=== PATIENT | male | born 1940 | race Caucasian/White ===

== ENCOUNTER 2018-07-01 03:11 | Inpatient (IN) | payer MEDICARE, BC ==
--- NOTE | 2018-07-01 03:17 | ED ---
Fall HPI - General Stated Complaint: Fall Time Seen by Provider: 07/01/18 03:11 - History of Present Illness Initial Comments: Jeremy is a pleasant 78-year-old gentleman who presents the ED via EMS as a transfer from an outside facility where he was evaluated for right hip pain. Earlier in the day on Saturday, June 30 patient was ambulating towards his exercise bike when he had a mechanical trip and fall onto his right hip. He did not strike his head or lose consciousness. He has felt immediate pain in his right hip and was unable to stand or bear weight. He was taken to an outside facility where computed tomography scan of the head and neck were negative for acute injuries, x-ray of the right hip and pelvis revealed a non- angulated nondisplaced subcapital femur fracture. The outside facility did not have orthopedics available and patient was so sclerae transferred here. - Related Data Allergies Allergy/AdvReac Type Severity Reaction Status Date / Time vancomycin Allergy Severe Rash/Hives Verified 07/01/18 03:25 Review of Systems ROS Statement: Those systems with pertinent positive or pertinent negative responses have been documented in the HPI. ROS Other: All systems not noted in ROS Statement are negative. Past Medical History Past Medical History: Coronary Artery Disease (CAD), Heart Failure, Diabetes Mellitus, Hearing Disorder / Deafness, Renal Disease, Vascular Disorder General Exam - General Exam Comments Initial Comments: Physical Exam GENERAL: Elderly gentleman, resting comfortably in no acute distress HENT: Normocephalic, Atraumatic. EYES: PERRL, EOMI PULMONARY: Unlabored respirations. No audible rales rhonchi or wheezing was noted. CARDIOVASCULAR: There is a regular rate and rhythm without any murmurs gallops or rubs. ABDOMEN: Soft and nontender with normal bowel sounds. SKIN: Skin is clear with no lesions or rashes and otherwise unremarkable. : Deferred NEUROLOGIC: Very hard of hearing Patient is alert and oriented x3 MUSCULOSKELETAL: Range of motion right hip limited by pain PSYCHIATRIC: Normal psychiatric evaluation. Limitations: no limitations Course Vital Signs 07/01/18 03:19 Temperature 97.8 F Pulse Rate 58 L Respiratory 19 Rate Blood Pressure 92/72 O2 Sat by Pulse 93 L Oximetry Medical Decision Making - Medical Decision Making Patient care was discussed with transferring physician Dr. Romero - 78-year-old male with a mechanical trip and fall resulting in subcapital femur fracture Patient hemodynamically stable the time of transfer Patient was seen and evaluated, patient no acute distress Images were uploaded, repeat labs were obtained Patient has a history of orthopedic surgery performed at an outside facility, no known orthopedic surgeries performed by our surgical team's. Patient care was discussed with orthopedics apron cleaner Dr. Abernathy who accepts the admission with a consult to medicine for medical management of multiple medical comorbidities. Patient care was discussed with Dr. Ambriz of the [facility] for medical management. Admission orders were placed. - EKG Data -: EKG Interpreted by Me EKG shows normal: sinus rhythm Rate: bradycardia EKG Comments: EKG obtained at 3:33 AM, rate is 58 rhythm is sinus bradycardia with first- degree AV and right bundle-branch block. SC is prolonged at 2:30, QRS is 150, QTC is 439. There are no acute ST elevations or depressions no evidence of acute ischemia or infarction. Disposition Clinical Impression: Fracture of hip Disposition: ADMITTED IP TO THIS HOSP Condition: Stable Referrals: None,Stated [Primary Care Provider] - 1-2 days
[2018-07-01] MEDS ORDERED: HYDROmorphone 0.5 MG/0.5 ML SYRINGE IVP PRN (03:54)
[2018-07-01] MEDS ORDERED: NALOXONE 0.4 MG/ML 1 ML VIAL IV PRN (03:54)
[2018-07-01] MEDS: SODIUM CHLORIDE 0.9% 1,000 ML IV ONE ×2 (04:04→21:31)
[2018-07-01 04:05] LABS: Basophils % (A) 0 %; Eosinophils % (A) 0 %; HCT 32.3 % (39.0-53.0); HGB 10.9 gm/dL (13.0-17.5); Lymphocytes # (A) 0.5 k/uL (1.0-4.8); Lymphocytes % (A) 5 %; MCH 32.4 pg (25.0-35.0); MCHC 33.8 g/dL (31.0-37.0); MCV 95.9 fL (80.0-100.0); Mean Platelet Volume 7.4; Monocytes # (A) 0.3 k/uL (0-1.0); Monocytes % (A) 3 %; Neutrophils # (A) 9.3 k/uL (1.3-7.7); Neutrophils % (A) 91 %; Platelet Count 216 k/uL (150-450); RBC 3.37 m/uL (4.30-5.90); RDW 15.2 % (11.5-15.5); WBC 10.2 k/uL (3.8-10.6)
[2018-07-01 04:11] LABS: INR 0.9 (<1.2); Partial Thromboplastin Time 25.3 sec (22.0-30.0); Prothrombin Time 10.1 sec (9.0-12.0)
[2018-07-01 04:15] LABS: Albumin 4.1 g/dL (3.5-5.0); Calcium 10.3 mg/dL (8.4-10.2); Total Bilirubin 0.4 mg/dL (0.2-1.3); Total Protein 6.7 g/dL (6.3-8.2)
[2018-07-01 04:21] LABS: Potassium 5.8 mmol/L (3.5-5.1)
[2018-07-01 07:14] LABS: Glucose,Whole Blood 343 mg/dL (75-99)
--- NOTE | 2018-07-01 07:14 | P.HPOR ---
History of Present Illness H&P Date: 07/01/18 Chief Complaint: Right hip pain The patient's a 78-year-old male who is a community ambulator with a walker presents after falling at home yesterday while trying to get on his exercise bike. He denied loss of consciousness. He was initially seen at an outside emergency room and was transferred for definitive care. Review of Systems Musculoskeletal: Reports as per HPI Musculoskeletal: right: hip pain Past Medical History Past Medical History: Coronary Artery Disease (CAD), Heart Failure, Diabetes Mellitus, Hearing Disorder / Deafness, Renal Disease, Vascular Disorder Additional Past Medical History / Comment(s): PVD, ICB, Drop foot, Stroke History of Any Multi-Drug Resistant Organisms: None Reported Additional Past Surgical History / Comment(s): Bilateral total knee arthroplasty , bilateral shoulder surgery Past Psychological History: No Psychological Hx Reported Smoking Status: Current every day smoker Past Alcohol Use History: None Reported Past Drug Use History: None Reported Medications and Allergies Home Medications and Allergies Comment(s): Plavix Allergies Allergy/AdvReac Type Severity Reaction Status Date / Time vancomycin Allergy Severe Rash/Hives Verified 07/01/18 03:25 Physical Examination - Fracture right hip Location of fracture: Right hip Appearance: other (Shortening and external rotation right lower extremity, pain with passive logroll) Distal extremity neurovascularly intact: Yes (Charly's negative right lower extremity) Other injury: vascular injury: no, nerve injury: no Results - Labs Labs: Abnormal Lab Results - Last 24 Hours (Table) 07/01/18 07/01/18 Range/Units 03:40 03:40 RBC 3.37 L (4.30-5.90) m/uL Hgb 10.9 L (13.0-17.5) gm/dL Hct 32.3 L (39.0-53.0) % Neutrophils # 9.3 H (1.3-7.7) k/uL Lymphocytes # 0.5 L (1.0-4.8) k/uL Sodium 135 L (137-145) mmol/L Potassium 5.8 H (3.5-5.1) mmol/L Carbon Dioxide 18 L (22-30) mmol/L BUN 57 H (9-20) mg/dL Creatinine 1.65 H (0.66-1.25) mg/dL Glucose 242 H (74-99) mg/dL Calcium 10.3 H (8.4-10.2) mg/dL Alkaline Phosphatase 129 H (38-126) U/L H & H 07/01/18 Range/Units 03:40 Hgb 10.9 L (13.0-17.5) gm/dL Hct 32.3 L (39.0-53.0) % Coagulation 07/01/18 Range/Units 03:40 INR 0.9 (<1.2) Result Diagrams: 07/01/18 03:40 07/01/18 03:40 - Diagnostic results Hip x-ray: image reviewed (Right subcapital femoral neck fracture) Hip CT: image reviewed (Right subcapital femoral neck fracture) Assessment and Plan Assessment: Acute right subcapital femoral neck fracture Peripheral vascular disease Renal disease Multiple medical comorbidities Plan: Await preoperative medical clearance/optimization Hold Plavix Plan surgery once medically optimized.
[2018-07-01] MEDS ORDERED: DEXTROSE 50%-WATER 50 ML SYRINGE IVP STA ×3 (07:22→19:55)
[2018-07-01] MEDS ORDERED: INSULIN REGULAR 100 UNIT/ML VIAL IV ONE ×3 (07:22→20:00)
--- NOTE | 2018-07-01 08:15 | XR ---
EXAMINATION TYPE: XR Hip Complete RT DATE OF EXAM: 07/01/2018 CLINICAL HISTORY: Fracture per order. TECHNIQUE: AP and crosstable lateral views of the right hip are attempted. COMPARISON: None. FINDINGS: Exam noted suboptimal due to patient's large body habitus. Crosstable lateral view is essen tially nondiagnostic. Overlying vascular calcification is present. Moderate to severe axial joint spa ce loss is noted. Suboptimal evaluation of subcapital region without obvious acute fracture. Inferior ring is maintained without step-off. No intertrochanteric or subtrochanteric cantered fracture is se en. IMPRESSION: As above. If confirmation or suspicion persists further investigation with CT would be wa rranted.
--- NOTE | 2018-07-01 08:16 | P.CONS ---
History of Present Illness - Reason for Consult Consult date: 07/01/18 medical management , acidosis , hyperkalemia Requesting physician: Charlie Cook - Chief Complaint fall at home - History of Present Illness 78-year-old male with complex past medical history multiple comorbidities. Patient was transferred to our facility from outside facility, due to acute fracture of the right hip. Patient at this point is unable to provide any meaningful history due to being very hard of hearing and confusion, patient was not available. History was obtained by reviewing his medical records. Seems like the patient has been having frequent falls over the past month, patient ambulates using a walker and seems like he was at home when he was trying to get that his exercise bike when he sustained a mechanical fall, patient denied head injury or loss of consciousness at that time patient was unable to bear weight and get up at that time EMS was notified and he was transferred to Hospital. Upon further evaluation testing he was found to have right subcapital femur fracture due to unavailability of orthopedic service patient was transferred to our hospital. Upon revision of the lab slips from the other facility, patient seems to have had metabolic derangements, with acute acidosis of mixed type respiratory and metabolic, hyperkalemia, anemia, elevated creatinine seems like an acute kidney injury. Further imaging of the other facility with CAT scan of the head did suggest ischemia the watershed area with evidence of MANAGER SPEECH shunt. Patient past medical history included history of coronary artery disease, CHF, COPD, instructed sleep apnea, hypertension, chronic kidney disease, hyperlipidemia, diabetes, right foot drop, and CVA. Upon interviewing the patient he seemed alert but confused at this time, very hard of hearing could not provide me any meaningful history. Review of Systems ROS unobtainable: due to mental status Past Medical History Past Medical History: Coronary Artery Disease (CAD), Heart Failure, Diabetes Mellitus, Hearing Disorder / Deafness, Renal Disease, Vascular Disorder Additional Past Medical History / Comment(s): PVD, ICB, Drop foot, Stroke History of Any Multi-Drug Resistant Organisms: None Reported Past Psychological History: No Psychological Hx Reported Smoking Status: Current every day smoker Past Alcohol Use History: None Reported Past Drug Use History: None Reported Medications and Allergies Home Medications and Allergies Comment(s): Home medication list could not be verified. But from the transfer paper from the other facility seems like he was on Plavix, oral hypoglycemic agents for diabetes, amiodarone, Norvasc, Lopressor, Vasotec. These medications need to be verified Allergies Allergy/AdvReac Type Severity Reaction Status Date / Time vancomycin Allergy Severe Rash/Hives Verified 07/01/18 07:39 Physical Exam Vitals: Vital Signs Temp Pulse Pulse Resp BP BP Pulse Ox 07/01/18 06:25 97.7 F 63 16 100/60 94 L 07/01/18 05:55 98.1 F 58 L 19 129/61 94 L 07/01/18 05:10 102/63 07/01/18 05:00 116/59 97 07/01/18 04:40 116/59 96 07/01/18 04:10 97 07/01/18 03:50 93/79 96 07/01/18 03:24 58 L 95 07/01/18 03:20 97/72 97 07/01/18 03:19 97.8 F 58 L 19 92/72 93 L Intake and Output 06/30/18 06/30/18 07/01/18 14:59 22:59 06:59 Other: Weight 110.223 kg Constitutional: No acute distress, patient is alert but confused, very hard of hearing, morbidly obese Eyes: Anicteric sclerae, moist conjunctiva, no lid-lag Pupils equal round reactive to light ENMT: NC/AT Oropharynx clear, no erythema, exudates Neck: Supple, FROM, no masses, or JVD No carotid bruits No thyromegaly Lungs: Distant breath sounds, clear to auscultation no wheezing rhonchi or rales increase AP diameter of chest Clear to percussion Normal respiratory effort, no accessory muscle use Cardiovascular: Heart distant heart sounds regular rate and rhythm No murmurs, gallops, or rubs No peripheral edema Abdominal: Soft Nontender, no guarding, rebound or rigidity Abdomen moving with respiration Normoactive bowel sounds No hepatomegaly, No splenomegaly No palpable mass No abdominal wall hernia noted Skin: Normal temperature, tone, texture, turgor No induration No subcutaneous nodules No rash, lesions No ulcers Extremities: No digital cyanosis Clubbing of bilateral fingers Pedal pulses weak and symmetrical Radial pulses intact and symmetrical No calf tenderness Psychiatric: Alert but confused and disoriented to place and time Neuro Muscles Strength 4/5 in bilateral upper extremities, patient was moving bilateral toes however he could not cooperate with instructions for examination of the lower extremity strength Sensation to light touch grossly present throughout Cranial nerves II-XII grossly intact (except for cranial nerve VIII due to very hard of hearing) No focal sensory deficits Lymphatics: no palpable cervical or supraclavicular , or inguinal lymph nodes Results CBC & Chem 7: 07/01/18 03:40 07/01/18 03:40 Labs: Abnormal Lab Results - Last 24 Hours (Table) 07/01/18 07/01/18 Range/Units 03:40 03:40 RBC 3.37 L (4.30-5.90) m/uL Hgb 10.9 L (13.0-17.5) gm/dL Hct 32.3 L (39.0-53.0) % Neutrophils # 9.3 H (1.3-7.7) k/uL Lymphocytes # 0.5 L (1.0-4.8) k/uL Sodium 135 L (137-145) mmol/L Potassium 5.8 H (3.5-5.1) mmol/L Carbon Dioxide 18 L (22-30) mmol/L BUN 57 H (9-20) mg/dL Creatinine 1.65 H (0.66-1.25) mg/dL Glucose 242 H (74-99) mg/dL Calcium 10.3 H (8.4-10.2) mg/dL Alkaline Phosphatase 129 H (38-126) U/L Assessment and Plan Assessment: 78 year old male with complex multiple comorbidities, admitted as inpatient under orthopedic due to acute right hip fracture. medicine consulted to assist in medical management patient seems to have acute hypercapnic respiratory acidosis, pending repeat labs at our facility, acute renal failure. no previous records available for the patient. patient also has history of frequent falls at home, CT from other facility suggested ischemia at water shed area. will check MRI here to evaluate for any ischemia,. metabolic derrangement due to acute mixed respiratory and metabolic acidosis , pending repeat labs. Patient seems to be on plavix at home, this will need to be held prior to any planned surgery, along with correcting his metabolic abnormalities. patient is a moderate to high risk for perioperative cardiovascular complications based on his medical history and comorbidities. patient needs more optimization along with correction of his metabolic abnormalities prior to any surgery . Plan: Acute acidosis mixed type respiratory and metabolic Patient has history of COPD, currently from the lab slip from the other facility showed acute hypercapnic respiratory failure Acute metabolic encephalopathy Repeat ABG, uncompensated acidosis is confirmed patient will need to be transferred to [facility] for close monitoring Breathing treatments when necessary Fall precautions Seizure precautions Acute renal failure, ? CKD Avoid nephrotoxic meds Monitor urine output IV fluid hydration gentle due to possible prior history of CHF unknown left ventricular function Electrolyte imbalance Hyperkalemia and hyponatremia Patient will be given a dose of IV insulin and D50 rectus hyperkalemia, recheck in 4 hours EKG showed sinus bradycardia, first-degree AV block and right bundle branch block no prior EKGs available History of coronary artery disease and CHF unknown left ventricular function Check limited echo to evaluate LVEF No prior records available Hold Plavix secondary to possible surgery Acute subcapital fracture of the right femur Management per orthopedics Anemia probably chronic secondary to some degree of underlying CK D Continue to monitor closely Monitor for any evidence of GI bleeding DVT prophylaxis heparin subcu 3 times a day History of CVA Computed tomography scan showed possible evidence of ischemia and watershed area Report of patient frequent falling over the past month, check MRI of the brain Diabetes mellitus On oral hypoglycemic agents currently on hold Insulin sliding scale Patient home medication list need to be verified Patient past medical history needs to be verified Awaiting for the arrival with medication list and to obtain further history Prognosis is guarded Patient seems to be at moderate to high risk for perioperative cardiac risk for consultation based on his comorbidities and current status, we'll attempt to optimize his metabolic abnormalities prior to any surgery, Plavix need to be held. Further recommendations pending further reevaluation of follow-up labs and interview with the family for further history. Thank you for allowing us to participate in the care of this patient. Do not hesitate to contact us with questions. Someone can be reached from the [facility] hospitalist group at all hours of the day at [phone]. This patient care was signed out to Dr. Herring
[2018-07-01] MEDS ORDERED: METOPROLOL TARTRATE 25 MG TAB PO SCH ×2 (09:00→21:00)
[2018-07-01] MEDS: INSULIN ASPART 100 UNIT/ML 1 ML 10 ML VIAL SQ SCH ×4 (09:29→21:32)
--- NOTE | 2018-07-01 11:02 | ECHOF ---
Referral Reason:history of CHF, abnormal EKG MEASUREMENTS -------- HEIGHT: 182.9 cm WEIGHT: 110.2 kg BP: IVSd: 1.3 cm (0.6 - 1.1) LVIDd: 3.6 cm (3.9 - 5.3) LVPWd: 1.3 cm (0.6 - 1.1) IVSs: 1.8 cm LVIDs: 1.9 cm LVPWs: 1.3 cm Ao Diam: 3.2 cm (2.0 - 3.7) AV Cusp: 1.7 cm (1.5 - 2.6) LA Diam: 3.1 cm (2.7 - 3.8) MV EXCURSION: 12.777 mm (> 18.000) MV EF SLOPE: 37 mm/s (70 - 150) EPSS: 2.0 cm MV E Hernandez: 0.70 m/s MV DecT: 371 ms MV A Hernandez: 1.15 m/s MV E/A Ratio: 0.60 RAP: 5.00 mmHg RVSP: 9.42 mmHg FINDINGS -------- Resting bradycardia (HR<60bpm). This was a technically difficult study with suboptimal views. Pt. has a pectus chest. The left ventricular size is normal. There is mild concentric left ventricular hypertrophy. Overa ll left ventricular systolic function is normal with, an EF between 55 - 60 %. The right ventricle is normal in size and function. The left atrium is normal in size. The right atrium is normal in size. Lumason used The aortic valve is trileaflet and appears structurally normal. Mild mitral regurgitation is present. Mild tricuspid regurgitation present. The right ventricular systolic pressure, as measured by Doppl er, is 9.42mmHg. Pulmonic valve appears structurally normal. The aortic root size is normal. IVC Not well visulized. The pericardium is normal. CONCLUSIONS -------- 1. Resting bradycardia (HR<60bpm). 2. This was a technically difficult study with suboptimal views. 3. Pt. has a pectus chest. 4. The left ventricular size is normal. 5. There is mild concentric left ventricular hypertrophy. 6. Overall left ventricular systolic function is normal with, an EF between 55 - 60 %. 7. The right ventricle is normal in size and function. 8. The left atrium is normal in size. 9. The right atrium is normal in size. 10. Lumason used 11. The aortic valve is trileaflet and appears structurally normal. 12. Mild mitral regurgitation is present. 13. Mild tricuspid regurgitation present. 14. The right ventricular systolic pressure, as measured by Doppler, is 9.42mmHg. 15. Pulmonic valve appears structurally normal. 16. The aortic root size is normal. 17. IVC Not well visulized. 18. The pericardium is normal. CHIEF SUBSTATION OPERATOR: Teresita Spaulding RDCS
--- NOTE | 2018-07-01 11:11 | P.PN ---
Progress Note - Text Progress Note Date: 07/01/18 78-year-old male with PMH of COPD, heart failure, diabetes mellitus, depression , hyperlipidemia and atrial fibrillation presents the ED after mechanical fall. He is transferred after a possible subcapital fracture of the right femur, seen on CT at outside hospital. Patient has no complaints this morning. He denies any pain. He denies any chest pain, shortness of breath or palpitations. Wanting to go home. Family at bedside. Initially there was some concern about altered mentation. MRI brain was ordered due to the findings on CT brain. 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 Family reports that the patient is back to baseline at this time with no altered mentation. Family also reports that he received 2 narcotic injections prior to his ambulance ride which might have led to his somnolence. Patient is laying in bed in no acute distress. His head is atraumatic and normocephalic. His heart rate is bradycardic with normal S1-S2. His lungs are clear to auscultation bilaterally. There is no peripheral edema. 2 + DP pulses bilaterally. Assessment and Plan 1. Acute subcapital fracture R femur: Hip XR shows no obvious fracture. Pain management with [place] 10 1 tab PO Q4H PRN for pain 1-5, Dilaudid 0.5 mg IV Q3H PRN for Pain 6-10. Will follow Orthopedic recommendations. 2. Acidosis: Respiratory and Metabolic mixed picture (pH 7.05, Co2 70, HCO3 18 SaO2 of 67%). Patient has a h/o COPD and uses Lasix. FU repeat ABG 3. Acute encephalopathy: Resolved. Family at bedside, states patient is at baseline. CT C-spine from OSH shows DJD, moderate cervical stenosis, corpectomy at C5 with bone graft. CT brain from OSH shows no acute hemorrhage, old L frontal infact, possible watershed ischemia and COT ASSEMBLER shunt. Recent MRI < 1 month prior without acute findings. No history of falls or head trauma. Will DC MRI brain. 4. Hyperkalemia: K 5.8 on admission, given 10 units of insulin. FU BMP at 12PM 5. JOSE: BUN 57 Cr 1.65 GFR 40. On possible CKD. Continue NS at 50 cc/h. Encourage PO hydration. Avoid nephrotoxins. ULytes and kidney US if not improved. FU BMP at 12PM 6. COPD: Stable. Albuterol 2.5 mg neb BID PRN for SOB/wheezing. O2 per NC to maintain O2 sat > 92%. 7. h/o CAD: Holding ASA 325 mg PO QD, Plavix 75 mg PO QD pending Orthopedic Sx plans. Continue Metoprolol 25 mg PO BID. Holding Enalapril due to JOSE. FU Echocardiogram, Cardiology consult 8. A-Fib: Stable. Continue Amiodarone 100 mg PO QD, Metoprolol 25 mg PO BID. Keep K > 4 and Mg > 2. Telemetry monitoring. FU Cardiology 9. Diabetes Mellitus: POC glucose 343. ISS. Regular accuchecks. Hypoglycemic precautions. 10. Hypertension: BP 170/73. Continue Metoprolol and Amlodipine 4 mg PO QD. Monitor vitals, adjust medications as necessary. 11. Depression: Stable. Continue Paroxetine 20 mg PO BID. 12. Hyperlipidemia: Continue home medication Fenofibrate 160 mg PO BID. 13. DVT/GI Prophylaxis: SCD boots only. Patient with metabolic derangements on admission. ABG is pending. As per family at bedside, his mentation is at baseline. Echocardiogram and Cardiology evaluation pending. Needs clearance for possible surgical intervention as per Orthopedic Sx.
[2018-07-01 12:04] LABS: Glucose,Whole Blood 365 mg/dL (75-99)
--- NOTE | 2018-07-01 12:27 | CDI ---
Documentation Clarification Form Date: 07/01/2018 12:16:04 PM From: Emma Forde CCS, CCDS Admit Date: 07/01/2018 3:57:00 AM Patient Name: Jeremy Sifuentes Visit Number: [id number] Discharge Date: ATTENTION: The Clinical Documentation Specialists (CDI) and [facility] Coding Staff appreciate your assistance in clarifying documentation. Please respond to the clarification below the line at the bottom and electronically sign. The CDI & [facility] Coding staff will review the response and follow-up if needed. Please note: Queries are made part of the Legal Health Record. If you have any questions, please contact the author of this message via ITS. Dr. Garrett Montesinos MD: CHF is documented in the ER note, History & Physical, Medical Consult & also the 07/01 progress note. History/Risk Factors: CAD, CHF, CKD, Diabetes & Vascular disease. Clinical Indicators: Presented with right hip pain after a fall at home, found to have acute subcapital fracture of the right femur. Also has acute hypercapnic respiratory acidosis & acute renal failure. VS: P 58*, BP 92/72*, PO 93 2Lnc Echocardiogram Results 07/01: Resting bradycardia, EF 55-60%, mild concentric LVH , systolic wnl, Mild MR, Mild TR. Treatment: Home po Lasix 20 mg, continued. IV fluid rate 50, IV Dilaudid, IV Narcan, IV Dextrose/Water, IV Insulin 10 units, Albuterol INH. In your professional opinion, can you please clarify the acuity and type of CHF if known? Systolic Heart Failure: o Acute o Chronic o Acute on Chronic Diastolic Heart Failure: o Acute o Chronic o Acute on Chronic Systolic & Diastolic Heart Failure: o Acute o Chronic o Acute on Chronic Heart Failure Unable to Determine Other, please specify (Last Revision: September 2017) MTDD
[2018-07-01 12:42] LABS: Calcium 10.1 mg/dL (8.4-10.2)
[2018-07-01 12:51] LABS: Potassium 6.2 mmol/L (3.5-5.1)
[2018-07-01] MEDS ORDERED: ALBUTEROL NEBULIZED 2.5 MG/3 ML INHALATION STA (12:58)
[2018-07-01] MEDS ORDERED: SODIUM POLYSTYRENE SULFONATE 15 GM/60 ML BOTTLE PO STA (13:01)
--- NOTE | 2018-07-01 13:15 | P.CRDCN ---
History of Present Illness History of present illness: This is a pleasant 78-year-old male past medical history significant for coronary artery disease s/p bypass grafting 2001, diastolic heart failure, hypertension, dyslipidemia, hypertension, dyslipidemia and chronic nicotine dependence. 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 He is somewhat of a poor historian and very hard of hearing. His at the bedside is giving the information. We have been asked to see him in consultation for pre-operative evaluation. He states he was walking to his stationary bike to exercise and suffered a fall. There was no loss of consciousness. He states he lost his balance falling on the right side of his body. He suffered a right subcapital femoral neck fracture. He denies having chest pain, shortness of breath, dizziness or palpitations prior to falling. He was transferred here from [facility] for orthopedic evaluation. He is seen and examined resting comfortably in bed in no acute distress. Echocardiogram obtained reveals preserved left ventricular systolic function with ejection fraction 55-60%, mild mitral regurgitation and mild tricuspid regurgitation. EKG reveals sinus bradycardia heart rate 58 with right bundle branch block pattern with inferior Q waves noted. Laboratory data reviewed, WBC 10.2, hemoglobin 10.9, platelets 216, sodium 135, potassium 5.8, creatinine 1.65. Current cardiac medications include amiodarone 100 mg daily, aspirin 325 mg daily, Plavix 75 mg daily, enalapril 10 mg twice a day, Lasix 20 mg daily, Lopressor 25 mg twice a day, and amlodipine 5 mg daily. At the time of my exam: CONSTITUTIONAL: Denies fever. Denies chills. EYES: Denies blurred vision. Denies vision changes. Denies eye pain. EARS, NOSE, MOUTH & THROAT: Denies headache. Denies sore throat. Denies ear pain. CARDIOVASCULAR: Denies chest pain. Denies shortness of breath. Denies orthopnea. Denies PND. Denies palpitations. RESPIRATORY: Denies cough. GASTROINTESTINAL: Denies abdominal pain. Denies diarrhea. Denies constipation. Denies nausea. Denies vomiting. MUSCULOSKELETAL: Denies myalgias. INTEGUMENTARY: Denies pruitis. Denies rash. NEUROLOGIC: Denies numbness. Denies tingling. Denies weakness. PSYCHIATRIC: Denies anxiety. Denies depression. ENDOCRINE: Denies fatigue. Denies weight change. Denies polydipsia. Denies polyurina. GENITOURINARY: Denies burning, hematuria or urgency with micturation. HEMATOLOGIC: Denies history of anemia. Denies bleeding. Blood pressure 170/73 heart rate 54 afebrile maintaining oxygen saturation on room air GENERAL: This is a 78-year-old male in no apparent distress at the time of my examination. HEENT: Head is atraumatic, normocephalic. Pupils are equal, round. Sclerae anicteric. Conjunctivae are clear. Mucous membranes of the mouth are moist. Neck is supple. There is no jugular venous distention. No carotid bruit is heard. LUNGS: Clear to auscultation no wheezes, rales or rhonchi. No chest wall tenderness is noted on palpation or with deep breathing. HEART: Regular rate and rhythm with short systolic murmur at the left sternal border, no rubs or gallops. S1 and S2 heard. ABDOMEN: Soft, nontender. Bowel sounds are heard. No organomegaly noted. EXTREMITIES: No evidence of peripheral edema and no calf tenderness noted. VASCULAR: Radial and dorsalis pedis pulses palpated, no evidence of clubbing. NEUROLOGIC: Patient is awake, alert and oriented x3. ASSESSMENT Mechanical fall suffering right hip fracture Hyperkalemia Hypertension Diabetes mellitus History of coronary artery disease s/p bypass grafting, exact details unclear at this time COPD History of chronic heart failure, preserved LV systolic function on echo, appears to be chronic diastolic dysfunction. Currently euvolemic. Chronic nicotine dependence PLAN Echocardiogram has been obtained and reviewed. Request records from his primary bowl sander for review. Decrease lopressor to 12.5 mg daily. Discontinue amiodarone and Plavix. Last dose of Plavix was yesterday, optimal clearance from the body is 5 days. No symptoms of angina or acute fluid overload. He is a moderate to high risk surgical candidate secondary to his multiple comorbidities. Cautious fluid administration is recommended as well as optimal blood pressure control intra-operatively. Avoid beta ramin use if any bradycardia is documented. No acute contraindications at this time. Thank you kindly for this consultation. Nurse Practitioner note has been reviewed, I agree with a documented findings and plan of care. Patient was seen and examined. 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, weakness, falls, PVD, pt has cerebral stent per spouse, 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, hypoglycemia, NIDDM type II, past neuropathy bilateral feet which spouse states no longer a problem s/t OTC medications, past bilateral esparza cellulitis, R foot toes with scabs, R elbow bursitis, bradycardia, RBBB, History of Any Multi-Drug Resistant Organisms: None Reported Past Surgical History: Appendectomy, Cholecystectomy Additional Past Surgical History / Comment(s): 2001 CABG- spouse thinks 2 vessel done at [facility] in [place], post op infection resulting in sternotomy , cerebral shunt and stent, bilateral total knee arthroplasty- one side done twice, bilateral total shoulder surgery, colonoscopies Past Anesthesia/Blood Transfusion Reactions: No Reported Reaction Additional Past Anesthesia/Blood Transfusion Reaction / Comment(s): Pt has received blood in past without reaction-spouse believes it was with CABG surgery. Smoking Status: Current every day smoker - Past Family History Father Family Medical History: Cancer Additional Family Medical History / Comment(s): Father at the age of 58yrs from stomach cancer. Mother Family Medical History: No Reported History Medications and Allergies Home Medications Medication Instructions Recorded Confirmed Type Albuterol Nebulized [Ventolin 2.5 mg INHALATION RT-BID 07/01/18 07/01/18 History Nebulized] Amiodarone [Cordarone] 100 mg PO DAILY 07/01/18 07/01/18 History Aspirin EC [Ecotrin] 325 mg PO DAILY 07/01/18 07/01/18 History Cholecalciferol [Vitamin D3] 3,000 unit PO DAILY 07/01/18 07/01/18 History Clopidogrel [Plavix] 75 mg PO DAILY 07/01/18 07/01/18 History Cyanocobalamin (Vitamin B-12) 1,000 mcg PO DAILY 07/01/18 07/01/18 History [Vitamin B-12] Enalapril [Vasotec] 10 mg PO BID 07/01/18 07/01/18 History Folic Acid 1 mg PO DAILY 07/01/18 07/01/18 History Furosemide [Lasix] 20 mg PO DAILY 07/01/18 07/01/18 History Gemfibrozil [Lopid] 600 mg PO AC-BID 07/01/18 07/01/18 History Glimepiride [Amaryl] 4 mg PO BID 07/01/18 07/01/18 History Metoprolol Tartrate [Lopressor] 25 mg PO BID 07/01/18 07/01/18 History [place]-3 Fatty Acids [[place]sor-3] 1,000 mg PO DAILY 07/01/18 07/01/18 History PARoxetine [Paxil] 20 mg PO BID 07/01/18 07/01/18 History Pioglitazone [Actos] 45 mg PO DAILY 07/01/18 07/01/18 History Potassium Gluconate 99 mg PO DAILY 07/01/18 07/01/18 History Pyridoxine HCl (Vitamin B6) 200 mg PO DAILY 07/01/18 07/01/18 History [Vitamin B-6] amLODIPine [Norvasc] 5 mg PO DAILY 07/01/18 07/01/18 History metFORMIN HCL 1,000 mg PO BID 07/01/18 07/01/18 History Allergies Allergy/AdvReac Type Severity Reaction Status Date / Time vancomycin AdvReac Severe Rash/Hives Verified 07/01/18 09:20 doxycycline [From Vibramycin] AdvReac Unknown Verified 07/01/18 09:20 Physical Exam Vitals: Vital Signs Temp Pulse Pulse Resp BP BP Pulse Ox 07/01/18 09:26 54 L 18 170/73 97 07/01/18 06:25 97.7 F 63 16 100/60 94 L 07/01/18 05:55 98.1 F 58 L 19 129/61 94 L 07/01/18 05:10 102/63 07/01/18 05:00 116/59 97 07/01/18 04:40 116/59 96 07/01/18 04:10 97 07/01/18 03:50 93/79 96 07/01/18 03:24 58 L 95 07/01/18 03:20 97/72 97 07/01/18 03:19 97.8 F 58 L 19 92/72 93 L Intake and Output 06/30/18 07/01/18 07/01/18 22:59 06:59 14:59 Output Total 300 Balance -300 Output: Urine 300 Other: Weight 110.223 kg Results 07/01/18 03:40 07/01/18 12:06 Cardiac Enzymes 07/01/18 Range/Units 03:40 AST 27 (17-59) U/L Coagulation 07/01/18 Range/Units 03:40 PT 10.1 (9.0-12.0) sec APTT 25.3 (22.0-30.0) sec CBC 07/01/18 Range/Units 03:40 WBC 10.2 (3.8-10.6) k/uL RBC 3.37 L (4.30-5.90) m/uL Hgb 10.9 L (13.0-17.5) gm/dL Hct 32.3 L (39.0-53.0) % Plt Count 216 (150-450) k/uL Comprehensive Metabolic Panel 07/01/18 Range/Units 03:40 Sodium 135 L (137-145) mmol/L Potassium 5.8 H (3.5-5.1) mmol/L Chloride 104 (98-107) mmol/L Carbon Dioxide 18 L (22-30) mmol/L BUN 57 H (9-20) mg/dL Creatinine 1.65 H (0.66-1.25) mg/dL Glucose 242 H (74-99) mg/dL Calcium 10.3 H (8.4-10.2) mg/dL AST 27 (17-59) U/L ALT 29 (21-72) U/L Alkaline Phosphatase 129 H (38-126) U/L Total Protein 6.7 (6.3-8.2) g/dL Albumin 4.1 (3.5-5.0) g/dL Current Medications Generic Name Dose Route Start Last Admin Trade Name Freq PRN Reason Stop Dose Admin Hydrocodone Bitart/Acetaminophen 1 each 07/01/18 10:11 [place] 10 PO Q6H PRN Pain 1-5 Albuterol Sulfate 2.5 mg 07/01/18 20:00 Ventolin Nebulized INHALATION RT-BID MARLINE Albuterol/Ipratropium 3 ml 07/01/18 08:16 Duoneb 0.5 Mg-3 Mg/3 Ml Soln INHALATION RT-QID PRN Shortness Of Breath Or Wheezing Amiodarone HCl 100 mg 07/02/18 09:00 Cordarone PO DAILY [facility] Amlodipine Besylate 5 mg 07/02/18 09:00 Norvasc PO DAILY MARLINE Fenofibrate 160 mg 07/01/18 17:30 Lofibra PO AC-BID MARLINE Furosemide 20 mg 07/02/18 09:00 Lasix PO DAILY [facility] Hydromorphone HCl 0.5 mg 07/01/18 10:11 Dilaudid IVP Q3HR PRN pain 6-10 Sodium Chloride 1,000 mls @ 50 mls/hr 07/01/18 03:17 07/01/18 04:04 Saline 0.9% IV 07/01/18 23:16 50 mls/hr .Q20H ONE Administration Insulin Aspart 0 unit 07/01/18 07:30 07/01/18 09:29 Novolog SQ 6 unit ACHS MARLINE Administration Protocol Metoprolol Tartrate 25 mg 07/01/18 09:00 07/01/18 09:33 Lopressor PO Not Given BID MARLINE Naloxone HCl 0.2 mg 07/01/18 03:54 Narcan IV Q2M PRN Opioid Reversal Paroxetine HCl 20 mg 07/01/18 21:00 Paxil PO BID [facility] Intake and Output 06/30/18 07/01/18 07/01/18 22:59 06:59 14:59 Output Total 300 Balance -300 Output: Urine 300 Other: Weight 110.223 kg 07/01/18 03:40 07/01/18 03:40
[2018-07-01] MEDS: IPRATROPIUM-ALBUTEROL 3 ML NEB INHALATION PRN (16:19)
[2018-07-01 17:13] LABS: Glucose,Whole Blood 217 mg/dL (75-99)
[2018-07-01 18:04] LABS: ABG Base Excess -10.5 mmol/L; ABG HCO3 15 mmol/L (21-25); ABG PCO2 27 mmHg (35-45); ABG PH 7.36 (7.35-7.45); ABG PO2 76 mmHg (83-108); ABG TCO2 16 mmol/L (19-24)
[2018-07-01] MEDS: FENOFIBRATE 160 MG TAB PO SCH (18:09)
[2018-07-01 18:37] LABS: Calcium 10.1 mg/dL (8.4-10.2); Potassium 5.7 mmol/L (3.5-5.1)
[2018-07-01 20:22] LABS: Glucose,Whole Blood 161 mg/dL (75-99)
[2018-07-01] MEDS: ALBUTEROL NEBULIZED 2.5 MG/3 ML INHALATION SCH (20:59)
[2018-07-01 21:19] LABS: Glucose,Whole Blood 151 mg/dL (75-99)
[2018-07-01] MEDS: PARoxetine 20 MG TAB PO SCH (21:32)
[2018-07-01] MEDS: HYDROcodone/APAP 10-325MG 1 EACH TAB PO PRN (21:35)
[2018-07-02] MEDS: HEPARIN SODIUM,PORCINE 5,000 UNIT/ML 1 ML VIAL SQ SCH ×2 (00:32→11:36)
[2018-07-02 01:06] LABS: Calcium 9.6 mg/dL (8.4-10.2); Potassium 4.9 mmol/L (3.5-5.1)
[2018-07-02 07:31] LABS: Glucose,Whole Blood 178 mg/dL (75-99)
[2018-07-02] MEDS: ALBUTEROL NEBULIZED 2.5 MG/3 ML INHALATION SCH ×2 (07:33→20:34)
[2018-07-02] MEDS: FENOFIBRATE 160 MG TAB PO SCH ×2 (07:54→17:40)
[2018-07-02] MEDS: HYDROcodone/APAP 10-325MG 1 EACH TAB PO PRN ×3 (07:55→21:33)
[2018-07-02] MEDS: FUROSEMIDE 20 MG TAB PO SCH (07:55)
[2018-07-02] MEDS: PARoxetine 20 MG TAB PO SCH ×2 (07:55→21:33)
[2018-07-02] MEDS: METOPROLOL TARTRATE 12.5 MG TAB PO SCH (07:55)
[2018-07-02] MEDS: amLODIPine 5 MG TAB PO SCH (07:55)
[2018-07-02] MEDS: INSULIN ASPART 100 UNIT/ML 1 ML 10 ML VIAL SQ SCH ×4 (07:56→21:33)
[2018-07-02] MEDS ORDERED: AMIODARONE 100 MG TAB PO SCH (09:00)
--- NOTE | 2018-07-02 11:04 | P.PN ---
Progress Note - Text Progress Note Date: 07/02/18 Patient evaluated today at bedside, he is resting comfortably. Patient has been cleared by cardiology surgery. Planning for right hip hemiarthroplasty on 07/03/2018. Hold anticoagulation at this time, nothing by mouth after midnight.
--- NOTE | 2018-07-02 11:43 | P.PN ---
Subjective Progress Note Date: 07/02/18 Principal diagnosis: Subcapital right femoral fracture Patient seen and examined. No acute events overnight. Patient reports well controlled right hip pain. As per nurse reports, patient waxes and wanes, pulled out IV line this morning. He denies any chest pain, shortness of breath or palpitations. Cleared by cardiology for surgery. OR booked tomorrow a.m. Objective - Vital Signs Vital signs: Vital Signs Temp 98.8 F 07/02/18 07:00 Pulse 84 07/02/18 07:43 Resp 16 07/02/18 07:00 BP 156/69 07/02/18 07:00 Pulse Ox 95 07/02/18 07:00 Intake & Output 07/01/18 07/02/18 07/02/18 18:59 06:59 18:59 Intake Total 296 800 Output Total 300 400 Balance -4 400 Intake: Intake, IV Titration 800 Amount Sodium Chloride 0.9% 1, 800 000 ml @ 50 mls/hr IV . Q20H ONE Rx#:[id number] Oral 296 Output: Urine 300 400 Other: Voiding Method Urinal # Voids 1 - Exam General: [non toxic], [no distress], [appears at stated age] Derm: [warm], [dry] Head: [atraumatic], [normocephalic], [symmetric] Eyes: [EOMI], [no lid lag], [anicteric sclera] Mouth: [no lip lesion], [mucus membranes moist] Cardiovascular: [S1S2 reg], [no murmur], [positive DP pulse bilateral] Lungs: [CTA bilateral], [no rhonchi, no rales] , [no accessory muscle use] Abdominal: [soft], [ nontender to palpation], [no guarding], [no appreciable organomegaly] Ext: [no gross muscle atrophy], [no edema], [no contractures] Neuro: [Right lower extremity diminished strength due to pain, sensation intact bilateral lower extremities] Psych: [Alert], [oriented], [appropriate affect] - Labs CBC & Chem 7: 07/01/18 03:40 07/02/18 00:12 Labs: Abnormal Lab Results - Last 24 Hours (Table) 07/01/18 07/01/18 07/01/18 Range/Units 12:03 12:06 17:12 ABG pCO2 (35-45) mmHg ABG pO2 (83-108) mmHg ABG HCO3 (21-25) mmol/L ABG Total CO2 (19-24) mmol/L Sodium (137-145) mmol/L Potassium 6.2 H* (3.5-5.1) mmol/L Carbon Dioxide 16 L (22-30) mmol/L BUN 55 H (9-20) mg/dL Creatinine 1.53 H (0.66-1.25) mg/dL Glucose 331 H (74-99) mg/dL POC Glucose (mg/dL) 365 H 217 H (75-99) mg/dL 07/01/18 07/01/18 07/01/18 Range/Units 17:18 18:00 20:21 ABG pCO2 27 L (35-45) mmHg ABG pO2 76 L (83-108) mmHg ABG HCO3 15 L (21-25) mmol/L ABG Total CO2 16 L (19-24) mmol/L Sodium 135 L (137-145) mmol/L Potassium 5.7 H (3.5-5.1) mmol/L Carbon Dioxide 16 L (22-30) mmol/L BUN 57 H (9-20) mg/dL Creatinine 1.44 H (0.66-1.25) mg/dL Glucose 207 H (74-99) mg/dL POC Glucose (mg/dL) 161 H (75-99) mg/dL 07/01/18 07/02/18 07/02/18 Range/Units 21:18 00:12 07:22 ABG pCO2 (35-45) mmHg ABG pO2 (83-108) mmHg ABG HCO3 (21-25) mmol/L ABG Total CO2 (19-24) mmol/L Sodium 133 L (137-145) mmol/L Potassium (3.5-5.1) mmol/L Carbon Dioxide 14 L (22-30) mmol/L BUN 56 H (9-20) mg/dL Creatinine 1.38 H (0.66-1.25) mg/dL Glucose (74-99) mg/dL POC Glucose (mg/dL) 151 H 178 H (75-99) mg/dL Assessment and Plan Assessment: Assessment and Plan 1. Acute subcapital fracture R femur: Hip XR shows no obvious fracture. Pain management with [place] 10 1 tab PO Q4H PRN for pain 1-5, Dilaudid 0.5 mg IV Q3H PRN for Pain 6-10. Plans for OR tomorrow, nothing by mouth after midnight. Will follow Orthopedic recommendations. 2. Metabolic derangement: Respiratory alkalosis with metabolic acidosis. Patient has a h/o COPD and uses Lasix. Partially due to compensation, use of ACEi and IVF infusion. Daily BMP. 3. Acute encephalopathy: Resolved. Family at bedside, states patient is at baseline. CT C-spine from OSH shows DJD, moderate cervical stenosis, corpectomy at C5 with bone graft. CT brain from OSH shows no acute hemorrhage, old L frontal infact, possible watershed ischemia and COP[employer]ITER shunt. Recent MRI < 1 month prior without acute findings. No history of falls or head trauma. Will DC MRI brain. 5. JOSE: BUN 57 to 56 Cr 1.65 to 1.38 GFR 40 to 49. On possible CKD. Continue NS at 50 cc/h. Encourage PO hydration. Avoid nephrotoxins. ULytes and kidney US if not improved. Daily BMP. 6. COPD: Stable. Albuterol 2.5 mg neb BID PRN for SOB/wheezing. O2 per NC to maintain O2 sat > 92%. 7. h/o CAD: Holding ASA 325 mg PO QD, Plavix 75 mg PO QD pending Orthopedic Sx plans. Decreased Metoprolol to 12.5 mg PO BID. Holding Enalapril due to JOSE. Echo shows EF of 55-60% with mild LVH. Cardiology consulted, cleared for surgery. 8. A-Fib: Stable. Discontinue Amiodarone 100 mg PO QD. Decrease Metoprolol to 12.5 mg PO BID. Keep K > 4 and Mg > 2. Telemetry monitoring. FU Cardiology 9. Diabetes Mellitus: POC glucose 178. ISS. Regular accuchecks. Hypoglycemic precautions. 10. Hypertension: BP 156/69. Continue Metoprolol and Amlodipine 5 mg PO QD. Monitor vitals, adjust medications as necessary. 11. Depression: Stable. Continue Paroxetine 20 mg PO BID. 12. Hyperlipidemia: Continue home medication Fenofibrate 160 mg PO BID. 13. DVT/GI Prophylaxis: SCD boots only. Resolved; Hyperkalemia Patient cleared for surgery from cardiology standpoint. Scheduled for OR tomorrow.
[2018-07-02 11:53] LABS: Glucose,Whole Blood 236 mg/dL (75-99)
[2018-07-02 17:06] LABS: Glucose,Whole Blood 185 mg/dL (75-99)
[2018-07-02 20:02] LABS: Glucose,Whole Blood 164 mg/dL (75-99)
[2018-07-03] MEDS: HYDROmorphone 0.5 MG/0.5 ML SYRINGE IVP PRN ×3 (03:16→12:00)
[2018-07-03 07:36] LABS: Glucose,Whole Blood 217 mg/dL (75-99)
[2018-07-03] MEDS: ALBUTEROL NEBULIZED 2.5 MG/3 ML INHALATION SCH ×2 (07:47→20:34)
[2018-07-03 08:03] LABS: HCT 31.6 % (39.0-53.0); HGB 10.5 gm/dL (13.0-17.5); MCH 32.1 pg (25.0-35.0); MCHC 33.3 g/dL (31.0-37.0); MCV 96.4 fL (80.0-100.0); Mean Platelet Volume 7.6; Platelet Count 169 k/uL (150-450); RBC 3.28 m/uL (4.30-5.90); RDW 15.1 % (11.5-15.5); WBC 5.2 k/uL (3.8-10.6)
[2018-07-03 08:04] LABS: Albumin 3.4 g/dL (3.5-5.0); Calcium 9.8 mg/dL (8.4-10.2); Potassium 4.4 mmol/L (3.5-5.1); Total Bilirubin 0.5 mg/dL (0.2-1.3); Total Protein 5.9 g/dL (6.3-8.2)
[2018-07-03 08:09] LABS: Prothrombin Time 11.1 sec (9.0-12.0)
[2018-07-03] MEDS: INSULIN ASPART 100 UNIT/ML 1 ML 10 ML VIAL SQ SCH ×4 (08:57→21:05)
[2018-07-03] MEDS: amLODIPine 5 MG TAB PO SCH (09:10)
[2018-07-03] MEDS: FUROSEMIDE 20 MG TAB PO SCH (09:10)
[2018-07-03] MEDS: FENOFIBRATE 160 MG TAB PO SCH ×2 (09:10→17:52)
[2018-07-03] MEDS: PARoxetine 20 MG TAB PO SCH ×2 (09:10→21:06)
[2018-07-03] MEDS: METOPROLOL TARTRATE 12.5 MG TAB PO SCH (09:10)
[2018-07-03 12:00] LABS: Glucose,Whole Blood 233 mg/dL (75-99)
--- NOTE | 2018-07-03 12:28 | P.PN ---
Subjective Progress Note Date: 07/03/18 Principal diagnosis: right hip fracture Patient was seen and examined. No acute events overnight. Patient reports right hip pain, 7 out of 10 in severity. Patient states his difficulties positioning responded comfortably. He denies any chest pain, shortness of breath or palpitations. Objective - Vital Signs Vital signs: Vital Signs Temp 97.7 F 07/03/18 09:10 Pulse 93 07/03/18 09:10 Resp 18 07/03/18 09:10 BP 112/59 07/03/18 09:10 Pulse Ox 93 L 07/03/18 09:10 Intake & Output 07/02/18 07/03/18 07/03/18 18:59 06:59 18:59 Intake Total 400 Balance 400 Intake: Intake, IV Titration 400 Amount Sodium Chloride 0.9% 1, 400 000 ml @ 50 mls/hr IV . Q20H ONE Rx#:[id number] Other: Voiding Method Incontinent Incontinent # Voids 1 1 - Exam General: [non toxic], [no distress], [appears at stated age] Derm: [warm], [dry] Head: [atraumatic], [normocephalic], [symmetric] Eyes: [EOMI], [no lid lag], [anicteric sclera] Mouth: [no lip lesion], [mucus membranes moist] Cardiovascular: [S1S2 reg], [no murmur], [positive DP pulse bilateral] Lungs: [CTA bilateral], [no rhonchi, no rales] , [no accessory muscle use] Abdominal: [soft], [ nontender to palpation], [no guarding], [no appreciable organomegaly] Ext: [no gross muscle atrophy], [no edema], [no contractures] Neuro: [Right lower extremity diminished strength due to pain, sensation intact bilateral lower extremities] Psych: [Alert], [oriented], [appropriate affect] - Labs CBC & Chem 7: 07/03/18 07:22 07/03/18 07:22 Labs: Abnormal Lab Results - Last 24 Hours (Table) 07/02/18 07/02/18 07/03/18 Range/Units 17:05 20:00 07:22 RBC 3.28 L (4.30-5.90) m/uL Hgb 10.5 L (13.0-17.5) gm/dL Hct 31.6 L (39.0-53.0) % Chloride (98-107) mmol/L Carbon Dioxide (22-30) mmol/L BUN (9-20) mg/dL Glucose (74-99) mg/dL POC Glucose (mg/dL) 185 H 164 H (75-99) mg/dL AST (17-59) U/L Total Protein (6.3-8.2) g/dL Albumin (3.5-5.0) g/dL 07/03/18 07/03/18 07/03/18 Range/Units 07:22 07:25 11:49 RBC (4.30-5.90) m/uL Hgb (13.0-17.5) gm/dL Hct (39.0-53.0) % Chloride 114 H (98-107) mmol/L Carbon Dioxide 18 L (22-30) mmol/L BUN 39 H (9-20) mg/dL Glucose 216 H (74-99) mg/dL POC Glucose (mg/dL) 217 H 233 H (75-99) mg/dL AST 201 H (17-59) U/L Total Protein 5.9 L (6.3-8.2) g/dL Albumin 3.4 L (3.5-5.0) g/dL Assessment and Plan Assessment: Assessment and Plan 1. Acute subcapital fracture R femur: Hip XR shows no obvious fracture. Pain management with [place] 10 1 tab PO Q4H PRN for pain 1-5, Dilaudid 0.5 mg IV Q3H PRN for Pain 6-10. Plans for OR today. Will follow Orthopedic recommendations. 2. Metabolic derangement: Respiratory alkalosis with metabolic acidosis. Patient has a h/o COPD and uses Lasix. Partially due to compensation, use of ACEi and IVF infusion. Daily BMP. Metabolic acidosis improved this morning, possibly from DC of IVF. 3. Acute encephalopathy: Resolved. Family at bedside, states patient is at baseline. CT C-spine from OSH shows DJD, moderate cervical stenosis, corpectomy at C5 with bone graft. CT brain from OSH shows no acute hemorrhage, old L frontal infact, possible watershed ischemia and [employer] shunt. Recent MRI < 1 month prior without acute findings. No history of falls or head trauma. Will DC MRI brain. 4. Prerenal azotemia: BUN 57 to 39 Cr 1.65 to within normal limits. DC IVF. Encourage PO hydration. Avoid nephrotoxins. Daily BMP. 5. COPD: Stable. Albuterol 2.5 mg neb BID PRN for SOB/wheezing. O2 per NC to maintain O2 sat > 92%. 6. h/o CAD: Holding ASA 325 mg PO QD, Plavix 75 mg PO QD pending Orthopedic Sx plans. Decreased Metoprolol to 12.5 mg PO BID. Holding Enalapril due to JOSE. Echo shows EF of 55-60% with mild LVH. Cardiology consulted, cleared for surgery. 7. A-Fib: Stable. Discontinue Amiodarone 100 mg PO QD. Decrease Metoprolol to 12.5 mg PO BID. Keep K > 4 and Mg > 2. Telemetry monitoring. FU Cardiology 8. Diabetes Mellitus: POC glucose 233. ISS. Regular accuchecks. Hypoglycemic precautions. 9. Hypertension: BP 112/59. Continue Metoprolol and Amlodipine 5 mg PO QD. Monitor vitals, adjust medications as necessary. 10. Depression: Stable. Continue Paroxetine 20 mg PO BID. 11. Hyperlipidemia: Continue home medication Fenofibrate 160 mg PO BID. 12. DVT/GI Prophylaxis: SCD boots only. Resolved; Hyperkalemia, JOSE Patient cleared for surgery from cardiology standpoint. Scheduled for OR today.
[2018-07-03] MEDS ORDERED: IV FLUID CONTINUATION 1,000 ML IV ONE (13:18)
[2018-07-03] MEDS ORDERED: LACTATED RINGERS 1,000 ML IV ONE (13:40)
[2018-07-03] MEDS ORDERED: ROCURONIUM BROMIDE 10 MG/ML 10 ML VIAL IV ONE (13:55)
[2018-07-03] MEDS ORDERED: PROPOFOL 10 MG/ML 20 ML VIAL IV ONE ×2 (13:55)
[2018-07-03] MEDS ORDERED: PHENYLEPHRINE-0.9% NACL SYG 1 MG/10 ML SYRINGE ONE (13:55)
[2018-07-03] MEDS ORDERED: fentaNYL (PF) 50 MCG/ML 2 ML AMP ONE (13:55)
[2018-07-03] MEDS ORDERED: ONDANSETRON 4 MG/2 ML VIAL ONE (13:55)
[2018-07-03] MEDS ORDERED: LIDOCAINE 1% INJ 10MG/ML (20 ML MDV) ONE (13:55)
[2018-07-03] MEDS ORDERED: ceFAZolin 3,000 MG in SODIUM CHLORIDE 0.9% IRRIGATIO 3,000 ML IRRIGATION ONE (14:32)
[2018-07-03] MEDS ORDERED: MAGNESIUM HYDROXIDE 2,400 MG/10 ML CUP PO PRN (15:35)
[2018-07-03] MEDS ORDERED: ONDANSETRON 4 MG/2 ML VIAL IVP PRN (15:35)
--- NOTE | 2018-07-03 16:03 | P.OP ---
Date of Procedure: 07/03/18 Preoperative Diagnosis: Right subcapital femoral neck fracture Postoperative Diagnosis: Same Procedure(s) Performed: Right hip [id number] Implants: [employer] Polar size 3 press-fit collared femoral stem, 53 mm unipolar cobalt chrome femoral head, -3 neck. Anesthesia: ESTRELLAA Surgeon: Charlie Cook Block Sealer #1: Juan Lozano Estimated Blood Loss (ml): 200 Pathology: other (Femoral head) Condition: stable Disposition: PACU Indications for Procedure: The patient is a 78-year-old community hamular who presents after falling injuring his right hip. Upon evaluation he was noted have a subcapital femoral neck fracture. A discussion of the risks and benefits of operative intervention was made patient and his family. They opted to proceed with surgery. He underwent preoperative medical and cardiac clearance. Specific risks of the procedure to include infection, neurovascular injury, development of blood clots, possible leg length discrepancy, possible instability and need for subsequent procedures was discussed. Informed consent was obtained. Operative Findings: As below Description of Procedure: The patient was brought to the operating room, and after induction of general anesthesia was placed into a lateral decubitus position. The pelvis was stabilized perpendicular to the floor with a pegboard. Bony prominences were appropriately padded. An axillary roll was placed. The right lower extremity was prepped and draped in normal fashion. A 12 cm incision was then made centered over the greater trochanter extending superiorly to level ASIS and distally in line with the femoral shaft. The skin and subcutaneous tissues were divided sharply. Electrocautery was used for hemostasis. The fascia jovita and gluteus mecca fascia was split in line with the skin incision. The muscle fibers were bluntly dissected proximally. A self-retaining retractor was placed. The anterior and posterior margins of the gluteus medius muscles identified in the anterior two thirds detached from the greater trochanter with #2 Ethibond suture. The gluteus minimus tendon was identified and detached in a similar fashion. A T-shaped capsulotomy is performed. The capsular flaps were tagged with #2 Ethibond suture. The femoral neck fracture was identified. A lower neck cut was made at a 45 shaft with a sagittal saw approximately 1 1 /2 cm above the level of lesser trochanter. The head was extracted with a corkscrew. The acetabulum was inspected. No significant chondral injury was noted. Attention was then paid towards preparing the proximal femur. A box chisel was used to open the metaphyseal region. A canal finder was used to find the femoral canal. Sequential broaching was performed with the leg perpendicular floor in 15 of anteversion. I went up to a size 3 broach. There is good metaphyseal fit and rotational stability. A calcar mill was used to fashion the medial calcar. A standard neck along with a 53 mm -3 trial head was placed. Hip was gently relocated. It was taken through range of motion. It was felt to be stable in flexion and extension with internal and external rotation. I felt there was adequate quaker of soft tissue tension. The hip was gently dislocated. Pulsatile lavage was utilized. The final size 3 press fit, collared femoral stem was inserted with the leg perpendicular to the floor in 15 of anteversion. Again there was good rotational stability. The 53 mm -3 unipolar head was impacted. Hip was gently reduced. Again it was taken through a range of motion and felt to be stable in flexion and extension with internal rotation. The capsule was repaired with #2 Ethibond suture. The gluteus medius and minimus tendons reattached to the greater trochanter with #2 Ethibond suture. There is minimal drainage at this point therefore a deep drain was not placed. The fascia jovita and gluteus mecca fascia was closed with #2 Ethibond suture. The subcutaneous tissues were reapproximated interrupted 2-0 Vicryl sutures. The skin was reapproximated with 3-0 strata fix suture. Skin tape and adhesive was applied. A sterile dressing was applied. The patient was awoken from general anesthesia and transferred to recovery room in fair condition. Blood loss was estimated 200 mL. No complications were incurred. Sponge and needle counts were correct at the end the case.
--- NOTE | 2018-07-03 16:25 | XR ---
EXAMINATION TYPE: XR Hip Limited RT DATE OF EXAM: 07/03/2018 COMPARISON: 07/01/2018 HISTORY: 78-year-old male status post right hip hemiarthroplasty, postsurgical assessment TECHNIQUE: Single portable AP view FINDINGS: Image shows a segment of right hip hemiarthroplasty. Femoral stem component appears grossly anatomic. Some scattered soft tissue gas related to recent operation. IMPRESSION: Uncomplicated postoperative appearance right hip hemiarthroplasty.
[2018-07-03] MEDS: IPRATROPIUM-ALBUTEROL 3 ML NEB INHALATION PRN (16:27)
[2018-07-03 16:38] LABS: Basophils % (A) 0 %; Eosinophils # (A) 0.1 k/uL (0-0.7); Eosinophils % (A) 1 %; HCT 31.9 % (39.0-53.0); HGB 10.2 gm/dL (13.0-17.5); Hypochromasia Slight; Lymphocytes # (A) 1.4 k/uL (1.0-4.8); Lymphocytes % (A) 13 %; MCH 31.9 pg (25.0-35.0); MCHC 32.1 g/dL (31.0-37.0); MCV 99.5 fL (80.0-100.0); Macrocytosis Slight; Mean Platelet Volume 7.4; Monocytes # (A) 0.8 k/uL (0-1.0); Monocytes % (A) 7 %; Neutrophils # (A) 8.3 k/uL (1.3-7.7); Neutrophils % (A) 78 %; Platelet Count 220 k/uL (150-450); WBC 10.8 k/uL (3.8-10.6)
[2018-07-03 17:58] LABS: Glucose,Whole Blood 296 mg/dL (75-99)
[2018-07-03 20:23] LABS: Glucose,Whole Blood 274 mg/dL (75-99)
[2018-07-03] MEDS: ceFAZolin IN SWFI 2 GM/20 ML SYRINGE IVP SCH (21:05)
[2018-07-03] MEDS: HYDROcodone/APAP 10-325MG 1 EACH TAB PO PRN (21:06)
[2018-07-03] MEDS: SENNOSIDES-DOCUSATE SODIUM 1 EACH TAB PO SCH (21:06)
[2018-07-04] MEDS: HYDROcodone/APAP 10-325MG 1 EACH TAB PO PRN ×3 (02:52→19:54)
[2018-07-04] MEDS: HYDROmorphone 0.5 MG/0.5 ML SYRINGE IVP PRN (04:42)
[2018-07-04] MEDS: ceFAZolin IN SWFI 2 GM/20 ML SYRINGE IVP SCH (04:42)
[2018-07-04] MEDS: ALBUTEROL NEBULIZED 2.5 MG/3 ML INHALATION SCH ×2 (05:55→19:39)
--- NOTE | 2018-07-04 07:48 | P.PN ---
Progress Note - Text Progress Note Date: 07/04/18 S: The patient has no complaints. They deny shortness of breath or chest pain. O: Afebrile, vital signs stable Homans right lower extremity Right foot dropchronic Incision clean, dry , and intact A/P: Postoperative day 1 status post right hip hemiarthroplasty Medical management DVT prophylaxis with Plavix We will have him wear his AFO when ambulating with therapy. Discharge planning for possible rehab facility.
[2018-07-04] MEDS: FENOFIBRATE 160 MG TAB PO SCH ×2 (07:59→17:47)
[2018-07-04] MEDS: METOPROLOL TARTRATE 12.5 MG TAB PO SCH (08:00)
[2018-07-04] MEDS: INSULIN ASPART 100 UNIT/ML 1 ML 10 ML VIAL SQ SCH ×4 (08:00→20:43)
[2018-07-04] MEDS: PARoxetine 20 MG TAB PO SCH ×2 (08:00→20:43)
[2018-07-04] MEDS: amLODIPine 5 MG TAB PO SCH (08:00)
[2018-07-04] MEDS: FUROSEMIDE 20 MG TAB PO SCH (08:00)
[2018-07-04] MEDS: CLOPIDOGREL 75 MG TAB PO SCH (08:02)
--- NOTE | 2018-07-04 08:50 | P.PN ---
Subjective This is a pleasant 78-year-old male past medical history significant for coronary artery disease s/p bypass grafting 2001, diastolic heart failure, hypertension, dyslipidemia, hypertension, dyslipidemia and chronic nicotine dependence. He follows with a pipe tester out of [place]. He is somewhat of a poor historian and very hard of hearing. He underwent right hip hemiarthroplasty yesterday per Dr. Cook. He is seen and examined sitting up in bed eating breakfast with his at the bedside. She denies symptoms of chest pain, shortness of breath, dizziness or palpitations. Blood pressure 120/ 64 heart rate 93 afebrile maintaining oxygen saturation on nasal cannula. Currently maintained on amlodipine 5 mg daily, Lasix 20 mg daily, Lopressor 12.5 mg daily and Plavix 75 mg daily has been resumed per orthopedics. GENERAL: This is a 78-year-old male in no apparent distress at the time of my examination. Confused at baseline. HEENT: Head is atraumatic, normocephalic. Pupils are equal, round. Sclerae anicteric. Conjunctivae are clear. Mucous membranes of the mouth are moist. Neck is supple. There is no jugular venous distention. No carotid bruit is heard. LUNGS: Clear to auscultation no wheezes, rales or rhonchi. No chest wall tenderness is noted on palpation or with deep breathing. HEART: Regular rate and rhythm with short systolic murmur at the left sternal border, no rubs or gallops. S1 and S2 heard. EXTREMITIES: No evidence of peripheral edema and no calf tenderness noted. ASSESSMENT Mechanical fall suffering right hip fracture, postoperative day #1. Hyperkalemia Hypertension Diabetes mellitus History of coronary artery disease s/p bypass grafting, exact details unclear at this time COPD History of chronic heart failure, preserved LV systolic function on echo, appears to be chronic diastolic dysfunction. Currently euvolemic. Chronic nicotine dependence PLAN STable from a cardiac perspective. Continue current medical regimen. Follow up with his primary pipe tester upon discharge. Nurse Practitioner note has been reviewed, I agree with a documented findings and plan of care. Patient was seen and examined. Objective - Vital Signs Vital signs: Vital Signs Temp 97.7 F 07/04/18 00:53 Pulse 88 07/04/18 06:07 Resp 16 07/04/18 00:53 BP 120/64 07/04/18 00:53 Pulse Ox 94 L 07/04/18 05:55 Intake & Output 07/03/18 07/04/18 07/04/18 18:59 06:59 18:59 Intake Total 501 418 Output Total 200 Balance 301 418 Intake: IV 501 Oral 418 Output: Estimated Blood Loss 200 Other: Voiding Method Incontinent Urinal Incontinent # Voids 1 - Labs CBC & Chem 7: 07/03/18 16:23 07/03/18 07:22 Labs: Abnormal Lab Results - Last 24 Hours (Table) 07/03/18 07/03/18 07/03/18 Range/Units 11:49 16:23 17:45 WBC 10.8 H (3.8-10.6) k/uL RBC 3.20 L (4.30-5.90) m/uL Hgb 10.2 L (13.0-17.5) gm/dL Hct 31.9 L (39.0-53.0) % Neutrophils # 8.3 H (1.3-7.7) k/uL POC Glucose (mg/dL) 233 H 296 H (75-99) mg/dL 07/03/18 Range/Units 20:11 WBC (3.8-10.6) k/uL RBC (4.30-5.90) m/uL Hgb (13.0-17.5) gm/dL Hct (39.0-53.0) % Neutrophils # (1.3-7.7) k/uL POC Glucose (mg/dL) 274 H (75-99) mg/dL
[2018-07-04] MEDS ORDERED: HYDROmorphone 2 MG TAB PO PRN (11:30)
[2018-07-04 11:44] LABS: Glucose,Whole Blood 300 mg/dL (75-99)
--- NOTE | 2018-07-04 12:53 | XR ---
EXAMINATION TYPE: XR chest 1V portable DATE OF EXAM: 07/04/2018 COMPARISON: NONE HISTORY: ECF placement TECHNIQUE: Single frontal view of the chest is obtained. FINDINGS: There is a POLITICAL ANTHROPOLOGIST shunt catheter. Bilateral shoulder surgery is noted and there is postsurgica l change The cervical spine. Heart size enlarged. Surgical clips overlying the mediastinum. Underlying COPD no emigdio with no definite consolidation or overt failure. No pneumothorax. IMPRESSION: 1. Cardiomegaly and findings suggestive of COPD
--- NOTE | 2018-07-04 16:13 | P.PN ---
Subjective Progress Note Date: 07/04/18 Principal diagnosis: Right hip fracture Patient was seen and examined. No acute events overnight. Patient reports well -controlled right hip pain. He denies any nausea, vomiting, fever, cough, chest pain or shortness of breath. Plans for possible rehab on Saturday to [facility]. Objective - Vital Signs Vital signs: Vital Signs Temp 98.1 F 07/04/18 15:37 Pulse 75 07/04/18 15:37 Resp 18 07/04/18 15:37 BP 102/49 07/04/18 15:37 Pulse Ox 93 L 07/04/18 15:37 Intake & Output 07/03/18 07/04/18 07/04/18 18:59 06:59 18:59 Intake Total 501 418 500 Output Total 200 Balance 301 418 500 Intake: IV 501 Oral 418 500 Output: Estimated Blood Loss 200 Other: Voiding Method Incontinent Urinal Urinal Incontinent Incontinent # Voids 1 - Exam General: [non toxic], [no distress], [appears at stated age] Derm: [warm], [dry] Head: [atraumatic], [normocephalic], [symmetric] Eyes: [EOMI], [no lid lag], [anicteric sclera] Mouth: [no lip lesion], [mucus membranes moist] Cardiovascular: [S1S2 reg], [no murmur], [positive DP pulse bilateral] Lungs: [CTA bilateral], [no rhonchi, no rales] , [no accessory muscle use] Abdominal: [soft], [ nontender to palpation], [no guarding], [no appreciable organomegaly] Ext: [no gross muscle atrophy], [no edema], [no contractures] Neuro: [Right lower extremity diminished strength due to pain, surgical wound without hematoma] Psych: [Alert], [oriented], [appropriate affect] - Labs CBC & Chem 7: 07/03/18 16:23 07/03/18 07:22 Labs: Abnormal Lab Results - Last 24 Hours (Table) 07/03/18 07/03/18 07/03/18 Range/Units 16:23 17:45 20:11 WBC 10.8 H (3.8-10.6) k/uL RBC 3.20 L (4.30-5.90) m/uL Hgb 10.2 L (13.0-17.5) gm/dL Hct 31.9 L (39.0-53.0) % Neutrophils # 8.3 H (1.3-7.7) k/uL POC Glucose (mg/dL) 296 H 274 H (75-99) mg/dL 07/04/18 Range/Units 11:32 WBC (3.8-10.6) k/uL RBC (4.30-5.90) m/uL Hgb (13.0-17.5) gm/dL Hct (39.0-53.0) % Neutrophils # (1.3-7.7) k/uL POC Glucose (mg/dL) 300 H (75-99) mg/dL Assessment and Plan Assessment: Assessment and Plan 1. Acute subcapital fracture R femur: Hip XR shows no obvious fracture. Pain management with [place] 10 1 tab PO Q4H PRN for pain 1-5, Dilaudid 0.5 mg IV Q3H PRN for Pain 6-10. POD1. Will follow Orthopedic recommendations. 2. Metabolic derangement: Respiratory alkalosis with metabolic acidosis. Patient has a h/o COPD and uses Lasix. Partially due to compensation, use of ACEi and IVF infusion. Daily BMP. Metabolic acidosis improved this morning, possibly from DC of IVF. BMP tomorrow. 3. Acute encephalopathy: Resolved. Family at bedside, states patient is at baseline. CT C-spine from OSH shows DJD, moderate cervical stenosis, corpectomy at C5 with bone graft. CT brain from OSH shows no acute hemorrhage, old L frontal infact, possible watershed ischemia and ORAL SURGERY ASSISTANT shunt. Recent MRI < 1 month prior without acute findings. No history of falls or head trauma. Will DC MRI brain. 4. Prerenal azotemia: BUN 57 to 39 Cr 1.65 to within normal limits. DC IVF. Encourage PO hydration. Avoid nephrotoxins. BMP tomorrow. 5. COPD: Stable. Albuterol 2.5 mg neb BID PRN for SOB/wheezing. O2 per NC to maintain O2 sat > 92%. 6. h/o CAD: Holding ASA 325 mg PO QD, Plavix 75 mg PO QD pending Orthopedic Sx plans. Decreased Metoprolol to 12.5 mg PO BID. Holding Enalapril due to JOSE. Echo shows EF of 55-60% with mild LVH. Cardiology consulted, cleared for surgery. 7. A-Fib: Stable. Discontinue Amiodarone 100 mg PO QD. Decrease Metoprolol to 12.5 mg PO BID. Keep K > 4 and Mg > 2. Telemetry monitoring. FU Cardiology 8. Diabetes Mellitus: POC glucose 300. ISS. Regular accuchecks. Hypoglycemic precautions. 9. Hypertension: BP 102/49. Continue Metoprolol and Amlodipine 5 mg PO QD. Monitor vitals, adjust medications as necessary. 10. Depression: Stable. Continue Paroxetine 20 mg PO BID. 11. Hyperlipidemia: Continue home medication Fenofibrate 160 mg PO BID. 12. DVT/GI Prophylaxis: SCD boots only. Resolved; Hyperkalemia, JOSE He is postop day 1 today. Pain is well-controlled. Physical therapy and occupational therapy to work with the patient. For DC to rehab on Saturday at [facility]. Monitor CBC, follow BMP for tomorrow
[2018-07-04 17:26] LABS: Glucose,Whole Blood 303 mg/dL (75-99)
[2018-07-04 20:22] LABS: Glucose,Whole Blood 301 mg/dL (75-99)
[2018-07-04] MEDS: SENNOSIDES-DOCUSATE SODIUM 1 EACH TAB PO SCH (20:47)
[2018-07-05] MEDS: HYDROcodone/APAP 10-325MG 1 EACH TAB PO PRN ×2 (03:28→22:02)
[2018-07-05 07:21] LABS: Glucose,Whole Blood 232 mg/dL (75-99)
[2018-07-05] MEDS: CLOPIDOGREL 75 MG TAB PO SCH (07:52)
[2018-07-05] MEDS: FUROSEMIDE 20 MG TAB PO SCH (07:52)
[2018-07-05] MEDS: amLODIPine 5 MG TAB PO SCH (07:52)
[2018-07-05] MEDS: FENOFIBRATE 160 MG TAB PO SCH ×2 (07:52→17:33)
[2018-07-05] MEDS: INSULIN ASPART 100 UNIT/ML 1 ML 10 ML VIAL SQ SCH ×4 (07:53→21:12)
[2018-07-05] MEDS: PARoxetine 20 MG TAB PO SCH ×2 (07:53→21:13)
[2018-07-05] MEDS: METOPROLOL TARTRATE 12.5 MG TAB PO SCH (07:53)
[2018-07-05] MEDS: ALBUTEROL NEBULIZED 2.5 MG/3 ML INHALATION SCH ×2 (08:19→19:40)
[2018-07-05 08:26] LABS: Calcium 9.4 mg/dL (8.4-10.2); Potassium 4.6 mmol/L (3.5-5.1)
[2018-07-05 09:47] LABS: Basophils % (A) 0 %; Eosinophils # (A) 0.1 k/uL (0-0.7); Eosinophils % (A) 1 %; HCT 25.3 % (39.0-53.0); Lymphocytes # (A) 0.9 k/uL (1.0-4.8); Lymphocytes % (A) 13 %; MCH 31.4 pg (25.0-35.0); MCHC 32.7 g/dL (31.0-37.0); Mean Platelet Volume 7.2; Monocytes # (A) 0.5 k/uL (0-1.0); Monocytes % (A) 8 %; Neutrophils % (A) 75 %; Platelet Count 210 k/uL (150-450); RBC 2.63 m/uL (4.30-5.90); RDW 14.5 % (11.5-15.5); WBC 6.7 k/uL (3.8-10.6)
[2018-07-05 09:49] LABS: HGB 8.3 gm/dL (13.0-17.5)
--- NOTE | 2018-07-05 09:59 | P.PN ---
Subjective Progress Note Date: 07/05/18 Principal diagnosis: Status post right hip hemiarthroplasty Patient evaluated today at bedside, resting comfortably. Pain controlled. Objective - Vital Signs Vital signs: Vital Signs Temp 97.3 F L 07/05/18 08:03 Pulse 88 07/05/18 08:35 Resp 16 07/05/18 08:03 BP 122/57 07/05/18 08:03 Pulse Ox 96 07/05/18 08:03 Intake & Output 07/04/18 07/05/18 07/05/18 18:59 06:59 18:59 Intake Total 500 Balance 500 Intake: Oral 500 Other: Voiding Method Urinal Urinal Urinal Incontinent Incontinent Incontinent - Exam Right lower extremity: Incision is clean, dry, and intact. The exofin fusion tape is in good condition. There is minimal soft tissue swelling and ecchymosis surrounding the medial and lateral aspects of the incision. Calf is soft, no tenderness with palpation. Plantar flexion, dorsiflexion, EHL, FHL are intact. Sensory exam to light touch throughout the extremity is intact, dorsal pedis pulses 2+. - Labs CBC & Chem 7: 07/05/18 09:00 07/05/18 07:07 Labs: Abnormal Lab Results - Last 24 Hours (Table) 07/04/18 07/04/18 07/04/18 Range/Units 11:32 17:08 20:10 RBC (4.30-5.90) m/uL Hgb (13.0-17.5) gm/dL Hct (39.0-53.0) % Lymphocytes # (1.0-4.8) k/uL Sodium (137-145) mmol/L Carbon Dioxide (22-30) mmol/L BUN (9-20) mg/dL Creatinine (0.66-1.25) mg/dL Glucose (74-99) mg/dL POC Glucose (mg/dL) 300 H 303 H 301 H (75-99) mg/dL 07/05/18 07/05/18 07/05/18 Range/Units 07:07 07:10 09:00 RBC 2.63 L (4.30-5.90) m/uL Hgb 8.3 L D (13.0-17.5) gm/dL Hct 25.3 L (39.0-53.0) % Lymphocytes # 0.9 L (1.0-4.8) k/uL Sodium 136 L (137-145) mmol/L Carbon Dioxide 21 L (22-30) mmol/L BUN 40 H (9-20) mg/dL Creatinine 1.48 H (0.66-1.25) mg/dL Glucose 218 H (74-99) mg/dL POC Glucose (mg/dL) 232 H (75-99) mg/dL Assessment and Plan Plan: Assessment: Postoperative day #2 status post right hip hemiarthroplasty Plan: Pain control GI and DVT prophylaxis, continue Plavix Continue work with physical therapy Medical recommendations Discharge planning: Patient will likely be discharged to rehab on Saturday Time with Patient: Less than 30
--- NOTE | 2018-07-05 11:35 | P.PN ---
Subjective Progress Note Date: 07/05/18 Principal diagnosis: Right hip fracture Patient seen and examined. No acute events overnight. Patient complains of right hip pain, well controlled with current medications. He states that pain is only worsened with movement. Worked with physical therapy yesterday. He denies any chest pain, shortness of breath or palpitations. His hemoglobin this morning has dropped from 10.2-8.3. Objective - Vital Signs Vital signs: Vital Signs Temp 97.3 F L 07/05/18 08:03 Pulse 88 07/05/18 08:35 Resp 16 07/05/18 08:03 BP 122/57 07/05/18 08:03 Pulse Ox 96 07/05/18 08:03 Intake & Output 07/04/18 07/05/18 07/05/18 18:59 06:59 18:59 Intake Total 500 Balance 500 Intake: Oral 500 Other: Voiding Method Urinal Urinal Urinal Incontinent Incontinent Incontinent - Exam General: [non toxic], [no distress], [appears at stated age] Derm: [warm], [dry] Head: [atraumatic], [normocephalic], [symmetric] Eyes: [EOMI], [no lid lag], [anicteric sclera] Mouth: [no lip lesion], [mucus membranes moist] Cardiovascular: [S1S2 reg], [no murmur], [positive DP pulse bilateral] Lungs: [CTA bilateral], [no rhonchi, no rales] , [no accessory muscle use] Abdominal: [soft], [ nontender to palpation], [no guarding], [no appreciable organomegaly] Ext: [no gross muscle atrophy], [no edema], [no contractures] Neuro: [Right lower extremity diminished strength due to pain, surgical wound without hematoma] Psych: [Alert], [oriented], [appropriate affect] - Labs CBC & Chem 7: 07/05/18 09:00 07/05/18 07:07 Labs: Abnormal Lab Results - Last 24 Hours (Table) 07/04/18 07/04/18 07/04/18 Range/Units 11:32 17:08 20:10 RBC (4.30-5.90) m/uL Hgb (13.0-17.5) gm/dL Hct (39.0-53.0) % Lymphocytes # (1.0-4.8) k/uL Sodium (137-145) mmol/L Carbon Dioxide (22-30) mmol/L BUN (9-20) mg/dL Creatinine (0.66-1.25) mg/dL Glucose (74-99) mg/dL POC Glucose (mg/dL) 300 H 303 H 301 H (75-99) mg/dL 07/05/18 07/05/18 07/05/18 Range/Units 07:07 07:10 09:00 RBC 2.63 L (4.30-5.90) m/uL Hgb 8.3 L D (13.0-17.5) gm/dL Hct 25.3 L (39.0-53.0) % Lymphocytes # 0.9 L (1.0-4.8) k/uL Sodium 136 L (137-145) mmol/L Carbon Dioxide 21 L (22-30) mmol/L BUN 40 H (9-20) mg/dL Creatinine 1.48 H (0.66-1.25) mg/dL Glucose 218 H (74-99) mg/dL POC Glucose (mg/dL) 232 H (75-99) mg/dL Assessment and Plan Assessment: Assessment and Plan 1. Acute subcapital fracture R femur: Hip XR shows no obvious fracture. Pain management with [place] 10 1 tab PO Q4H PRN for pain 1-5, Dilaudid 0.5 mg IV Q3H PRN for Pain 6-10. POD1. Will follow Orthopedic recommendations. 2. Anemia due to acute blood loss from surgery: Hg 10.2 to 8.3. Likely blood loss from surgery. Telemetry monitoring. Transfuse if Hg < 7.0. Will follow CBC at 5PM. 3. Metabolic derangement: Respiratory alkalosis with metabolic acidosis. Patient has a h/o COPD and uses Lasix. Partially due to compensation, use of ACEi and IVF infusion. Daily BMP. Metabolic acidosis improved this morning ( HCO3 21), possibly from DC of IVF. BMP tomorrow. 4. JOSE: BUN 40 Cr 1.48 GFR 45. Encourage PO hydration. Avoid nephrotoxins. Daily BMP. 5. COPD: Stable. Albuterol 2.5 mg neb BID PRN for SOB/wheezing. O2 per NC to maintain O2 sat > 92%. 6. h/o CAD: Resume ASA 325 mg PO QD, Plavix 75 mg PO QD as per Orthopedic Sx. Continue Metoprolol 12.5 mg PO BID. Holding Enalapril due to JOSE. Echo shows EF of 55-60% with mild LVH. Cardiology consulted, cleared for surgery. 7. A-Fib: Stable. Discontinue Amiodarone 100 mg PO QD. Continue Metoprolol 12.5 mg PO BID. Keep K > 4 and Mg > 2. Telemetry monitoring. FU Cardiology 8. Diabetes Mellitus: POC glucose 232. ISS. Regular accuchecks. Hypoglycemic precautions. 9. Hypertension: BP 122/57. Continue Metoprolol and Amlodipine 5 mg PO QD. Monitor vitals, adjust medications as necessary. 10. Depression: Stable. Continue Paroxetine 20 mg PO BID. 11. Hyperlipidemia: Continue home medication Fenofibrate 160 mg PO BID. 12. DVT/GI Prophylaxis: SCD boots only. Resolved: Acute encephalopathy He is postop day 2 today. Pain is well-controlled. Physical therapy and occupational therapy to work with the patient. For DC to rehab on Saturday at [facility]. Monitor CBC, follow BMP for tomorrow.
[2018-07-05 12:13] LABS: Glucose,Whole Blood 293 mg/dL (75-99)
[2018-07-05 16:18] LABS: Basophils % (A) 0 %; Eosinophils # (A) 0.1 k/uL (0-0.7); Eosinophils % (A) 1 %; HCT 24.9 % (39.0-53.0); HGB 8.1 gm/dL (13.0-17.5); Hypochromasia Slight; Lymphocytes # (A) 0.6 k/uL (1.0-4.8); Lymphocytes % (A) 9 %; MCH 31.4 pg (25.0-35.0); MCHC 32.7 g/dL (31.0-37.0); MCV 96.2 fL (80.0-100.0); Mean Platelet Volume 8.2; Monocytes # (A) 0.5 k/uL (0-1.0); Monocytes % (A) 7 %; Neutrophils # (A) 5.5 k/uL (1.3-7.7); Neutrophils % (A) 81 %; Platelet Count 211 k/uL (150-450); RBC 2.59 m/uL (4.30-5.90); RDW 14.5 % (11.5-15.5); WBC 6.8 k/uL (3.8-10.6)
[2018-07-05 17:34] LABS: Glucose,Whole Blood 314 mg/dL (75-99)
[2018-07-05] MEDS: IPRATROPIUM-ALBUTEROL 3 ML NEB INHALATION PRN (19:40)
[2018-07-05 20:38] LABS: Glucose,Whole Blood 318 mg/dL (75-99)
[2018-07-05] MEDS: SENNOSIDES-DOCUSATE SODIUM 1 EACH TAB PO SCH (21:13)
[2018-07-06] MEDS: ALBUTEROL NEBULIZED 2.5 MG/3 ML INHALATION SCH ×2 (07:04→18:54)
[2018-07-06] MEDS: IPRATROPIUM-ALBUTEROL 3 ML NEB INHALATION PRN ×4 (07:04→22:36)
[2018-07-06 07:08] LABS: Glucose,Whole Blood 260 mg/dL (75-99)
[2018-07-06 08:33] LABS: Calcium 9.5 mg/dL (8.4-10.2)
[2018-07-06] MEDS: FENOFIBRATE 160 MG TAB PO SCH ×2 (09:16→17:29)
[2018-07-06] MEDS: FUROSEMIDE 20 MG TAB PO SCH (09:17)
[2018-07-06] MEDS: CLOPIDOGREL 75 MG TAB PO SCH (09:17)
[2018-07-06] MEDS: PARoxetine 20 MG TAB PO SCH ×2 (09:17→20:50)
[2018-07-06] MEDS: amLODIPine 5 MG TAB PO SCH (09:17)
[2018-07-06] MEDS: INSULIN ASPART 100 UNIT/ML 1 ML 10 ML VIAL SQ SCH ×4 (09:17→20:50)
[2018-07-06] MEDS: METOPROLOL TARTRATE 12.5 MG TAB PO SCH (09:17)
--- NOTE | 2018-07-06 10:57 | P.PN ---
Subjective Progress Note Date: 07/06/18 Principal diagnosis: Status post right hip hemiarthroplasty Patient evaluated today at bedside, resting comfortably. Pain controlled. Objective - Vital Signs Vital signs: Vital Signs Temp 97.5 F L 07/06/18 09:24 Pulse 98 07/06/18 09:24 Resp 20 07/06/18 10:05 BP 151/77 07/06/18 09:24 Pulse Ox 96 07/06/18 09:24 Intake & Output 07/05/18 07/06/18 07/06/18 18:59 06:59 18:59 Intake Total 200 100 100 Balance 200 100 100 Intake: Oral 100 100 Other 200 Other: Voiding Method Urinal Urinal Incontinent Incontinent # Voids 3 1 - Exam Right lower extremity: Incision is clean, dry, and intact. The exofin fusion tape is in good condition. There is minimal soft tissue swelling and ecchymosis surrounding the medial and lateral aspects of the incision. Calf is soft, no tenderness with palpation. Plantar flexion, dorsiflexion, EHL, FHL are intact. Sensory exam to light touch throughout the extremity is intact, dorsal pedis pulses 2+. - Labs CBC & Chem 7: 07/05/18 15:53 07/06/18 07:47 Labs: Abnormal Lab Results - Last 24 Hours (Table) 07/05/18 07/05/18 07/05/18 Range/Units 12:02 15:53 17:19 RBC 2.59 L (4.30-5.90) m/uL Hgb 8.1 L (13.0-17.5) gm/dL Hct 24.9 L (39.0-53.0) % Lymphocytes # 0.6 L (1.0-4.8) k/uL Carbon Dioxide (22-30) mmol/L BUN (9-20) mg/dL Creatinine (0.66-1.25) mg/dL Glucose (74-99) mg/dL POC Glucose (mg/dL) 293 H 314 H (75-99) mg/dL 07/05/18 07/06/18 07/06/18 Range/Units 20:27 06:41 07:47 RBC (4.30-5.90) m/uL Hgb (13.0-17.5) gm/dL Hct (39.0-53.0) % Lymphocytes # (1.0-4.8) k/uL Carbon Dioxide 18 L (22-30) mmol/L BUN 43 H (9-20) mg/dL Creatinine 1.35 H (0.66-1.25) mg/dL Glucose 252 H (74-99) mg/dL POC Glucose (mg/dL) 318 H 260 H (75-99) mg/dL Assessment and Plan Plan: Assessment: Postoperative day #3 status post right hip hemiarthroplasty Plan: Pain control, continue current medication GI and DVT prophylaxis, continue Plavix Continue work with physical therapy Medical recommendations Discharge planning: Patient will likely be discharged to rehab tomorrow Time with Patient: Less than 30
[2018-07-06 10:58] LABS: Basophils % (A) 0 %; Eosinophils # (A) 0.1 k/uL (0-0.7); Eosinophils % (A) 1 %; HCT 26.4 % (39.0-53.0); HGB 8.5 gm/dL (13.0-17.5); Hypochromasia Slight; Lymphocytes # (A) 0.8 k/uL (1.0-4.8); Lymphocytes % (A) 11 %; MCH 31.3 pg (25.0-35.0); MCHC 32.3 g/dL (31.0-37.0); MCV 96.9 fL (80.0-100.0); Mean Platelet Volume 7.5; Monocytes # (A) 0.6 k/uL (0-1.0); Monocytes % (A) 8 %; Neutrophils # (A) 5.5 k/uL (1.3-7.7); Neutrophils % (A) 77 %; Platelet Count 249 k/uL (150-450); RBC 2.72 m/uL (4.30-5.90); RDW 14.6 % (11.5-15.5); WBC 7.2 k/uL (3.8-10.6)
[2018-07-06 11:58] LABS: Glucose,Whole Blood 326 mg/dL (75-99)
--- NOTE | 2018-07-06 12:55 | P.PN ---
Subjective Progress Note Date: 07/06/18 Principal diagnosis: Right hip pain Patient was seen and examined. No acute events overnight. Hip pain is well- controlled with current pain medications. Patient is seen at bedside eating comfortably. He denies any chest pain, shortness of breath or palpitations. Has not worked with physical therapy today. Objective - Vital Signs Vital signs: Vital Signs Temp 97.5 F L 07/06/18 09:24 Pulse 82 07/06/18 12:00 Resp 20 07/06/18 10:05 BP 151/77 07/06/18 09:24 Pulse Ox 96 07/06/18 09:24 Intake & Output 07/05/18 07/06/18 07/06/18 18:59 06:59 18:59 Intake Total 200 100 100 Balance 200 100 100 Intake: Oral 100 100 Other 200 Other: Voiding Method Urinal Urinal Incontinent Incontinent # Voids 3 1 - Exam General: [non toxic], [no distress], [appears at stated age] Derm: [warm], [dry] Head: [atraumatic], [normocephalic], [symmetric] Eyes: [EOMI], [no lid lag], [anicteric sclera] Mouth: [no lip lesion], [mucus membranes moist] Cardiovascular: [S1S2 reg], [no murmur], [positive DP pulse bilateral] Lungs: [CTA bilateral], [no rhonchi, no rales] , [no accessory muscle use] Abdominal: [soft], [ nontender to palpation], [no guarding], [no appreciable organomegaly] Ext: [no gross muscle atrophy], [no edema], [no contractures] Neuro: [Right lower extremity diminished strength due to pain, surgical wound without hematoma] Psych: [Alert], [oriented], [appropriate affect] - Labs CBC & Chem 7: 07/06/18 07:45 07/06/18 07:47 Labs: Abnormal Lab Results - Last 24 Hours (Table) 07/05/18 07/05/18 07/05/18 Range/Units 15:53 17:19 20:27 RBC 2.59 L (4.30-5.90) m/uL Hgb 8.1 L (13.0-17.5) gm/dL Hct 24.9 L (39.0-53.0) % Lymphocytes # 0.6 L (1.0-4.8) k/uL Carbon Dioxide (22-30) mmol/L BUN (9-20) mg/dL Creatinine (0.66-1.25) mg/dL Glucose (74-99) mg/dL POC Glucose (mg/dL) 314 H 318 H (75-99) mg/dL 07/06/18 07/06/18 07/06/18 Range/Units 06:41 07:45 07:47 RBC 2.72 L (4.30-5.90) m/uL Hgb 8.5 L (13.0-17.5) gm/dL Hct 26.4 L (39.0-53.0) % Lymphocytes # 0.8 L (1.0-4.8) k/uL Carbon Dioxide 18 L (22-30) mmol/L BUN 43 H (9-20) mg/dL Creatinine 1.35 H (0.66-1.25) mg/dL Glucose 252 H (74-99) mg/dL POC Glucose (mg/dL) 260 H (75-99) mg/dL 07/06/18 Range/Units 11:54 RBC (4.30-5.90) m/uL Hgb (13.0-17.5) gm/dL Hct (39.0-53.0) % Lymphocytes # (1.0-4.8) k/uL Carbon Dioxide (22-30) mmol/L BUN (9-20) mg/dL Creatinine (0.66-1.25) mg/dL Glucose (74-99) mg/dL POC Glucose (mg/dL) 326 H (75-99) mg/dL Assessment and Plan Assessment: Assessment and Plan 1. Acute subcapital fracture R femur: POD3. Hip XR shows no obvious fracture. Pain management with [place] 10 1 tab PO Q4H PRN for pain 1-5, Dilaudid 0.5 mg IV Q3H PRN for Pain 6-10. Weight bearing as per Ortho recommendations. Will follow Orthopedic recommendations. 2. Anemia due to acute blood loss from surgery: Hg 10.2 to 8.3, maintaining at 8.5. Likely blood loss from surgery. Telemetry monitoring. Transfuse if Hg < 7.0. Daily CBC. 3. Metabolic derangement: Respiratory alkalosis with metabolic acidosis. Patient has a h/o COPD and uses Lasix. Partially due to compensation, use of ACEi and IVF infusion. Daily BMP. 4. JOSE: BUN 40 to 43 Cr 1.48 to 1.35 GFR 45 to 51. Encourage PO hydration. Avoid nephrotoxins. Daily BMP. 5. COPD: Stable. Albuterol 2.5 mg neb BID PRN for SOB/wheezing. O2 per NC to maintain O2 sat > 92%. 6. h/o CAD: Resume ASA 325 mg PO QD, Plavix 75 mg PO QD as per Orthopedic Sx. Continue Metoprolol 12.5 mg PO BID. Holding Enalapril due to JOSE. Echo shows EF of 55-60% with mild LVH. Cardiology consulted, cleared for surgery. 7. A-Fib: Stable. Discontinue Amiodarone 100 mg PO QD. Continue Metoprolol 12.5 mg PO BID. Keep K > 4 and Mg > 2. Telemetry monitoring. FU Cardiology 8. Diabetes Mellitus: POC glucose 326. ISS. Regular accuchecks. Hypoglycemic precautions. 9. Hypertension: BP 151/77. Continue Metoprolol and Amlodipine 5 mg PO QD. Monitor vitals, adjust medications as necessary. 10. Depression: Stable. Continue Paroxetine 20 mg PO BID. 11. Hyperlipidemia: Continue home medication Fenofibrate 160 mg PO BID. 12. DVT/GI Prophylaxis: SCD boots only. Resolved: Acute encephalopathy He is postop day 3 today. Pain is well-controlled. Physical therapy and occupational therapy to work with the patient. For DC to rehab on Saturday at [facility]. Monitor CBC, follow BMP for tomorrow.
[2018-07-06] MEDS: HYDROcodone/APAP 10-325MG 1 EACH TAB PO PRN ×2 (16:36→22:47)
--- NOTE | 2018-07-06 17:12 | XR ---
EXAMINATION TYPE: XR lumbar spine 2 or 3V DATE OF EXAM: 07/06/2018 COMPARISON: NONE HISTORY: Back pain TECHNIQUE: 2 views FINDINGS: Lumbar vertebra have fairly normal alignment. There is multilevel spondylotic changes with vacuum disc and extensive spur formation. There is slight anterior wedging of multiple lumbar and low er thoracic vertebra. I see no definite acute fracture. The sacroiliac joints are intact. IMPRESSION: Spondylotic changes and multiple mild compression deformities. No definite acute fracture . Comparison with an old exam would be helpful.
[2018-07-06 17:19] LABS: Glucose,Whole Blood 338 mg/dL (75-99)
[2018-07-06 20:25] LABS: Glucose,Whole Blood 311 mg/dL (75-99)
[2018-07-06] MEDS: SENNOSIDES-DOCUSATE SODIUM 1 EACH TAB PO SCH (20:50)
[2018-07-07] MEDS: IPRATROPIUM-ALBUTEROL 3 ML NEB INHALATION PRN ×3 (03:52→15:17)
[2018-07-07 04:10] LABS: Glucose,Whole Blood 285 mg/dL (75-99)
--- NOTE | 2018-07-07 04:21 | XR ---
EXAMINATION TYPE: XR chest 1V portable DATE OF EXAM: 07/07/2018 COMPARISON: 07/04/2018 HISTORY: Short of breath TECHNIQUE: Single frontal view of the chest is obtained. FINDINGS: There is pulmonary vascular congestion. There is right side ventricular peritoneal shunt c atheter noted. There is right shoulder prosthesis. I see no definite pleural effusion. IMPRESSION: There is increased pulmonary vascular congestion compared to last exam the could be mild heart failure. Left lower lung pneumonia is possible.
[2018-07-07] MEDS ORDERED: DILTIAZEM DRIP BOLUS FROM BAG 1 MG SOLN IV ONE (04:25)
[2018-07-07] MEDS: DILTIAZEM 50 MG in SODIUM CHLORIDE 0.9% 40 ML IV SCH ×2 (04:32→15:37)
[2018-07-07] MEDS ORDERED: HEPARIN SODIUM,PORCINE 5,000 UNIT/ML 1 ML VIAL IV PRN (04:36)
[2018-07-07] MEDS ORDERED: HEPARIN SODIUM,PORCINE 10,000 UNIT/ML 1 ML VIAL IV ONE (04:36)
[2018-07-07 04:47] LABS: VBG PH 7.11 (7.31-7.41)
[2018-07-07] MEDS ORDERED: SODIUM BICARB 8.4% 50 ML SYR (1 MEQ/ML) ONE (04:59)
[2018-07-07 05:03] LABS: D-Dimer 2.28 mg/L FEU (<0.60); INR 1.2 (<1.2); Partial Thromboplastin Time 25.9 sec (22.0-30.0); Prothrombin Time 12.3 sec (9.0-12.0)
[2018-07-07] MEDS ORDERED: INSULIN ASPART 100 UNIT/ML 1 ML 10 ML VIAL SQ ONE (05:07)
[2018-07-07 05:10] LABS: ABG Base Excess -16.5 mmol/L; ABG HCO3 11 mmol/L (21-25); ABG Oxygen Saturation 99.7 % (94-97); ABG PCO2 29 mmHg (35-45); ABG PH 7.21 (7.35-7.45); ABG PO2 201 mmHg (83-108); ABG TCO2 12 mmol/L (19-24)
[2018-07-07 05:14] LABS: Glucose,Whole Blood 431 mg/dL (75-99)
[2018-07-07] MEDS ORDERED: SODIUM CHLORIDE 0.9% 1,000 ML IV ONE (05:28)
[2018-07-07] MEDS ORDERED: PIPERACILLIN-TAZOBACTAM 3.375 GM in SODIUM CHLORIDE 0.9% 100 ML IVPB SCH (05:31)
[2018-07-07] MEDS: HEPARIN SOD,PORK IN 0.45% NACL 25,000 UNIT in 0.45% NACL 1 250ML.BAG IV SCH ×2 (05:41→17:44)
[2018-07-07] MEDS: PIPERACILLIN-TAZOBACTAM 3.375 GM in SODIUM CHLORIDE 0.9% 100 ML IVPB SCH ×3 (05:51→20:30)
[2018-07-07] MEDS: DEXTROSE 5% IN WATER 1,000 ML with SODIUM BICARB (1 MEQ/ML) 150 ML IV SCH ×2 (06:01→18:56)
[2018-07-07] MEDS: DAPTOmycin 500 MG in SODIUM CHLORIDE 0.9% 50 ML IVPB SCH (06:22)
[2018-07-07 07:04] LABS: HCT 27.5 % (39.0-53.0); HGB 8.4 gm/dL (13.0-17.5); Hypochromasia Marked; MCH 31.2 pg (25.0-35.0); MCHC 30.4 g/dL (31.0-37.0); Macrocytosis Slight; Mean Platelet Volume 8.1; Platelet Count 351 k/uL (150-450); RBC 2.68 m/uL (4.30-5.90); RDW 14.5 % (11.5-15.5)
[2018-07-07 07:06] LABS: MCV 102.7 fL (80.0-100.0)
--- NOTE | 2018-07-07 07:11 | P.PN ---
Progress Note - Text Progress Note Date: 07/07/18 I was called by RN to evaluate patient due to acute sudden change in mental status and difficulty breathing. Patient is 78-year-old male with complex past medical history including coronary artery disease status post bypass in 2001, Diastolic heart failure, diabetes mellitus. Who presented to our hospital secondary to left hip fracture secondary to a fall status post right hip hemiarthroplasty postoperative day 4. Patient was anticipating discharge today. Suddenly at around 4 in the morning patient developed difficulty in breathing and changes in mental status that the RN noticed. A team was notified by RN. Patient vital signs showed acute hypoxemia, blood pressure was around 110/70, heart rate was in the range of 110, patient was tachypneic. Temperature was 100.5. Patient was in acute distress not able to answer any questions. Patient old labs were reviewed there is no leukocytosis hemoglobin slightly dropped from baseline. Renal function creatinine was improving and around baseline. Slight metabolic acidosis with bicarb of 18. Patient examined lungs sounded clear throughout with no suspicion of pneumothorax Heart sounds were distant and difficult to assess Patient had a skin tear over the right buttocks does not look infected seems like a blister that has ruptured there is no signs of induration or erythema there is no abnormal discharge. Abdomen was soft Patient was making very brief eye contact with stimulation otherwise he is not answering any questions. Due to respiratory distress There is no leg edema bilaterally Skin is warm to the touch Assessment Pulmonary Acute hypoxic respiratory failure He was placed on supplemental oxygen. Stat chest x-ray was done I reviewed this image along with the most recent chest x-ray images he had which showed not much of a difference slight increase in vascularity and haziness over the left lower lobe. Would not clearly explain his hypoxemia. VBG and then later ABG was assessed showing acute metabolic acidosis, with component of respiratory compensation Working diagnosis was acute PE, versus respiratory distress due to compensation for metabolic acidosis Patient was started on heparin drip D-dimer elevated however this is expected to be elevated for up to 6 weeks postsurgery Cardiovascular EKG showed new left bundle branch block with underlying A. fib rhythm, this was discussed with cardiology, due to the new onset left bundle branch block. Cardiology recommended to get a stat echo to evaluate left ventricular function. Working diagnosis was acute coronary syndrome rule out Troponins came back elevated at 3.7, cardiology notified Still awaiting stat echocardiogram to evaluate left ventricular function, cardiology following Renal/metabolic Slightly elevated creatinine improving, could not assess urine output patient is incontinent urine wearing diapers Metabolic acidosis Elevated lactic acid Elevated blood sugar, without ketones in the urine, continue with insulin per sliding scale IV fluid hydration with normal saline bolus Bicarb bolus, and then bicarb drip Infectious There is no leukocytosis No fever documented this far except for the most recent temp of 100.5 Chest x-ray was concerning for left lower lobe infiltrates Check blood cultures Check urinalysis and cultures Patient did not have Zuñiga catheter Area of skin tear/sloughing does not seem to be infected over the buttocks Surgical site looks unremarkable for any signs of infection Working diagnosis bacteremia versus pneumonia, patient was given a bolus of IV fluid with close monitoring due to history of diastolic failure, broad-spectrum antibiotic initiated with Zosyn and daptomycin due to ALLERGY to vancomycin Case discussed with critical care Dr. Cesar Hematology Hemoglobin was slight drop from baseline postop however hemoglobin has been stable over the past 2 days No leukocytosis No evidence of acute bleeding Family was updated I spoke with the . Patient continues to be no CODE STATUS per his initial wishes Prognosis guarded current clinical condition is critical Patient was transferred to the ICU for close monitoring Current working diagnosis is acute PE for which patient was started on heparin drip, versus respiratory compensation for underlying metabolic acidosis which is thought to be due to an underlying infectious process patient was started on broad-spectrum antibiotics given IV fluids and bicarb. Cardiology is following to rule out acute coronary syndrome Follow-up cultures, repeat lactic acid, follow-up echocardiogram CT angiogram chest was not performed due to patient's critical condition D-dimer was elevated however this is expected to be elevated up to 6 weeks after surgery 50 minutes were spent providing critical care service
[2018-07-07 07:29] LABS: Eosinophils # (M) 0.23 k/uL (0-0.7); Lymphocytes # (M) 2.37 k/uL (1.0-4.8); Monocytes # (M) 1.13 k/uL (0-1.0); Neutrophils # (M) 7.68 k/uL (1.3-7.7); Neutrophils % (M) 68 %; Nucleated Red Blood Cells 1 /100 WBC (0-0); Total Cells Counted 200; WBC 11.3 k/uL (3.8-10.6)
[2018-07-07 07:31] LABS: Large Platelets Present; Target Cells Present
[2018-07-07 07:32] LABS: Polychromasia Present
[2018-07-07] MEDS: ALBUTEROL NEBULIZED 2.5 MG/3 ML INHALATION SCH ×2 (07:35→19:58)
--- NOTE | 2018-07-07 09:18 | ECHOF ---
Referral Reason:evaluate LV function and RV strain MEASUREMENTS -------- HEIGHT: 180.3 cm WEIGHT: 110.2 kg BP: 109/43 RVIDd: 3.5 cm (< 3.3) IVSd: 1.1 cm (0.6 - 1.1) LVIDd: 5.8 cm (3.9 - 5.3) LVPWd: 1.1 cm (0.6 - 1.1) IVSs: 1.4 cm LVIDs: 5.4 cm LVPWs: 1.3 cm LA Diam: 3.9 cm (2.7 - 3.8) Ao Diam: 3.1 cm (2.0 - 3.7) AV Cusp: 1.8 cm (1.5 - 2.6) MV E Hernandez: 1.17 m/s MV DecT: 272 ms MV A Hernandez: 1.30 m/s MV E/A Ratio: 0.91 RAP: 10.00 mmHg RVSP: 36.30 mmHg FINDINGS -------- Undetermined rhythm. This was a technically difficult study with suboptimal views. The left ventricular size is normal. There is borderline concentric left ventricular hypertrophy. There is severe global hypokinesis of LV . Overall left ventricular systolic function is severely impaired with, an EF < 20%. The right ventricle is mildly enlarged. The left atrial size is normal. RA appears enlarged. 3 ml of Lumason was utilized for enhancement of images. There is mild aortic valve sclerosis. There is no evidence of aortic regurgitation. There is no e vidence of aortic stenosis. The mitral valve leaflets are mildly thickened. Moderate mitral regurgitation is present. Trace tricuspid regurgitation present. Right ventricular systolic pressure is normal at < 35 mmHg. There is no evidence of pulmonary hypertension. The pulmonic valve was not well visualized. The aortic root size is normal. The IVC is dilated with normal collapse. There is no pericardial effusion. CONCLUSIONS -------- 1. Undetermined rhythm. 2. This was a technically difficult study with suboptimal views. 3. The left ventricular size is normal. 4. There is borderline concentric left ventricular hypertrophy. 5. There is severe global hypokinesis of LV . 6. Overall left ventricular systolic function is severely impaired with, an EF < 20%. 7. The right ventricle is mildly enlarged. 8. The left atrial size is normal. 9. RA appears enlarged. 10. 3 ml of Lumason was utilized for enhancement of images. 11. There is mild aortic valve sclerosis. 12. The mitral valve leaflets are mildly thickened. 13. Moderate mitral regurgitation is present. 14. Trace tricuspid regurgitation present. 15. Right ventricular systolic pressure is normal at < 35 mmHg. 16. There is no evidence of pulmonary hypertension. 17. The pulmonic valve was not well visualized. 18. The aortic root size is normal. 19. The IVC is dilated with normal collapse. 20. There is no pericardial effusion. ASSOCIATE [employer] INTEGRITY ENGINEER: Isauro Raya RDCS
[2018-07-07 09:19] LABS: Calcium 9.4 mg/dL (8.4-10.2); Potassium 5.1 mmol/L (3.5-5.1)
[2018-07-07] MEDS ORDERED: INSULIN REGULAR BOLUS (FROM DRIP BAG) IV PRN (09:21)
[2018-07-07 09:37] LABS: Glucose,Whole Blood 391 mg/dL (75-99)
[2018-07-07] MEDS: amLODIPine 5 MG TAB PO SCH (09:42)
[2018-07-07] MEDS: FUROSEMIDE 20 MG TAB PO SCH (09:42)
[2018-07-07] MEDS: METOPROLOL TARTRATE 12.5 MG TAB PO SCH (09:43)
[2018-07-07] MEDS: INSULIN REGULAR 100 UNIT in SODIUM CHLORIDE 0.9% 100 ML IV SCH (09:53)
[2018-07-07] MEDS: INSULIN ASPART 100 UNIT/ML 1 ML 10 ML VIAL SQ SCH (09:56)
[2018-07-07] MEDS ORDERED: BISACODYL 10 MG SUPP RECTAL STA (10:37)
[2018-07-07] MEDS ORDERED: HYDROmorphone 1 MG/ML 1 ML SYRINGE IVP PRN (10:39)
[2018-07-07] MEDS: FENOFIBRATE 160 MG TAB PO SCH ×2 (10:46→17:33)
[2018-07-07] MEDS: PARoxetine 20 MG TAB PO SCH ×2 (10:47→20:26)
[2018-07-07] MEDS: CLOPIDOGREL 75 MG TAB PO SCH ×2 (10:47→15:57)
[2018-07-07 11:03] LABS: Glucose,Whole Blood 374 mg/dL (75-99)
[2018-07-07 11:18] LABS: Creatine Kinase MB 7.3 ng/mL (0.0-2.4)
[2018-07-07 11:21] LABS: Troponin I 4.49 ng/mL (0.000-0.034)
[2018-07-07 11:57] LABS: Glucose,Whole Blood 300 mg/dL (75-99)
--- NOTE | 2018-07-07 12:22 | P.PN ---
Subjective Progress Note Date: 07/07/18 Principal diagnosis: Acute respiratory failure, troponin elevation 78-year-old male with PMH of COPD, heart failure, diabetes mellitus, depression , hyperlipidemia and atrial fibrillation presents the ED after mechanical fall. He is transferred after a possible subcapital fracture of the right femur, seen on CT at outside hospital. Yesterday he is postop day 3 post right hip hemiarthroplasty, anticipated discharge today. Overnight MD alterted for acute changes in mentation and difficulty breathing. Patient was noted to be acutely hypoxemic, tachypneic with a heart rate in the range of 110. T-max was 100.5 Fahrenheit. Patient was noted to be in acute distress. Stat chest x-ray was performed which showed possible left lower lobe pneumonia. VBG and ABG was performed which showed metabolic acidosis with respiratory compensation. D-dimer was elevated, patient was started on heparin drip for possible PE. EKG showed atrial fibrillation with a left bundle branch block. Troponin was elevated at 3.72. There is worsening renal function with a creatinine of 2.05 and lactic acid was elevated at 9.6. Patient was given a bolus of normal saline and started on D5 sodium bicarbonate 100 mL per hour. He was started on broad-spectrum IV antibiotics. ICU was consulted. Cardiology is on board to rule out acute coronary syndrome. Infectious diseases consulted for possible sepsis, infectious process. Patient was seen and examined. He is currently on BiPAP to supplement his breathing. RN reports vague complaints of abdominal pain, constipation. Per RN , patient making 20-30 mL of urine hourly. Objective - Vital Signs Vital signs: Vital Signs Temp 98.8 F 07/07/18 08:00 Pulse 90 07/07/18 09:30 Resp 19 07/07/18 09:30 BP 96/49 07/07/18 09:00 Pulse Ox 98 07/07/18 09:30 Intake & Output 07/06/18 07/07/18 07/07/18 18:59 06:59 18:59 Intake Total 400 0.75 296.548 Output Total 90 Balance 400 0.75 206.548 Intake: IV 285 0.9 NACL 60 Dextrose 5% in Water 1, 225 000 ml @ 100 mls/hr IV . [id number] MARLINE with Sodium Bicarb (1 Meq/ml) 150 ml Rx#:[id number] Intake, IV Titration 0.75 11.548 Amount Diltiazem 50 mg In Sodium 0.75 Chloride 0.9% 40 ml @ 5 MG/HR 5 mls/hr IV .Q10H MARLINE Rx#:[id number] Insulin Regular 100 unit 11.548 In Sodium Chloride 0.9% 100 ml @ Per Protocol IV .Q0M MARLINE Rx#:[id number] Oral 200 Other 200 Output: Urine 90 Other: Voiding Method Urinal Incontinent # Voids 3 2 - Exam General: [non toxic], [slight resp distress on BiPAP], [appears at stated age] Derm: [warm], [dry] Head: [atraumatic], [normocephalic], [symmetric] Eyes: [EOMI], [no lid lag], [anicteric sclera] Mouth: [no lip lesion], [mucus membranes moist] Cardiovascular: [S1S2 reg], [no murmur], [positive DP pulse bilateral] Lungs: [CTA bilateral], [no rhonchi, no rales] , [no accessory muscle use] Abdominal: [soft], [ nontender to palpation], [no guarding], [no appreciable organomegaly] Ext: [no gross muscle atrophy], [no edema], [no contractures], [DTI R buttocks with no erythema or discharge, open wound] Neuro: [Right lower extremity diminished strength due to pain, surgical wound dressing is clean dry and intact without hematoma] Psych: [Alert], [oriented], [appropriate affect] - Labs CBC & Chem 7: 07/07/18 04:24 07/07/18 08:49 Labs: Abnormal Lab Results - Last 24 Hours (Table) 07/06/18 07/06/18 07/06/18 Range/Units 11:54 16:48 20:03 WBC (3.8-10.6) k/uL RBC (4.30-5.90) m/uL Hgb (13.0-17.5) gm/dL Hct (39.0-53.0) % MCV (80.0-100.0) fL MCHC (31.0-37.0) g/dL Monocytes # (Manual) (0-1.0) k/uL Nucleated RBCs (0-0) /100 WBC PT (9.0-12.0) sec INR (<1.2) D-Dimer (<0.60) mg/L FEU ABG pH (7.35-7.45) ABG pCO2 (35-45) mmHg ABG pO2 (83-108) mmHg ABG HCO3 (21-25) mmol/L ABG Total CO2 (19-24) mmol/L ABG O2 Saturation (94-97) % VBG pH (7.31-7.41) VBG pCO2 (37-51) mmHg VBG HCO3 (24-28) mmol/L Chloride (98-107) mmol/L Carbon Dioxide (22-30) mmol/L BUN (9-20) mg/dL Creatinine (0.66-1.25) mg/dL Glucose (74-99) mg/dL POC Glucose (mg/dL) 326 H 338 H 311 H (75-99) mg/dL Plasma Lactic Acid Heri (0.7-2.0) mmol/L Troponin I (0.000-0.034) ng/mL 07/07/18 07/07/18 07/07/18 Range/Units 03:59 04:24 04:24 WBC (3.8-10.6) k/uL RBC (4.30-5.90) m/uL Hgb (13.0-17.5) gm/dL Hct (39.0-53.0) % MCV (80.0-100.0) fL MCHC (31.0-37.0) g/dL Monocytes # (Manual) (0-1.0) k/uL Nucleated RBCs (0-0) /100 WBC PT 12.3 H (9.0-12.0) sec INR 1.2 H (<1.2) D-Dimer 2.28 H (<0.60) mg/L FEU ABG pH (7.35-7.45) ABG pCO2 (35-45) mmHg ABG pO2 (83-108) mmHg ABG HCO3 (21-25) mmol/L ABG Total CO2 (19-24) mmol/L ABG O2 Saturation (94-97) % VBG pH (7.31-7.41) VBG pCO2 (37-51) mmHg VBG HCO3 (24-28) mmol/L Chloride (98-107) mmol/L Carbon Dioxide (22-30) mmol/L BUN (9-20) mg/dL Creatinine (0.66-1.25) mg/dL Glucose (74-99) mg/dL POC Glucose (mg/dL) 285 H (75-99) mg/dL Plasma Lactic Acid Heri (0.7-2.0) mmol/L Troponin I 3.720 H* (0.000-0.034) ng/mL 07/07/18 07/07/18 07/07/18 Range/Units 04:24 04:24 04:33 WBC 11.3 H (3.8-10.6) k/uL RBC 2.68 L (4.30-5.90) m/uL Hgb 8.4 L (13.0-17.5) gm/dL Hct 27.5 L (39.0-53.0) % MCV 102.7 H D (80.0-100.0) fL MCHC 30.4 L (31.0-37.0) g/dL Monocytes # (Manual) 1.13 H (0-1.0) k/uL Nucleated RBCs 1 H (0-0) /100 WBC PT (9.0-12.0) sec INR (<1.2) D-Dimer (<0.60) mg/L FEU ABG pH (7.35-7.45) ABG pCO2 (35-45) mmHg ABG pO2 (83-108) mmHg ABG HCO3 (21-25) mmol/L ABG Total CO2 (19-24) mmol/L ABG O2 Saturation (94-97) % VBG pH 7.11 L* (7.31-7.41) VBG pCO2 35 L (37-51) mmHg VBG HCO3 11 L (24-28) mmol/L Chloride (98-107) mmol/L Carbon Dioxide (22-30) mmol/L BUN (9-20) mg/dL Creatinine (0.66-1.25) mg/dL Glucose (74-99) mg/dL POC Glucose (mg/dL) (75-99) mg/dL Plasma Lactic Acid Heri 9.6 H* (0.7-2.0) mmol/L Troponin I (0.000-0.034) ng/mL 07/07/18 07/07/18 07/07/18 Range/Units 05:01 05:02 08:49 WBC (3.8-10.6) k/uL RBC (4.30-5.90) m/uL Hgb (13.0-17.5) gm/dL Hct (39.0-53.0) % MCV (80.0-100.0) fL MCHC (31.0-37.0) g/dL Monocytes # (Manual) (0-1.0) k/uL Nucleated RBCs (0-0) /100 WBC PT (9.0-12.0) sec INR (<1.2) D-Dimer (<0.60) mg/L FEU ABG pH 7.21 L (7.35-7.45) ABG pCO2 29 L (35-45) mmHg ABG pO2 201 H (83-108) mmHg ABG HCO3 11 L (21-25) mmol/L ABG Total CO2 12 L (19-24) mmol/L ABG O2 Saturation 99.7 H (94-97) % VBG pH (7.31-7.41) VBG pCO2 (37-51) mmHg VBG HCO3 (24-28) mmol/L Chloride 108 H (98-107) mmol/L Carbon Dioxide 16 L (22-30) mmol/L BUN 53 H (9-20) mg/dL Creatinine 2.05 H (0.66-1.25) mg/dL Glucose 367 H (74-99) mg/dL POC Glucose (mg/dL) 431 H (75-99) mg/dL Plasma Lactic Acid Heri (0.7-2.0) mmol/L Troponin I (0.000-0.034) ng/mL 07/07/18 07/07/18 07/07/18 Range/Units 08:49 09:26 10:41 WBC (3.8-10.6) k/uL RBC (4.30-5.90) m/uL Hgb (13.0-17.5) gm/dL Hct (39.0-53.0) % MCV (80.0-100.0) fL MCHC (31.0-37.0) g/dL Monocytes # (Manual) (0-1.0) k/uL Nucleated RBCs (0-0) /100 WBC PT (9.0-12.0) sec INR (<1.2) D-Dimer (<0.60) mg/L FEU ABG pH (7.35-7.45) ABG pCO2 (35-45) mmHg ABG pO2 (83-108) mmHg ABG HCO3 (21-25) mmol/L ABG Total CO2 (19-24) mmol/L ABG O2 Saturation (94-97) % VBG pH (7.31-7.41) VBG pCO2 (37-51) mmHg VBG HCO3 (24-28) mmol/L Chloride (98-107) mmol/L Carbon Dioxide (22-30) mmol/L BUN (9-20) mg/dL Creatinine (0.66-1.25) mg/dL Glucose (74-99) mg/dL POC Glucose (mg/dL) 391 H 374 H (75-99) mg/dL Plasma Lactic Acid Heri 7.4 H* (0.7-2.0) mmol/L Troponin I (0.000-0.034) ng/mL Microbiology - Last 24 Hours (Table) 07/07/18 05:25 Wound Culture - Preliminary Buttock Assessment and Plan Assessment: Assessment and Plan 1. Acute on chronic respiratory failure: VBG and ABG (pH 7.21, pCO2 29, HCO3 16 ) shows metabolic acidosis with respiratory compensation. Chest XR this morning shows possible left lower lobe pneumonia. D-Dimer 2.28, expected from surgery but with concerns for PE. Continue Heparin drip. O2 per NC to maintain O2 sat > 92%, BiPAP PRN. Optimize COPD medications. Will follow Pulmonology recommendations. 2. Sepsis: Patient with low grade F of 100.5F with leukocytosis of 11.3 today. Lactic acid 9.6 to 7.4. Continue [id number] at 100 cc/h. Deep tissue injury on the R buttocks. Possible concerns for pneumonia on CXR. Started on Daptomycin 500 mg IV QD, Zosyn 3.375g IV TID. Maintain MAP > 65. Local wound care for the R buttocks. Will follow ID recommendations. Follow up blood and wound cultures. 3. Troponin elevation: Troponin 3.720, 4.490. Possibly demand ischemia from sepsis but real concern for ACS given new LBBB. Echocardiogram prior to surgery was EF 55-60%, obtained today shows EF < 20% with global hypokinesis. Discussed with Dr. Gabriel, he will evaluate the patient. Heparin drip in the meantime. Continue Plavix 75 mg PO QD. Repeat Trop/EKG at 1PM. 4. A-Fibrillation: Amiodarone 100 mg PO QD discontinued by Cardiology on admission. Continue Diltiazem drip, Metoprolol discontinued. Keep K > 4 and Mg > 2. Telemetry monitoring. FU Cardiology 5. Acute subcapital fracture of the R femur: POD 4. Hip XR shows no obvious fracture. Pain management with [place] 10 1 tab PO Q4H PRN for pain 1-5, Dilaudid 0.5 mg IV Q3H PRN for Pain 6-10. Weight bearing as per Ortho recommendations. Will follow Orthopedic, PT and OT recommendations. 6. Anemia due to acute blood loss from surgery: Hg 10.2 to 8.3, maintaining at 8.5. Likely blood loss from surgery. Telemetry monitoring. Transfuse if Hg < 7.0. Daily CBC. 7. Metabolic derangement: pH 7.21, pCO2 29, HCO3 16, Cl 108. Results from ABG show metabolic acidosis with respiratory alkalosis as compensation. Lactic acid 7.4, concerns for infection. Continue IV Abx. Start [id number] at 100 cc/h. Maintain MAP > 65. BiPAP + O2 per NC to maintain O2 sat > 92%. Daily BMP. 8. Acute kidney injury: BUN 43 to 53 Cr 1.35 to 2.05 GFR 31. Likely due to dehydration, IV Abx and Lasix given during admission. Start [id number] at 100 cc/ h for metabolic acidosis. Avoid nephrotoxins. Daily BMP. 9. COPD: Albuterol 2.5 mg neb BID PRN for SOB/wheezing. O2 per NC to maintain O2 sat > 92%. BiPAP if necessary. 10. Diabetes Mellitus: POC glucose 374. Started on insulin drip in ICU. Metabolic acidosis seen on BMP but no ketonuria. Hypoglycemic precautions. Regular accuchecks. 11. Hypertension: Hypotensive in MICU. BP 96/49. Hold Metoprolol 12.5 mg PO QD and Amlodipine 5 mg PO QD. Monitor vitals, adjust medications as necessary. 12. Depression: Stable. Continue Paroxetine 20 mg PO BID. 13. DVT/GI Prophylaxis: Heparin drip. Acute respiratory failure, concerns for pneumonia versus PE versus CHF versus COPD. Patient on broad-spectrum IV antibiotics with concerns for sepsis, infectious disease on board. Elevated troponin with concerns for acute coronary syndrome, cardiology on board.
--- NOTE | 2018-07-07 13:41 | P.CNPUL ---
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 Underlying COPD, obstructive sleep apnea syndrome, patient was admitted to the hospital on 2018, and he was admitted after a fall sustaining a right hip fracture, patient was admitted, seen by orthopedic surgery on consultation, and he underwent right hip arthroplasty for right upper Patellofemoral neck fracture by Dr. Abernathy on 07/03/2018. Patient is also known to have history of chronic decubitus sacral ulcer. Overnight last night, patient developed changes in mental status. He was also noted to have more difficulty breathing. He was noted to be hypoxic, tachypneic, and he had a low-grade temp of 100.5. The rapid response team from the intensive care unit responded to the patient, he was noted to be metabolically acidotic, his lactic acid was elevated, d-dimer was also elevated, his renal functioning was noted to be worse, and his ABG showed a pO2 of 201, pCO2 was 29 and pH was 7.21. Hence patient was placed on BiPAP, placed on a sodium bicarb drip, antibiotics where broadened spectrum, patient was placed on insulin drip for hyperglycemia, and he was transferred to the ICU. Patient has a DO NOT RESUSCITATE CODE STATUS based on his previously expressed wishes, hence he was managed with BiPAP, and will be managed with mostly antibiotics, fluids, however the patient is known to have history of LV dysfunction and his ejection fraction is about 20%. I saw the patient this morning in the ICU, and I discussed the different issues with his family at bedside. Reviewed all the medications he is presently on, and recommended infectious disease consultation on the patient. His chest x-ray did show evidence of interstitial edema or infiltrate in the left lung. X-rays of the lumbosacral spine showed compression fractures and deformities in the lumbar spine and lower thoracic vertebral. Echocardiogram showed severe global hypokinesis of the left ventricle. His lactic acid was noted to be elevated, 9.6 initially, and it is 7.4 now. Patient received fluid boluses of 1.5 L, hence maintenance IV fluid was placed at 100 mL/h, and sodium bicarb drip was addressed. PTT was over 200 and heparin was adjusted as per protocol. D-dimer was 2.28. Patient is normally on Plavix but presently on heparin Review of Systems 14 point review of systems could not be obtained from the patient, patient is a very poor historian, however family at bedside explained to me that the patient had previous history of CVA, he is however ambulatory, but he has a chronic right foot drop. He has history of COPD maintained on bronchodilators/updrafts at home. And he has history of congestive heart failure. History of diabetes. ROS unobtainable: due to mental status 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, weakness, falls, PVD, pt has cerebral stent per spouse, 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, hypoglycemia, NIDDM type II, past neuropathy bilateral feet which spouse states no longer a problem s/t OTC medications, past bilateral esparza cellulitis, R foot toes with scabs, R elbow bursitis, bradycardia, RBBB, History of Any Multi-Drug Resistant Organisms: None Reported Past Surgical History: Appendectomy, Cholecystectomy Additional Past Surgical History / Comment(s): 2001 CABG- spouse thinks 2 vessel done at [facility] in [place], post op infection resulting in sternotomy , cerebral shunt and stent, bilateral total knee arthroplasty- one side done twice, bilateral total shoulder surgery, colonoscopies Past Anesthesia/Blood Transfusion Reactions: No Reported Reaction Additional Past Anesthesia/Blood Transfusion Reaction / Comment(s): Pt has received blood in past without reaction-spouse believes it was with CABG surgery. Smoking Status: Current every day smoker - Past Family History Father Family Medical History: Cancer Additional Family Medical History / Comment(s): Father at the age of 58yrs from stomach cancer. Mother Family Medical History: No Reported History Medications and Allergies Home Medications Medication Instructions Recorded Confirmed Type Albuterol Nebulized [Ventolin 2.5 mg INHALATION RT-BID 07/01/18 07/01/18 History Nebulized] Amiodarone [Cordarone] 100 mg PO DAILY 07/01/18 07/01/18 History Aspirin EC [Ecotrin] 325 mg PO DAILY 07/01/18 07/01/18 History Cholecalciferol [Vitamin D3] 3,000 unit PO DAILY 07/01/18 07/01/18 History Clopidogrel [Plavix] 75 mg PO DAILY 07/01/18 07/01/18 History Cyanocobalamin (Vitamin B-12) 1,000 mcg PO DAILY 07/01/18 07/01/18 History [Vitamin B-12] Enalapril [Vasotec] 10 mg PO BID 07/01/18 07/01/18 History Folic Acid 1 mg PO DAILY 07/01/18 07/01/18 History Furosemide [Lasix] 20 mg PO DAILY 07/01/18 07/01/18 History Gemfibrozil [Lopid] 600 mg PO AC-BID 07/01/18 07/01/18 History Glimepiride [Amaryl] 4 mg PO BID 07/01/18 07/01/18 History Metoprolol Tartrate [Lopressor] 25 mg PO BID 07/01/18 07/01/18 History Goodview-3 Fatty Acids [Goodview-3] 1,000 mg PO DAILY 07/01/18 07/01/18 History PARoxetine [Paxil] 20 mg PO BID 07/01/18 07/01/18 History Pioglitazone [Actos] 45 mg PO DAILY 07/01/18 07/01/18 History Potassium Gluconate 99 mg PO DAILY 07/01/18 07/01/18 History Pyridoxine HCl (Vitamin B6) 200 mg PO DAILY 07/01/18 07/01/18 History [Vitamin B-6] amLODIPine [Norvasc] 5 mg PO DAILY 07/01/18 07/01/18 History metFORMIN HCL 1,000 mg PO BID 07/01/18 07/01/18 History Allergies Allergy/AdvReac Type Severity Reaction Status Date / Time vancomycin AdvReac Severe Rash/Hives Verified 07/01/18 09:20 doxycycline [From Vibramycin] AdvReac Unknown Verified 07/01/18 09:20 Physical Exam Vitals: Vital Signs Temp Pulse Pulse Pulse Resp BP BP 07/07/18 12:00 98.4 F 93 24 104/55 07/07/18 11:53 92 07/07/18 11:41 91 07/07/18 11:30 90 20 109/60 07/07/18 11:00 89 22 112/57 07/07/18 10:30 96 22 107/54 07/07/18 10:00 86 36 H 96/49 07/07/18 09:30 90 19 07/07/18 09:00 90 20 96/49 07/07/18 08:30 93 21 07/07/18 08:00 98.8 F 92 20 100/49 07/07/18 07:49 92 07/07/18 07:36 93 07/07/18 07:30 92 24 109/43 07/07/18 07:00 95 24 109/43 07/07/18 06:30 98 26 H 109/43 07/07/18 06:00 90 47 H 84/49 07/07/18 05:57 07/07/18 05:45 100.4 F H 98 30 H 110/80 07/07/18 04:03 108 H 07/07/18 03:53 77 07/07/18 00:30 97.9 F 88 19 122/65 07/06/18 22:47 89 07/06/18 22:36 91 07/06/18 19:56 97.9 F 90 16 116/70 07/06/18 19:04 80 07/06/18 18:54 77 07/06/18 15:28 97.4 F L 80 16 160/72 07/06/18 15:17 98 07/06/18 15:05 90 Pulse Ox 07/07/18 12:00 99 07/07/18 11:53 07/07/18 11:41 07/07/18 11:30 98 07/07/18 11:00 97 07/07/18 10:30 100 07/07/18 10:00 97 07/07/18 09:30 98 07/07/18 09:00 97 07/07/18 08:30 97 07/07/18 08:00 98 07/07/18 07:49 07/07/18 07:36 07/07/18 07:30 97 07/07/18 07:00 99 07/07/18 06:30 98 07/07/18 06:00 95 01/21/19 05:57 94 L 07/07/18 05:45 95 07/07/18 04:03 07/07/18 03:53 07/07/18 00:30 96 07/06/18 22:47 07/06/18 22:36 07/06/18 19:56 95 07/06/18 19:04 07/06/18 18:54 96 07/06/18 15:28 96 07/06/18 15:17 07/06/18 15:05 Intake and Output 07/06/18 07/07/18 07/07/18 22:59 06:59 14:59 Intake Total 0.75 550.772 Output Total 160 Balance 0.75 390.772 Intake: IV 525 0.9 NACL 100 Dextrose 5% in Water 1, 425 000 ml @ 100 mls/hr IV . [id number] MARLINE with Sodium Bicarb (1 Meq/ml) 150 ml Rx#:[id number] Intake, IV Titration 0.75 25.772 Amount Diltiazem 50 mg In Sodium 0.75 Chloride 0.9% 40 ml @ 5 MG/HR 5 mls/hr IV .Q10H MARLINE Rx#:[id number] Insulin Regular 100 unit 25.772 In Sodium Chloride 0.9% 100 ml @ Per Protocol IV .Q0M MARLINE Rx#:[id number] Output: Urine 160 Other: Voiding Method Urinal Indwelling Catheter Incontinent # Voids 2 Physical Exam: Revealed a 78-year-old white male, on BiPAP with IPAP of 12 and EPAP of 6 and 40% FiO2. Head: Atraumatic, normocephalic. HEENT:[Neck is supple.] [No neck masses.] [No thyromegaly.] [No JVD.] PERRLA, EOMI, no icterus. Throat is clear. Moist mucous membranes noted. Chest: [Fine crackles at the bases, no rhonchi and no wheezes. Cardiac Exam: [Distant S1 and S2, no S3 gallop, no murmur.] Abdomen: [Soft, nontender, no megaly, no rebound, no guarding, diminished bowel sounds Extremities: [No clubbing, no edema, no cyanosis.] Neurological Exam: Generally weak, right-sided foot drop is noted, patient follows simple instructions but seems to be disoriented. Skin: Deep sacral decubitus ulcer noted by the nurse, however presently has a dry dressing and it will be evaluated by infectious disease on consultation. Surgical site on the right hip is intact and clean and dry Psychiatric: Patient is alert but confused and disoriented to place and time. Results - Laboratory Findings CBC and BMP: 07/07/18 04:24 07/07/18 08:49 ABG ABG pH 7.21 (7.35-7.45) L 07/07/18 05:01 ABG pCO2 29 mmHg (35-45) L 07/07/18 05:01 ABG pO2 201 mmHg (83-108) H 07/07/18 05:01 ABG O2 Saturation 99.7 % (94-97) H 07/07/18 05:01 PT/INR, D-dimer PT 12.3 sec (9.0-12.0) H 07/07/18 04:24 INR 1.2 (<1.2) H 07/07/18 04:24 D-Dimer 2.28 mg/L FEU (<0.60) H 07/07/18 04:24 Abnormal lab findings: Abnormal Labs 07/01/18 07/01/18 07/01/18 03:40 03:40 07:12 WBC RBC 3.37 L Hgb 10.9 L Hct 32.3 L MCV MCHC Neutrophils # 9.3 H Lymphocytes # 0.5 L Monocytes # (Manual) Nucleated RBCs PT INR APTT D-Dimer ABG pH ABG pCO2 ABG pO2 ABG HCO3 ABG Total CO2 ABG O2 Saturation VBG pH VBG pCO2 VBG HCO3 Sodium 135 L Potassium 5.8 H Chloride Carbon Dioxide 18 L BUN 57 H Creatinine 1.65 H Glucose 242 H POC Glucose (mg/dL) 343 H Plasma Lactic Acid Heri Calcium 10.3 H AST Alkaline Phosphatase 129 H Total Creatine Kinase CK-MB (CK-2) Troponin I Total Protein Albumin 07/01/18 07/01/18 07/01/18 12:03 12:06 17:12 WBC RBC Hgb Hct MCV MCHC Neutrophils # Lymphocytes # Monocytes # (Manual) Nucleated RBCs PT INR APTT D-Dimer ABG pH ABG pCO2 ABG pO2 ABG HCO3 ABG Total CO2 ABG O2 Saturation VBG pH VBG pCO2 VBG HCO3 Sodium Potassium 6.2 H* Chloride Carbon Dioxide 16 L BUN 55 H Creatinine 1.53 H Glucose 331 H POC Glucose (mg/dL) 365 H 217 H Plasma Lactic Acid Heri Calcium AST Alkaline Phosphatase Total Creatine Kinase CK-MB (CK-2) Troponin I Total Protein Albumin 07/01/18 07/01/18 07/01/18 17:18 18:00 20:21 WBC RBC Hgb Hct MCV MCHC Neutrophils # Lymphocytes # Monocytes # (Manual) Nucleated RBCs PT INR APTT D-Dimer ABG pH ABG pCO2 27 L ABG pO2 76 L ABG HCO3 15 L ABG Total CO2 16 L ABG O2 Saturation VBG pH VBG pCO2 VBG HCO3 Sodium 135 L Potassium 5.7 H Chloride Carbon Dioxide 16 L BUN 57 H Creatinine 1.44 H Glucose 207 H POC Glucose (mg/dL) 161 H Plasma Lactic Acid Heri Calcium AST Alkaline Phosphatase Total Creatine Kinase CK-MB (CK-2) Troponin I Total Protein Albumin 07/01/18 07/02/18 07/02/18 21:18 00:12 07:22 WBC RBC Hgb Hct MCV MCHC Neutrophils # Lymphocytes # Monocytes # (Manual) Nucleated RBCs PT INR APTT D-Dimer ABG pH ABG pCO2 ABG pO2 ABG HCO3 ABG Total CO2 ABG O2 Saturation VBG pH VBG pCO2 VBG HCO3 Sodium 133 L Potassium Chloride Carbon Dioxide 14 L BUN 56 H Creatinine 1.38 H Glucose POC Glucose (mg/dL) 151 H 178 H Plasma Lactic Acid Heri Calcium AST Alkaline Phosphatase Total Creatine Kinase CK-MB (CK-2) Troponin I Total Protein Albumin 07/02/18 07/02/18 07/02/18 11:51 17:05 20:00 WBC RBC Hgb Hct MCV MCHC Neutrophils # Lymphocytes # Monocytes # (Manual) Nucleated RBCs PT INR APTT D-Dimer ABG pH ABG pCO2 ABG pO2 ABG HCO3 ABG Total CO2 ABG O2 Saturation VBG pH VBG pCO2 VBG HCO3 Sodium Potassium Chloride Carbon Dioxide BUN Creatinine Glucose POC Glucose (mg/dL) 236 H 185 H 164 H Plasma Lactic Acid Heri Calcium AST Alkaline Phosphatase Total Creatine Kinase CK-MB (CK-2) Troponin I Total Protein Albumin 07/03/18 07/03/18 07/03/18 07:22 07:22 07:25 WBC RBC 3.28 L Hgb 10.5 L Hct 31.6 L MCV MCHC Neutrophils # Lymphocytes # Monocytes # (Manual) Nucleated RBCs PT INR APTT D-Dimer ABG pH ABG pCO2 ABG pO2 ABG HCO3 ABG Total CO2 ABG O2 Saturation VBG pH VBG pCO2 VBG HCO3 Sodium Potassium Chloride 114 H Carbon Dioxide 18 L BUN 39 H Creatinine Glucose 216 H POC Glucose (mg/dL) 217 H Plasma Lactic Acid Heri Calcium AST 201 H Alkaline Phosphatase Total Creatine Kinase CK-MB (CK-2) Troponin I Total Protein 5.9 L Albumin 3.4 L 07/03/18 07/03/18 07/03/18 11:49 16:23 17:45 WBC 10.8 H RBC 3.20 L Hgb 10.2 L Hct 31.9 L MCV MCHC Neutrophils # 8.3 H Lymphocytes # Monocytes # (Manual) Nucleated RBCs PT INR APTT D-Dimer ABG pH ABG pCO2 ABG pO2 ABG HCO3 ABG Total CO2 ABG O2 Saturation VBG pH VBG pCO2 VBG HCO3 Sodium Potassium Chloride Carbon Dioxide BUN Creatinine Glucose POC Glucose (mg/dL) 233 H 296 H Plasma Lactic Acid Heri Calcium AST Alkaline Phosphatase Total Creatine Kinase CK-MB (CK-2) Troponin I Total Protein Albumin 07/03/18 07/04/18 07/04/18 20:11 11:32 17:08 WBC RBC Hgb Hct MCV MCHC Neutrophils # Lymphocytes # Monocytes # (Manual) Nucleated RBCs PT INR APTT D-Dimer ABG pH ABG pCO2 ABG pO2 ABG HCO3 ABG Total CO2 ABG O2 Saturation VBG pH VBG pCO2 VBG HCO3 Sodium Potassium Chloride Carbon Dioxide BUN Creatinine Glucose POC Glucose (mg/dL) 274 H 300 H 303 H Plasma Lactic Acid Heir Calcium AST Alkaline Phosphatase Total Creatine Kinase CK-MB (CK-2) Troponin I Total Protein Albumin 07/04/18 07/05/18 07/05/18 20:10 07:07 07:10 WBC RBC Hgb Hct MCV MCHC Neutrophils # Lymphocytes # Monocytes # (Manual) Nucleated RBCs PT INR APTT D-Dimer ABG pH ABG pCO2 ABG pO2 ABG HCO3 ABG Total CO2 ABG O2 Saturation VBG pH VBG pCO2 VBG HCO3 Sodium 136 L Potassium Chloride Carbon Dioxide 21 L BUN 40 H Creatinine 1.48 H Glucose 218 H POC Glucose (mg/dL) 301 H 232 H Plasma Lactic Acid Heri Calcium AST Alkaline Phosphatase Total Creatine Kinase CK-MB (CK-2) Troponin I Total Protein Albumin 07/05/18 07/05/18 07/05/18 09:00 12:02 15:53 WBC RBC 2.63 L 2.59 L Hgb 8.3 L D 8.1 L Hct 25.3 L 24.9 L MCV MCHC Neutrophils # Lymphocytes # 0.9 L 0.6 L Monocytes # (Manual) Nucleated RBCs PT INR APTT D-Dimer ABG pH ABG pCO2 ABG pO2 ABG HCO3 ABG Total CO2 ABG O2 Saturation VBG pH VBG pCO2 VBG HCO3 Sodium Potassium Chloride Carbon Dioxide BUN Creatinine Glucose POC Glucose (mg/dL) 293 H Plasma Lactic Acid Heri Calcium AST Alkaline Phosphatase Total Creatine Kinase CK-MB (CK-2) Troponin I Total Protein Albumin 07/05/18 07/05/18 07/06/18 17:19 20:27 06:41 WBC RBC Hgb Hct MCV MCHC Neutrophils # Lymphocytes # Monocytes # (Manual) Nucleated RBCs PT INR APTT D-Dimer ABG pH ABG pCO2 ABG pO2 ABG HCO3 ABG Total CO2 ABG O2 Saturation VBG pH VBG pCO2 VBG HCO3 Sodium Potassium Chloride Carbon Dioxide BUN Creatinine Glucose POC Glucose (mg/dL) 314 H 318 H 260 H Plasma Lactic Acid Heri Calcium AST Alkaline Phosphatase Total Creatine Kinase CK-MB (CK-2) Troponin I Total Protein Albumin 07/06/18 07/06/18 07/06/18 07:45 07:47 11:54 WBC RBC 2.72 L Hgb 8.5 L Hct 26.4 L MCV MCHC Neutrophils # Lymphocytes # 0.8 L Monocytes # (Manual) Nucleated RBCs PT INR APTT D-Dimer ABG pH ABG pCO2 ABG pO2 ABG HCO3 ABG Total CO2 ABG O2 Saturation VBG pH VBG pCO2 VBG HCO3 Sodium Potassium Chloride Carbon Dioxide 18 L BUN 43 H Creatinine 1.35 H Glucose 252 H POC Glucose (mg/dL) 326 H Plasma Lactic Acid Heri Calcium AST Alkaline Phosphatase Total Creatine Kinase CK-MB (CK-2) Troponin I Total Protein Albumin 07/06/18 07/06/18 07/07/18 16:48 20:03 03:59 WBC RBC Hgb Hct MCV MCHC Neutrophils # Lymphocytes # Monocytes # (Manual) Nucleated RBCs PT INR APTT D-Dimer ABG pH ABG pCO2 ABG pO2 ABG HCO3 ABG Total CO2 ABG O2 Saturation VBG pH VBG pCO2 VBG HCO3 Sodium Potassium Chloride Carbon Dioxide BUN Creatinine Glucose POC Glucose (mg/dL) 338 H 311 H 285 H Plasma Lactic Acid Heri Calcium AST Alkaline Phosphatase Total Creatine Kinase CK-MB (CK-2) Troponin I Total Protein Albumin 07/07/18 07/07/18 07/07/18 04:24 04:24 04:24 WBC RBC Hgb Hct MCV MCHC Neutrophils # Lymphocytes # Monocytes # (Manual) Nucleated RBCs PT 12.3 H INR 1.2 H APTT D-Dimer 2.28 H ABG pH ABG pCO2 ABG pO2 ABG HCO3 ABG Total CO2 ABG O2 Saturation VBG pH VBG pCO2 VBG HCO3 Sodium Potassium Chloride Carbon Dioxide BUN Creatinine Glucose POC Glucose (mg/dL) Plasma Lactic Acid Heri 9.6 H* Calcium AST Alkaline Phosphatase Total Creatine Kinase CK-MB (CK-2) Troponin I 3.720 H* Total Protein Albumin 07/07/18 07/07/18 07/07/18 04:24 04:33 05:01 WBC 11.3 H RBC 2.68 L Hgb 8.4 L Hct 27.5 L MCV 102.7 H D MCHC 30.4 L Neutrophils # Lymphocytes # Monocytes # (Manual) 1.13 H Nucleated RBCs 1 H PT INR APTT D-Dimer ABG pH 7.21 L ABG pCO2 29 L ABG pO2 201 H ABG HCO3 11 L ABG Total CO2 12 L ABG O2 Saturation 99.7 H VBG pH 7.11 L* VBG pCO2 35 L VBG HCO3 11 L Sodium Potassium Chloride Carbon Dioxide BUN Creatinine Glucose POC Glucose (mg/dL) Plasma Lactic Acid Heri Calcium AST Alkaline Phosphatase Total Creatine Kinase CK-MB (CK-2) Troponin I Total Protein Albumin 07/07/18 07/07/18 07/07/18 05:02 08:49 08:49 WBC RBC Hgb Hct MCV MCHC Neutrophils # Lymphocytes # Monocytes # (Manual) Nucleated RBCs PT INR APTT D-Dimer ABG pH ABG pCO2 ABG pO2 ABG HCO3 ABG Total CO2 ABG O2 Saturation VBG pH VBG pCO2 VBG HCO3 Sodium Potassium Chloride 108 H Carbon Dioxide 16 L BUN 53 H Creatinine 2.05 H Glucose 367 H POC Glucose (mg/dL) 431 H Plasma Lactic Acid Heri 7.4 H* Calcium AST Alkaline Phosphatase Total Creatine Kinase CK-MB (CK-2) Troponin I Total Protein Albumin 07/07/18 07/07/18 07/07/18 08:49 09:26 10:41 WBC RBC Hgb Hct MCV MCHC Neutrophils # Lymphocytes # Monocytes # (Manual) Nucleated RBCs PT INR APTT D-Dimer ABG pH ABG pCO2 ABG pO2 ABG HCO3 ABG Total CO2 ABG O2 Saturation VBG pH VBG pCO2 VBG HCO3 Sodium Potassium Chloride Carbon Dioxide BUN Creatinine Glucose POC Glucose (mg/dL) 391 H 374 H Plasma Lactic Acid Heri Calcium AST Alkaline Phosphatase Total Creatine Kinase 2115 H* CK-MB (CK-2) 7.3 H Troponin I 4.490 H* Total Protein Albumin 07/07/18 07/07/18 11:46 11:46 WBC RBC Hgb Hct MCV MCHC Neutrophils # Lymphocytes # Monocytes # (Manual) Nucleated RBCs PT INR APTT >200.0 H* D-Dimer ABG pH ABG pCO2 ABG pO2 ABG HCO3 ABG Total CO2 ABG O2 Saturation VBG pH VBG pCO2 VBG HCO3 Sodium Potassium Chloride Carbon Dioxide BUN Creatinine Glucose POC Glucose (mg/dL) 300 H Plasma Lactic Acid Heri Calcium AST Alkaline Phosphatase Total Creatine Kinase CK-MB (CK-2) Troponin I Total Protein Albumin - Diagnostic Findings Chest x-ray: image reviewed Assessment and Plan Assessment: Impression: 1 acute hypoxic respiratory failure secondary to sepsis, most likely source is his sacral ulcer. Although other possibilities including urine and pneumonia not entirely ruled out. But felt to be less likely. Patient is presently on BiPAP 2 acute lactic acidosis secondary to sepsis 3 severe LV dysfunction, ejection fraction of 20%, patient is high risk for developing congestive heart failure and pulmonary edema with treatment of sepsis and fluids. 4 electrolytes imbalance including hyponatremia and hyperkalemia 5 coronary artery disease, Plavix is presently on hold, patient is on heparin. Plavix was placed on hold prior to surgery. 6 chronic anemia 7 acute on chronic kidney disease, possibly acute kidney injury, creatinine today is 2.05, it was as low as 1.20 on this admission. Patient may have hadchronic kidney disease stage III. 8 chronic obstructive pulmonary disease, supposedly moderately severe. Patient is normally on updrafts at home. But not O2 dependent. 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 10 status post right hemiarthroplasty for right hip fracture, patient is postoperative day #4 Recommendation: Continue empiric broad-spectrum antibiotics, patient is now on daptomycin and Zosyn, and infectious disease consultation was initiated. Continue treatment as per sepsis protocol, however patient is high risk for developing congestive heart failure considering his poor LV function ejection fraction of 20%. Continue anticoagulation therapy, patient used to be on Plavix, presently on heparin, and he is on heparin as per protocol. Continue sodium bicarb drip and adjust based on his anion gap and based on his profound metabolic acidosis. Continue insulin drip, Continue bronchodilators Continue incentive spirometry and for now the patient is on BiPAP. Discussed the patient's condition with family at bedside, he had previously expressed wishes as to be DO NOT RESUSCITATE, his wishes will be respected, and we'll continue to follow very closely. Prognosis is definitely guarded at this point, and the patient is considered critically ill. Time with Patient: Greater than 30
[2018-07-07 13:44] LABS: Glucose,Whole Blood 210 mg/dL (75-99)
[2018-07-07 14:02] LABS: Albumin 3.1 g/dL (3.5-5.0); Bilirubin, Delta 0.3 mg/dL (0.0-0.2); Bilirubin,Unconjugated 0.3 mg/dL (0.0-1.1); Total Bilirubin 0.6 mg/dL (0.2-1.3); Total Protein 5.6 g/dL (6.3-8.2)
--- NOTE | 2018-07-07 14:17 | P.CONS ---
History of Present Illness - Reason for Consult Consult date: 07/07/18 Right buttock wound/sepsis - History of Present Illness This is a 78-year-old male who presented to the hospital on July 01 after a mechanical fall that occurred on the . At outside facility, patient had a CAT scan of the head and neck that were negative and a right hip x -ray showed non-angulated nondisplaced subcapital femoral fracture. Patient was admitted to the hospital under the care of orthopedics and underwent a right hip hemiarthroplasty on July 03. Last evening patient developed mental status changes, difficulty breathing with hypoxia, tachypnea and temperature 100.5. Rapid response team was called and patient was transferred to the intensive care unit. He was found to have lactic acidosis, metabolic acidosis and elevated troponin. Blood cultures were obtained and wound culture obtained to a chronic right buttocks wound. Initial echocardiogram showed an EF of 55-60% and repeat echocardiogram done this morning showed an EF of less than 20 with severe global hypokinesia of the LV, moderate mitral regurgitation. Lumbar spine x-rays done yesterday showed compression fractures and deformities in the lumbar spine and lower thoracic vertebrae. White count 11.3, hemoglobin 8.4 and platelet count 351. BUN 53 and creatinine 2.05, blood sugars are improving on insulin drip. Review of Systems ROS unobtainable: due to endotracheal tube (due to bipap) All systems: negative Constitutional: Reports fatigue, Reports lethargy, Reports malaise, Reports weakness, Denies chills, Denies fever Eyes: denies blurred vision, denies pain Ears, nose, mouth and throat: Denies headache, Denies sore throat, Denies vertigo Cardiovascular: Denies chest pain, Denies dyspnea on exertion, Denies edema, Denies leg edema, Denies shortness of breath Respiratory: Reports dyspnea, Denies cough, Denies cough with sputum, Denies excessive sputum, Denies hemoptysis, Denies home oxygen Gastrointestinal: Denies abdominal pain, Denies diarrhea, Denies nausea, Denies vomiting Musculoskeletal: Denies myalgias Integumentary: Denies pruritus, Denies rash Neurological: Denies numbness, Denies weakness Psychiatric: Denies anxiety, Denies depression Endocrine: Denies fatigue, Denies weight change 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, weakness, falls, PVD, pt has cerebral stent per spouse, 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, hypoglycemia, NIDDM type II, past neuropathy bilateral feet which spouse states no longer a problem s/t OTC medications, past bilateral esparza cellulitis, R foot toes with scabs, R elbow bursitis, bradycardia, RBBB, History of Any Multi-Drug Resistant Organisms: None Reported Past Surgical History: Appendectomy, Cholecystectomy Additional Past Surgical History / Comment(s): 2001 CABG- spouse thinks 2 vessel done at [facility] [facility] in [place], post op infection resulting in sternotomy , cerebral shunt and stent, bilateral total knee arthroplasty- one side done twice, bilateral total shoulder surgery, colonoscopies Past Anesthesia/Blood Transfusion Reactions: No Reported Reaction Additional Past Anesthesia/Blood Transfusion Reaction / Comm: Pt has received blood in past without reaction-spouse believes it was with CABG surgery. Smoking Status: Current every day smoker - Past Family History Father Family Medical History: Cancer Additional Family Medical History / Comment(s): Father at the age of 58yrs from stomach cancer. Mother Family Medical History: No Reported History Medications and Allergies Home Medications Medication Instructions Recorded Confirmed Type Albuterol Nebulized [Ventolin 2.5 mg INHALATION RT-BID 07/01/18 07/01/18 History Nebulized] Amiodarone [Cordarone] 100 mg PO DAILY 07/01/18 07/01/18 History Aspirin EC [Ecotrin] 325 mg PO DAILY 07/01/18 07/01/18 History Cholecalciferol [Vitamin D3] 3,000 unit PO DAILY 07/01/18 07/01/18 History Clopidogrel [Plavix] 75 mg PO DAILY 07/01/18 07/01/18 History Cyanocobalamin (Vitamin B-12) 1,000 mcg PO DAILY 07/01/18 07/01/18 History [Vitamin B-12] Enalapril [Vasotec] 10 mg PO BID 07/01/18 07/01/18 History Folic Acid 1 mg PO DAILY 07/01/18 07/01/18 History Furosemide [Lasix] 20 mg PO DAILY 07/01/18 07/01/18 History Gemfibrozil [Lopid] 600 mg PO AC-BID 07/01/18 07/01/18 History Glimepiride [Amaryl] 4 mg PO BID 07/01/18 07/01/18 History Metoprolol Tartrate [Lopressor] 25 mg PO BID 07/01/18 07/01/18 History [place]-3 Fatty Acids [[place]-3] 1,000 mg PO DAILY 07/01/18 07/01/18 History PARoxetine [Paxil] 20 mg PO BID 07/01/18 07/01/18 History Pioglitazone [Actos] 45 mg PO DAILY 07/01/18 07/01/18 History Potassium Gluconate 99 mg PO DAILY 07/01/18 07/01/18 History Pyridoxine HCl (Vitamin B6) 200 mg PO DAILY 07/01/18 07/01/18 History [Vitamin B-6] amLODIPine [Norvasc] 5 mg PO DAILY 07/01/18 07/01/18 History metFORMIN HCL 1,000 mg PO BID 07/01/18 07/01/18 History Allergies Allergy/AdvReac Type Severity Reaction Status Date / Time vancomycin AdvReac Severe Rash/Hives Verified 07/01/18 09:20 doxycycline [From Vibramycin] AdvReac Unknown Verified 07/01/18 09:20 Physical Exam Vitals: Vital Signs Temp Pulse Pulse Pulse Resp BP BP 07/07/18 14:00 87 21 104/56 07/07/18 13:30 87 23 96/51 07/07/18 13:00 88 24 101/83 07/07/18 12:30 91 24 112/64 07/07/18 12:00 98.4 F 93 24 104/55 07/07/18 11:53 92 07/07/18 11:41 91 07/07/18 11:30 90 20 109/60 07/07/18 11:00 89 22 112/57 07/07/18 10:30 96 22 107/54 07/07/18 10:00 86 36 H 96/49 07/07/18 09:30 90 19 07/07/18 09:00 90 20 96/49 07/07/18 08:30 93 21 07/07/18 08:00 98.8 F 92 20 100/49 07/07/18 07:49 92 07/07/18 07:36 93 07/07/18 07:30 92 24 109/43 07/07/18 07:00 95 24 109/43 07/07/18 06:30 98 26 H 109/43 07/07/18 06:00 90 47 H 84/49 07/07/18 05:57 07/07/18 05:45 100.4 F H 98 30 H 110/80 07/07/18 04:03 108 H 07/07/18 03:53 77 07/07/18 00:30 97.9 F 88 19 122/65 07/06/18 22:47 89 07/06/18 22:36 91 07/06/18 19:56 97.9 F 90 16 116/70 07/06/18 19:04 80 07/06/18 18:54 77 07/06/18 15:28 97.4 F L 80 16 160/72 07/06/18 15:17 98 07/06/18 15:05 90 Pulse Ox 07/07/18 14:00 98 07/07/18 13:30 99 07/07/18 13:00 98 07/07/18 12:30 96 07/07/18 12:00 99 07/07/18 11:53 07/07/18 11:41 07/07/18 11:30 98 07/07/18 11:00 97 07/07/18 10:30 100 07/07/18 10:00 97 07/07/18 09:30 98 07/07/18 09:00 97 07/07/18 08:30 97 07/07/18 08:00 98 07/07/18 07:49 07/07/18 07:36 07/07/18 07:30 97 07/07/18 07:00 99 07/07/18 06:30 98 07/07/18 06:00 95 07/07/18 05:57 94 L 07/07/18 05:45 95 07/07/18 04:03 07/07/18 03:53 07/07/18 00:30 96 07/06/18 22:47 07/06/18 22:36 07/06/18 19:56 95 07/06/18 19:04 07/06/18 18:54 96 07/06/18 15:28 96 07/06/18 15:17 07/06/18 15:05 Intake and Output 07/06/18 07/07/18 07/07/18 22:59 06:59 14:59 Intake Total 0.75 804.407 Output Total 210 Balance 0.75 594.407 Intake: IV 765 0.9 NACL 140 Dextrose 5% in Water 1, 625 000 ml @ 100 mls/hr IV . [id number] MARLINE with Sodium Bicarb (1 Meq/ml) 150 ml Rx#:[id number] Intake, IV Titration 0.75 39.407 Amount Diltiazem 50 mg In Sodium 0.75 Chloride 0.9% 40 ml @ 5 MG/HR 5 mls/hr IV .Q10H MARLINE Rx#:[id number] Insulin Regular 100 unit 39.407 In Sodium Chloride 0.9% 100 ml @ Per Protocol IV .Q0M MARLINE Rx#:[id number] Output: Urine 210 Other: Voiding Method Urinal Indwelling Catheter Incontinent # Voids 2 Gen: This is a 78-year-old obese male. He is resting in the ICU bed. He arouses to verbal stimuli. BiPAP is in place. HEENT: Head is atraumatic, normocephalic. Pupils equal, round. Sclerae is anicteric. NECK: Supple. No JVD. No lymphadenopathy. No thyromegaly. LUNGS: Diminished at the bases. No intercostal retractions. HEART: Regular rate and rhythm. No murmur. ABDOMEN: Soft. Bowel sounds are present. No masses. No tenderness. Zuñiga catheter draining clear enmanuel urine. EXTREMITIES: No pedal edema. No calf tenderness. Right hip surgical site is clean and dry. Assessment of sacral decubitus ulcer deferred to Dr. Woods. NEUROLOGICAL: Patient is awake, alert. Generalized weakness noted. Results Results: Laboratory Results WBC 11.3 k/uL (3.8-10.6) H 07/07/18 04:24 RBC 2.68 m/uL (4.30-5.90) L 07/07/18 04:24 Hgb 8.4 gm/dL (13.0-17.5) L 07/07/18 04:24 Hct 27.5 % (39.0-53.0) L 07/07/18 04:24 MCV 102.7 fL (80.0-100.0) H D 07/07/18 04:24 MCH 31.2 pg (25.0-35.0) 07/07/18 04:24 MCHC 30.4 g/dL (31.0-37.0) L 07/07/18 04:24 RDW 14.5 % (11.5-15.5) 07/07/18 04:24 Plt Count 351 k/uL (150-450) 07/07/18 04:24 Neutrophils % 77 % 07/06/18 07:45 Neutrophils % (Manual) 68 % 07/07/18 04:24 Lymphocytes % 11 % 07/06/18 07:45 Lymphocytes % (Manual) 21 % 07/07/18 04:24 Monocytes % 8 % 07/06/18 07:45 Monocytes % (Manual) 10 % 07/07/18 04:24 Eosinophils % 1 % 07/06/18 07:45 Eosinophils % (Manual) 2 % 07/07/18 04:24 Basophils % 0 % 07/06/18 07:45 Neutrophils # 5.5 k/uL (1.3-7.7) 07/06/18 07:45 Neutrophils # (Manual) 7.68 k/uL (1.3-7.7) 07/07/18 04:24 Lymphocytes # 0.8 k/uL (1.0-4.8) L 07/06/18 07:45 Lymphocytes # (Manual) 2.37 k/uL (1.0-4.8) 07/07/18 04:24 Monocytes # 0.6 k/uL (0-1.0) 07/06/18 07:45 Monocytes # (Manual) 1.13 k/uL (0-1.0) H 07/07/18 04:24 Eosinophils # 0.1 k/uL (0-0.7) 07/06/18 07:45 Eosinophils # (Manual) 0.23 k/uL (0-0.7) 07/07/18 04:24 Basophils # 0.0 k/uL (0-0.2) 07/06/18 07:45 Nucleated RBCs 1 /100 WBC (0-0) H 07/07/18 04:24 Manual Slide Review Performed 07/07/18 04:24 Large Platelets Present 07/07/18 04:24 Polychromasia Present 07/07/18 04:24 Hypochromasia Marked 07/07/18 04:24 Macrocytosis Slight 07/07/18 04:24 Target Cells Present 07/07/18 04:24 PT 12.3 sec (9.0-12.0) H 07/07/18 04:24 INR 1.2 (<1.2) H 07/07/18 04:24 APTT >200.0 sec (22.0-30.0) H* 07/07/18 11:46 D-Dimer 2.28 mg/L FEU (<0.60) H 07/07/18 04:24 Sample Site lrad 07/07/18 05:01 ABG pH 7.21 (7.35-7.45) L 07/07/18 05:01 ABG pCO2 29 mmHg (35-45) L 07/07/18 05:01 ABG pO2 201 mmHg (83-108) H 07/07/18 05:01 ABG HCO3 11 mmol/L (21-25) L 07/07/18 05:01 ABG Total CO2 12 mmol/L (19-24) L 07/07/18 05:01 ABG O2 Saturation 99.7 % (94-97) H 07/07/18 05:01 ABG Base Excess -16.5 mmol/L 07/07/18 05:01 Manuel Test Yes 07/07/18 05:01 VBG pH 7.11 (7.31-7.41) L* 07/07/18 04:33 VBG pCO2 35 mmHg (37-51) L 07/07/18 04:33 VBG HCO3 11 mmol/L (24-28) L 07/07/18 04:33 FiO2 50 % 07/07/18 05:01 Sodium 140 mmol/L (137-145) 07/07/18 08:49 Potassium 5.1 mmol/L (3.5-5.1) 07/07/18 08:49 Chloride 108 mmol/L (98-107) H 07/07/18 08:49 Carbon Dioxide 16 mmol/L (22-30) L 07/07/18 08:49 Anion Gap 16 mmol/L 07/07/18 08:49 BUN 53 mg/dL (9-20) H 07/07/18 08:49 Creatinine 2.05 mg/dL (0.66-1.25) H 07/07/18 08:49 Est GFR (CKD-EPI)AfAm 35 (>60 ml/min/1.73 sqM) 07/07/18 08:49 Est GFR (CKD-EPI)NonAf 31 (>60 ml/min/1.73 sqM) 07/07/18 08:49 Glucose 367 mg/dL (74-99) H 07/07/18 08:49 POC Glucose (mg/dL) 210 mg/dL (75-99) H 07/07/18 13:14 POC Glu [employer] ID 07/07/18 13:14 Lactic Ac Sepsis Rflx Y 07/07/18 05:18 Plasma Lactic Acid Heri 7.4 mmol/L (0.7-2.0) H* 07/07/18 08:49 Calcium 9.4 mg/dL (8.4-10.2) 07/07/18 08:49 Magnesium 2.3 mg/dL (1.6-2.3) 07/07/18 04:24 Total Bilirubin 0.6 mg/dL (0.2-1.3) 07/07/18 04:24 Conjugated Bilirubin 0.0 mg/dL (0.0-0.3) 07/07/18 04:24 Unconjugated Bilirubin 0.3 mg/dL (0.0-1.1) 07/07/18 04:24 Delta Bilirubin 0.3 mg/dL (0.0-0.2) H 07/07/18 04:24 AST 141 U/L (17-59) H 07/07/18 04:24 ALT 104 U/L (21-72) H 07/07/18 04:24 Alkaline Phosphatase 85 U/L (38-126) 07/07/18 04:24 Total Creatine Kinase 2115 U/L (55-170) H* 07/07/18 08:49 CK-MB (CK-2) 7.3 ng/mL (0.0-2.4) H 07/07/18 08:49 CK-MB (CK-2) Rel Index 07/07/18 08:49 Troponin I 4.490 ng/mL (0.000-0.034) H* 07/07/18 08:49 Total Protein 5.6 g/dL (6.3-8.2) L 07/07/18 04:24 Albumin 3.1 g/dL (3.5-5.0) L 07/07/18 04:24 Urine Ketones Negative (Negative) 07/07/18 03:52 Blood Type B Positive 07/01/18 03:55 Blood Type Confirm B Positive 07/01/18 04:05 Blood Type Recheck CABO Indicated 07/01/18 03:55 Antibody Screen NEGATIVE 07/01/18 03:55 Spec Expiration Date 07/04/2018 3362 07/01/18 03:55 CBC & Chem 7: 07/07/18 04:24 07/07/18 08:49 Labs: Abnormal Lab Results - Last 24 Hours (Table) 07/06/18 07/06/18 07/07/18 Range/Units 16:48 20:03 03:59 WBC (3.8-10.6) k/uL RBC (4.30-5.90) m/uL Hgb (13.0-17.5) gm/dL Hct (39.0-53.0) % MCV (80.0-100.0) fL MCHC (31.0-37.0) g/dL Monocytes # (Manual) (0-1.0) k/uL Nucleated RBCs (0-0) /100 WBC PT (9.0-12.0) sec INR (<1.2) APTT (22.0-30.0) sec D-Dimer (<0.60) mg/L FEU ABG pH (7.35-7.45) ABG pCO2 (35-45) mmHg ABG pO2 (83-108) mmHg ABG HCO3 (21-25) mmol/L ABG Total CO2 (19-24) mmol/L ABG O2 Saturation (94-97) % VBG pH (7.31-7.41) VBG pCO2 (37-51) mmHg VBG HCO3 (24-28) mmol/L Chloride (98-107) mmol/L Carbon Dioxide (22-30) mmol/L BUN (9-20) mg/dL Creatinine (0.66-1.25) mg/dL Glucose (74-99) mg/dL POC Glucose (mg/dL) 338 H 311 H 285 H (75-99) mg/dL Plasma Lactic Acid Heri (0.7-2.0) mmol/L Delta Bilirubin (0.0-0.2) mg/dL AST (17-59) U/L ALT (21-72) U/L Total Creatine Kinase (55-170) U/L CK-MB (CK-2) (0.0-2.4) ng/mL Troponin I (0.000-0.034) ng/mL Total Protein (6.3-8.2) g/dL Albumin (3.5-5.0) g/dL 07/07/18 07/07/18 07/07/18 Range/Units 04:24 04:24 04:24 WBC (3.8-10.6) k/uL RBC (4.30-5.90) m/uL Hgb (13.0-17.5) gm/dL Hct (39.0-53.0) % MCV (80.0-100.0) fL MCHC (31.0-37.0) g/dL Monocytes # (Manual) (0-1.0) k/uL Nucleated RBCs (0-0) /100 WBC PT 12.3 H (9.0-12.0) sec INR 1.2 H (<1.2) APTT (22.0-30.0) sec D-Dimer 2.28 H (<0.60) mg/L FEU ABG pH (7.35-7.45) ABG pCO2 (35-45) mmHg ABG pO2 (83-108) mmHg ABG HCO3 (21-25) mmol/L ABG Total CO2 (19-24) mmol/L ABG O2 Saturation (94-97) % VBG pH (7.31-7.41) VBG pCO2 (37-51) mmHg VBG HCO3 (24-28) mmol/L Chloride (98-107) mmol/L Carbon Dioxide (22-30) mmol/L BUN (9-20) mg/dL Creatinine (0.66-1.25) mg/dL Glucose (74-99) mg/dL POC Glucose (mg/dL) (75-99) mg/dL Plasma Lactic Acid Heri 9.6 H* (0.7-2.0) mmol/L Delta Bilirubin (0.0-0.2) mg/dL AST (17-59) U/L ALT (21-72) U/L Total Creatine Kinase (55-170) U/L CK-MB (CK-2) (0.0-2.4) ng/mL Troponin I 3.720 H* (0.000-0.034) ng/mL Total Protein (6.3-8.2) g/dL Albumin (3.5-5.0) g/dL 07/07/18 07/07/18 07/07/18 Range/Units 04:24 04:24 04:33 WBC 11.3 H (3.8-10.6) k/uL RBC 2.68 L (4.30-5.90) m/uL Hgb 8.4 L (13.0-17.5) gm/dL Hct 27.5 L (39.0-53.0) % MCV 102.7 H D (80.0-100.0) fL MCHC 30.4 L (31.0-37.0) g/dL Monocytes # (Manual) 1.13 H (0-1.0) k/uL Nucleated RBCs 1 H (0-0) /100 WBC PT (9.0-12.0) sec INR (<1.2) APTT (22.0-30.0) sec D-Dimer (<0.60) mg/L FEU ABG pH (7.35-7.45) ABG pCO2 (35-45) mmHg ABG pO2 (83-108) mmHg ABG HCO3 (21-25) mmol/L ABG Total CO2 (19-24) mmol/L ABG O2 Saturation (94-97) % VBG pH 7.11 L* (7.31-7.41) VBG pCO2 35 L (37-51) mmHg VBG HCO3 11 L (24-28) mmol/L Chloride (98-107) mmol/L Carbon Dioxide (22-30) mmol/L BUN (9-20) mg/dL Creatinine (0.66-1.25) mg/dL Glucose (74-99) mg/dL POC Glucose (mg/dL) (75-99) mg/dL Plasma Lactic Acid Heri (0.7-2.0) mmol/L Delta Bilirubin 0.3 H (0.0-0.2) mg/dL AST 141 H (17-59) U/L ALT 104 H (21-72) U/L Total Creatine Kinase (55-170) U/L CK-MB (CK-2) (0.0-2.4) ng/mL Troponin I (0.000-0.034) ng/mL Total Protein 5.6 L (6.3-8.2) g/dL Albumin 3.1 L (3.5-5.0) g/dL 07/07/18 07/07/18 07/07/18 Range/Units 05:01 05:02 08:49 WBC (3.8-10.6) k/uL RBC (4.30-5.90) m/uL Hgb (13.0-17.5) gm/dL Hct (39.0-53.0) % MCV (80.0-100.0) fL MCHC (31.0-37.0) g/dL Monocytes # (Manual) (0-1.0) k/uL Nucleated RBCs (0-0) /100 WBC PT (9.0-12.0) sec INR (<1.2) APTT (22.0-30.0) sec D-Dimer (<0.60) mg/L FEU ABG pH 7.21 L (7.35-7.45) ABG pCO2 29 L (35-45) mmHg ABG pO2 201 H (83-108) mmHg ABG HCO3 11 L (21-25) mmol/L ABG Total CO2 12 L (19-24) mmol/L ABG O2 Saturation 99.7 H (94-97) % VBG pH (7.31-7.41) VBG pCO2 (37-51) mmHg VBG HCO3 (24-28) mmol/L Chloride 108 H (98-107) mmol/L Carbon Dioxide 16 L (22-30) mmol/L BUN 53 H (9-20) mg/dL Creatinine 2.05 H (0.66-1.25) mg/dL Glucose 367 H (74-99) mg/dL POC Glucose (mg/dL) 431 H (75-99) mg/dL Plasma Lactic Acid Heri (0.7-2.0) mmol/L Delta Bilirubin (0.0-0.2) mg/dL AST (17-59) U/L ALT (21-72) U/L Total Creatine Kinase (55-170) U/L CK-MB (CK-2) (0.0-2.4) ng/mL Troponin I (0.000-0.034) ng/mL Total Protein (6.3-8.2) g/dL Albumin (3.5-5.0) g/dL 07/07/18 07/07/18 07/07/18 Range/Units 08:49 08:49 09:26 WBC (3.8-10.6) k/uL RBC (4.30-5.90) m/uL Hgb (13.0-17.5) gm/dL Hct (39.0-53.0) % MCV (80.0-100.0) fL MCHC (31.0-37.0) g/dL Monocytes # (Manual) (0-1.0) k/uL Nucleated RBCs (0-0) /100 WBC PT (9.0-12.0) sec INR (<1.2) APTT (22.0-30.0) sec D-Dimer (<0.60) mg/L FEU ABG pH (7.35-7.45) ABG pCO2 (35-45) mmHg ABG pO2 (83-108) mmHg ABG HCO3 (21-25) mmol/L ABG Total CO2 (19-24) mmol/L ABG O2 Saturation (94-97) % VBG pH (7.31-7.41) VBG pCO2 (37-51) mmHg VBG HCO3 (24-28) mmol/L Chloride (98-107) mmol/L Carbon Dioxide (22-30) mmol/L BUN (9-20) mg/dL Creatinine (0.66-1.25) mg/dL Glucose (74-99) mg/dL POC Glucose (mg/dL) 391 H (75-99) mg/dL Plasma Lactic Acid Heri 7.4 H* (0.7-2.0) mmol/L Delta Bilirubin (0.0-0.2) mg/dL AST (17-59) U/L ALT (21-72) U/L Total Creatine Kinase 2115 H* (55-170) U/L CK-MB (CK-2) 7.3 H (0.0-2.4) ng/mL Troponin I 4.490 H* (0.000-0.034) ng/mL Total Protein (6.3-8.2) g/dL Albumin (3.5-5.0) g/dL 07/07/18 07/07/18 07/07/18 Range/Units 10:41 11:46 11:46 WBC (3.8-10.6) k/uL RBC (4.30-5.90) m/uL Hgb (13.0-17.5) gm/dL Hct (39.0-53.0) % MCV (80.0-100.0) fL MCHC (31.0-37.0) g/dL Monocytes # (Manual) (0-1.0) k/uL Nucleated RBCs (0-0) /100 WBC PT (9.0-12.0) sec INR (<1.2) APTT >200.0 H* (22.0-30.0) sec D-Dimer (<0.60) mg/L FEU ABG pH (7.35-7.45) ABG pCO2 (35-45) mmHg ABG pO2 (83-108) mmHg ABG HCO3 (21-25) mmol/L ABG Total CO2 (19-24) mmol/L ABG O2 Saturation (94-97) % VBG pH (7.31-7.41) VBG pCO2 (37-51) mmHg VBG HCO3 (24-28) mmol/L Chloride (98-107) mmol/L Carbon Dioxide (22-30) mmol/L BUN (9-20) mg/dL Creatinine (0.66-1.25) mg/dL Glucose (74-99) mg/dL POC Glucose (mg/dL) 374 H 300 H (75-99) mg/dL Plasma Lactic Acid Heri (0.7-2.0) mmol/L Delta Bilirubin (0.0-0.2) mg/dL AST (17-59) U/L ALT (21-72) U/L Total Creatine Kinase (55-170) U/L CK-MB (CK-2) (0.0-2.4) ng/mL Troponin I (0.000-0.034) ng/mL Total Protein (6.3-8.2) g/dL Albumin (3.5-5.0) g/dL 07/07/18 Range/Units 13:14 WBC (3.8-10.6) k/uL RBC (4.30-5.90) m/uL Hgb (13.0-17.5) gm/dL Hct (39.0-53.0) % MCV (80.0-100.0) fL MCHC (31.0-37.0) g/dL Monocytes # (Manual) (0-1.0) k/uL Nucleated RBCs (0-0) /100 WBC PT (9.0-12.0) sec INR (<1.2) APTT (22.0-30.0) sec D-Dimer (<0.60) mg/L FEU ABG pH (7.35-7.45) ABG pCO2 (35-45) mmHg ABG pO2 (83-108) mmHg ABG HCO3 (21-25) mmol/L ABG Total CO2 (19-24) mmol/L ABG O2 Saturation (94-97) % VBG pH (7.31-7.41) VBG pCO2 (37-51) mmHg VBG HCO3 (24-28) mmol/L Chloride (98-107) mmol/L Carbon Dioxide (22-30) mmol/L BUN (9-20) mg/dL Creatinine (0.66-1.25) mg/dL Glucose (74-99) mg/dL POC Glucose (mg/dL) 210 H (75-99) mg/dL Plasma Lactic Acid Heri (0.7-2.0) mmol/L Delta Bilirubin (0.0-0.2) mg/dL AST (17-59) U/L ALT (21-72) U/L Total Creatine Kinase (55-170) U/L CK-MB (CK-2) (0.0-2.4) ng/mL Troponin I (0.000-0.034) ng/mL Total Protein (6.3-8.2) g/dL Albumin (3.5-5.0) g/dL Microbiology - Last 24 Hours (Table) 07/07/18 05:25 Wound Culture - Preliminary Buttock Assessment and Plan Plan: This is a 78-year-old male who presented to the hospital after a mechanical fall status post right hip hemiarthroplasty. Patient developed signs of sepsis, metabolic acidosis, lactic acidosis and myocardial acute myocardial infarction this morning and was transferred to the intensive care unit. There is concern for left lower pneumonia and a large deep sacral decubitus ulcer which are possible sources of sepsis. Patient is currently on daptomycin and Zosyn. Local wound care will be addressed. Continue supportive care. Further recommendations as patient presses. The above dictated assessment and findings were discussed with Dr. Woods. The impression and plan of care have been directed as dictated. Maria Isabel Humphrey nurse practitioner acting as scribe for Dr. Woods.
[2018-07-07 14:27] LABS: Glucose,Whole Blood 193 mg/dL (75-99)
[2018-07-07 15:18] LABS: Glucose,Whole Blood 177 mg/dL (75-99)
--- NOTE | 2018-07-07 15:29 | P.PN ---
Subjective Progress Note Date: 07/07/18 Principal diagnosis: Acute non-ST elevation CT This is a pleasant 78-year-old gentleman who we did see and signed off during this admission, asked to see the patient again because of acute coronary syndrome. The patient is a 78-year-old with history of coronary artery disease and status post CABG, does follow with a sports internship at [facility], hypertension, and dyslipidemia, was admitted to the hospital and underwent right hip surgery which was uneventful. He was on the surgical floor last night when he developed sudden onset of shortness of breath associated with change in mental status and he was in acute respiratory distress. Currently the patient is in the intensive care unit. He is in respiratory distress and he is on BiPAP. The blood pressure has been marginally low. The patient ruled in for acute non-ST elevation myocardial infarction with increasing in his troponin from 4-5. The EKG showed sinus tachycardia. Beside that he was running temperature and there is questionable sepsis, infectious disease was consulted to see the patient. More importantly, the patient creatinine is elevated. Also the d-dimer came in to be abnormal and currently he is on heparin IV. Beside that the patient underwent an echocardiogram after this incident and that showed severe cardiomyopathy with EF around 20% with global hypokinesia. The echocardiogram before surgery showed an ejection fraction of 50%. When I interviewed the patient earlier today he denies having any chest pain or chest discomfort. Objective - Vital Signs Vital signs: Vital Signs Temp 98.4 F 07/07/18 12:00 Pulse 87 07/07/18 14:00 Resp 21 07/07/18 14:00 BP 104/56 07/07/18 14:00 Pulse Ox 98 07/07/18 14:00 Intake & Output 07/06/18 07/07/18 07/07/18 18:59 06:59 18:59 Intake Total 400 0.75 954.199 Output Total 210 Balance 400 0.75 744.199 Intake: IV 765 0.9 NACL 140 Dextrose 5% in Water 1, 625 000 ml @ 100 mls/hr IV . [id number] MARLINE with Sodium Bicarb (1 Meq/ml) 150 ml Rx#:[id number] Intake, IV Titration 0.75 189.199 Amount Diltiazem 50 mg In Sodium 0.75 Chloride 0.9% 40 ml @ 5 MG/HR 5 mls/hr IV .Q10H MARLINE Rx#:[id number] Heparin Sod,Pork in 0.45% 145.163 NaCl 25,000 unit In 0.45 % NaCl 1 250ml.bag @ 18 UNITS/KG/HR 19.84 mls/hr IV .[id number] MARLINE Rx#: [id number] Insulin Regular 100 unit 44.036 In Sodium Chloride 0.9% 100 ml @ Per Protocol IV .Q0M MARLINE Rx#:[id number] Oral 200 Other 200 Output: Urine 210 Other: Voiding Method Urinal Indwelling Catheter Incontinent # Voids 3 2 - Constitutional General appearance: Present: mild distress - Respiratory Respiratory: bilateral: diminished - Cardiovascular Rhythm: regular Heart sounds: normal: S1, S2 - Labs CBC & Chem 7: 07/07/18 04:24 07/07/18 08:49 Labs: Abnormal Lab Results - Last 24 Hours (Table) 07/06/18 07/06/18 07/07/18 Range/Units 16:48 20:03 03:59 WBC (3.8-10.6) k/uL RBC (4.30-5.90) m/uL Hgb (13.0-17.5) gm/dL Hct (39.0-53.0) % MCV (80.0-100.0) fL MCHC (31.0-37.0) g/dL Monocytes # (Manual) (0-1.0) k/uL Nucleated RBCs (0-0) /100 WBC PT (9.0-12.0) sec INR (<1.2) APTT (22.0-30.0) sec D-Dimer (<0.60) mg/L FEU ABG pH (7.35-7.45) ABG pCO2 (35-45) mmHg ABG pO2 (83-108) mmHg ABG HCO3 (21-25) mmol/L ABG Total CO2 (19-24) mmol/L ABG O2 Saturation (94-97) % VBG pH (7.31-7.41) VBG pCO2 (37-51) mmHg VBG HCO3 (24-28) mmol/L Chloride (98-107) mmol/L Carbon Dioxide (22-30) mmol/L BUN (9-20) mg/dL Creatinine (0.66-1.25) mg/dL Glucose (74-99) mg/dL POC Glucose (mg/dL) 338 H 311 H 285 H (75-99) mg/dL Plasma Lactic Acid Heri (0.7-2.0) mmol/L Delta Bilirubin (0.0-0.2) mg/dL AST (17-59) U/L ALT (21-72) U/L Total Creatine Kinase (55-170) U/L CK-MB (CK-2) (0.0-2.4) ng/mL Troponin I (0.000-0.034) ng/mL Total Protein (6.3-8.2) g/dL Albumin (3.5-5.0) g/dL 07/07/18 07/07/18 07/07/18 Range/Units 04:24 04:24 04:24 WBC (3.8-10.6) k/uL RBC (4.30-5.90) m/uL Hgb (13.0-17.5) gm/dL Hct (39.0-53.0) % MCV (80.0-100.0) fL MCHC (31.0-37.0) g/dL Monocytes # (Manual) (0-1.0) k/uL Nucleated RBCs (0-0) /100 WBC PT 12.3 H (9.0-12.0) sec INR 1.2 H (<1.2) APTT (22.0-30.0) sec D-Dimer 2.28 H (<0.60) mg/L FEU ABG pH (7.35-7.45) ABG pCO2 (35-45) mmHg ABG pO2 (83-108) mmHg ABG HCO3 (21-25) mmol/L ABG Total CO2 (19-24) mmol/L ABG O2 Saturation (94-97) % VBG pH (7.31-7.41) VBG pCO2 (37-51) mmHg VBG HCO3 (24-28) mmol/L Chloride (98-107) mmol/L Carbon Dioxide (22-30) mmol/L BUN (9-20) mg/dL Creatinine (0.66-1.25) mg/dL Glucose (74-99) mg/dL POC Glucose (mg/dL) (75-99) mg/dL Plasma Lactic Acid Heri 9.6 H* (0.7-2.0) mmol/L Delta Bilirubin (0.0-0.2) mg/dL AST (17-59) U/L ALT (21-72) U/L Total Creatine Kinase (55-170) U/L CK-MB (CK-2) (0.0-2.4) ng/mL Troponin I 3.720 H* (0.000-0.034) ng/mL Total Protein (6.3-8.2) g/dL Albumin (3.5-5.0) g/dL 07/07/18 07/07/18 07/07/18 Range/Units 04:24 04:24 04:33 WBC 11.3 H (3.8-10.6) k/uL RBC 2.68 L (4.30-5.90) m/uL Hgb 8.4 L (13.0-17.5) gm/dL Hct 27.5 L (39.0-53.0) % MCV 102.7 H D (80.0-100.0) fL MCHC 30.4 L (31.0-37.0) g/dL Monocytes # (Manual) 1.13 H (0-1.0) k/uL Nucleated RBCs 1 H (0-0) /100 WBC PT (9.0-12.0) sec INR (<1.2) APTT (22.0-30.0) sec D-Dimer (<0.60) mg/L FEU ABG pH (7.35-7.45) ABG pCO2 (35-45) mmHg ABG pO2 (83-108) mmHg ABG HCO3 (21-25) mmol/L ABG Total CO2 (19-24) mmol/L ABG O2 Saturation (94-97) % VBG pH 7.11 L* (7.31-7.41) VBG pCO2 35 L (37-51) mmHg VBG HCO3 11 L (24-28) mmol/L Chloride (98-107) mmol/L Carbon Dioxide (22-30) mmol/L BUN (9-20) mg/dL Creatinine (0.66-1.25) mg/dL Glucose (74-99) mg/dL POC Glucose (mg/dL) (75-99) mg/dL Plasma Lactic Acid Heri (0.7-2.0) mmol/L Delta Bilirubin 0.3 H (0.0-0.2) mg/dL AST 141 H (17-59) U/L ALT 104 H (21-72) U/L Total Creatine Kinase (55-170) U/L CK-MB (CK-2) (0.0-2.4) ng/mL Troponin I (0.000-0.034) ng/mL Total Protein 5.6 L (6.3-8.2) g/dL Albumin 3.1 L (3.5-5.0) g/dL 07/07/18 07/07/18 07/07/18 Range/Units 05:01 05:02 08:49 WBC (3.8-10.6) k/uL RBC (4.30-5.90) m/uL Hgb (13.0-17.5) gm/dL Hct (39.0-53.0) % MCV (80.0-100.0) fL MCHC (31.0-37.0) g/dL Monocytes # (Manual) (0-1.0) k/uL Nucleated RBCs (0-0) /100 WBC PT (9.0-12.0) sec INR (<1.2) APTT (22.0-30.0) sec D-Dimer (<0.60) mg/L FEU ABG pH 7.21 L (7.35-7.45) ABG pCO2 29 L (35-45) mmHg ABG pO2 201 H (83-108) mmHg ABG HCO3 11 L (21-25) mmol/L ABG Total CO2 12 L (19-24) mmol/L ABG O2 Saturation 99.7 H (94-97) % VBG pH (7.31-7.41) VBG pCO2 (37-51) mmHg VBG HCO3 (24-28) mmol/L Chloride 108 H (98-107) mmol/L Carbon Dioxide 16 L (22-30) mmol/L BUN 53 H (9-20) mg/dL Creatinine 2.05 H (0.66-1.25) mg/dL Glucose 367 H (74-99) mg/dL POC Glucose (mg/dL) 431 H (75-99) mg/dL Plasma Lactic Acid Heri (0.7-2.0) mmol/L Delta Bilirubin (0.0-0.2) mg/dL AST (17-59) U/L ALT (21-72) U/L Total Creatine Kinase (55-170) U/L CK-MB (CK-2) (0.0-2.4) ng/mL Troponin I (0.000-0.034) ng/mL Total Protein (6.3-8.2) g/dL Albumin (3.5-5.0) g/dL 07/07/18 07/07/18 07/07/18 Range/Units 08:49 08:49 09:26 WBC (3.8-10.6) k/uL RBC (4.30-5.90) m/uL Hgb (13.0-17.5) gm/dL Hct (39.0-53.0) % MCV (80.0-100.0) fL MCHC (31.0-37.0) g/dL Monocytes # (Manual) (0-1.0) k/uL Nucleated RBCs (0-0) /100 WBC PT (9.0-12.0) sec INR (<1.2) APTT (22.0-30.0) sec D-Dimer (<0.60) mg/L FEU ABG pH (7.35-7.45) ABG pCO2 (35-45) mmHg ABG pO2 (83-108) mmHg ABG HCO3 (21-25) mmol/L ABG Total CO2 (19-24) mmol/L ABG O2 Saturation (94-97) % VBG pH (7.31-7.41) VBG pCO2 (37-51) mmHg VBG HCO3 (24-28) mmol/L Chloride (98-107) mmol/L Carbon Dioxide (22-30) mmol/L BUN (9-20) mg/dL Creatinine (0.66-1.25) mg/dL Glucose (74-99) mg/dL POC Glucose (mg/dL) 391 H (75-99) mg/dL Plasma Lactic Acid Heri 7.4 H* (0.7-2.0) mmol/L Delta Bilirubin (0.0-0.2) mg/dL AST (17-59) U/L ALT (21-72) U/L Total Creatine Kinase 2115 H* (55-170) U/L CK-MB (CK-2) 7.3 H (0.0-2.4) ng/mL Troponin I 4.490 H* (0.000-0.034) ng/mL Total Protein (6.3-8.2) g/dL Albumin (3.5-5.0) g/dL 07/07/18 07/07/18 07/07/18 Range/Units 10:41 11:46 11:46 WBC (3.8-10.6) k/uL RBC (4.30-5.90) m/uL Hgb (13.0-17.5) gm/dL Hct (39.0-53.0) % MCV (80.0-100.0) fL MCHC (31.0-37.0) g/dL Monocytes # (Manual) (0-1.0) k/uL Nucleated RBCs (0-0) /100 WBC PT (9.0-12.0) sec INR (<1.2) APTT >200.0 H* (22.0-30.0) sec D-Dimer (<0.60) mg/L FEU ABG pH (7.35-7.45) ABG pCO2 (35-45) mmHg ABG pO2 (83-108) mmHg ABG HCO3 (21-25) mmol/L ABG Total CO2 (19-24) mmol/L ABG O2 Saturation (94-97) % VBG pH (7.31-7.41) VBG pCO2 (37-51) mmHg VBG HCO3 (24-28) mmol/L Chloride (98-107) mmol/L Carbon Dioxide (22-30) mmol/L BUN (9-20) mg/dL Creatinine (0.66-1.25) mg/dL Glucose (74-99) mg/dL POC Glucose (mg/dL) 374 H 300 H (75-99) mg/dL Plasma Lactic Acid Heri (0.7-2.0) mmol/L Delta Bilirubin (0.0-0.2) mg/dL AST (17-59) U/L ALT (21-72) U/L Total Creatine Kinase (55-170) U/L CK-MB (CK-2) (0.0-2.4) ng/mL Troponin I (0.000-0.034) ng/mL Total Protein (6.3-8.2) g/dL Albumin (3.5-5.0) g/dL 07/07/18 07/07/18 07/07/18 Range/Units 13:14 14:11 15:06 WBC (3.8-10.6) k/uL RBC (4.30-5.90) m/uL Hgb (13.0-17.5) gm/dL Hct (39.0-53.0) % MCV (80.0-100.0) fL MCHC (31.0-37.0) g/dL Monocytes # (Manual) (0-1.0) k/uL Nucleated RBCs (0-0) /100 WBC PT (9.0-12.0) sec INR (<1.2) APTT (22.0-30.0) sec D-Dimer (<0.60) mg/L FEU ABG pH (7.35-7.45) ABG pCO2 (35-45) mmHg ABG pO2 (83-108) mmHg ABG HCO3 (21-25) mmol/L ABG Total CO2 (19-24) mmol/L ABG O2 Saturation (94-97) % VBG pH (7.31-7.41) VBG pCO2 (37-51) mmHg VBG HCO3 (24-28) mmol/L Chloride (98-107) mmol/L Carbon Dioxide (22-30) mmol/L BUN (9-20) mg/dL Creatinine (0.66-1.25) mg/dL Glucose (74-99) mg/dL POC Glucose (mg/dL) 210 H 193 H 177 H (75-99) mg/dL Plasma Lactic Acid Heri (0.7-2.0) mmol/L Delta Bilirubin (0.0-0.2) mg/dL AST (17-59) U/L ALT (21-72) U/L Total Creatine Kinase (55-170) U/L CK-MB (CK-2) (0.0-2.4) ng/mL Troponin I (0.000-0.034) ng/mL Total Protein (6.3-8.2) g/dL Albumin (3.5-5.0) g/dL Microbiology - Last 24 Hours (Table) 07/07/18 05:25 Gram Stain - Preliminary Buttock Wound Culture - Preliminary Assessment and Plan Assessment: Assessment #1 acute respiratory distress #2 possible pulmonary embolization #3 possible sepsis of unknown source #4 acute non-ST patient myocardial infarction, type I versus type II #4 severe cardiomyopathy with significant drop in the left ventricle systolic function #5 hemodynamic instability #6 acute on chronic renal failure Plan #1 I did recommend a conservative medical approach for the non-ST elevation CT. In the absence of any chest pain or chest discomfort and in the presence of renal failure #2 dual antiplatelet therapy with aspirin and Plavix #3 hold the statin in view of the elevated CK #4 the patient is in process to be seen by the infectious disease service #5 hold the blood pressure medications including the metoprolol #6 follow-up with the patient.
[2018-07-07 15:52] LABS: Creatine Kinase MB 8.2 ng/mL (0.0-2.4)
[2018-07-07] MEDS: ASPIRIN 81 MG PO SCH (15:54)
[2018-07-07 15:57] LABS: Troponin I 7.88 ng/mL (0.000-0.034)
[2018-07-07 16:20] LABS: Glucose,Whole Blood 171 mg/dL (75-99)
[2018-07-07 17:13] LABS: Glucose,Whole Blood 167 mg/dL (75-99)
[2018-07-07 18:18] LABS: Hemoglobin A1C 6.7 % (4.0-6.0)
[2018-07-07 18:33] LABS: Glucose,Whole Blood 177 mg/dL (75-99)
--- NOTE | 2018-07-07 18:47 | P.PN ---
Subjective Progress Note Date: 07/07/18 Principal diagnosis: Status post right hip hemiarthroplasty Patient evaluated today, he is in the ICU. Patient was transferred their last night, after a upset rest her distress, there is concern of sepsis. Patient being followed by multiple medical specialties at this time. Patient was on BiPAP when evaluated, I discussed current medical state with patient's . Objective - Vital Signs Vital signs: Vital Signs Temp 98.9 F 07/07/18 16:00 Pulse 82 07/07/18 17:00 Resp 20 07/07/18 17:00 BP 86/39 07/07/18 17:00 Pulse Ox 97 07/07/18 17:00 Intake & Output 07/06/18 07/07/18 07/07/18 18:59 06:59 18:59 Intake Total 400 0.75 1606.700 Output Total 260 Balance 400 0.75 1346.700 Intake: IV 1105 0.9 NACL 180 Dextrose 5% in Water 1, 825 000 ml @ 100 mls/hr IV . [id number] MARLINE with Sodium Bicarb (1 Meq/ml) 150 ml Rx#:[id number] Piperacillin-Tazobactam 3 100 .375 gm In Sodium Chloride 0.9% 100 ml @ 25 mls/hr IVPB Q8H MARLINE Rx#: [id number] Intake, IV Titration 0.75 261.700 Amount Diltiazem 50 mg In Sodium 0.75 Chloride 0.9% 40 ml @ 5 MG/HR 5 mls/hr IV .Q10H MARLINE Rx#:[id number] Heparin Sod,Pork in 0.45% 204.671 NaCl 25,000 unit In 0.45 % NaCl 1 250ml.bag @ 18 UNITS/KG/HR 19.84 mls/hr IV .[id number] MARLINE Rx#: [id number] Insulin Regular 100 unit 57.029 In Sodium Chloride 0.9% 100 ml @ Per Protocol IV .Q0M MARLINE Rx#:[id number] Oral 200 240 Other 200 Output: Urine 260 Other: Voiding Method Urinal Indwelling Catheter Incontinent # Voids 3 2 - Exam No exam - Labs CBC & Chem 7: 07/07/18 04:24 07/07/18 08:49 Labs: Abnormal Lab Results - Last 24 Hours (Table) 07/06/18 07/07/1807/07/19 Range/Units 20:03 03:59 04:24 WBC (3.8-10.6) k/uL RBC (4.30-5.90) m/uL Hgb (13.0-17.5) gm/dL Hct (39.0-53.0) % MCV (80.0-100.0) fL MCHC (31.0-37.0) g/dL Monocytes # (Manual) (0-1.0) k/uL Nucleated RBCs (0-0) /100 WBC PT 12.3 H (9.0-12.0) sec INR 1.2 H (<1.2) APTT (22.0-30.0) sec D-Dimer 2.28 H (<0.60) mg/L FEU ABG pH (7.35-7.45) ABG pCO2 (35-45) mmHg ABG pO2 (83-108) mmHg ABG HCO3 (21-25) mmol/L ABG Total CO2 (19-24) mmol/L ABG O2 Saturation (94-97) % VBG pH (7.31-7.41) VBG pCO2 (37-51) mmHg VBG HCO3 (24-28) mmol/L Chloride (98-107) mmol/L Carbon Dioxide (22-30) mmol/L BUN (9-20) mg/dL Creatinine (0.66-1.25) mg/dL Glucose (74-99) mg/dL POC Glucose (mg/dL) 311 H 285 H (75-99) mg/dL Hemoglobin A1c (4.0-6.0) % Plasma Lactic Acid Heri (0.7-2.0) mmol/L Delta Bilirubin (0.0-0.2) mg/dL AST (17-59) U/L ALT (21-72) U/L Total Creatine Kinase (55-170) U/L CK-MB (CK-2) (0.0-2.4) ng/mL Troponin I (0.000-0.034) ng/mL Total Protein (6.3-8.2) g/dL Albumin (3.5-5.0) g/dL 07/07/18 07/07/18 07/07/18 Range/Units 04:24 04:24 04:24 WBC 11.3 H (3.8-10.6) k/uL RBC 2.68 L (4.30-5.90) m/uL Hgb 8.4 L (13.0-17.5) gm/dL Hct 27.5 L (39.0-53.0) % MCV 102.7 H D (80.0-100.0) fL MCHC 30.4 L (31.0-37.0) g/dL Monocytes # (Manual) 1.13 H (0-1.0) k/uL Nucleated RBCs 1 H (0-0) /100 WBC PT (9.0-12.0) sec INR (<1.2) APTT (22.0-30.0) sec D-Dimer (<0.60) mg/L FEU ABG pH (7.35-7.45) ABG pCO2 (35-45) mmHg ABG pO2 (83-108) mmHg ABG HCO3 (21-25) mmol/L ABG Total CO2 (19-24) mmol/L ABG O2 Saturation (94-97) % VBG pH (7.31-7.41) VBG pCO2 (37-51) mmHg VBG HCO3 (24-28) mmol/L Chloride (98-107) mmol/L Carbon Dioxide (22-30) mmol/L BUN (9-20) mg/dL Creatinine (0.66-1.25) mg/dL Glucose (74-99) mg/dL POC Glucose (mg/dL) (75-99) mg/dL Hemoglobin A1c (4.0-6.0) % Plasma Lactic Acid Heri 9.6 H* (0.7-2.0) mmol/L Delta Bilirubin (0.0-0.2) mg/dL AST (17-59) U/L ALT (21-72) U/L Total Creatine Kinase (55-170) U/L CK-MB (CK-2) (0.0-2.4) ng/mL Troponin I 3.720 H* (0.000-0.034) ng/mL Total Protein (6.3-8.2) g/dL Albumin (3.5-5.0) g/dL 07/07/18 07/07/18 07/07/18 Range/Units 04:24 04:24 04:33 WBC (3.8-10.6) k/uL RBC (4.30-5.90) m/uL Hgb (13.0-17.5) gm/dL Hct (39.0-53.0) % MCV (80.0-100.0) fL MCHC (31.0-37.0) g/dL Monocytes # (Manual) (0-1.0) k/uL Nucleated RBCs (0-0) /100 WBC PT (9.0-12.0) sec INR (<1.2) APTT (22.0-30.0) sec D-Dimer (<0.60) mg/L FEU ABG pH (7.35-7.45) ABG pCO2 (35-45) mmHg ABG pO2 (83-108) mmHg ABG HCO3 (21-25) mmol/L ABG Total CO2 (19-24) mmol/L ABG O2 Saturation (94-97) % VBG pH 7.11 L* (7.31-7.41) VBG pCO2 35 L (37-51) mmHg VBG HCO3 11 L (24-28) mmol/L Chloride (98-107) mmol/L Carbon Dioxide (22-30) mmol/L BUN (9-20) mg/dL Creatinine (0.66-1.25) mg/dL Glucose (74-99) mg/dL POC Glucose (mg/dL) (75-99) mg/dL Hemoglobin A1c 6.7 H (4.0-6.0) % Plasma Lactic Acid Heri (0.7-2.0) mmol/L Delta Bilirubin 0.3 H (0.0-0.2) mg/dL AST 141 H (17-59) U/L ALT 104 H (21-72) U/L Total Creatine Kinase (55-170) U/L CK-MB (CK-2) (0.0-2.4) ng/mL Troponin I (0.000-0.034) ng/mL Total Protein 5.6 L (6.3-8.2) g/dL Albumin 3.1 L (3.5-5.0) g/dL 07/07/18 07/07/18 07/07/18 Range/Units 05:01 05:02 08:49 WBC (3.8-10.6) k/uL RBC (4.30-5.90) m/uL Hgb (13.0-17.5) gm/dL Hct (39.0-53.0) % MCV (80.0-100.0) fL MCHC (31.0-37.0) g/dL Monocytes # (Manual) (0-1.0) k/uL Nucleated RBCs (0-0) /100 WBC PT (9.0-12.0) sec INR (<1.2) APTT (22.0-30.0) sec D-Dimer (<0.60) mg/L FEU ABG pH 7.21 L (7.35-7.45) ABG pCO2 29 L (35-45) mmHg ABG pO2 201 H (83-108) mmHg ABG HCO3 11 L (21-25) mmol/L ABG Total CO2 12 L (19-24) mmol/L ABG O2 Saturation 99.7 H (94-97) % VBG pH (7.31-7.41) VBG pCO2 (37-51) mmHg VBG HCO3 (24-28) mmol/L Chloride 108 H (98-107) mmol/L Carbon Dioxide 16 L (22-30) mmol/L BUN 53 H (9-20) mg/dL Creatinine 2.05 H (0.66-1.25) mg/dL Glucose 367 H (74-99) mg/dL POC Glucose (mg/dL) 431 H (75-99) mg/dL Hemoglobin A1c (4.0-6.0) % Plasma Lactic Acid Heri (0.7-2.0) mmol/L Delta Bilirubin (0.0-0.2) mg/dL AST (17-59) U/L ALT (21-72) U/L Total Creatine Kinase (55-170) U/L CK-MB (CK-2) (0.0-2.4) ng/mL Troponin I (0.000-0.034) ng/mL Total Protein (6.3-8.2) g/dL Albumin (3.5-5.0) g/dL 07/07/18 07/07/18 07/07/18 Range/Units 08:49 08:49 09:26 WBC (3.8-10.6) k/uL RBC (4.30-5.90) m/uL Hgb (13.0-17.5) gm/dL Hct (39.0-53.0) % MCV (80.0-100.0) fL MCHC (31.0-37.0) g/dL Monocytes # (Manual) (0-1.0) k/uL Nucleated RBCs (0-0) /100 WBC PT (9.0-12.0) sec INR (<1.2) APTT (22.0-30.0) sec D-Dimer (<0.60) mg/L FEU ABG pH (7.35-7.45) ABG pCO2 (35-45) mmHg ABG pO2 (83-108) mmHg ABG HCO3 (21-25) mmol/L ABG Total CO2 (19-24) mmol/L ABG O2 Saturation (94-97) % VBG pH (7.31-7.41) VBG pCO2 (37-51) mmHg VBG HCO3 (24-28) mmol/L Chloride (98-107) mmol/L Carbon Dioxide (22-30) mmol/L BUN (9-20) mg/dL Creatinine (0.66-1.25) mg/dL Glucose (74-99) mg/dL POC Glucose (mg/dL) 391 H (75-99) mg/dL Hemoglobin A1c (4.0-6.0) % Plasma Lactic Acid Heri 7.4 H* (0.7-2.0) mmol/L Delta Bilirubin (0.0-0.2) mg/dL AST (17-59) U/L ALT (21-72) U/L Total Creatine Kinase 2115 H* (55-170) U/L CK-MB (CK-2) 7.3 H (0.0-2.4) ng/mL Troponin I 4.490 H* (0.000-0.034) ng/mL Total Protein (6.3-8.2) g/dL Albumin (3.5-5.0) g/dL 07/07/18 07/07/18 07/07/18 Range/Units 10:41 11:46 11:46 WBC (3.8-10.6) k/uL RBC (4.30-5.90) m/uL Hgb (13.0-17.5) gm/dL Hct (39.0-53.0) % MCV (80.0-100.0) fL MCHC (31.0-37.0) g/dL Monocytes # (Manual) (0-1.0) k/uL Nucleated RBCs (0-0) /100 WBC PT (9.0-12.0) sec INR (<1.2) APTT >200.0 H* (22.0-30.0) sec D-Dimer (<0.60) mg/L FEU ABG pH (7.35-7.45) ABG pCO2 (35-45) mmHg ABG pO2 (83-108) mmHg ABG HCO3 (21-25) mmol/L ABG Total CO2 (19-24) mmol/L ABG O2 Saturation (94-97) % VBG pH (7.31-7.41) VBG pCO2 (37-51) mmHg VBG HCO3 (24-28) mmol/L Chloride (98-107) mmol/L Carbon Dioxide (22-30) mmol/L BUN (9-20) mg/dL Creatinine (0.66-1.25) mg/dL Glucose (74-99) mg/dL POC Glucose (mg/dL) 374 H 300 H (75-99) mg/dL Hemoglobin A1c (4.0-6.0) % Plasma Lactic Acid Heri (0.7-2.0) mmol/L Delta Bilirubin (0.0-0.2) mg/dL AST (17-59) U/L ALT (21-72) U/L Total Creatine Kinase (55-170) U/L CK-MB (CK-2) (0.0-2.4) ng/mL Troponin I (0.000-0.034) ng/mL Total Protein (6.3-8.2) g/dL Albumin (3.5-5.0) g/dL 07/07/18 07/07/18 07/07/18 Range/Units 13:14 14:11 14:51 WBC (3.8-10.6) k/uL RBC (4.30-5.90) m/uL Hgb (13.0-17.5) gm/dL Hct (39.0-53.0) % MCV (80.0-100.0) fL MCHC (31.0-37.0) g/dL Monocytes # (Manual) (0-1.0) k/uL Nucleated RBCs (0-0) /100 WBC PT (9.0-12.0) sec INR (<1.2) APTT (22.0-30.0) sec D-Dimer (<0.60) mg/L FEU ABG pH (7.35-7.45) ABG pCO2 (35-45) mmHg ABG pO2 (83-108) mmHg ABG HCO3 (21-25) mmol/L ABG Total CO2 (19-24) mmol/L ABG O2 Saturation (94-97) % VBG pH (7.31-7.41) VBG pCO2 (37-51) mmHg VBG HCO3 (24-28) mmol/L Chloride (98-107) mmol/L Carbon Dioxide (22-30) mmol/L BUN (9-20) mg/dL Creatinine (0.66-1.25) mg/dL Glucose (74-99) mg/dL POC Glucose (mg/dL) 210 H 193 H (75-99) mg/dL Hemoglobin A1c (4.0-6.0) % Plasma Lactic Acid Heri (0.7-2.0) mmol/L Delta Bilirubin (0.0-0.2) mg/dL AST (17-59) U/L ALT (21-72) U/L Total Creatine Kinase 1230 H* (55-170) U/L CK-MB (CK-2) 8.2 H (0.0-2.4) ng/mL Troponin I 7.880 H* (0.000-0.034) ng/mL Total Protein (6.3-8.2) g/dL Albumin (3.5-5.0) g/dL 07/07/18 07/07/18 07/07/18 Range/Units 15:06 16:06 17:01 WBC (3.8-10.6) k/uL RBC (4.30-5.90) m/uL Hgb (13.0-17.5) gm/dL Hct (39.0-53.0) % MCV (80.0-100.0) fL MCHC (31.0-37.0) g/dL Monocytes # (Manual) (0-1.0) k/uL Nucleated RBCs (0-0) /100 WBC PT (9.0-12.0) sec INR (<1.2) APTT (22.0-30.0) sec D-Dimer (<0.60) mg/L FEU ABG pH (7.35-7.45) ABG pCO2 (35-45) mmHg ABG pO2 (83-108) mmHg ABG HCO3 (21-25) mmol/L ABG Total CO2 (19-24) mmol/L ABG O2 Saturation (94-97) % VBG pH (7.31-7.41) VBG pCO2 (37-51) mmHg VBG HCO3 (24-28) mmol/L Chloride (98-107) mmol/L Carbon Dioxide (22-30) mmol/L BUN (9-20) mg/dL Creatinine (0.66-1.25) mg/dL Glucose (74-99) mg/dL POC Glucose (mg/dL) 177 H 171 H 167 H (75-99) mg/dL Hemoglobin A1c (4.0-6.0) % Plasma Lactic Acid Heri (0.7-2.0) mmol/L Delta Bilirubin (0.0-0.2) mg/dL AST (17-59) U/L ALT (21-72) U/L Total Creatine Kinase (55-170) U/L CK-MB (CK-2) (0.0-2.4) ng/mL Troponin I (0.000-0.034) ng/mL Total Protein (6.3-8.2) g/dL Albumin (3.5-5.0) g/dL 07/07/18 Range/Units 18:11 WBC (3.8-10.6) k/uL RBC (4.30-5.90) m/uL Hgb (13.0-17.5) gm/dL Hct (39.0-53.0) % MCV (80.0-100.0) fL MCHC (31.0-37.0) g/dL Monocytes # (Manual) (0-1.0) k/uL Nucleated RBCs (0-0) /100 WBC PT (9.0-12.0) sec INR (<1.2) APTT (22.0-30.0) sec D-Dimer (<0.60) mg/L FEU ABG pH (7.35-7.45) ABG pCO2 (35-45) mmHg ABG pO2 (83-108) mmHg ABG HCO3 (21-25) mmol/L ABG Total CO2 (19-24) mmol/L ABG O2 Saturation (94-97) % VBG pH (7.31-7.41) VBG pCO2 (37-51) mmHg VBG HCO3 (24-28) mmol/L Chloride (98-107) mmol/L Carbon Dioxide (22-30) mmol/L BUN (9-20) mg/dL Creatinine (0.66-1.25) mg/dL Glucose (74-99) mg/dL POC Glucose (mg/dL) 177 H (75-99) mg/dL Hemoglobin A1c (4.0-6.0) % Plasma Lactic Acid Heri (0.7-2.0) mmol/L Delta Bilirubin (0.0-0.2) mg/dL AST (17-59) U/L ALT (21-72) U/L Total Creatine Kinase (55-170) U/L CK-MB (CK-2) (0.0-2.4) ng/mL Troponin I (0.000-0.034) ng/mL Total Protein (6.3-8.2) g/dL Albumin (3.5-5.0) g/dL Microbiology - Last 24 Hours (Table) 07/07/18 05:25 Gram Stain - Preliminary Buttock Wound Culture - Preliminary Assessment and Plan Plan: Assessment: Postoperative day #4 status post right hip hemiarthroplasty Plan: Pain control, continue current medication GI and DVT prophylaxis, per medical recommendations Continue work with physical therapy Medical recommendations Discharge planning: On a orthopedic standpoint, patient remained stable. There is concern over a skin tear, I will evaluate tomorrow. We'll be transferring admission of internal medicine. We'll be available for any further recommendations Time with Patient: Less than 30
[2018-07-07 19:21] LABS: Glucose,Whole Blood 161 mg/dL (75-99)
[2018-07-07] MEDS ORDERED: DEXTROSE 5% IN WATER 100 ML with AMIODARONE 300 MG IV ONE (20:00)
[2018-07-07] MEDS: SENNOSIDES-DOCUSATE SODIUM 1 EACH TAB PO SCH (20:26)
[2018-07-07 20:29] LABS: Glucose,Whole Blood 154 mg/dL (75-99)
[2018-07-07 21:15] LABS: Creatine Kinase MB 7.7 ng/mL (0.0-2.4)
[2018-07-07 21:21] LABS: Troponin I 9.68 ng/mL (0.000-0.034)
[2018-07-07 21:24] LABS: Glucose,Whole Blood 138 mg/dL (75-99)
[2018-07-07] MEDS ORDERED: FUROSEMIDE 10 MG/ML 2 ML VIAL IV ONE (21:35)
[2018-07-07] MEDS: AMIODARONE 450 MG in DEXTROSE 5% IN WATER 250 ML IV SCH ×2 (22:03)
[2018-07-07 22:13] LABS: Glucose,Whole Blood 156 mg/dL (75-99)
--- NOTE | 2018-07-07 22:58 | P.CON ---
Consult Note - . Consult date: 07/07/18 Assessment/Plan:: This is a 78-year-old male who presented to the hospital on July 01 after a mechanical fall that occurred on the . At outside facility, patient had a CAT scan of the head and neck that were negative and a right hip x -ray showed non-angulated nondisplaced subcapital femoral fracture. Patient was admitted to the hospital under the care of orthopedics and underwent a right hip hemiarthroplasty on July 03. Last evening patient developed mental status changes, difficulty breathing with hypoxia, tachypnea and temperature 100.5. Rapid response team was called and patient was transferred to the intensive care unit. He was found to have lactic acidosis, metabolic acidosis and elevated troponin. Blood cultures were obtained and wound culture obtained to a chronic right buttocks wound. Initial echocardiogram showed an EF of 55-60% and repeat echocardiogram done this morning showed an EF of less than 20 with severe global hypokinesia of the LV, moderate mitral regurgitation. Lumbar spine x-rays done yesterday showed compression fractures and deformities in the lumbar spine and lower thoracic vertebrae. White count 11.3, hemoglobin 8.4 and platelet count 351. BUN 53 and creatinine 2.05, blood sugars are improving on insulin drip.please see the consult notes dictated by nurse practitioner Mrs.Judy Humphrey This 78-year-old male has difficulties with an acute change in the status appears have had an acute myocardial infarction with a marked reduction of his cardiac function. Resulting in many difficulties including his elevated lactic acid occurring in the basis of the acute myocardial infarction, as well as acute liver failure. Cardiology is following. Is evidence of the large deep tissue injury to the coccyx area. Of note the patient suffered a fall before admission of serious enough nature to resulted in his hip Fracture. Has also had multiple other events occurring such as a long time on the transfer board which could've also worsened his deep tissue injury. He will be cared for with the operative foam dressing. Ongoing care of the specialty ICU bed. Frequent turning. It opens and drains and then will further alter local wound care.there are cultures in process which antibiotic therapy of daptomycin and Zosyn with attempts for de-escalation as Possible.The last acidosis is multifactorial including the acute myocardial infarction, the acute renal failure and significant acidosis. I agree with the evaluation, assessment and plan as dictated by nurse practitioner Mrs. Maria Isabel Humphrey.
[2018-07-08 00:13] LABS: Glucose,Whole Blood 159 mg/dL (75-99)
[2018-07-08] MEDS: DILTIAZEM 50 MG in SODIUM CHLORIDE 0.9% 40 ML IV SCH (01:24)
[2018-07-08 02:40] LABS: Glucose,Whole Blood 149 mg/dL (75-99)
[2018-07-08 05:01] LABS: HCT 23.5 % (39.0-53.0); HGB 7.7 gm/dL (13.0-17.5); Hypochromasia Slight; MCH 32.3 pg (25.0-35.0); MCHC 32.9 g/dL (31.0-37.0); MCV 98.2 fL (80.0-100.0); Mean Platelet Volume 7.3; Platelet Count 270 k/uL (150-450); RBC 2.39 m/uL (4.30-5.90); RDW 14.3 % (11.5-15.5); WBC 7.2 k/uL (3.8-10.6)
[2018-07-08 05:06] LABS: Albumin 2.5 g/dL (3.5-5.0); Calcium 8.3 mg/dL (8.4-10.2); Magnesium 1.8 mg/dL (1.6-2.3); Phosphorus 3.3 mg/dL (2.5-4.5); Total Bilirubin 1.1 mg/dL (0.2-1.3); Total Protein 4.9 g/dL (6.3-8.2)
[2018-07-08] MEDS: INSULIN REGULAR 100 UNIT in SODIUM CHLORIDE 0.9% 100 ML IV SCH (05:21)
[2018-07-08] MEDS: AMIODARONE 450 MG in DEXTROSE 5% IN WATER 250 ML IV SCH ×4 (05:22→15:00)
[2018-07-08] MEDS: DAPTOmycin 500 MG in SODIUM CHLORIDE 0.9% 50 ML IVPB SCH (05:24)
[2018-07-08 05:30] LABS: Glucose,Whole Blood 230 mg/dL (75-99)
[2018-07-08] MEDS: HEPARIN SOD,PORK IN 0.45% NACL 25,000 UNIT in 0.45% NACL 1 250ML.BAG IV SCH ×2 (05:30→16:30)
[2018-07-08 06:15] LABS: Glucose,Whole Blood 198 mg/dL (75-99)
[2018-07-08] MEDS: PIPERACILLIN-TAZOBACTAM 3.375 GM in SODIUM CHLORIDE 0.9% 100 ML IVPB SCH ×3 (06:36→22:15)
--- NOTE | 2018-07-08 06:39 | XR ---
EXAMINATION TYPE: XR chest 1V portable DATE OF EXAM: 07/08/2018 COMPARISON: 07/07/2018 HISTORY: Short of breath TECHNIQUE: Single frontal view of the chest is obtained. FINDINGS: Heart is probably enlarged. There is airspace consolidation and pleural fluid on the left side. Right lung is relatively clear. There is no heart failure. There is apparent ventriculoperitone al shunt catheter on the right side. There are chest leads. There are bilateral shoulder prostheses. IMPRESSION: Left pleural effusion and left lower lobe pneumonia slightly worse than last exam. No he art failure seen.
[2018-07-08] MEDS: DEXTROSE 5% IN WATER 1,000 ML with SODIUM BICARB (1 MEQ/ML) 150 ML IV SCH (07:02)
[2018-07-08] MEDS: ALBUTEROL NEBULIZED 2.5 MG/3 ML INHALATION SCH ×2 (07:03→19:54)
[2018-07-08] MEDS: IPRATROPIUM-ALBUTEROL 3 ML NEB INHALATION PRN ×3 (07:03→15:46)
[2018-07-08 07:07] LABS: Glucose,Whole Blood 186 mg/dL (75-99)
[2018-07-08 07:49] LABS: ABG Base Excess 4.7 mmol/L; ABG HCO3 27 mmol/L (21-25); ABG Oxygen Saturation 98.7 % (94-97); ABG PCO2 31 mmHg (35-45); ABG PH 7.55 (7.35-7.45); ABG PO2 108 mmHg (83-108); ABG TCO2 28 mmol/L (19-24)
[2018-07-08 08:09] LABS: Glucose,Whole Blood 164 mg/dL (75-99)
[2018-07-08] MEDS ORDERED: NOREPINEPHRINE 4 MG in SODIUM CHLORIDE 0.9% 250 ML IV SCH (09:00)
--- NOTE | 2018-07-08 09:08 | P.PN ---
Subjective Progress Note Date: 07/08/18 Principal diagnosis: Acute non-ST elevation MD This is a pleasant 78-year-old gentleman who we did see and signed off during this admission, asked to see the patient again because of acute coronary syndrome. 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 He was on the surgical floor last night when he developed sudden onset of shortness of breath associated with change in mental status and he was in acute respiratory distress.The patient ruled in for acute non-ST elevation myocardial infarction with increasing in his troponin from 4- 5. The EKG showed sinus tachycardia. Beside that he was running temperature and there is questionable sepsis, infectious disease was consulted to see the patient. More importantly, the patient creatinine is elevated. Also the d- dimer came in to be abnormal and currently he is on heparin IV. Beside that the patient underwent an echocardiogram after this incident and that showed severe cardiomyopathy with EF around 20% with global hypokinesia. The echocardiogram before surgery showed an ejection fraction of 50%. On follow-up with the patient today, July 082018, he continues to be unstable. The blood pressure is on the low side. Beside that he is in acute on chronic renal failure. Also the troponin has been going up. I will continue checking the troponin to start trending down. He is on heparin IV for possible PE. I did recommend managing the acute non-ST deviation myocardial infarction medically at this point in the absence of any chest pain or chest discomfort and in view of the acute renal failure. If the patient continues to be hypotensive and sepsis is ruled out completely, we might consider doing coronary angiogram. Objective - Vital Signs Vital signs: Vital Signs Temp 99.8 F H 07/08/18 04:00 Pulse 74 07/08/18 07:18 Resp 24 07/08/18 07:00 BP 95/48 07/08/18 07:00 Pulse Ox 95 07/08/18 07:00 Intake & Output 07/07/18 07/08/18 07/08/18 18:59 06:59 18:59 Intake Total 5777.224 3094.647 227.497 Output Total 305 360 45 Balance 6230.676 1980.647 182.497 Weight 113 kg Intake: IV 1225 1740 220 0.9 NACL 200 240 20 Amiodarone 450 mg In 100 Dextrose 5% in Water 250 ml @ 1 MG/MIN 34.53 mls/ hr IV .Q7H31M [facility] Rx#: [id number] DAPTOmycin 500 mg In 100 Sodium Chloride 0.9% 50 ml @ 100 mls/hr IVPB Q24H [facility] Rx#:[id number] Dextrose 5% in Water 1, 925 1200 100 000 ml @ 100 mls/hr IV . [id number] MARLINE with Sodium Bicarb (1 Meq/ml) 150 ml Rx#:[id number] Piperacillin-Tazobactam 3 100 100 100 .375 gm In Sodium Chloride 0.9% 100 ml @ 25 mls/hr IVPB Q8H [facility] Rx#: [id number] Intake, IV Titration 261.700 433.647 7.497 Amount Amiodarone 450 mg In 252.645 Dextrose 5% in Water 250 ml @ 1 MG/MIN 34.53 mls/ hr IV .Q7H31M [facility] Rx#: [id number] Heparin Sod,Pork in 0.45% 204.671 149.569 NaCl 25,000 unit In 0.45 % NaCl 1 250ml.bag @ 18 UNITS/KG/HR 19.84 mls/hr IV .[id number] [facility] Rx#: [id number] Insulin Regular 100 unit 57.029 31.433 7.497 In Sodium Chloride 0.9% 100 ml @ Per Protocol IV .Q0M [facility] Rx#:[id number] Oral 360 Output: Urine 305 360 45 Other: Voiding Method Indwelling Catheter Indwelling Catheter - Constitutional General appearance: Present: no acute distress - Respiratory Respiratory: bilateral: diminished - Cardiovascular Rhythm: regular Heart sounds: normal: S1, S2 - Labs CBC & Chem 7: 07/08/18 04:36 07/08/18 04:36 Labs: Abnormal Lab Results - Last 24 Hours (Table) 07/07/18 07/07/18 07/07/18 Range/Units 04:24 04:24 08:49 RBC (4.30-5.90) m/uL Hgb (13.0-17.5) gm/dL Hct (39.0-53.0) % APTT (22.0-30.0) sec ABG pH (7.35-7.45) ABG pCO2 (35-45) mmHg ABG HCO3 (21-25) mmol/L ABG Total CO2 (19-24) mmol/L ABG O2 Saturation (94-97) % Sodium (137-145) mmol/L Chloride 108 H (98-107) mmol/L Carbon Dioxide 16 L (22-30) mmol/L BUN 53 H (9-20) mg/dL Creatinine 2.05 H (0.66-1.25) mg/dL Glucose 367 H (74-99) mg/dL POC Glucose (mg/dL) (75-99) mg/dL Hemoglobin A1c 6.7 H (4.0-6.0) % Plasma Lactic Acid Heri (0.7-2.0) mmol/L Calcium (8.4-10.2) mg/dL Delta Bilirubin 0.3 H (0.0-0.2) mg/dL AST 141 H (17-59) U/L ALT 104 H (21-72) U/L Total Creatine Kinase (55-170) U/L CK-MB (CK-2) (0.0-2.4) ng/mL Troponin I (0.000-0.034) ng/mL Total Protein 5.6 L (6.3-8.2) g/dL Albumin 3.1 L (3.5-5.0) g/dL 07/07/18 07/07/18 07/07/18 Range/Units 08:49 08:49 09:26 RBC (4.30-5.90) m/uL Hgb (13.0-17.5) gm/dL Hct (39.0-53.0) % APTT (22.0-30.0) sec ABG pH (7.35-7.45) ABG pCO2 (35-45) mmHg ABG HCO3 (21-25) mmol/L ABG Total CO2 (19-24) mmol/L ABG O2 Saturation (94-97) % Sodium (137-145) mmol/L Chloride (98-107) mmol/L Carbon Dioxide (22-30) mmol/L BUN (9-20) mg/dL Creatinine (0.66-1.25) mg/dL Glucose (74-99) mg/dL POC Glucose (mg/dL) 391 H (75-99) mg/dL Hemoglobin A1c (4.0-6.0) % Plasma Lactic Acid Heri 7.4 H* (0.7-2.0) mmol/L Calcium (8.4-10.2) mg/dL Delta Bilirubin (0.0-0.2) mg/dL AST (17-59) U/L ALT (21-72) U/L Total Creatine Kinase 2115 H* (55-170) U/L CK-MB (CK-2) 7.3 H (0.0-2.4) ng/mL Troponin I 4.490 H* (0.000-0.034) ng/mL Total Protein (6.3-8.2) g/dL Albumin (3.5-5.0) g/dL 07/07/18 07/07/18 07/07/18 Range/Units 10:41 11:46 11:46 RBC (4.30-5.90) m/uL Hgb (13.0-17.5) gm/dL Hct (39.0-53.0) % APTT >200.0 H* (22.0-30.0) sec ABG pH (7.35-7.45) ABG pCO2 (35-45) mmHg ABG HCO3 (21-25) mmol/L ABG Total CO2 (19-24) mmol/L ABG O2 Saturation (94-97) % Sodium (137-145) mmol/L Chloride (98-107) mmol/L Carbon Dioxide (22-30) mmol/L BUN (9-20) mg/dL Creatinine (0.66-1.25) mg/dL Glucose (74-99) mg/dL POC Glucose (mg/dL) 374 H 300 H (75-99) mg/dL Hemoglobin A1c (4.0-6.0) % Plasma Lactic Acid Heri (0.7-2.0) mmol/L Calcium (8.4-10.2) mg/dL Delta Bilirubin (0.0-0.2) mg/dL AST (17-59) U/L ALT (21-72) U/L Total Creatine Kinase (55-170) U/L CK-MB (CK-2) (0.0-2.4) ng/mL Troponin I (0.000-0.034) ng/mL Total Protein (6.3-8.2) g/dL Albumin (3.5-5.0) g/dL 07/07/18 07/07/18 07/07/18 Range/Units 13:14 14:11 14:51 RBC (4.30-5.90) m/uL Hgb (13.0-17.5) gm/dL Hct (39.0-53.0) % APTT (22.0-30.0) sec ABG pH (7.35-7.45) ABG pCO2 (35-45) mmHg ABG HCO3 (21-25) mmol/L ABG Total CO2 (19-24) mmol/L ABG O2 Saturation (94-97) % Sodium (137-145) mmol/L Chloride (98-107) mmol/L Carbon Dioxide (22-30) mmol/L BUN (9-20) mg/dL Creatinine (0.66-1.25) mg/dL Glucose (74-99) mg/dL POC Glucose (mg/dL) 210 H 193 H (75-99) mg/dL Hemoglobin A1c (4.0-6.0) % Plasma Lactic Acid Heri (0.7-2.0) mmol/L Calcium (8.4-10.2) mg/dL Delta Bilirubin (0.0-0.2) mg/dL AST (17-59) U/L ALT (21-72) U/L Total Creatine Kinase 1230 H* (55-170) U/L CK-MB (CK-2) 8.2 H (0.0-2.4) ng/mL Troponin I 7.880 H* (0.000-0.034) ng/mL Total Protein (6.3-8.2) g/dL Albumin (3.5-5.0) g/dL 07/07/18 07/07/18 07/07/18 Range/Units 15:06 16:06 17:01 RBC (4.30-5.90) m/uL Hgb (13.0-17.5) gm/dL Hct (39.0-53.0) % APTT (22.0-30.0) sec ABG pH (7.35-7.45) ABG pCO2 (35-45) mmHg ABG HCO3 (21-25) mmol/L ABG Total CO2 (19-24) mmol/L ABG O2 Saturation (94-97) % Sodium (137-145) mmol/L Chloride (98-107) mmol/L Carbon Dioxide (22-30) mmol/L BUN (9-20) mg/dL Creatinine (0.66-1.25) mg/dL Glucose (74-99) mg/dL POC Glucose (mg/dL) 177 H 171 H 167 H (75-99) mg/dL Hemoglobin A1c (4.0-6.0) % Plasma Lactic Acid Heri (0.7-2.0) mmol/L Calcium (8.4-10.2) mg/dL Delta Bilirubin (0.0-0.2) mg/dL AST (17-59) U/L ALT (21-72) U/L Total Creatine Kinase (55-170) U/L CK-MB (CK-2) (0.0-2.4) ng/mL Troponin I (0.000-0.034) ng/mL Total Protein (6.3-8.2) g/dL Albumin (3.5-5.0) g/dL 07/07/18 07/07/18 07/07/18 Range/Units 18:11 19:08 20:18 RBC (4.30-5.90) m/uL Hgb (13.0-17.5) gm/dL Hct (39.0-53.0) % APTT (22.0-30.0) sec ABG pH (7.35-7.45) ABG pCO2 (35-45) mmHg ABG HCO3 (21-25) mmol/L ABG Total CO2 (19-24) mmol/L ABG O2 Saturation (94-97) % Sodium (137-145) mmol/L Chloride (98-107) mmol/L Carbon Dioxide (22-30) mmol/L BUN (9-20) mg/dL Creatinine (0.66-1.25) mg/dL Glucose (74-99) mg/dL POC Glucose (mg/dL) 177 H 161 H 154 H (75-99) mg/dL Hemoglobin A1c (4.0-6.0) % Plasma Lactic Acid Heri (0.7-2.0) mmol/L Calcium (8.4-10.2) mg/dL Delta Bilirubin (0.0-0.2) mg/dL AST (17-59) U/L ALT (21-72) U/L Total Creatine Kinase (55-170) U/L CK-MB (CK-2) (0.0-2.4) ng/mL Troponin I (0.000-0.034) ng/mL Total Protein (6.3-8.2) g/dL Albumin (3.5-5.0) g/dL 07/07/18 07/07/18 07/07/18 Range/Units 20:21 20:21 21:13 RBC (4.30-5.90) m/uL Hgb (13.0-17.5) gm/dL Hct (39.0-53.0) % APTT 138.7 H* (22.0-30.0) sec ABG pH (7.35-7.45) ABG pCO2 (35-45) mmHg ABG HCO3 (21-25) mmol/L ABG Total CO2 (19-24) mmol/L ABG O2 Saturation (94-97) % Sodium (137-145) mmol/L Chloride (98-107) mmol/L Carbon Dioxide (22-30) mmol/L BUN (9-20) mg/dL Creatinine (0.66-1.25) mg/dL Glucose (74-99) mg/dL POC Glucose (mg/dL) 138 H (75-99) mg/dL Hemoglobin A1c (4.0-6.0) % Plasma Lactic Acid Heri (0.7-2.0) mmol/L Calcium (8.4-10.2) mg/dL Delta Bilirubin (0.0-0.2) mg/dL AST (17-59) U/L ALT (21-72) U/L Total Creatine Kinase 1157 H* (55-170) U/L CK-MB (CK-2) 7.7 H (0.0-2.4) ng/mL Troponin I 9.680 H* (0.000-0.034) ng/mL Total Protein (6.3-8.2) g/dL Albumin (3.5-5.0) g/dL 07/07/18 07/08/18 07/08/18 Range/Units 22:01 00:02 02:28 RBC (4.30-5.90) m/uL Hgb (13.0-17.5) gm/dL Hct (39.0-53.0) % APTT (22.0-30.0) sec ABG pH (7.35-7.45) ABG pCO2 (35-45) mmHg ABG HCO3 (21-25) mmol/L ABG Total CO2 (19-24) mmol/L ABG O2 Saturation (94-97) % Sodium (137-145) mmol/L Chloride (98-107) mmol/L Carbon Dioxide (22-30) mmol/L BUN (9-20) mg/dL Creatinine (0.66-1.25) mg/dL Glucose (74-99) mg/dL POC Glucose (mg/dL) 156 H 159 H 149 H (75-99) mg/dL Hemoglobin A1c (4.0-6.0) % Plasma Lactic Acid Heri (0.7-2.0) mmol/L Calcium (8.4-10.2) mg/dL Delta Bilirubin (0.0-0.2) mg/dL AST (17-59) U/L ALT (21-72) U/L Total Creatine Kinase (55-170) U/L CK-MB (CK-2) (0.0-2.4) ng/mL Troponin I (0.000-0.034) ng/mL Total Protein (6.3-8.2) g/dL Albumin (3.5-5.0) g/dL 07/08/18 07/08/18 07/08/18 Range/Units 04:36 04:36 04:36 RBC 2.39 L (4.30-5.90) m/uL Hgb 7.7 L (13.0-17.5) gm/dL Hct 23.5 L (39.0-53.0) % APTT 68.1 H (22.0-30.0) sec ABG pH (7.35-7.45) ABG pCO2 (35-45) mmHg ABG HCO3 (21-25) mmol/L ABG Total CO2 (19-24) mmol/L ABG O2 Saturation (94-97) % Sodium 135 L (137-145) mmol/L Chloride (98-107) mmol/L Carbon Dioxide (22-30) mmol/L BUN 64 H (9-20) mg/dL Creatinine 2.15 H (0.66-1.25) mg/dL Glucose 203 H (74-99) mg/dL POC Glucose (mg/dL) (75-99) mg/dL Hemoglobin A1c (4.0-6.0) % Plasma Lactic Acid Heri (0.7-2.0) mmol/L Calcium 8.3 L (8.4-10.2) mg/dL Delta Bilirubin (0.0-0.2) mg/dL AST 460 H (17-59) U/L ALT 149 H (21-72) U/L Total Creatine Kinase (55-170) U/L CK-MB (CK-2) (0.0-2.4) ng/mL Troponin I (0.000-0.034) ng/mL Total Protein 4.9 L (6.3-8.2) g/dL Albumin 2.5 L (3.5-5.0) g/dL 07/08/18 07/08/18 07/08/18 Range/Units 05:18 06:04 06:56 RBC (4.30-5.90) m/uL Hgb (13.0-17.5) gm/dL Hct (39.0-53.0) % APTT (22.0-30.0) sec ABG pH (7.35-7.45) ABG pCO2 (35-45) mmHg ABG HCO3 (21-25) mmol/L ABG Total CO2 (19-24) mmol/L ABG O2 Saturation (94-97) % Sodium (137-145) mmol/L Chloride (98-107) mmol/L Carbon Dioxide (22-30) mmol/L BUN (9-20) mg/dL Creatinine (0.66-1.25) mg/dL Glucose (74-99) mg/dL POC Glucose (mg/dL) 230 H 198 H 186 H (75-99) mg/dL Hemoglobin A1c (4.0-6.0) % Plasma Lactic Acid Heri (0.7-2.0) mmol/L Calcium (8.4-10.2) mg/dL Delta Bilirubin (0.0-0.2) mg/dL AST (17-59) U/L ALT (21-72) U/L Total Creatine Kinase (55-170) U/L CK-MB (CK-2) (0.0-2.4) ng/mL Troponin I (0.000-0.034) ng/mL Total Protein (6.3-8.2) g/dL Albumin (3.5-5.0) g/dL 07/08/18 07/08/18 Range/Units 07:47 07:57 RBC (4.30-5.90) m/uL Hgb (13.0-17.5) gm/dL Hct (39.0-53.0) % APTT (22.0-30.0) sec ABG pH 7.55 H (7.35-7.45) ABG pCO2 31 L (35-45) mmHg ABG HCO3 27 H (21-25) mmol/L ABG Total CO2 28 H (19-24) mmol/L ABG O2 Saturation 98.7 H (94-97) % Sodium (137-145) mmol/L Chloride (98-107) mmol/L Carbon Dioxide (22-30) mmol/L BUN (9-20) mg/dL Creatinine (0.66-1.25) mg/dL Glucose (74-99) mg/dL POC Glucose (mg/dL) 164 H (75-99) mg/dL Hemoglobin A1c (4.0-6.0) % Plasma Lactic Acid Heri (0.7-2.0) mmol/L Calcium (8.4-10.2) mg/dL Delta Bilirubin (0.0-0.2) mg/dL AST (17-59) U/L ALT (21-72) U/L Total Creatine Kinase (55-170) U/L CK-MB (CK-2) (0.0-2.4) ng/mL Troponin I (0.000-0.034) ng/mL Total Protein (6.3-8.2) g/dL Albumin (3.5-5.0) g/dL Microbiology - Last 24 Hours (Table) 07/07/18 05:40 Blood Culture - Preliminary Blood No Growth after 24 hours 07/07/18 05:56 Blood Culture - Preliminary Blood No Growth after 24 hours 07/07/18 05:25 Gram Stain - Preliminary Buttock Wound Culture - Preliminary Assessment and Plan Assessment: Assessment #1 acute respiratory distress #2 possible pulmonary embolization #3 possible sepsis of unknown source #4 acute non-ST patient myocardial infarction, type I versus type II #4 severe cardiomyopathy with significant drop in the left ventricle systolic function #5 hemodynamic instability #6 acute on chronic renal failure Plan #1 I did recommend a conservative medical approach for the non-ST elevation MD. In the absence of any chest pain or chest discomfort and in the presence of renal failure #2 dual antiplatelet therapy with aspirin and Plavix #3 hold the statin in view of the elevated CK #4 the patient is in process to be seen by the infectious disease service #5 hold the blood pressure medications including the metoprolol #6 follow-up with the patient.
[2018-07-08 09:23] LABS: Glucose,Whole Blood 147 mg/dL (75-99)
[2018-07-08] MEDS ORDERED: ACETAMINOPHEN TAB 325 MG TAB PO PRN (09:48)
[2018-07-08] MEDS ORDERED: HYDROcodone/APAP 10-325MG 1 EACH TAB PO PRN (09:49)
[2018-07-08 10:09] LABS: Glucose,Whole Blood 181 mg/dL (75-99)
--- NOTE | 2018-07-08 10:12 | P.PN ---
Subjective Progress Note Date: 07/08/18 Principal diagnosis: Hypotension Hospital Day # 7 my first evaluation of the patient Patient is a 78-year-old male past medical history of coronary artery disease, congestive heart failure, diabetes, and hearing loss who presented to our facility as a transfer for orthopedic evaluation. He was trying to get on his exercise bike when he sustained a mechanical fall. At outside hospital he was found to have a right hip fracture. Upon review of records from prior hospitalization he has found to have acidosis, hyperkalemia, anemia, and elevated creatinine. He was subsequently currently administered insulin and dextrose, he was started on IV fluids, repeat ABG was obtained and he was started on BiPAP therapy. Initial echocardiogram showed preserved ejection fraction at 55 to 60%. He was seen by cardiology and his Lopressor was decreased to 12.5 daily, his amiodarone was discontinued and Plavix was held in light of probable need for surgery. Patient underwent a right hemiarthroplasty on 07/03/18. Initially he tolerated the procedure well. His acidosis seemed to be improving. He was noted to have a hemoglobin drop on 07/05 at 10.2-8.3. He had been working with therapy and progressing well. On the morning of 07/07 he went into acute mental status changes associated with difficult TMs breathing. He was found to be hypoxic at and an EKG showed a new left bundle branch block with underlying A. fib rhythm. This was discussed with cardiology who recommended a stat echocardiogram as troponins came back at 3.7. Stat echo revealed a decreased ejection fraction of less than 20%. He was also noted to have worsening acidosis and was placed on a bicarb drip. He was transferred to the ICU for close monitoring. There was concern for possible pneumonia and he was empirically started on Zosyn and daptomycin due to vancomycin ALLERGY. Patient was seen by Dr. Hinkle who felt he could have possible sepsis and echo and Zosyn were continued. He also was found to have deep sacral decubitus ulcer , he did suffer a fall prior to admission. His statin was held due to elevated CPKs. He developed hypotension on the morning of 07/08 and required levophed to be started. Patient seen and examined at bedside. He is currently on BIPAP. He is struggling to hear me but denies, shortness of breath, chest pain, and nausea. He does complain of all over pain. Objective - Vital Signs Vital signs: Vital Signs Temp 98.7 F 07/08/18 08:00 Pulse 76 07/08/18 09:00 Resp 26 H 07/08/18 09:00 BP 93/54 07/08/18 09:00 Pulse Ox 95 07/08/18 09:00 Intake & Output 07/07/18 07/08/18 07/08/18 18:59 06:59 18:59 Intake Total 7730.449 1650.647 534.647 Output Total 305 360 95 Balance 6185.750 3555.647 439.647 Weight 113 kg Intake: IV 1225 1740 468.4 0.9 NACL 200 240 60 Amiodarone 450 mg In 100 33.4 Dextrose 5% in Water 250 ml @ 1 MG/MIN 34.53 mls/ hr IV .Q7H31M [facility] Rx#: [id number] DAPTOmycin 500 mg In 100 Sodium Chloride 0.9% 50 ml @ 100 mls/hr IVPB Q24H [facility] Rx#:[id number] Dextrose 5% in Water 1, 925 1200 275 000 ml @ 75 mls/hr IV . [id number] [facility] with Sodium Bicarb (1 Meq/ml) 150 ml Rx#:[id number] Piperacillin-Tazobactam 3 100 100 100 .375 gm In Sodium Chloride 0.9% 100 ml @ 25 mls/hr IVPB Q8H [facility] Rx#: [id number] Intake, IV Titration 261.700 433.647 16.247 Amount Amiodarone 450 mg In 252.645 Dextrose 5% in Water 250 ml @ 1 MG/MIN 34.53 mls/ hr IV .Q7H31M [facility] Rx#: [id number] Heparin Sod,Pork in 0.45% 204.671 149.569 NaCl 25,000 unit In 0.45 % NaCl 1 250ml.bag @ 18 UNITS/KG/HR 19.84 mls/hr IV .[id number] [facility] Rx#: [id number] Insulin Regular 100 unit 57.029 31.433 7.497 In Sodium Chloride 0.9% 100 ml @ Per Protocol IV .Q0M [facility] Rx#:[id number] Norepinephrine 4 mg In 8.75 Sodium Chloride 0.9% 250 ml @ Titrate IV .Q0M [facility] Rx#:[id number] Oral 360 50 Output: Urine 305 360 95 Other: Voiding Method Indwelling Catheter Indwelling Catheter Indwelling Catheter - Exam General: ill appearing, no distress, appears at stated age, [place] Derm: warm, dry Head: atraumatic, normocephalic, symmetric Eyes: EOMI, no lid lag, anicteric sclera Mouth: no lip lesion, mucus membranes moist Cardiovascular: S1S2 reg, no murmur, positive posterior tibial pulse bilateral, Lungs: decreased bs b/l bases, no rhonchi, no rales , no accessory muscle use Abdominal: soft, nontender to palpation, no guarding, no appreciable organomegaly Ext: no gross muscle atrophy, no edema, no contractures Neuro: CN II-XI grossly intact, no focal neuro deficits Psych: Alert, Awake, appropriate affect - Labs CBC & Chem 7: 07/08/18 04:36 07/08/18 04:36 Labs: Abnormal Lab Results - Last 24 Hours (Table) 07/07/18 07/07/18 07/07/18 Range/Units 04:24 04:24 08:49 RBC (4.30-5.90) m/uL Hgb (13.0-17.5) gm/dL Hct (39.0-53.0) % APTT (22.0-30.0) sec ABG pH (7.35-7.45) ABG pCO2 (35-45) mmHg ABG HCO3 (21-25) mmol/L ABG Total CO2 (19-24) mmol/L ABG O2 Saturation (94-97) % Sodium (137-145) mmol/L BUN (9-20) mg/dL Creatinine (0.66-1.25) mg/dL Glucose (74-99) mg/dL POC Glucose (mg/dL) (75-99) mg/dL Hemoglobin A1c 6.7 H (4.0-6.0) % Calcium (8.4-10.2) mg/dL Delta Bilirubin 0.3 H (0.0-0.2) mg/dL AST 141 H (17-59) U/L ALT 104 H (21-72) U/L Total Creatine Kinase 2115 H* (55-170) U/L CK-MB (CK-2) 7.3 H (0.0-2.4) ng/mL Troponin I 4.490 H* (0.000-0.034) ng/mL Total Protein 5.6 L (6.3-8.2) g/dL Albumin 3.1 L (3.5-5.0) g/dL 07/07/18 07/07/18 07/07/18 Range/Units 10:41 11:46 11:46 RBC (4.30-5.90) m/uL Hgb (13.0-17.5) gm/dL Hct (39.0-53.0) % APTT >200.0 H* (22.0-30.0) sec ABG pH (7.35-7.45) ABG pCO2 (35-45) mmHg ABG HCO3 (21-25) mmol/L ABG Total CO2 (19-24) mmol/L ABG O2 Saturation (94-97) % Sodium (137-145) mmol/L BUN (9-20) mg/dL Creatinine (0.66-1.25) mg/dL Glucose (74-99) mg/dL POC Glucose (mg/dL) 374 H 300 H (75-99) mg/dL Hemoglobin A1c (4.0-6.0) % Calcium (8.4-10.2) mg/dL Delta Bilirubin (0.0-0.2) mg/dL AST (17-59) U/L ALT (21-72) U/L Total Creatine Kinase (55-170) U/L CK-MB (CK-2) (0.0-2.4) ng/mL Troponin I (0.000-0.034) ng/mL Total Protein (6.3-8.2) g/dL Albumin (3.5-5.0) g/dL 07/07/18 07/07/18 07/07/18 Range/Units 13:14 14:11 14:51 RBC (4.30-5.90) m/uL Hgb (13.0-17.5) gm/dL Hct (39.0-53.0) % APTT (22.0-30.0) sec ABG pH (7.35-7.45) ABG pCO2 (35-45) mmHg ABG HCO3 (21-25) mmol/L ABG Total CO2 (19-24) mmol/L ABG O2 Saturation (94-97) % Sodium (137-145) mmol/L BUN (9-20) mg/dL Creatinine (0.66-1.25) mg/dL Glucose (74-99) mg/dL POC Glucose (mg/dL) 210 H 193 H (75-99) mg/dL Hemoglobin A1c (4.0-6.0) % Calcium (8.4-10.2) mg/dL Delta Bilirubin (0.0-0.2) mg/dL AST (17-59) U/L ALT (21-72) U/L Total Creatine Kinase 1230 H* (55-170) U/L CK-MB (CK-2) 8.2 H (0.0-2.4) ng/mL Troponin I 7.880 H* (0.000-0.034) ng/mL Total Protein (6.3-8.2) g/dL Albumin (3.5-5.0) g/dL 07/07/18 07/07/18 07/07/18 Range/Units 15:06 16:06 17:01 RBC (4.30-5.90) m/uL Hgb (13.0-17.5) gm/dL Hct (39.0-53.0) % APTT (22.0-30.0) sec ABG pH (7.35-7.45) ABG pCO2 (35-45) mmHg ABG HCO3 (21-25) mmol/L ABG Total CO2 (19-24) mmol/L ABG O2 Saturation (94-97) % Sodium (137-145) mmol/L BUN (9-20) mg/dL Creatinine (0.66-1.25) mg/dL Glucose (74-99) mg/dL POC Glucose (mg/dL) 177 H 171 H 167 H (75-99) mg/dL Hemoglobin A1c (4.0-6.0) % Calcium (8.4-10.2) mg/dL Delta Bilirubin (0.0-0.2) mg/dL AST (17-59) U/L ALT (21-72) U/L Total Creatine Kinase (55-170) U/L CK-MB (CK-2) (0.0-2.4) ng/mL Troponin I (0.000-0.034) ng/mL Total Protein (6.3-8.2) g/dL Albumin (3.5-5.0) g/dL 07/07/18 07/07/18 07/07/18 Range/Units 18:11 19:08 20:18 RBC (4.30-5.90) m/uL Hgb (13.0-17.5) gm/dL Hct (39.0-53.0) % APTT (22.0-30.0) sec ABG pH (7.35-7.45) ABG pCO2 (35-45) mmHg ABG HCO3 (21-25) mmol/L ABG Total CO2 (19-24) mmol/L ABG O2 Saturation (94-97) % Sodium (137-145) mmol/L BUN (9-20) mg/dL Creatinine (0.66-1.25) mg/dL Glucose (74-99) mg/dL POC Glucose (mg/dL) 177 H 161 H 154 H (75-99) mg/dL Hemoglobin A1c (4.0-6.0) % Calcium (8.4-10.2) mg/dL Delta Bilirubin (0.0-0.2) mg/dL AST (17-59) U/L ALT (21-72) U/L Total Creatine Kinase (55-170) U/L CK-MB (CK-2) (0.0-2.4) ng/mL Troponin I (0.000-0.034) ng/mL Total Protein (6.3-8.2) g/dL Albumin (3.5-5.0) g/dL 07/07/18 07/07/18 07/07/18 Range/Units 20:21 20:21 21:13 RBC (4.30-5.90) m/uL Hgb (13.0-17.5) gm/dL Hct (39.0-53.0) % APTT 138.7 H* (22.0-30.0) sec ABG pH (7.35-7.45) ABG pCO2 (35-45) mmHg ABG HCO3 (21-25) mmol/L ABG Total CO2 (19-24) mmol/L ABG O2 Saturation (94-97) % Sodium (137-145) mmol/L BUN (9-20) mg/dL Creatinine (0.66-1.25) mg/dL Glucose (74-99) mg/dL POC Glucose (mg/dL) 138 H (75-99) mg/dL Hemoglobin A1c (4.0-6.0) % Calcium (8.4-10.2) mg/dL Delta Bilirubin (0.0-0.2) mg/dL AST (17-59) U/L ALT (21-72) U/L Total Creatine Kinase 1157 H* (55-170) U/L CK-MB (CK-2) 7.7 H (0.0-2.4) ng/mL Troponin I 9.680 H* (0.000-0.034) ng/mL Total Protein (6.3-8.2) g/dL Albumin (3.5-5.0) g/dL 07/07/18 07/08/18 07/08/18 Range/Units 22:01 00:02 02:28 RBC (4.30-5.90) m/uL Hgb (13.0-17.5) gm/dL Hct (39.0-53.0) % APTT (22.0-30.0) sec ABG pH (7.35-7.45) ABG pCO2 (35-45) mmHg ABG HCO3 (21-25) mmol/L ABG Total CO2 (19-24) mmol/L ABG O2 Saturation (94-97) % Sodium (137-145) mmol/L BUN (9-20) mg/dL Creatinine (0.66-1.25) mg/dL Glucose (74-99) mg/dL POC Glucose (mg/dL) 156 H 159 H 149 H (75-99) mg/dL Hemoglobin A1c (4.0-6.0) % Calcium (8.4-10.2) mg/dL Delta Bilirubin (0.0-0.2) mg/dL AST (17-59) U/L ALT (21-72) U/L Total Creatine Kinase (55-170) U/L CK-MB (CK-2) (0.0-2.4) ng/mL Troponin I (0.000-0.034) ng/mL Total Protein (6.3-8.2) g/dL Albumin (3.5-5.0) g/dL 07/08/18 07/08/18 07/08/18 Range/Units 04:36 04:36 04:36 RBC 2.39 L (4.30-5.90) m/uL Hgb 7.7 L (13.0-17.5) gm/dL Hct 23.5 L (39.0-53.0) % APTT 68.1 H (22.0-30.0) sec ABG pH (7.35-7.45) ABG pCO2 (35-45) mmHg ABG HCO3 (21-25) mmol/L ABG Total CO2 (19-24) mmol/L ABG O2 Saturation (94-97) % Sodium 135 L (137-145) mmol/L BUN 64 H (9-20) mg/dL Creatinine 2.15 H (0.66-1.25) mg/dL Glucose 203 H (74-99) mg/dL POC Glucose (mg/dL) (75-99) mg/dL Hemoglobin A1c (4.0-6.0) % Calcium 8.3 L (8.4-10.2) mg/dL Delta Bilirubin (0.0-0.2) mg/dL AST 460 H (17-59) U/L ALT 149 H (21-72) U/L Total Creatine Kinase (55-170) U/L CK-MB (CK-2) (0.0-2.4) ng/mL Troponin I (0.000-0.034) ng/mL Total Protein 4.9 L (6.3-8.2) g/dL Albumin 2.5 L (3.5-5.0) g/dL 07/08/18 07/08/18 07/08/18 Range/Units 04:36 05:18 06:04 RBC (4.30-5.90) m/uL Hgb (13.0-17.5) gm/dL Hct (39.0-53.0) % APTT (22.0-30.0) sec ABG pH (7.35-7.45) ABG pCO2 (35-45) mmHg ABG HCO3 (21-25) mmol/L ABG Total CO2 (19-24) mmol/L ABG O2 Saturation (94-97) % Sodium (137-145) mmol/L BUN (9-20) mg/dL Creatinine (0.66-1.25) mg/dL Glucose (74-99) mg/dL POC Glucose (mg/dL) 230 H 198 H (75-99) mg/dL Hemoglobin A1c (4.0-6.0) % Calcium (8.4-10.2) mg/dL Delta Bilirubin (0.0-0.2) mg/dL AST (17-59) U/L ALT (21-72) U/L Total Creatine Kinase (55-170) U/L CK-MB (CK-2) (0.0-2.4) ng/mL Troponin I 9.230 H* (0.000-0.034) ng/mL Total Protein (6.3-8.2) g/dL Albumin (3.5-5.0) g/dL 07/08/18 07/08/18 07/08/18 Range/Units 06:56 07:47 07:57 RBC (4.30-5.90) m/uL Hgb (13.0-17.5) gm/dL Hct (39.0-53.0) % APTT (22.0-30.0) sec ABG pH 7.55 H (7.35-7.45) ABG pCO2 31 L (35-45) mmHg ABG HCO3 27 H (21-25) mmol/L ABG Total CO2 28 H (19-24) mmol/L ABG O2 Saturation 98.7 H (94-97) % Sodium (137-145) mmol/L BUN (9-20) mg/dL Creatinine (0.66-1.25) mg/dL Glucose (74-99) mg/dL POC Glucose (mg/dL) 186 H 164 H (75-99) mg/dL Hemoglobin A1c (4.0-6.0) % Calcium (8.4-10.2) mg/dL Delta Bilirubin (0.0-0.2) mg/dL AST (17-59) U/L ALT (21-72) U/L Total Creatine Kinase (55-170) U/L CK-MB (CK-2) (0.0-2.4) ng/mL Troponin I (0.000-0.034) ng/mL Total Protein (6.3-8.2) g/dL Albumin (3.5-5.0) g/dL 07/08/18 Range/Units 08:55 RBC (4.30-5.90) m/uL Hgb (13.0-17.5) gm/dL Hct (39.0-53.0) % APTT (22.0-30.0) sec ABG pH (7.35-7.45) ABG pCO2 (35-45) mmHg ABG HCO3 (21-25) mmol/L ABG Total CO2 (19-24) mmol/L ABG O2 Saturation (94-97) % Sodium (137-145) mmol/L BUN (9-20) mg/dL Creatinine (0.66-1.25) mg/dL Glucose (74-99) mg/dL POC Glucose (mg/dL) 147 H (75-99) mg/dL Hemoglobin A1c (4.0-6.0) % Calcium (8.4-10.2) mg/dL Delta Bilirubin (0.0-0.2) mg/dL AST (17-59) U/L ALT (21-72) U/L Total Creatine Kinase (55-170) U/L CK-MB (CK-2) (0.0-2.4) ng/mL Troponin I (0.000-0.034) ng/mL Total Protein (6.3-8.2) g/dL Albumin (3.5-5.0) g/dL Microbiology - Last 24 Hours (Table) 07/07/18 05:40 Blood Culture - Preliminary Blood No Growth after 24 hours 07/07/18 05:56 Blood Culture - Preliminary Blood No Growth after 24 hours 07/07/18 05:25 Gram Stain - Preliminary Buttock Wound Culture - Preliminary Assessment and Plan Assessment: Possible PNA with sepsis and shock - shock septic vs cardiogenic - dapto, zosyn, IVF, await sputum and blood cultures - ID recs - check procalcitionin NSTEMI, systolic cardiomyopathy - ASA, PLAVIV, Heparin gtt, - statin on hold due to elevated CK - Cardio recs: D/W Dr Gabriel awaiting ID input, medical management at this point in time - BB adn ACEI on hold due to low BP/JOSE JOSE on CKD - Baseline Cr unknown - Decrease bicard to 75 cc/hr - avoid additional nephrotoxic agents - if cath needed consult nephro - maintain MAP >65 - stop lasix Right hip fracture - Ortho recs - Pain control - PT/OT Hyponatremia - follow BMP - Hold lasix Mixed respiratory and metabolic acidosis - improved with bicarb gtt - likely related to lactic acidosis Acute encephalopathy - treatment of infection and supportive care COPD, without exacerbation -continue home regiment A. fib - tele - amio IV - Heparin gtt Hypertension Depression Diabetes Melitius - off actos, glimepiride, metformin - SSI - A1C 6.7 Dyslipidemia - Statin on hold due to elevated CK Lactic acidosis, improving hyperkalemia, resolved Hyponatremia DVT prophylaxis: Heparin gtt Discussed with: Patient, nursing, Dr Garbiel Anticipated discharge: 3-[address]: rehab A total of 45 minutes was spent on the care of this complex patient more than 50 % of the time was spent in counseling and care coordination.
[2018-07-08] MEDS: ASPIRIN 81 MG PO SCH (10:14)
[2018-07-08] MEDS: CLOPIDOGREL 75 MG TAB PO SCH (10:15)
[2018-07-08] MEDS: PARoxetine 20 MG TAB PO SCH ×2 (10:15→21:56)
[2018-07-08] MEDS ORDERED: FUROSEMIDE 10 MG/ML 4 ML VIAL IV STA (10:30)
[2018-07-08 11:10] LABS: Glucose,Whole Blood 189 mg/dL (75-99)
[2018-07-08 12:21] LABS: Glucose,Whole Blood 200 mg/dL (75-99)
--- NOTE | 2018-07-08 12:38 | P.PN ---
Subjective Progress Note Date: 07/08/18 Principal diagnosis: Acute hypoxic respiratory failure, sepsis, congestive heart failure. Systolic dysfunction. This is a 78-year-old white male with history of multiple medical problems including coronary artery disease, type 2 diabetes, chronic kidney disease, chronic right foot drop, previous CVA and previous LACQUER SPRAYER shunt. Underlying COPD, obstructive sleep apnea syndrome, patient was admitted to the hospital on 2018, and he was admitted after a fall sustaining a right hip fracture, patient was admitted, seen by orthopedic surgery on consultation, and he underwent right hip arthroplasty for right upper Patellofemoral neck fracture by Dr. Abernathy on 07/03/2018. Patient is also known to have history of chronic decubitus sacral ulcer. Overnight last night, patient developed changes in mental status. He was also noted to have more difficulty breathing. He was noted to be hypoxic, tachypneic, and he had a low-grade temp of 100.5. The rapid response team from the intensive care unit responded to the patient, he was noted to be metabolically acidotic, his lactic acid was elevated, d-dimer was also elevated, his renal functioning was noted to be worse, and his ABG showed a pO2 of 201, pCO2 was 29 and pH was 7.21. Hence patient was placed on BiPAP, placed on a sodium bicarb drip, antibiotics where broadened spectrum, patient was placed on insulin drip for hyperglycemia, and he was transferred to the ICU. Patient has a DO NOT RESUSCITATE CODE STATUS based on his previously expressed wishes, hence he was managed with BiPAP, and will be managed with mostly antibiotics, fluids, however the patient is known to have history of LV dysfunction and his ejection fraction is about 20%. I saw the patient this morning in the ICU, and I discussed the different issues with his family at bedside. Reviewed all the medications he is presently on, and recommended infectious disease consultation on the patient. His chest x-ray did show evidence of interstitial edema or infiltrate in the left lung. X-rays of the lumbosacral spine showed compression fractures and deformities in the lumbar spine and lower thoracic vertebral. Echocardiogram showed severe global hypokinesis of the left ventricle. His lactic acid was noted to be elevated, 9.6 initially, and it is 7.4 now. Patient received fluid boluses of 1.5 L, hence maintenance IV fluid was placed at 100 mL/h, and sodium bicarb drip was addressed. PTT was over 200 and heparin was adjusted as per protocol. D-dimer was 2.28. Patient is normally on Plavix but presently on heparin Reevaluated today on 07/08/2018, patient remains in the ICU, on BiPAP, remains on antibiotics, bronchodilators, diuretics, patient remains on norepinephrine, presently at 15 g, and this is running through a peripheral IV line, hence I will establish a central IV access today. Patient's x-ray continues to show abnormalities on the left side, mostly interstitial edema-like picture, however the possibility of left lower lobe pneumonia and pleural effusion is not entirely ruled out. Pulmonary status is definitely marginal. His ABG reflected significant improvement in his acidosis, hence I recommended that was stopped sodium bicarb drip today. However what is interesting is the fact that his troponin is significantly high, and his BNP level is quite high at 44 600, troponin is 9.610. Dr. Tadeo seems to be quite concerned about the possibility of non-ST elevation myocardial infarction, and he is treating him as such. Patient is not the most ideal candidate for cardiac catheterization at this point considering his renal functioning. And considering the possibility of ongoing sepsis patient is still hemodynamically requiring significant dose of norepinephrine. I did review the chest x-ray, I recommended diuretics, and I'm still keeping the patient on broad-spectrum antibiotics for presumptive underlying sepsis. Patient was seen by infectious disease on consultation. WBC count is 7.2 hemoglobin is 7.7. PT is 68, however I held the heparin to safely place a central IV access. ABG showed a pO2 of 108 pCO2 of 31 pH of 7.55 and this is on O2 with IPAP of 12 and EPAP of 6. Objective - Vital Signs Vital signs: Vital Signs Temp 98.7 F 07/08/18 08:00 Pulse 84 07/08/18 11:32 Resp 29 H 07/08/18 11:15 BP 89/55 07/08/18 11:15 Pulse Ox 98 07/08/18 11:15 Intake & Output 07/07/18 07/08/18 07/08/18 18:59 06:59 18:59 Intake Total 7785.143 3994.647 870.372 Output Total 305 360 250 Balance 3012.227 7406.647 620.372 Weight 113 kg 113 kg Intake: IV 1225 1740 616.8 0.9 NACL 200 240 100 Amiodarone 450 mg In 100 66.8 Dextrose 5% in Water 250 ml @ 1 MG/MIN 34.53 mls/ hr IV .Q7H31M [facility] Rx#: [id number] DAPTOmycin 500 mg In 100 Sodium Chloride 0.9% 50 ml @ 100 mls/hr IVPB Q24H [facility] Rx#:[id number] Dextrose 5% in Water 1, 925 1200 350 000 ml @ 75 mls/hr IV . [id number] [facility] with Sodium Bicarb (1 Meq/ml) 150 ml Rx#:[id number] Piperacillin-Tazobactam 3 100 100 100 .375 gm In Sodium Chloride 0.9% 100 ml @ 25 mls/hr IVPB Q8H [facility] Rx#: [id number] Intake, IV Titration 261.700 433.647 203.572 Amount Amiodarone 450 mg In 252.645 Dextrose 5% in Water 250 ml @ 1 MG/MIN 34.53 mls/ hr IV .Q7H31M [facility] Rx#: [id number] Heparin Sod,Pork in 0.45% 204.671 149.569 66.761 NaCl 25,000 unit In 0.45 % NaCl 1 250ml.bag @ 18 UNITS/KG/HR 19.84 mls/hr IV .[id number] [facility] Rx#: [id number] Insulin Regular 100 unit 57.029 31.433 17.129 In Sodium Chloride 0.9% 100 ml @ Per Protocol IV .Q0M [facility] Rx#:[id number] Norepinephrine 4 mg In 119.682 Sodium Chloride 0.9% 250 ml @ Titrate IV .Q0M [facility] Rx#:[id number] Oral 360 50 Output: Urine 305 360 250 Other: Voiding Method Indwelling Catheter Indwelling Catheter Indwelling Catheter - Exam Physical Exam: Revealed a 78-year-old white male, on BiPAP, as noted in HPI Head: Atraumatic, normocephalic. HEENT:[Neck is supple.] [No neck masses.] [No thyromegaly.] [No JVD.] PERRLA, EOMI, no icterus. Throat is clear. Moist mucous membranes noted. Chest: [Fine crackles at the bases, no rhonchi and no wheezes. Symmetrical chest expansion, no chest wall tenderness. Cardiac Exam: [Distant S1 and S2, no S3 gallop, no murmur.] Abdomen: [Soft, nontender, no megaly, no rebound, no guarding, diminished bowel sounds Extremities: [No clubbing, no edema, no cyanosis.] Neurological Exam: Generally weak, right-sided foot drop is noted, patient follows simple instructions seems to be more oriented today compared to yesterday. Skin: Deep sacral decubitus ulcer noted by the nurse, being addressed by infectious disease on consultation.. Surgical site on the right hip is intact and clean and dry Psychiatric: Patient is alert more oriented today compared to yesterday. - Labs CBC & Chem 7: 07/08/18 04:36 07/08/18 04:36 Labs: Abnormal Lab Results - Last 24 Hours (Table) 07/07/18 07/07/18 07/07/18 Range/Units 04:24 04:24 11:46 RBC (4.30-5.90) m/uL Hgb (13.0-17.5) gm/dL Hct (39.0-53.0) % APTT >200.0 H* (22.0-30.0) sec ABG pH (7.35-7.45) ABG pCO2 (35-45) mmHg ABG HCO3 (21-25) mmol/L ABG Total CO2 (19-24) mmol/L ABG O2 Saturation (94-97) % Sodium (137-145) mmol/L BUN (9-20) mg/dL Creatinine (0.66-1.25) mg/dL Glucose (74-99) mg/dL POC Glucose (mg/dL) (75-99) mg/dL Hemoglobin A1c 6.7 H (4.0-6.0) % Calcium (8.4-10.2) mg/dL Delta Bilirubin 0.3 H (0.0-0.2) mg/dL AST 141 H (17-59) U/L ALT 104 H (21-72) U/L Total Creatine Kinase (55-170) U/L CK-MB (CK-2) (0.0-2.4) ng/mL Troponin I (0.000-0.034) ng/mL Total Protein 5.6 L (6.3-8.2) g/dL Albumin 3.1 L (3.5-5.0) g/dL 07/07/18 07/07/18 07/07/18 Range/Units 13:14 14:11 14:51 RBC (4.30-5.90) m/uL Hgb (13.0-17.5) gm/dL Hct (39.0-53.0) % APTT (22.0-30.0) sec ABG pH (7.35-7.45) ABG pCO2 (35-45) mmHg ABG HCO3 (21-25) mmol/L ABG Total CO2 (19-24) mmol/L ABG O2 Saturation (94-97) % Sodium (137-145) mmol/L BUN (9-20) mg/dL Creatinine (0.66-1.25) mg/dL Glucose (74-99) mg/dL POC Glucose (mg/dL) 210 H 193 H (75-99) mg/dL Hemoglobin A1c (4.0-6.0) % Calcium (8.4-10.2) mg/dL Delta Bilirubin (0.0-0.2) mg/dL AST (17-59) U/L ALT (21-72) U/L Total Creatine Kinase 1230 H* (55-170) U/L CK-MB (CK-2) 8.2 H (0.0-2.4) ng/mL Troponin I 7.880 H* (0.000-0.034) ng/mL Total Protein (6.3-8.2) g/dL Albumin (3.5-5.0) g/dL 07/07/18 07/07/18 07/07/18 Range/Units 15:06 16:06 17:01 RBC (4.30-5.90) m/uL Hgb (13.0-17.5) gm/dL Hct (39.0-53.0) % APTT (22.0-30.0) sec ABG pH (7.35-7.45) ABG pCO2 (35-45) mmHg ABG HCO3 (21-25) mmol/L ABG Total CO2 (19-24) mmol/L ABG O2 Saturation (94-97) % Sodium (137-145) mmol/L BUN (9-20) mg/dL Creatinine (0.66-1.25) mg/dL Glucose (74-99) mg/dL POC Glucose (mg/dL) 177 H 171 H 167 H (75-99) mg/dL Hemoglobin A1c (4.0-6.0) % Calcium (8.4-10.2) mg/dL Delta Bilirubin (0.0-0.2) mg/dL AST (17-59) U/L ALT (21-72) U/L Total Creatine Kinase (55-170) U/L CK-MB (CK-2) (0.0-2.4) ng/mL Troponin I (0.000-0.034) ng/mL Total Protein (6.3-8.2) g/dL Albumin (3.5-5.0) g/dL 07/07/18 07/07/18 07/07/18 Range/Units 18:11 19:08 20:18 RBC (4.30-5.90) m/uL Hgb (13.0-17.5) gm/dL Hct (39.0-53.0) % APTT (22.0-30.0) sec ABG pH (7.35-7.45) ABG pCO2 (35-45) mmHg ABG HCO3 (21-25) mmol/L ABG Total CO2 (19-24) mmol/L ABG O2 Saturation (94-97) % Sodium (137-145) mmol/L BUN (9-20) mg/dL Creatinine (0.66-1.25) mg/dL Glucose (74-99) mg/dL POC Glucose (mg/dL) 177 H 161 H 154 H (75-99) mg/dL Hemoglobin A1c (4.0-6.0) % Calcium (8.4-10.2) mg/dL Delta Bilirubin (0.0-0.2) mg/dL AST (17-59) U/L ALT (21-72) U/L Total Creatine Kinase (55-170) U/L CK-MB (CK-2) (0.0-2.4) ng/mL Troponin I (0.000-0.034) ng/mL Total Protein (6.3-8.2) g/dL Albumin (3.5-5.0) g/dL 07/07/18 07/07/1807/07/19 Range/Units 20:21 20:21 21:13 RBC (4.30-5.90) m/uL Hgb (13.0-17.5) gm/dL Hct (39.0-53.0) % APTT 138.7 H* (22.0-30.0) sec ABG pH (7.35-7.45) ABG pCO2 (35-45) mmHg ABG HCO3 (21-25) mmol/L ABG Total CO2 (19-24) mmol/L ABG O2 Saturation (94-97) % Sodium (137-145) mmol/L BUN (9-20) mg/dL Creatinine (0.66-1.25) mg/dL Glucose (74-99) mg/dL POC Glucose (mg/dL) 138 H (75-99) mg/dL Hemoglobin A1c (4.0-6.0) % Calcium (8.4-10.2) mg/dL Delta Bilirubin (0.0-0.2) mg/dL AST (17-59) U/L ALT (21-72) U/L Total Creatine Kinase 1157 H* (55-170) U/L CK-MB (CK-2) 7.7 H (0.0-2.4) ng/mL Troponin I 9.680 H* (0.000-0.034) ng/mL Total Protein (6.3-8.2) g/dL Albumin (3.5-5.0) g/dL 07/07/18 07/08/18 07/08/18 Range/Units 22:01 00:02 02:28 RBC (4.30-5.90) m/uL Hgb (13.0-17.5) gm/dL Hct (39.0-53.0) % APTT (22.0-30.0) sec ABG pH (7.35-7.45) ABG pCO2 (35-45) mmHg ABG HCO3 (21-25) mmol/L ABG Total CO2 (19-24) mmol/L ABG O2 Saturation (94-97) % Sodium (137-145) mmol/L BUN (9-20) mg/dL Creatinine (0.66-1.25) mg/dL Glucose (74-99) mg/dL POC Glucose (mg/dL) 156 H 159 H 149 H (75-99) mg/dL Hemoglobin A1c (4.0-6.0) % Calcium (8.4-10.2) mg/dL Delta Bilirubin (0.0-0.2) mg/dL AST (17-59) U/L ALT (21-72) U/L Total Creatine Kinase (55-170) U/L CK-MB (CK-2) (0.0-2.4) ng/mL Troponin I (0.000-0.034) ng/mL Total Protein (6.3-8.2) g/dL Albumin (3.5-5.0) g/dL 07/08/18 07/08/18 07/08/18 Range/Units 04:36 04:36 04:36 RBC 2.39 L (4.30-5.90) m/uL Hgb 7.7 L (13.0-17.5) gm/dL Hct 23.5 L (39.0-53.0) % APTT 68.1 H (22.0-30.0) sec ABG pH (7.35-7.45) ABG pCO2 (35-45) mmHg ABG HCO3 (21-25) mmol/L ABG Total CO2 (19-24) mmol/L ABG O2 Saturation (94-97) % Sodium 135 L (137-145) mmol/L BUN 64 H (9-20) mg/dL Creatinine 2.15 H (0.66-1.25) mg/dL Glucose 203 H (74-99) mg/dL POC Glucose (mg/dL) (75-99) mg/dL Hemoglobin A1c (4.0-6.0) % Calcium 8.3 L (8.4-10.2) mg/dL Delta Bilirubin (0.0-0.2) mg/dL AST 460 H (17-59) U/L ALT 149 H (21-72) U/L Total Creatine Kinase (55-170) U/L CK-MB (CK-2) (0.0-2.4) ng/mL Troponin I (0.000-0.034) ng/mL Total Protein 4.9 L (6.3-8.2) g/dL Albumin 2.5 L (3.5-5.0) g/dL 07/08/18 07/08/18 07/08/18 Range/Units 04:36 05:18 06:04 RBC (4.30-5.90) m/uL Hgb (13.0-17.5) gm/dL Hct (39.0-53.0) % APTT (22.0-30.0) sec ABG pH (7.35-7.45) ABG pCO2 (35-45) mmHg ABG HCO3 (21-25) mmol/L ABG Total CO2 (19-24) mmol/L ABG O2 Saturation (94-97) % Sodium (137-145) mmol/L BUN (9-20) mg/dL Creatinine (0.66-1.25) mg/dL Glucose (74-99) mg/dL POC Glucose (mg/dL) 230 H 198 H (75-99) mg/dL Hemoglobin A1c (4.0-6.0) % Calcium (8.4-10.2) mg/dL Delta Bilirubin (0.0-0.2) mg/dL AST (17-59) U/L ALT (21-72) U/L Total Creatine Kinase (55-170) U/L CK-MB (CK-2) (0.0-2.4) ng/mL Troponin I 9.230 H* (0.000-0.034) ng/mL Total Protein (6.3-8.2) g/dL Albumin (3.5-5.0) g/dL 07/08/18 07/08/18 07/08/18 Range/Units 06:56 07:47 07:57 RBC (4.30-5.90) m/uL Hgb (13.0-17.5) gm/dL Hct (39.0-53.0) % APTT (22.0-30.0) sec ABG pH 7.55 H (7.35-7.45) ABG pCO2 31 L (35-45) mmHg ABG HCO3 27 H (21-25) mmol/L ABG Total CO2 28 H (19-24) mmol/L ABG O2 Saturation 98.7 H (94-97) % Sodium (137-145) mmol/L BUN (9-20) mg/dL Creatinine (0.66-1.25) mg/dL Glucose (74-99) mg/dL POC Glucose (mg/dL) 186 H 164 H (75-99) mg/dL Hemoglobin A1c (4.0-6.0) % Calcium (8.4-10.2) mg/dL Delta Bilirubin (0.0-0.2) mg/dL AST (17-59) U/L ALT (21-72) U/L Total Creatine Kinase (55-170) U/L CK-MB (CK-2) (0.0-2.4) ng/mL Troponin I (0.000-0.034) ng/mL Total Protein (6.3-8.2) g/dL Albumin (3.5-5.0) g/dL 07/08/18 07/08/18 07/08/18 Range/Units 08:55 09:58 10:59 RBC (4.30-5.90) m/uL Hgb (13.0-17.5) gm/dL Hct (39.0-53.0) % APTT (22.0-30.0) sec ABG pH (7.35-7.45) ABG pCO2 (35-45) mmHg ABG HCO3 (21-25) mmol/L ABG Total CO2 (19-24) mmol/L ABG O2 Saturation (94-97) % Sodium (137-145) mmol/L BUN (9-20) mg/dL Creatinine (0.66-1.25) mg/dL Glucose (74-99) mg/dL POC Glucose (mg/dL) 147 H 181 H 189 H (75-99) mg/dL Hemoglobin A1c (4.0-6.0) % Calcium (8.4-10.2) mg/dL Delta Bilirubin (0.0-0.2) mg/dL AST (17-59) U/L ALT (21-72) U/L Total Creatine Kinase (55-170) U/L CK-MB (CK-2) (0.0-2.4) ng/mL Troponin I (0.000-0.034) ng/mL Total Protein (6.3-8.2) g/dL Albumin (3.5-5.0) g/dL 07/08/18 07/08/18 Range/Units 11:06 12:00 RBC (4.30-5.90) m/uL Hgb (13.0-17.5) gm/dL Hct (39.0-53.0) % APTT (22.0-30.0) sec ABG pH (7.35-7.45) ABG pCO2 (35-45) mmHg ABG HCO3 (21-25) mmol/L ABG Total CO2 (19-24) mmol/L ABG O2 Saturation (94-97) % Sodium (137-145) mmol/L BUN (9-20) mg/dL Creatinine (0.66-1.25) mg/dL Glucose (74-99) mg/dL POC Glucose (mg/dL) 200 H (75-99) mg/dL Hemoglobin A1c (4.0-6.0) % Calcium (8.4-10.2) mg/dL Delta Bilirubin (0.0-0.2) mg/dL AST (17-59) U/L ALT (21-72) U/L Total Creatine Kinase (55-170) U/L CK-MB (CK-2) (0.0-2.4) ng/mL Troponin I 9.610 H* (0.000-0.034) ng/mL Total Protein (6.3-8.2) g/dL Albumin (3.5-5.0) g/dL Microbiology - Last 24 Hours (Table) 07/07/18 05:40 Blood Culture - Preliminary Blood No Growth after 24 hours 07/07/18 05:56 Blood Culture - Preliminary Blood No Growth after 24 hours 07/07/18 05:25 Gram Stain - Preliminary Buttock Wound Culture - Preliminary Assessment and Plan Assessment: Impression: 1 acute hypoxic respiratory failure secondary to sepsis, most likely source is his sacral ulcer. Although other possibilities including urine and pneumonia not entirely ruled out. But felt to be less likely. Remains on BiPAP 2 acute lactic acidosis secondary to sepsis 3 severe LV dysfunction, ejection fraction of 20%, patient is high risk for developing congestive heart failure and pulmonary edema with treatment of sepsis and fluids. 4 electrolytes imbalance including hyponatremia and hyperkalemia 5 coronary artery disease, Plavix is presently on hold, patient is on heparin. Acute non-ST elevation myocardial infarction is strongly suspected based on his elevated troponins and based on the dramatic worsening of his echocardiogram with severe LV dysfunction. That is being addressed by cardiology on the case. 6 chronic anemia 7 acute on chronic kidney disease, possibly acute kidney injury, 8 chronic obstructive pulmonary disease, supposedly moderately severe. Patient is normally on updrafts at home. But not O2 dependent. 9 history of CVA and history of hydrocephalus requiring LACQUER SPRAYER shunt, history of chronic right foot drop. 10 status post right hemiarthroplasty for right hip fracture, patient is postoperative day #5 Recommendation: Continue empiric broad-spectrum antibiotics, patient is now on daptomycin and Zosyn, and infectious disease consultation was initiated. Continue treatment as per sepsis protocol, however patient is high risk for developing congestive heart failure considering his poor LV function ejection fraction of 20%. Continue anticoagulation therapy, patient used to be on Plavix, presently on heparin, and he is on heparin as per protocol. Continue sodium bicarb drip and adjust based on his anion gap and based on his profound metabolic acidosis. Continue insulin drip, Continue bronchodilators Continue incentive spirometry and for now the patient is on BiPAP. Considering we are running out of IV access for running pressors/norepinephrine , I will go ahead and hold the heparin for 2 hours, then arrange for a central line placement today, patient remains critically ill, he will remain in the ICU , discussed his condition with multiple physicians on consultation on this patient, specifically Dr. Tadeo, prognosis is extremely poor and guarded, we'll continue to follow closely, patient is quite ill, and relatively unstable. Critical care time is 35 minutes, not including the time spent on procedures. Time with Patient: Greater than 30
[2018-07-08] MEDS ORDERED: FUROSEMIDE 10 MG/ML 10 ML VIAL IV STA (13:22)
[2018-07-08 13:29] LABS: Glucose,Whole Blood 164 mg/dL (75-99)
[2018-07-08] MEDS: NOREPINEPHRINE 16 MG in SODIUM CHLORIDE 0.9% 250 ML IV SCH (13:46)
[2018-07-08 14:18] LABS: Glucose,Whole Blood 159 mg/dL (75-99)
[2018-07-08 15:00] LABS: Glucose,Whole Blood 150 mg/dL (75-99)
[2018-07-08 16:18] LABS: Glucose,Whole Blood 126 mg/dL (75-99)
--- NOTE | 2018-07-08 16:29 | PCN ---
PROCEDURE NOTE PROCEDURE PERFORMED: Placement of a right femoral triple-lumen catheter. PREOPERATIVE DIAGNOSIS: Hypotension, patient is on pressors. POSTOPERATIVE DIAGNOSIS: Hypotension, patient is on pressors. ANESTHESIA USED: 2 mL of 1% lidocaine. PROCEDURE: The patient was placed in the supine position, the right groin was prepared in a sterile fashion and drapes were applied. . The area was locally anesthetized with lidocaine. Then, the right femoral vein was easily cannulated with 1 trial and a guidewire was placed after cannulation of the right femoral vein. The area was dilated using a dilator. Then a triple-lumen catheter was inserted over the guidewire, and the guidewire was removed. Good blood flow noted, no evidence of any immediate complication. Line was secured using 3.0 silk sutures. MMODL / IJN: [id number] /
--- NOTE | 2018-07-08 16:29 | PCN ---
PROCEDURE NOTE PROCEDURE PERFORMED: Placement of the left radial arterial line. PREOPERATIVE DIAGNOSIS: Hypotension, patient is requiring pressors, and need for hemodynamic monitoring. POSTOPERATIVE DIAGNOSIS: Hypotension, patient is requiring pressors, and need for hemodynamic monitoring. ANESTHESIA: None deployed. DESCRIPTION OF PROCEDURE: The left wrist was prepared in a sterile fashion and drapes were applied. The left radial artery was palpated, cannulated, and a guidewire was placed. A Cook's catheter was inserted over the guidewire, and the guidewire was removed. Good blood flow and good waveform were noted and noted, and the line was secured using 3.0 silk sutures. Procedure was well tolerated, no evidence of any immediate complications. MMODL / IJN: [id number] /
[2018-07-08 17:12] LABS: Glucose,Whole Blood 118 mg/dL (75-99)
[2018-07-08 18:46] LABS: Glucose,Whole Blood 142 mg/dL (75-99)
[2018-07-08] MEDS ORDERED: INSULIN ASPART 100 UNIT/ML 1 ML 10 ML VIAL SQ SCH (21:00)
[2018-07-08 21:23] LABS: Glucose,Whole Blood 192 mg/dL (75-99)
[2018-07-08] MEDS: SENNOSIDES-DOCUSATE SODIUM 1 EACH TAB PO SCH (21:56)
--- NOTE | 2018-07-08 22:17 | P.PN ---
Subjective Progress Note Date: 07/08/18 This is a 78-year-old male who presented to the hospital on July 01 after a mechanical fall that occurred on the . At outside facility, patient had a CAT scan of the head and neck that were negative and a right hip x -ray showed non-angulated nondisplaced subcapital femoral fracture. Patient was admitted to the hospital under the care of orthopedics and underwent a right hip hemiarthroplasty on July 03. Last evening patient developed mental status changes, difficulty breathing with hypoxia, tachypnea and temperature 100.5. Rapid response team was called and patient was transferred to the intensive care unit. He was found to have lactic acidosis, metabolic acidosis and elevated troponin. Blood cultures were obtained and wound culture obtained to a chronic right buttocks wound. Initial echocardiogram showed an EF of 55-60% and repeat echocardiogram done this morning showed an EF of less than 20 with severe global hypokinesia of the LV, moderate mitral regurgitation. Lumbar spine x-rays done yesterday showed compression fractures and deformities in the lumbar spine and lower thoracic vertebrae. White count 11.3, hemoglobin 8.4 and platelet count 351. BUN 53 and creatinine 2.05, blood sugars are improving on insulin drip. Patient remains on BiPAP but is able to interact with the observer. Seems to be comfortable, hearing is somewhat poor but with the 's help does seem to be less short of breath. No other new complaint. Objective - Vital Signs Vital signs: Vital Signs Temp 99.1 F 07/08/18 20:00 Pulse 96 07/08/18 21:00 Resp 8 L 07/08/18 21:00 BP 79/46 07/08/18 18:15 Pulse Ox 98 07/08/18 21:00 Intake & Output 07/08/18 07/08/18 07/09/18 06:59 18:59 06:59 Intake Total 2173.647 1397.390 312.4 Output Total 360 1175 175 Balance 1813.647 222.390 137.4 Weight 113 kg 113 kg Intake: IV 1740 843.7 53.4 0.9 NACL 240 210 20 Amiodarone 450 mg In 100 183.7 33.4 Dextrose 5% in Water 250 ml @ 1 MG/MIN 34.53 mls/ hr IV .Q7H31M [facility] Rx#: [id number] DAPTOmycin 500 mg In 100 Sodium Chloride 0.9% 50 ml @ 100 mls/hr IVPB Q24H [facility] Rx#:[id number] Dextrose 5% in Water 1, 1200 350 000 ml @ 75 mls/hr IV . [id number] MARLINE with Sodium Bicarb (1 Meq/ml) 150 ml Rx#:[id number] Piperacillin-Tazobactam 3 100 100 .375 gm In Sodium Chloride 0.9% 100 ml @ 25 mls/hr IVPB Q8H [facility] Rx#: [id number] Intake, IV Titration 433.647 268.690 259 Amount Amiodarone 450 mg In 252.645 259 Dextrose 5% in Water 250 ml @ 1 MG/MIN 34.53 mls/ hr IV .Q7H31M [facility] Rx#: [id number] Heparin Sod,Pork in 0.45% 149.569 66.761 NaCl 25,000 unit In 0.45 % NaCl 1 250ml.bag @ 18 UNITS/KG/HR 19.84 mls/hr IV .J30H98G [facility] Rx#: [id number] Insulin Regular 100 unit 31.433 30.996 In Sodium Chloride 0.9% 100 ml @ Per Protocol IV .Q0M [facility] Rx#:[id number] Norepinephrine 16 mg In 51.251 Sodium Chloride 0.9% 250 ml @ Titrate IV .Q0M [facility] Rx#:[id number] Norepinephrine 4 mg In 119.682 Sodium Chloride 0.9% 250 ml @ Titrate IV .Q0M [facility] Rx#:[id number] Oral 285 Output: Urine 360 1175 175 Other: Voiding Method Indwelling Catheter Indwelling Catheter Indwelling Catheter ABP, PAP, CO, CI - Last Documented Arterial Blood Pressure 113/48 - Exam Gen: This is a 78-year-old obese male. He is resting in the ICU bed. He arouses to verbal stimuli. BiPAP is in place. HEENT: Head is atraumatic, normocephalic. Pupils equal, round. Sclerae is anicteric. NECK: Supple. No JVD. No lymphadenopathy. No thyromegaly. LUNGS: Diminished at the bases. No intercostal retractions. Few wheezes are heard HEART: Regular rate and rhythm. No murmur. ABDOMEN: Soft. Bowel sounds are present. No masses. No tenderness. Zuñiga catheter draining clear enmanuel urine. EXTREMITIES: No pedal edema. No calf tenderness. Right hip surgical site is clean and dry. The sacral deep tissue injury is noted. There is no significant drainage at this time. There is some surrounding in minimal erythema. NEUROLOGICAL: Patient is awake, alert. Generalized weakness noted. - Labs CBC & Chem 7: 07/08/18 04:36 07/08/18 04:36 Labs: Abnormal Lab Results - Last 24 Hours (Table) 07/07/18 07/08/18 07/08/18 Range/Units 22:01 00:02 02:28 RBC (4.30-5.90) m/uL Hgb (13.0-17.5) gm/dL Hct (39.0-53.0) % APTT (22.0-30.0) sec ABG pH (7.35-7.45) ABG pCO2 (35-45) mmHg ABG HCO3 (21-25) mmol/L ABG Total CO2 (19-24) mmol/L ABG O2 Saturation (94-97) % Sodium (137-145) mmol/L BUN (9-20) mg/dL Creatinine (0.66-1.25) mg/dL Glucose (74-99) mg/dL POC Glucose (mg/dL) 156 H 159 H 149 H (75-99) mg/dL Calcium (8.4-10.2) mg/dL AST (17-59) U/L ALT (21-72) U/L Troponin I (0.000-0.034) ng/mL Total Protein (6.3-8.2) g/dL Albumin (3.5-5.0) g/dL 07/08/18 07/08/18 07/08/18 Range/Units 04:36 04:36 04:36 RBC 2.39 L (4.30-5.90) m/uL Hgb 7.7 L (13.0-17.5) gm/dL Hct 23.5 L (39.0-53.0) % APTT 68.1 H (22.0-30.0) sec ABG pH (7.35-7.45) ABG pCO2 (35-45) mmHg ABG HCO3 (21-25) mmol/L ABG Total CO2 (19-24) mmol/L ABG O2 Saturation (94-97) % Sodium 135 L (137-145) mmol/L BUN 64 H (9-20) mg/dL Creatinine 2.15 H (0.66-1.25) mg/dL Glucose 203 H (74-99) mg/dL POC Glucose (mg/dL) (75-99) mg/dL Calcium 8.3 L (8.4-10.2) mg/dL AST 460 H (17-59) U/L ALT 149 H (21-72) U/L Troponin I (0.000-0.034) ng/mL Total Protein 4.9 L (6.3-8.2) g/dL Albumin 2.5 L (3.5-5.0) g/dL 07/08/18 07/08/18 07/08/18 Range/Units 04:36 05:18 06:04 RBC (4.30-5.90) m/uL Hgb (13.0-17.5) gm/dL Hct (39.0-53.0) % APTT (22.0-30.0) sec ABG pH (7.35-7.45) ABG pCO2 (35-45) mmHg ABG HCO3 (21-25) mmol/L ABG Total CO2 (19-24) mmol/L ABG O2 Saturation (94-97) % Sodium (137-145) mmol/L BUN (9-20) mg/dL Creatinine (0.66-1.25) mg/dL Glucose (74-99) mg/dL POC Glucose (mg/dL) 230 H 198 H (75-99) mg/dL Calcium (8.4-10.2) mg/dL AST (17-59) U/L ALT (21-72) U/L Troponin I 9.230 H* (0.000-0.034) ng/mL Total Protein (6.3-8.2) g/dL Albumin (3.5-5.0) g/dL 07/08/18 07/08/18 07/08/18 Range/Units 06:56 07:47 07:57 RBC (4.30-5.90) m/uL Hgb (13.0-17.5) gm/dL Hct (39.0-53.0) % APTT (22.0-30.0) sec ABG pH 7.55 H (7.35-7.45) ABG pCO2 31 L (35-45) mmHg ABG HCO3 27 H (21-25) mmol/L ABG Total CO2 28 H (19-24) mmol/L ABG O2 Saturation 98.7 H (94-97) % Sodium (137-145) mmol/L BUN (9-20) mg/dL Creatinine (0.66-1.25) mg/dL Glucose (74-99) mg/dL POC Glucose (mg/dL) 186 H 164 H (75-99) mg/dL Calcium (8.4-10.2) mg/dL AST (17-59) U/L ALT (21-72) U/L Troponin I (0.000-0.034) ng/mL Total Protein (6.3-8.2) g/dL Albumin (3.5-5.0) g/dL 07/08/18 07/08/18 07/08/18 Range/Units 08:55 09:58 10:59 RBC (4.30-5.90) m/uL Hgb (13.0-17.5) gm/dL Hct (39.0-53.0) % APTT (22.0-30.0) sec ABG pH (7.35-7.45) ABG pCO2 (35-45) mmHg ABG HCO3 (21-25) mmol/L ABG Total CO2 (19-24) mmol/L ABG O2 Saturation (94-97) % Sodium (137-145) mmol/L BUN (9-20) mg/dL Creatinine (0.66-1.25) mg/dL Glucose (74-99) mg/dL POC Glucose (mg/dL) 147 H 181 H 189 H (75-99) mg/dL Calcium (8.4-10.2) mg/dL AST (17-59) U/L ALT (21-72) U/L Troponin I (0.000-0.034) ng/mL Total Protein (6.3-8.2) g/dL Albumin (3.5-5.0) g/dL 07/08/18 07/08/18 07/08/18 Range/Units 11:06 12:00 13:14 RBC (4.30-5.90) m/uL Hgb (13.0-17.5) gm/dL Hct (39.0-53.0) % APTT (22.0-30.0) sec ABG pH (7.35-7.45) ABG pCO2 (35-45) mmHg ABG HCO3 (21-25) mmol/L ABG Total CO2 (19-24) mmol/L ABG O2 Saturation (94-97) % Sodium (137-145) mmol/L BUN (9-20) mg/dL Creatinine (0.66-1.25) mg/dL Glucose (74-99) mg/dL POC Glucose (mg/dL) 200 H 164 H (75-99) mg/dL Calcium (8.4-10.2) mg/dL AST (17-59) U/L ALT (21-72) U/L Troponin I 9.610 H* (0.000-0.034) ng/mL Total Protein (6.3-8.2) g/dL Albumin (3.5-5.0) g/dL 07/08/18 07/08/18 07/08/18 Range/Units 14:06 14:48 16:06 RBC (4.30-5.90) m/uL Hgb (13.0-17.5) gm/dL Hct (39.0-53.0) % APTT (22.0-30.0) sec ABG pH (7.35-7.45) ABG pCO2 (35-45) mmHg ABG HCO3 (21-25) mmol/L ABG Total CO2 (19-24) mmol/L ABG O2 Saturation (94-97) % Sodium (137-145) mmol/L BUN (9-20) mg/dL Creatinine (0.66-1.25) mg/dL Glucose (74-99) mg/dL POC Glucose (mg/dL) 159 H 150 H 126 H (75-99) mg/dL Calcium (8.4-10.2) mg/dL AST (17-59) U/L ALT (21-72) U/L Troponin I (0.000-0.034) ng/mL Total Protein (6.3-8.2) g/dL Albumin (3.5-5.0) g/dL 07/08/18 07/08/18 07/08/18 Range/Units 16:44 18:16 18:20 RBC (4.30-5.90) m/uL Hgb (13.0-17.5) gm/dL Hct (39.0-53.0) % APTT (22.0-30.0) sec ABG pH (7.35-7.45) ABG pCO2 (35-45) mmHg ABG HCO3 (21-25) mmol/L ABG Total CO2 (19-24) mmol/L ABG O2 Saturation (94-97) % Sodium (137-145) mmol/L BUN (9-20) mg/dL Creatinine (0.66-1.25) mg/dL Glucose (74-99) mg/dL POC Glucose (mg/dL) 118 H 142 H (75-99) mg/dL Calcium (8.4-10.2) mg/dL AST (17-59) U/L ALT (21-72) U/L Troponin I 6.420 H* (0.000-0.034) ng/mL Total Protein (6.3-8.2) g/dL Albumin (3.5-5.0) g/dL 07/08/18 07/08/18 Range/Units 18:20 21:12 RBC (4.30-5.90) m/uL Hgb (13.0-17.5) gm/dL Hct (39.0-53.0) % APTT 57.0 H (22.0-30.0) sec ABG pH (7.35-7.45) ABG pCO2 (35-45) mmHg ABG HCO3 (21-25) mmol/L ABG Total CO2 (19-24) mmol/L ABG O2 Saturation (94-97) % Sodium (137-145) mmol/L BUN (9-20) mg/dL Creatinine (0.66-1.25) mg/dL Glucose (74-99) mg/dL POC Glucose (mg/dL) 192 H (75-99) mg/dL Calcium (8.4-10.2) mg/dL AST (17-59) U/L ALT (21-72) U/L Troponin I (0.000-0.034) ng/mL Total Protein (6.3-8.2) g/dL Albumin (3.5-5.0) g/dL Microbiology - Last 24 Hours (Table) 07/07/18 05:40 Blood Culture - Preliminary Blood No Growth after 24 hours 07/07/18 05:56 Blood Culture - Preliminary Blood No Growth after 24 hours Laboratory Results WBC 7.2 k/uL (3.8-10.6) 07/08/18 04:36 RBC 2.39 m/uL (4.30-5.90) L 07/08/18 04:36 Hgb 7.7 gm/dL (13.0-17.5) L 07/08/18 04:36 Hct 23.5 % (39.0-53.0) L 07/08/18 04:36 MCV 98.2 fL (80.0-100.0) 07/08/18 04:36 MCH 32.3 pg (25.0-35.0) 07/08/18 04:36 MCHC 32.9 g/dL (31.0-37.0) 07/08/18 04:36 RDW 14.3 % (11.5-15.5) 07/08/18 04:36 Plt Count 270 k/uL (150-450) 07/08/18 04:36 Neutrophils % 77 % 07/06/18 07:45 Neutrophils % (Manual) 68 % 07/07/18 04:24 Lymphocytes % 11 % 07/06/18 07:45 Lymphocytes % (Manual) 21 % 07/07/18 04:24 Monocytes % 8 % 07/06/18 07:45 Monocytes % (Manual) 10 % 07/07/18 04:24 Eosinophils % 1 % 07/06/18 07:45 Eosinophils % (Manual) 2 % 07/07/18 04:24 Basophils % 0 % 07/06/18 07:45 Neutrophils # 5.5 k/uL (1.3-7.7) 07/06/18 07:45 Neutrophils # (Manual) 7.68 k/uL (1.3-7.7) 07/07/18 04:24 Lymphocytes # 0.8 k/uL (1.0-4.8) L 07/06/18 07:45 Lymphocytes # (Manual) 2.37 k/uL (1.0-4.8) 07/07/18 04:24 Monocytes # 0.6 k/uL (0-1.0) 07/06/18 07:45 Monocytes # (Manual) 1.13 k/uL (0-1.0) H 07/07/18 04:24 Eosinophils # 0.1 k/uL (0-0.7) 07/06/18 07:45 Eosinophils # (Manual) 0.23 k/uL (0-0.7) 07/07/18 04:24 Basophils # 0.0 k/uL (0-0.2) 07/06/18 07:45 Nucleated RBCs 1 /100 WBC (0-0) H 07/07/18 04:24 Manual Slide Review Performed 07/07/18 04:24 Large Platelets Present 07/07/18 04:24 Polychromasia Present 07/07/18 04:24 Hypochromasia Slight 07/08/18 04:36 Macrocytosis Slight 07/07/18 04:24 Target Cells Present 07/07/18 04:24 PT 12.3 sec (9.0-12.0) H 07/07/18 04:24 INR 1.2 (<1.2) H 07/07/18 04:24 APTT 57.0 sec (22.0-30.0) H 07/08/18 18:20 D-Dimer 2.28 mg/L FEU (<0.60) H 07/07/18 04:24 Sample Site L rad 07/08/18 07:47 ABG pH 7.55 (7.35-7.45) H 07/08/18 07:47 ABG pCO2 31 mmHg (35-45) L 07/08/18 07:47 ABG pO2 108 mmHg (83-108) 07/08/18 07:47 ABG HCO3 27 mmol/L (21-25) H 07/08/18 07:47 ABG Total CO2 28 mmol/L (19-24) H 07/08/18 07:47 ABG O2 Saturation 98.7 % (94-97) H 07/08/18 07:47 ABG Base Excess 4.7 mmol/L 07/08/18 07:47 Manuel Test Yes 07/08/18 07:47 VBG pH 7.11 (7.31-7.41) L* 07/07/18 04:33 VBG pCO2 35 mmHg (37-51) L 07/07/18 04:33 VBG HCO3 11 mmol/L (24-28) L 07/07/18 04:33 FiO2 40 % 07/08/18 07:47 Sodium 135 mmol/L (137-145) L 07/08/18 04:36 Potassium 4.0 mmol/L (3.5-5.1) 07/08/18 04:36 Chloride 101 mmol/L (98-107) 07/08/18 04:36 Carbon Dioxide 22 mmol/L (22-30) 07/08/18 04:36 Anion Gap 12 mmol/L 07/08/18 04:36 BUN 64 mg/dL (9-20) H 07/08/18 04:36 Creatinine 2.15 mg/dL (0.66-1.25) H 07/08/18 04:36 Est GFR (CKD-EPI)AfAm 33 (>60 ml/min/1.73 sqM) 07/08/18 04:36 Est GFR (CKD-EPI)NonAf 29 (>60 ml/min/1.73 sqM) 07/08/18 04:36 Glucose 203 mg/dL (74-99) H 07/08/18 04:36 POC Glucose (mg/dL) 192 mg/dL (75-99) H 07/08/18 21:12 POC Glu [employer] [place] 07/08/18 21:[address] Glu mg/dL 146 07/07/18 04:24 Hemoglobin A1c 6.7 % (4.0-6.0) H 07/07/18 04:24 Lactic Ac Sepsis Rflx Y 07/07/18 05:18 Plasma Lactic Acid Heri 7.4 mmol/L (0.7-2.0) H* 07/07/18 08:49 Calcium 8.3 mg/dL (8.4-10.2) L 07/08/18 04:36 Phosphorus 3.3 mg/dL (2.5-4.5) 07/08/18 04:36 Magnesium 1.8 mg/dL (1.6-2.3) 07/08/18 04:36 Total Bilirubin 1.1 mg/dL (0.2-1.3) 07/08/18 04:36 Conjugated Bilirubin 0.0 mg/dL (0.0-0.3) 07/07/18 04:24 Unconjugated Bilirubin 0.3 mg/dL (0.0-1.1) 07/07/18 04:24 Delta Bilirubin 0.3 mg/dL (0.0-0.2) H 07/07/18 04:24 AST 460 U/L (17-59) H 07/08/18 04:36 ALT 149 U/L (21-72) H 07/08/18 04:36 Alkaline Phosphatase 70 U/L (38-126) 07/08/18 04:36 Total Creatine Kinase 1157 U/L (55-170) H* 07/07/18 20:21 CK-MB (CK-2) 7.7 ng/mL (0.0-2.4) H 07/07/18 20:21 CK-MB (CK-2) Rel Index 0.7 07/07/18 20:21 Troponin I 6.420 ng/mL (0.000-0.034) H* 07/08/18 18:20 NT-Pro-B Natriuret Pep 39389 pg/mL 07/08/18 11:06 Total Protein 4.9 g/dL (6.3-8.2) L 07/08/18 04:36 Albumin 2.5 g/dL (3.5-5.0) L 07/08/18 04:36 Urine Ketones Negative (Negative) 07/07/18 03:52 Stool Occult Blood Positive (Negative) 07/07/18 23:30 Blood Type B Positive 07/01/18 03:55 Blood Type Confirm B Positive 07/01/18 04:05 Blood Type Recheck CABO Indicated 07/01/18 03:55 Antibody Screen NEGATIVE 07/01/18 03:55 Spec Expiration Date 07/04/2018 - 0402 07/01/18 03:55 Microbiology 07/07/18 05:40 Blood Blood Culture - Preliminary No Growth after 24 hours 07/07/18 05:56 Blood Blood Culture - Preliminary No Growth after 24 hours 07/07/18 05:25 Buttock Gram Stain - Preliminary 07/07/18 05:25 Buttock Wound Culture - Preliminary Assessment and Plan (1) Acute respiratory failure Current Visit: Yes Status: Acute Code(s): J96.00 - ACUTE RESPIRATORY FAILURE , UNSP W HYPOXIA OR HYPERCAPNIA SNOMED Code(s): 65182638 (2) Acute myocardial infarction Current Visit: Yes Status: Acute Code(s): I21.9 - ACUTE MYOCARDIAL INFARCTION, UNSPECIFIED SNOMED Code(s): 63739616 (3) Left ventricular ejection fraction of 21% to 30% Current Visit: Yes Status: Acute Code(s): R93.1 - ABNORMAL FINDINGS ON DX IMAGING OF HEART AND COR CIRC SNOMED Code(s): 113844009 (4) Deep tissue injury Narrative/Plan: This 78-year-old male has difficulties with an acute change in the status appears have had an acute myocardial infarction with a marked reduction of his cardiac function. Resulting in many difficulties including his elevated lactic acid occurring in the basis of the acute myocardial infarction, as well as acute liver failure. Cardiology is following. Is evidence of the large deep tissue injury to the coccyx area. Of note the patient suffered a fall before admission of serious enough nature to resulted in his hip Fracture. Has also had multiple other events occurring such as a long time on the transfer board which could've also worsened his deep tissue injury. He will be cared for with the operative foam dressing. Ongoing care of the specialty ICU bed. Frequent turning. It opens and drains and then will further alter local wound care.there are cultures in process which antibiotic therapy of daptomycin and Zosyn with attempts for de-escalation as possible. The lactic acidosis is multifactorial including the acute myocardial infarction, the acute renal failure and significant acidosis. Patient continues to be BiPAP dependent with his respiratory failure. Appears to the respiratory failure is related to his acute myocardial infarction and acute systolic congestive heart failure with his very low ejection fraction. Being followed by cardiology with concerns to a poor outcome. Local wound care as the foam dressing over the to tissue injury to the coccyx area. Antimicrobial therapy aimed at tissue infection continues with Zosyn and daptomycin for now. Cultures in progress blood cultures negative so far. Current Visit: Yes Status: Acute Code(s): T14.8XXA - OTHER INJURY OF UNSPECIFIED BODY REGION, INITIAL ENCOUNTER SNOMED Code(s): 919415996
[2018-07-09 02:02] LABS: Glucose,Whole Blood 215 mg/dL (75-99)
[2018-07-09] MEDS: AMIODARONE 450 MG in DEXTROSE 5% IN WATER 250 ML IV SCH ×2 (02:27)
[2018-07-09] MEDS: INSULIN ASPART 100 UNIT/ML 1 ML 10 ML VIAL SQ SCH ×5 (02:31→21:48)
[2018-07-09] MEDS: NOREPINEPHRINE 16 MG in SODIUM CHLORIDE 0.9% 250 ML IV SCH ×2 (03:12→06:39)
[2018-07-09 05:03] LABS: HCT 23.2 % (39.0-53.0); HGB 7.4 gm/dL (13.0-17.5); Hypochromasia Slight; MCV 93.9 fL (80.0-100.0); Mean Platelet Volume 7.7; Platelet Count 315 k/uL (150-450); Poikilocytosis Slight; RBC 2.47 m/uL (4.30-5.90); RDW 14.5 % (11.5-15.5); WBC 8.9 k/uL (3.8-10.6)
[2018-07-09 05:25] LABS: Potassium 3.8 mmol/L (3.5-5.1)
[2018-07-09 05:26] LABS: Albumin 2.5 g/dL (3.5-5.0); Calcium 8.3 mg/dL (8.4-10.2); Magnesium 1.7 mg/dL (1.6-2.3); Phosphorus 3.5 mg/dL (2.5-4.5); Total Protein 4.7 g/dL (6.3-8.2)
[2018-07-09] MEDS: DAPTOmycin 500 MG in SODIUM CHLORIDE 0.9% 50 ML IVPB SCH (06:32)
[2018-07-09 07:18] LABS: Glucose,Whole Blood 212 mg/dL (75-99)
[2018-07-09] MEDS: HEPARIN SOD,PORK IN 0.45% NACL 25,000 UNIT in 0.45% NACL 1 250ML.BAG IV SCH ×2 (07:39→07:51)
[2018-07-09] MEDS: PIPERACILLIN-TAZOBACTAM 3.375 GM in SODIUM CHLORIDE 0.9% 100 ML IVPB SCH ×3 (07:48→21:47)
--- NOTE | 2018-07-09 07:48 | XR ---
EXAMINATION TYPE: XR chest 1V portable DATE OF EXAM: 07/09/2018 COMPARISON: Prior chest x-ray 07/08/2018 HISTORY: Shortness of breath TECHNIQUE: Single frontal view of the chest is obtained. FINDINGS: Patient is rotated. Postop change noted to the cervical spine. Suspect ventriculoperitonea l shunt tubing is place on the right. Cardiac leads are noted. Heart size is stable and enlarged. Ple ural calcifications suspected along the right hemidiaphragm. Increased density at the left lung base obscures the hemidiaphragm. No pneumothorax. Interstitium is increased. Postop changes to the shoulde rs again noted. IMPRESSION: Possible left lower lobe pneumonia versus atelectasis and associated effusion. There may be some early interstitial edema. Follow-up recommended. Possible asbestos related disease.
[2018-07-09 08:08] LABS: Glucose,Whole Blood 220 mg/dL (75-99)
[2018-07-09] MEDS: ALBUTEROL NEBULIZED 2.5 MG/3 ML INHALATION SCH ×2 (08:23→19:34)
--- NOTE | 2018-07-09 08:23 | P.PN ---
Subjective Progress Note Date: 07/09/18 Principal diagnosis: Acute non-ST elevation AK This is a pleasant 78-year-old gentleman who we did see and signed off during this admission, asked to see the patient again because of acute coronary syndrome. The patient is a 78-year-old with history of coronary artery disease and status post CABG, does follow with a health spa manager at [facility], hypertension, and dyslipidemia, was admitted to the hospital and underwent right hip surgery which was uneventful. He was on the surgical floor last night when he developed sudden onset of shortness of breath associated with change in mental status and he was in acute respiratory distress.The patient ruled in for acute non-ST elevation myocardial infarction with increasing in his troponin from 4- 5. The EKG showed sinus tachycardia. Beside that he was running temperature and there is questionable sepsis, infectious disease was consulted to see the patient. More importantly, the patient creatinine is elevated. Also the d- dimer came in to be abnormal and currently he is on heparin IV. Beside that the patient underwent an echocardiogram after this incident and that showed severe cardiomyopathy with EF around 20% with global hypokinesia. The echocardiogram before surgery showed an ejection fraction of 50%. I'll follow-up with the patient today, July [id number], the patient continues to be not doing well. He still in respiratory distress. He still hemodynamically stable and requiring norepinephrine. The troponin has been trending down from 10-6. He continues to be on heparin IV for the acute non-ST patient myocardial infarction as well as for the abnormal d-dimer with the possibility of a PE. The distal quite concerned about a component of sepsis. The creatinine continues to be around 2.45. Beside that the patient is on dual antiplatelet therapy with aspirin and Plavix. Objective - Vital Signs Vital signs: Vital Signs Temp 98.7 F 07/09/18 04:00 Pulse 92 07/09/18 07:00 Resp 15 07/09/18 07:00 BP 79/46 07/08/18 18:15 Pulse Ox 97 07/09/18 07:00 Intake & Output 07/08/18 07/09/18 07/09/18 18:59 06:59 18:59 Intake Total 9560.828 3551.089 329.877 Output Total 1175 1250 110 Balance 262.050 -98.911 219.877 Weight 113 kg 113.3 kg Intake: IV 843.7 153.4 10 0.9 NACL 210 120 10 Amiodarone 450 mg In 183.7 33.4 Dextrose 5% in Water 250 ml @ 1 MG/MIN 34.53 mls/ hr IV .Q7H31M [facility] Rx#: [id number] Dextrose 5% in Water 1, 350 000 ml @ 75 mls/hr IV . [id number] MARLINE with Sodium Bicarb (1 Meq/ml) 150 ml Rx#:[id number] Piperacillin-Tazobactam 3 100 .375 gm In Sodium Chloride 0.9% 100 ml @ 25 mls/hr IVPB Q8H [facility] Rx#: [id number] Intake, IV Titration 308.350 497.689 169.877 Amount Amiodarone 450 mg In 259 Dextrose 5% in Water 250 ml @ 1 MG/MIN 34.53 mls/ hr IV .Q7H31M [facility] Rx#: [id number] Heparin Sod,Pork in 0.45% 106.421 33.05 169.877 NaCl 25,000 unit In 0.45 % NaCl 1 250ml.bag @ 18 UNITS/KG/HR 19.84 mls/hr IV .[id number] [facility] Rx#: [id number] Insulin Regular 100 unit 30.996 In Sodium Chloride 0.9% 100 ml @ Per Protocol IV .Q0M [facility] Rx#:[id number] Norepinephrine 16 mg In 51.251 205.639 Sodium Chloride 0.9% 250 ml @ Titrate IV .Q0M [facility] Rx#:[id number] Norepinephrine 4 mg In 119.682 Sodium Chloride 0.9% 250 ml @ Titrate IV .Q0M [facility] Rx#:[id number] Oral 285 500 150 Output: Urine 1175 1250 110 Other: Voiding Method Indwelling Catheter Indwelling Catheter ABP, PAP, CO, CI - Last Documented Arterial Blood Pressure 128/46 - Constitutional General appearance: Present: no acute distress - Respiratory Respiratory: bilateral: diminished - Cardiovascular Rhythm: regular Heart sounds: normal: S1, S2 - Labs CBC & Chem 7: 07/09/18 04:45 07/09/18 04:45 Labs: Abnormal Lab Results - Last 24 Hours (Table) 07/08/18 07/08/18 07/08/18 Range/Units 04:36 08:55 09:58 RBC (4.30-5.90) m/uL Hgb (13.0-17.5) gm/dL Hct (39.0-53.0) % APTT (22.0-30.0) sec Sodium (137-145) mmol/L Carbon Dioxide (22-30) mmol/L BUN (9-20) mg/dL Creatinine (0.66-1.25) mg/dL Glucose (74-99) mg/dL POC Glucose (mg/dL) 147 H 181 H (75-99) mg/dL Calcium (8.4-10.2) mg/dL AST (17-59) U/L ALT (21-72) U/L Troponin I 9.230 H* (0.000-0.034) ng/mL Total Protein (6.3-8.2) g/dL Albumin (3.5-5.0) g/dL 07/08/18 07/08/18 07/08/18 Range/Units 10:59 11:06 12:00 RBC (4.30-5.90) m/uL Hgb (13.0-17.5) gm/dL Hct (39.0-53.0) % APTT (22.0-30.0) sec Sodium (137-145) mmol/L Carbon Dioxide (22-30) mmol/L BUN (9-20) mg/dL Creatinine (0.66-1.25) mg/dL Glucose (74-99) mg/dL POC Glucose (mg/dL) 189 H 200 H (75-99) mg/dL Calcium (8.4-10.2) mg/dL AST (17-59) U/L ALT (21-72) U/L Troponin I 9.610 H* (0.000-0.034) ng/mL Total Protein (6.3-8.2) g/dL Albumin (3.5-5.0) g/dL 07/08/18 07/08/18 07/08/18 Range/Units 13:14 14:06 14:48 RBC (4.30-5.90) m/uL Hgb (13.0-17.5) gm/dL Hct (39.0-53.0) % APTT (22.0-30.0) sec Sodium (137-145) mmol/L Carbon Dioxide (22-30) mmol/L BUN (9-20) mg/dL Creatinine (0.66-1.25) mg/dL Glucose (74-99) mg/dL POC Glucose (mg/dL) 164 H 159 H 150 H (75-99) mg/dL Calcium (8.4-10.2) mg/dL AST (17-59) U/L ALT (21-72) U/L Troponin I (0.000-0.034) ng/mL Total Protein (6.3-8.2) g/dL Albumin (3.5-5.0) g/dL 07/08/18 07/08/18 07/08/18 Range/Units 16:06 16:44 18:16 RBC (4.30-5.90) m/uL Hgb (13.0-17.5) gm/dL Hct (39.0-53.0) % APTT (22.0-30.0) sec Sodium (137-145) mmol/L Carbon Dioxide (22-30) mmol/L BUN (9-20) mg/dL Creatinine (0.66-1.25) mg/dL Glucose (74-99) mg/dL POC Glucose (mg/dL) 126 H 118 H 142 H (75-99) mg/dL Calcium (8.4-10.2) mg/dL AST (17-59) U/L ALT (21-72) U/L Troponin I (0.000-0.034) ng/mL Total Protein (6.3-8.2) g/dL Albumin (3.5-5.0) g/dL 07/08/18 07/08/18 07/08/18 Range/Units 18:20 18:20 21:12 RBC (4.30-5.90) m/uL Hgb (13.0-17.5) gm/dL Hct (39.0-53.0) % APTT 57.0 H (22.0-30.0) sec Sodium (137-145) mmol/L Carbon Dioxide (22-30) mmol/L BUN (9-20) mg/dL Creatinine (0.66-1.25) mg/dL Glucose (74-99) mg/dL POC Glucose (mg/dL) 192 H (75-99) mg/dL Calcium (8.4-10.2) mg/dL AST (17-59) U/L ALT (21-72) U/L Troponin I 6.420 H* (0.000-0.034) ng/mL Total Protein (6.3-8.2) g/dL Albumin (3.5-5.0) g/dL 07/09/18 07/09/18 07/09/18 Range/Units 01:50 04:45 04:45 RBC 2.47 L (4.30-5.90) m/uL Hgb 7.4 L (13.0-17.5) gm/dL Hct 23.2 L (39.0-53.0) % APTT (22.0-30.0) sec Sodium 136 L (137-145) mmol/L Carbon Dioxide 21 L (22-30) mmol/L BUN 61 H (9-20) mg/dL Creatinine 2.44 H (0.66-1.25) mg/dL Glucose 200 H (74-99) mg/dL POC Glucose (mg/dL) 215 H (75-99) mg/dL Calcium 8.3 L (8.4-10.2) mg/dL AST 256 H (17-59) U/L ALT 143 H (21-72) U/L Troponin I (0.000-0.034) ng/mL Total Protein 4.7 L (6.3-8.2) g/dL Albumin 2.5 L (3.5-5.0) g/dL 07/09/18 07/09/18 07/09/18 Range/Units 04:45 07:06 07:57 RBC (4.30-5.90) m/uL Hgb (13.0-17.5) gm/dL Hct (39.0-53.0) % APTT 57.7 H (22.0-30.0) sec Sodium (137-145) mmol/L Carbon Dioxide (22-30) mmol/L BUN (9-20) mg/dL Creatinine (0.66-1.25) mg/dL Glucose (74-99) mg/dL POC Glucose (mg/dL) 212 H 220 H (75-99) mg/dL Calcium (8.4-10.2) mg/dL AST (17-59) U/L ALT (21-72) U/L Troponin I (0.000-0.034) ng/mL Total Protein (6.3-8.2) g/dL Albumin (3.5-5.0) g/dL Microbiology - Last 24 Hours (Table) 07/07/18 05:40 Blood Culture - Preliminary Blood No Growth after 48 hours 07/07/18 05:56 Blood Culture - Preliminary Blood No Growth after 48 hours Assessment and Plan Assessment: Assessment #1 acute respiratory distress #2 possible pulmonary embolization #3 possible sepsis of unknown source #4 acute non-ST patient myocardial infarction, type I versus type II #4 severe cardiomyopathy with significant drop in the left ventricle systolic function #5 hemodynamic instability #6 acute on chronic renal failure Plan #1 I did recommend a conservative medical approach for the non-ST elevation AK. In the absence of any chest pain or chest discomfort and in the presence of renal failure #2 dual antiplatelet therapy with aspirin and Plavix #3 try to wean the patient from the norepinephrine #4 follow-up with the patient.
[2018-07-09] MEDS: CLOPIDOGREL 75 MG TAB PO SCH (08:47)
[2018-07-09] MEDS: PARoxetine 20 MG TAB PO SCH ×2 (08:47→21:56)
[2018-07-09] MEDS: ASPIRIN 81 MG PO SCH (08:47)
--- NOTE | 2018-07-09 09:26 | P.PN ---
Subjective Progress Note Date: 07/09/18 Principal diagnosis: Hypotension Patient is a 78-year-old male past medical history of coronary artery disease, congestive heart failure, diabetes, and hearing loss who presented to our facility as a transfer for orthopedic evaluation. He was trying to get on his exercise bike when he sustained a mechanical fall. At the outside hospital he was found to have a right hip fracture. Upon review of records from prior hospitalization he has found to have acidosis, hyperkalemia, anemia, and elevated creatinine. He was subsequently administered insulin and dextrose, he was started on IV fluids, repeat ABG was obtained and he was started on BiPAP therapy. Initial echocardiogram showed preserved ejection fraction at 55 to 60% . He was seen by cardiology and his Lopressor was decreased to 12.5 daily, his amiodarone was discontinued and Plavix was held in light of probable need for surgery. Patient underwent a right hemiarthroplasty on 07/03/18. Initially he tolerated the procedure well. His acidosis seemed to be improving. He was noted to have a hemoglobin drop on 07/05 at 10.2-8.3. He had been working with therapy and progressing well. On the morning of 07/07 he went into acute mental status changes associated with difficulty in breathing. He was found to be hypoxic and an EKG showed a new left bundle branch block with underlying A. fib rhythm. This was discussed with cardiology who recommended a stat echocardiogram as troponins came back at 3.7. Stat echo revealed a decreased ejection fraction of less than 20%. He was also noted to have worsening acidosis and was placed on a bicarb drip. He was transferred to the ICU for close monitoring. There was concern for possible pneumonia and he was empirically started on Zosyn and daptomycin due to vancomycin ALLERGY. Patient was seen by Dr. Garcia who felt he could have possible sepsis and echo and Zosyn were continued. He also was found to have deep sacral decubitus ulcer, he did suffer a fall prior to admission. His statin was held due to elevated CPKs. He developed hypotension on the morning of 07/08 and required levophed to be started. His reanl function continued to worsen despite optimization of his blood pressures. Patient seen and examined at bedside. He is currently on BIPAP.He denies chest pain, shortness of breath, and nausea. No family present. All questions answered. Discussed heart attack, PNA, fracture, and on medications to support BP. Objective - Vital Signs Vital signs: Vital Signs Temp 98.7 F 07/09/18 04:00 Pulse 99 07/09/18 08:41 Resp 15 07/09/18 07:00 BP 79/46 07/08/18 18:15 Pulse Ox 97 07/09/18 07:00 Intake & Output 07/08/18 07/09/18 07/09/18 18:59 06:59 18:59 Intake Total 0740.287 7952.089 329.877 Output Total 1175 1250 110 Balance 262.050 -98.911 219.877 Weight 113 kg 113.3 kg Intake: IV 843.7 153.4 10 0.9 NACL 210 120 10 Amiodarone 450 mg In 183.7 33.4 Dextrose 5% in Water 250 ml @ 1 MG/MIN 34.53 mls/ hr IV .Q7H31M [facility] Rx#: [id number] Dextrose 5% in Water 1, 350 000 ml @ 75 mls/hr IV . [id number] MARLINE with Sodium Bicarb (1 Meq/ml) 150 ml Rx#:[id number] Piperacillin-Tazobactam 3 100 .375 gm In Sodium Chloride 0.9% 100 ml @ 25 mls/hr IVPB Q8H [facility] Rx#: [id number] Intake, IV Titration 308.350 497.689 169.877 Amount Amiodarone 450 mg In 259 Dextrose 5% in Water 250 ml @ 1 MG/MIN 34.53 mls/ hr IV .Q7H31M [facility] Rx#: [id number] Heparin Sod,Pork in 0.45% 106.421 33.05 169.877 NaCl 25,000 unit In 0.45 % NaCl 1 250ml.bag @ 18 UNITS/KG/HR 19.84 mls/hr IV .[id number] [facility] Rx#: [id number] Insulin Regular 100 unit 30.996 In Sodium Chloride 0.9% 100 ml @ Per Protocol IV .Q0M [facility] Rx#:[id number] Norepinephrine 16 mg In 51.251 205.639 Sodium Chloride 0.9% 250 ml @ Titrate IV .Q0M [facility] Rx#:[id number] Norepinephrine 4 mg In 119.682 Sodium Chloride 0.9% 250 ml @ Titrate IV .Q0M [facility] Rx#:[id number] Oral 285 500 150 Output: Urine 1175 1250 110 Other: Voiding Method Indwelling Catheter Indwelling Catheter ABP, PAP, CO, CI - Last Documented Arterial Blood Pressure 128/46 - Exam General: ill appearing, no distress, appears at stated age, [place] Derm: warm, dry Head: atraumatic, normocephalic, symmetric Eyes: EOMI, no lid lag, anicteric sclera Mouth: no lip lesion, mucus membranes moist Cardiovascular: S1S2 reg, no murmur, positive posterior tibial pulse bilateral, Lungs: decreased bs b/l bases, no rhonchi, no rales , no accessory muscle use, on BIPAP Abdominal: soft, nontender to palpation, no guarding, no appreciable organomegaly Ext: no gross muscle atrophy, no edema, no contractures Neuro: CN II-XI grossly intact, no focal neuro deficits Psych: Alert, Awake, appropriate affect - Labs CBC & Chem 7: 07/09/18 04:45 07/09/18 04:45 Labs: Abnormal Lab Results - Last 24 Hours (Table) 07/08/18 07/08/18 07/08/18 Range/Units 04:36 08:55 09:58 RBC (4.30-5.90) m/uL Hgb (13.0-17.5) gm/dL Hct (39.0-53.0) % APTT (22.0-30.0) sec Sodium (137-145) mmol/L Carbon Dioxide (22-30) mmol/L BUN (9-20) mg/dL Creatinine (0.66-1.25) mg/dL Glucose (74-99) mg/dL POC Glucose (mg/dL) 147 H 181 H (75-99) mg/dL Calcium (8.4-10.2) mg/dL AST (17-59) U/L ALT (21-72) U/L Troponin I 9.230 H* (0.000-0.034) ng/mL Total Protein (6.3-8.2) g/dL Albumin (3.5-5.0) g/dL 07/08/18 07/08/18 07/08/18 Range/Units 10:59 11:06 12:00 RBC (4.30-5.90) m/uL Hgb (13.0-17.5) gm/dL Hct (39.0-53.0) % APTT (22.0-30.0) sec Sodium (137-145) mmol/L Carbon Dioxide (22-30) mmol/L BUN (9-20) mg/dL Creatinine (0.66-1.25) mg/dL Glucose (74-99) mg/dL POC Glucose (mg/dL) 189 H 200 H (75-99) mg/dL Calcium (8.4-10.2) mg/dL AST (17-59) U/L ALT (21-72) U/L Troponin I 9.610 H* (0.000-0.034) ng/mL Total Protein (6.3-8.2) g/dL Albumin (3.5-5.0) g/dL 07/08/18 07/08/18 07/08/18 Range/Units 13:14 14:06 14:48 RBC (4.30-5.90) m/uL Hgb (13.0-17.5) gm/dL Hct (39.0-53.0) % APTT (22.0-30.0) sec Sodium (137-145) mmol/L Carbon Dioxide (22-30) mmol/L BUN (9-20) mg/dL Creatinine (0.66-1.25) mg/dL Glucose (74-99) mg/dL POC Glucose (mg/dL) 164 H 159 H 150 H (75-99) mg/dL Calcium (8.4-10.2) mg/dL AST (17-59) U/L ALT (21-72) U/L Troponin I (0.000-0.034) ng/mL Total Protein (6.3-8.2) g/dL Albumin (3.5-5.0) g/dL 07/08/18 07/08/18 07/08/18 Range/Units 16:06 16:44 18:16 RBC (4.30-5.90) m/uL Hgb (13.0-17.5) gm/dL Hct (39.0-53.0) % APTT (22.0-30.0) sec Sodium (137-145) mmol/L Carbon Dioxide (22-30) mmol/L BUN (9-20) mg/dL Creatinine (0.66-1.25) mg/dL Glucose (74-99) mg/dL POC Glucose (mg/dL) 126 H 118 H 142 H (75-99) mg/dL Calcium (8.4-10.2) mg/dL AST (17-59) U/L ALT (21-72) U/L Troponin I (0.000-0.034) ng/mL Total Protein (6.3-8.2) g/dL Albumin (3.5-5.0) g/dL 07/08/18 07/08/18 07/08/18 Range/Units 18:20 18:20 21:12 RBC (4.30-5.90) m/uL Hgb (13.0-17.5) gm/dL Hct (39.0-53.0) % APTT 57.0 H (22.0-30.0) sec Sodium (137-145) mmol/L Carbon Dioxide (22-30) mmol/L BUN (9-20) mg/dL Creatinine (0.66-1.25) mg/dL Glucose (74-99) mg/dL POC Glucose (mg/dL) 192 H (75-99) mg/dL Calcium (8.4-10.2) mg/dL AST (17-59) U/L ALT (21-72) U/L Troponin I 6.420 H* (0.000-0.034) ng/mL Total Protein (6.3-8.2) g/dL Albumin (3.5-5.0) g/dL 07/09/18 07/09/18 07/09/18 Range/Units 01:50 04:45 04:45 RBC 2.47 L (4.30-5.90) m/uL Hgb 7.4 L (13.0-17.5) gm/dL Hct 23.2 L (39.0-53.0) % APTT (22.0-30.0) sec Sodium 136 L (137-145) mmol/L Carbon Dioxide 21 L (22-30) mmol/L BUN 61 H (9-20) mg/dL Creatinine 2.44 H (0.66-1.25) mg/dL Glucose 200 H (74-99) mg/dL POC Glucose (mg/dL) 215 H (75-99) mg/dL Calcium 8.3 L (8.4-10.2) mg/dL AST 256 H (17-59) U/L ALT 143 H (21-72) U/L Troponin I (0.000-0.034) ng/mL Total Protein 4.7 L (6.3-8.2) g/dL Albumin 2.5 L (3.5-5.0) g/dL 07/09/18 07/09/18 07/09/18 Range/Units 04:45 07:06 07:57 RBC (4.30-5.90) m/uL Hgb (13.0-17.5) gm/dL Hct (39.0-53.0) % APTT 57.7 H (22.0-30.0) sec Sodium (137-145) mmol/L Carbon Dioxide (22-30) mmol/L BUN (9-20) mg/dL Creatinine (0.66-1.25) mg/dL Glucose (74-99) mg/dL POC Glucose (mg/dL) 212 H 220 H (75-99) mg/dL Calcium (8.4-10.2) mg/dL AST (17-59) U/L ALT (21-72) U/L Troponin I (0.000-0.034) ng/mL Total Protein (6.3-8.2) g/dL Albumin (3.5-5.0) g/dL Microbiology - Last 24 Hours (Table) 07/07/18 05:25 Gram Stain - Final Buttock Wound Culture - Final 07/07/18 05:40 Blood Culture - Preliminary Blood No Growth after 48 hours 07/07/18 05:56 Blood Culture - Preliminary Blood No Growth after 48 hours Assessment and Plan Assessment: shock - shock septic vs cardiogenic - Limit IVF due to low EF Possible PNA with sepsis and - dapto changed to q48 based on GFR, zosyn, IVF, await sputum and blood cultures - ID recs - procalcitionin pending NSTEMI, 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% - ASA, PLAVIX, , Heparin gtt, - statin on hold due to elevated CK - Cardio recs: medical management at this point in time, may need cath - BB adn ACEI on hold due to low BP/JOSE JOSE on CKD - Baseline Cr unknown - check CK to rule out rhabdo as a component. - off IVF per CC - avoid additional nephrotoxic agents - consult nephro - maintain MAP >65 - stop lasix, renal dose dapto - renal US - monito urine output. Right hip fracture - Ortho recs - Pain control - PT/OT Hyponatremia - follow BMP Tranamintis - suspect due to hypoperfusion - follow liver enzymes - if dont return to [facility] then hepatitis panel and liver US. Acute encephalopathy, improving - treatment of infection and supportive care COPD, without exacerbation -continue home regiment A. fib - tele - amio IV completed - Heparin gtt Diabetes Mellitus - off actos, glimepiride, metformin - SSI, add levemir - A1C 6.7 Dyslipidemia - Statin on hold due to elevated CK Lactic acidosis, improving hyperkalemia, resolved Mixed respiratory and metabolic acidosis, improved DVT prophylaxis: Heparin gtt Discussed with: Patient, nursing Anticipated discharge: 3-[address]: rehab A total of 40 minutes was spent on the care of this complex patient more than 50 % of the time was spent in counseling and care coordination.
--- NOTE | 2018-07-09 09:43 | US ---
EXAMINATION TYPE: US renals and bladder DATE OF EXAM: 07/09/2018 COMPARISON: NONE CLINICAL HISTORY: JOSE. ICU pt, JOSE EXAM MEASUREMENTS: Right Kidney: 11.6 x 4.9 x 5.8 cm Left Kidney: N/A cm Right Kidney: No hydronephrosis or masses seen and the right kidney shows normal cortical medullary differentiation Left Kidney: very limited views that could not fully assess kidney Bladder: rodriguez There is no ascites evident. IMPRESSION: The exam is limited, left kidney not seen with certainty. Bladder is not visualized.
--- NOTE | 2018-07-09 09:59 | P.NPCON ---
History of Present Illness - Reason for Consult acute renal failure - History of Present Illness Reason for consultation: Acute kidney injury History of present illness: Patient is a 78-year-old male seen in renal consultation for acute kidney injury. Patient came to the hospital due to right hip pain. Patient sustained a fall prior to admission. He denies losing consciousness. Imaging revealed right femoral neck fracture and he underwent right hip hemiarthroplasty on July 03. On July 07 patient became quite hypotensive and was transferred to the intensive care unit. He was started on Levophed. Currently on 15 mics. Troponins were also quite elevated concerning for acute coronary syndrome. He is maintained on IV heparin. Repeat echocardiogram revealed ejection fraction of less than 20%. He received a total of 120 mg of IV Lasix yesterday. He's currently nonoliguric. He is off all IV fluids. He is currently resting in bed. He is on a BiPAP. Patient is extremely hard of hearing. Vital signs are stable. General: The patient appeared well nourished and normally developed. HEENT: Head exam is unremarkable. Neck is without jugular venous distension. LUNGS: Breath sounds decreased. HEART: Rate and Rhythm are regular. First and second heart sounds normal. No murmurs, rubs or gallops. ABDOMEN: Abdominal exam reveals normal bowel sounds. Non-tender and non- distended. No evidence of peritonitis. EXTREMITITES: No clubbing, cyanosis, or edema. 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, weakness, falls, PVD, pt has cerebral stent per spouse, 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, hypoglycemia, NIDDM type II, past neuropathy bilateral feet which spouse states no longer a problem s/t OTC medications, past bilateral esparza cellulitis, R foot toes with scabs, R elbow bursitis, bradycardia, RBBB, History of Any Multi-Drug Resistant Organisms: None Reported Past Surgical History: Appendectomy, Cholecystectomy Additional Past Surgical History / Comment(s): 2001 CABG- spouse thinks 2 vessel done at [facility] in [place], post op infection resulting in sternotomy , cerebral shunt and stent, bilateral total knee arthroplasty- one side done twice, bilateral total shoulder surgery, colonoscopies Past Anesthesia/Blood Transfusion Reactions: No Reported Reaction Additional Past Anesthesia/Blood Transfusion Reaction / Comment(s): Pt has received blood in past without reaction-spouse believes it was with CABG surgery. Smoking Status: Current every day smoker - Past Family History Father Family Medical History: Cancer Additional Family Medical History / Comment(s): Father at the age of 58yrs from stomach cancer. Mother Family Medical History: No Reported History Medications and Allergies Home Medications Medication Instructions Recorded Confirmed Type Albuterol Nebulized [Ventolin 2.5 mg INHALATION RT-BID 07/01/18 07/01/18 History Nebulized] Amiodarone [Cordarone] 100 mg PO DAILY 07/01/18 07/01/18 History Aspirin EC [Ecotrin] 325 mg PO DAILY 07/01/18 07/01/18 History Cholecalciferol [Vitamin D3] 3,000 unit PO DAILY 07/01/18 07/01/18 History Clopidogrel [Plavix] 75 mg PO DAILY 07/01/18 07/01/18 History Cyanocobalamin (Vitamin B-12) 1,000 mcg PO DAILY 07/01/18 07/01/18 History [Vitamin B-12] Enalapril [Vasotec] 10 mg PO BID 07/01/18 07/01/18 History Folic Acid 1 mg PO DAILY 07/01/18 07/01/18 History Furosemide [Lasix] 20 mg PO DAILY 07/01/18 07/01/18 History Gemfibrozil [Lopid] 600 mg PO AC-BID 07/01/18 07/01/18 History Glimepiride [Amaryl] 4 mg PO BID 07/01/18 07/01/18 History Metoprolol Tartrate [Lopressor] 25 mg PO BID 07/01/18 07/01/18 History Dublin-3 Fatty Acids [Dublin-3] 1,000 mg PO DAILY 07/01/18 07/01/18 History PARoxetine [Paxil] 20 mg PO BID 07/01/18 07/01/18 History Pioglitazone [Actos] 45 mg PO DAILY 07/01/18 07/01/18 History Potassium Gluconate 99 mg PO DAILY 07/01/18 07/01/18 History Pyridoxine HCl (Vitamin B6) 200 mg PO DAILY 07/01/18 07/01/18 History [Vitamin B-6] amLODIPine [Norvasc] 5 mg PO DAILY 07/01/18 07/01/18 History metFORMIN HCL 1,000 mg PO BID 07/01/18 07/01/18 History Allergies Allergy/AdvReac Type Severity Reaction Status Date / Time vancomycin AdvReac Severe Rash/Hives Verified 07/01/18 09:20 doxycycline [From Vibramycin] AdvReac Unknown Verified 07/01/18 09:20 Physical Exam Vitals: Vital Signs Temp Pulse Resp BP Pulse Ox 07/09/18 08:41 99 07/09/18 08:28 93 07/09/18 07:00 92 15 97 07/09/18 06:30 92 18 98 07/09/18 06:00 93 17 95 07/09/18 05:30 96 14 98 07/09/18 05:00 93 22 98 07/09/18 04:30 95 19 98 07/09/18 04:00 98.7 F 93 22 98 07/09/18 03:30 94 19 98 07/09/18 03:00 95 14 98 07/09/18 02:30 95 22 98 07/09/18 02:00 93 10 L 98 07/09/18 01:30 94 21 98 07/09/18 01:00 92 16 98 07/09/18 00:30 94 23 98 07/09/18 00:01 91 12 98 07/08/18 23:30 95 19 98 07/08/18 23:00 100 17 98 07/08/18 22:30 96 12 98 07/08/18 22:00 96 21 97 07/08/18 21:30 92 20 98 07/08/18 21:00 96 8 L 98 07/08/18 20:30 96 10 L 94 L 07/08/18 20:05 95 07/08/18 20:00 99.1 F 94 11 L 99 07/08/18 19:56 94 07/08/18 19:30 96 15 98 07/08/18 19:00 94 20 98 07/08/18 18:45 94 16 98 07/08/18 18:30 93 18 98 07/08/18 18:15 95 22 79/46 99 07/08/18 18:00 96 26 H 79/46 82 L 07/08/18 17:45 93 13 79/46 97 07/08/18 17:30 95 16 79/46 97 07/08/18 17:15 94 20 79/46 97 07/08/18 17:00 95 14 79/46 88 L 07/08/18 16:45 96 27 H 79/46 98 07/08/18 16:30 96 8 L 88/35 98 07/08/18 16:15 99 8 L 88/35 98 07/08/18 16:00 100 23 88/35 07/08/18 15:58 100 07/08/18 15:46 103 H 07/08/18 15:45 103 H 18 07/08/18 15:30 95 20 88/35 07/08/18 15:15 99 13 88/35 07/08/18 15:00 99 19 07/08/18 14:45 98 18 07/08/18 14:30 98 19 07/08/18 14:15 98 16 07/08/18 14:00 98.8 F 96 23 79/46 07/08/18 13:45 95 18 07/08/18 13:30 103 H 18 88/35 07/08/18 13:15 101 H 21 88/35 07/08/18 13:00 109 H 25 H 88/35 07/08/18 12:45 102 H 12 85/43 07/08/18 12:30 103 H 24 97/50 07/08/18 12:15 103 H 23 78/41 07/08/18 12:00 98.8 F 98 27 H 83/41 98 07/08/18 11:45 94 21 71/59 98 07/08/18 11:32 84 07/08/18 11:30 91 29 H 92/47 100 07/08/18 11:15 92 29 H 89/55 98 07/08/18 11:00 93 25 H 89/44 98 07/08/18 10:45 92 25 H 138/63 99 07/08/18 10:30 96 30 H 105/55 97 07/08/18 10:15 93 20 88/41 98 07/08/18 10:00 84 22 73/46 98 07/08/18 09:45 77 29 H 105/46 99 Intake and Output 07/08/18 07/09/18 07/09/18 22:59 06:59 14:59 Intake Total 553.540 785.639 329.877 Output Total 1075 875 110 Balance -521.460 -89.361 219.877 Intake: IV 190.2 80 10 0.9 NACL 90 80 10 Amiodarone 450 mg In 100.2 Dextrose 5% in Water 250 ml @ 1 MG/MIN 34.53 mls/ hr IV .Q7H31M [facility] Rx#: [id number] Intake, IV Titration 363.340 205.639 169.877 Amount Amiodarone 450 mg In 259 Dextrose 5% in Water 250 ml @ 1 MG/MIN 34.53 mls/ hr IV .Q7H31M [facility] Rx#: [id number] Heparin Sod,Pork in 0.45% 72.71 169.877 NaCl 25,000 unit In 0.45 % NaCl 1 250ml.bag @ 18 UNITS/KG/HR 19.84 mls/hr IV .[id number] [facility] Rx#: [id number] Insulin Regular 100 unit 3.192 In Sodium Chloride 0.9% 100 ml @ Per Protocol IV .Q0M [facility] Rx#:[id number] Norepinephrine 16 mg In 28.438 205.639 Sodium Chloride 0.9% 250 ml @ Titrate IV .Q0M [facility] Rx#:[id number] Oral 500 150 Output: Urine 1075 875 110 Other: Voiding Method Indwelling Catheter Indwelling Catheter Weight 113.3 kg ABP, PAP, CO, CI - Last 8 Hours Arterial Blood Pressure 128/46 Arterial Blood Pressure 128/47 Arterial Blood Pressure 112/43 Arterial Blood Pressure 121/44 Arterial Blood Pressure 121/44 Arterial Blood Pressure 119/47 Arterial Blood Pressure 118/46 Arterial Blood Pressure 119/46 Arterial Blood Pressure 115/46 Arterial Blood Pressure 106/47 Arterial Blood Pressure 113/46 Results - Lab Results Most recent lab results ABG pH 7.55 (7.35-7.45) H 07/08/18 07:47 ABG pCO2 31 mmHg (35-45) L 07/08/18 07:47 ABG pO2 108 mmHg (83-108) 07/08/18 07:47 ABG HCO3 27 mmol/L (21-25) H 07/08/18 07:47 ABG O2 Saturation 98.7 % (94-97) H 07/08/18 07:47 Calcium 8.3 mg/dL (8.4-10.2) L 07/09/18 04:45 Phosphorus 3.5 mg/dL (2.5-4.5) 07/09/18 04:45 Magnesium 1.7 mg/dL (1.6-2.3) 07/09/18 04:45 07/09/18 04:45 07/09/18 04:45 Assessment and Plan Plan: Assessment: 1. Acute kidney injury secondary to ATN secondary to hypotension. Creatinine was 1.2 on July 03 and is up to 2.44 today. No records available from prior to this admission. 2. NSTEMI maintained on IV heparin. Repeat echocardiogram revealed ejection fraction of less than 20%. 3. Pneumonia maintained on IV antibiotics. 4. Hypotension maintained on 15 mics of Levophed at this time. 5. Right hip fracture status post hemiarthroplasty this admission. 6. Metabolic acidosis secondary to acute kidney injury. 7. Diabetes mellitus. Plan: Remains off all IV fluids. Hold off on IV diuretics as patient has excellent urine output at this time. Check UA. Follow-up renal ultrasound. Patient is cleared for cardiac catheterization from nephrology standpoint if needs to be done urgently. He will be hydrated accordingly. Continue to monitor renal function and urine output. Thank you for the consultation. I will continue to follow the patient with you during his hospital stay.
[2018-07-09] MEDS ORDERED: INSULIN DETEMIR 100 UNIT/ML 10 ML VIAL SQ SCH (10:00)
[2018-07-09] MEDS: IPRATROPIUM-ALBUTEROL 3 ML NEB INHALATION PRN ×2 (11:42→15:50)
[2018-07-09 12:21] LABS: Glucose,Whole Blood 163 mg/dL (75-99)
--- NOTE | 2018-07-09 13:11 | P.PN ---
Subjective Progress Note Date: 07/09/18 Principal diagnosis: Acute hypoxic respiratory failure, sepsis, congestive heart failure. Systolic dysfunction. This is a 78-year-old white male with history of multiple medical problems including coronary artery disease, type 2 diabetes, chronic kidney disease, chronic right foot drop, previous CVA and previous OCCUPATIONAL HEALTH COORDINATOR shunt. Underlying COPD, obstructive sleep apnea syndrome, patient was admitted to the hospital on 2018, and he was admitted after a fall sustaining a right hip fracture, patient was admitted, seen by orthopedic surgery on consultation, and he underwent right hip arthroplasty for right upper Patellofemoral neck fracture by Dr. Abernathy on 07/03/2018. Patient is also known to have history of chronic decubitus sacral ulcer. Overnight last night, patient developed changes in mental status. He was also noted to have more difficulty breathing. He was noted to be hypoxic, tachypneic, and he had a low-grade temp of 100.5. The rapid response team from the intensive care unit responded to the patient, he was noted to be metabolically acidotic, his lactic acid was elevated, d-dimer was also elevated, his renal functioning was noted to be worse, and his ABG showed a pO2 of 201, pCO2 was 29 and pH was 7.21. Hence patient was placed on BiPAP, placed on a sodium bicarb drip, antibiotics where broadened spectrum, patient was placed on insulin drip for hyperglycemia, and he was transferred to the ICU. Patient has a DO NOT RESUSCITATE CODE STATUS based on his previously expressed wishes, hence he was managed with BiPAP, and will be managed with mostly antibiotics, fluids, however the patient is known to have history of LV dysfunction and his ejection fraction is about 20%. I saw the patient this morning in the ICU, and I discussed the different issues with his family at bedside. Reviewed all the medications he is presently on, and recommended infectious disease consultation on the patient. His chest x-ray did show evidence of interstitial edema or infiltrate in the left lung. X-rays of the lumbosacral spine showed compression fractures and deformities in the lumbar spine and lower thoracic vertebral. Echocardiogram showed severe global hypokinesis of the left ventricle. His lactic acid was noted to be elevated, 9.6 initially, and it is 7.4 now. Patient received fluid boluses of 1.5 L, hence maintenance IV fluid was placed at 100 mL/h, and sodium bicarb drip was addressed. PTT was over 200 and heparin was adjusted as per protocol. D-dimer was 2.28. Patient is normally on Plavix but presently on heparin Reevaluated today on 07/08/2018, patient remains in the ICU, on BiPAP, remains on antibiotics, bronchodilators, diuretics, patient remains on norepinephrine, presently at 15 g, and this is running through a peripheral IV line, hence I will establish a central IV access today. Patient's x-ray continues to show abnormalities on the left side, mostly interstitial edema-like picture, however the possibility of left lower lobe pneumonia and pleural effusion is not entirely ruled out. Pulmonary status is definitely marginal. His ABG reflected significant improvement in his acidosis, hence I recommended that was stopped sodium bicarb drip today. However what is interesting is the fact that his troponin is significantly high, and his BNP level is quite high at 44 600, troponin is 9.610. Dr. Tadeo seems to be quite concerned about the possibility of non-ST elevation myocardial infarction, and he is treating him as such. Patient is not the most ideal candidate for cardiac catheterization at this point considering his renal functioning. And considering the possibility of ongoing sepsis patient is still hemodynamically requiring significant dose of norepinephrine. I did review the chest x-ray, I recommended diuretics, and I'm still keeping the patient on broad-spectrum antibiotics for presumptive underlying sepsis. Patient was seen by infectious disease on consultation. WBC count is 7.2 hemoglobin is 7.7. PT is 68, however I held the heparin to safely place a central IV access. ABG showed a pO2 of 108 pCO2 of 31 pH of 7.55 and this is on O2 with IPAP of 12 and EPAP of 6. Patient was reevaluated today on , remains in the ICU, off BiPAP, he is on a high flow nasal cannula at 10 L/m. Chest x-ray is showing improvement in his interstitial edema and possible left lower lobe pneumonia with atelectasis in the left lower lobe, patient remains on norepinephrine at 13 mcg/ m, blood pressure remains marginal. Clinically however the patient is feeling better, breathing easier, and his chest x-ray is clearly showing some improvement. All labs were reviewed, hemoglobin is 7.4 today. WBC count is 8.9. Electrolytes are noted, continues to have anion gap of 15, BUN is 61 creatinine is 2.44, slightly worse compared to the last couple of days, hence considering the patient is diuresing on his own, we'll hold the Lasix for the time being. I believe that renal functioning is mostly cardiorenal in nature patient does have severe LV dysfunction. And has been receiving a significant amount of diuretics since admission to the ICU. Liver enzymes were noted to be slightly elevated/transaminases. CPK was also noted to be elevated at 1092. Renal ultrasound was noted to be unremarkable, however the left kidney could not be visualized with certainly. Patient is feeling better, he is hard of hearing, but he is feeling better today compared to how he felt over the last few days, and seems to be very appropriate. But again has difficulty hearing. Objective - Vital Signs Vital signs: Vital Signs Temp 98.7 F 07/09/18 04:00 Pulse 97 07/09/18 11:54 Resp 15 07/09/18 07:00 BP 79/46 07/08/18 18:15 Pulse Ox 95 07/09/18 09:42 Intake & Output 07/08/18 07/09/18 07/09/18 18:59 06:59 18:59 Intake Total 4713.085 2610.089 329.877 Output Total 1175 1250 110 Balance 262.050 -98.911 219.877 Weight 113 kg 113.3 kg Intake: IV 843.7 153.4 10 0.9 NACL 210 120 10 Amiodarone 450 mg In 183.7 33.4 Dextrose 5% in Water 250 ml @ 1 MG/MIN 34.53 mls/ hr IV .Q7H31M [facility] Rx#: [id number] Dextrose 5% in Water 1, 350 000 ml @ 75 mls/hr IV . [id number] [facility] with Sodium Bicarb (1 Meq/ml) 150 ml Rx#:[id number] Piperacillin-Tazobactam 3 100 .375 gm In Sodium Chloride 0.9% 100 ml @ 25 mls/hr IVPB Q8H [facility] Rx#: [id number] Intake, IV Titration 308.350 497.689 169.877 Amount Amiodarone 450 mg In 259 Dextrose 5% in Water 250 ml @ 1 MG/MIN 34.53 mls/ hr IV .Q7H31M [facility] Rx#: [id number] Heparin Sod,Pork in 0.45% 106.421 33.05 169.877 NaCl 25,000 unit In 0.45 % NaCl 1 250ml.bag @ 18 UNITS/KG/HR 19.84 mls/hr IV .[id number] [facility] Rx#: [id number] Insulin Regular 100 unit 30.996 In Sodium Chloride 0.9% 100 ml @ Per Protocol IV .Q0M [facility] Rx#:[id number] Norepinephrine 16 mg In 51.251 205.639 Sodium Chloride 0.9% 250 ml @ Titrate IV .Q0M [facility] Rx#:[id number] Norepinephrine 4 mg In 119.682 Sodium Chloride 0.9% 250 ml @ Titrate IV .Q0M [facility] Rx#:[id number] Oral 285 500 150 Output: Urine 1175 1250 110 Other: Voiding Method Indwelling Catheter Indwelling Catheter ABP, PAP, CO, CI - Last Documented Arterial Blood Pressure 128/46 - Exam Physical Exam: Revealed a 78-year-old white male, high flow nasal cannula. Awake, denies any specific complaints Head: Atraumatic, normocephalic. HEENT:[Neck is supple.] [No neck masses.] [No thyromegaly.] [No JVD.] PERRLA, EOMI, no icterus. Throat is clear. Moist mucous membranes noted. Chest: [Fine crackles at the bases, no rhonchi and no wheezes. Symmetrical chest expansion, no chest wall tenderness. Cardiac Exam: [Distant S1 and S2, no S3 gallop, no murmur.] Abdomen: [Soft, nontender, no megaly, no rebound, no guarding, diminished bowel sounds Extremities: [No clubbing, no edema, no cyanosis.] Neurological Exam: Generally weak, right-sided foot drop is noted, patient follows simple instructions seems to be more oriented today compared to yesterday. Skin: Deep sacral decubitus ulcer noted by the nurse, being addressed by infectious disease on consultation.. Surgical site on the right hip is intact and clean and dry Psychiatric: Normal mood, normal affect, normal mental status examination - Labs CBC & Chem 7: 07/09/18 04:45 07/09/18 04:45 Labs: Abnormal Lab Results - Last 24 Hours (Table) 07/08/18 07/08/18 07/08/18 Range/Units 13:14 14:06 14:48 RBC (4.30-5.90) m/uL Hgb (13.0-17.5) gm/dL Hct (39.0-53.0) % APTT (22.0-30.0) sec Sodium (137-145) mmol/L Carbon Dioxide (22-30) mmol/L BUN (9-20) mg/dL Creatinine (0.66-1.25) mg/dL Glucose (74-99) mg/dL POC Glucose (mg/dL) 164 H 159 H 150 H (75-99) mg/dL Calcium (8.4-10.2) mg/dL AST (17-59) U/L ALT (21-72) U/L Creatine Kinase (55-170) U/L Troponin I (0.000-0.034) ng/mL Total Protein (6.3-8.2) g/dL Albumin (3.5-5.0) g/dL 07/08/18 07/08/18 07/08/18 Range/Units 16:06 16:44 18:16 RBC (4.30-5.90) m/uL Hgb (13.0-17.5) gm/dL Hct (39.0-53.0) % APTT (22.0-30.0) sec Sodium (137-145) mmol/L Carbon Dioxide (22-30) mmol/L BUN (9-20) mg/dL Creatinine (0.66-1.25) mg/dL Glucose (74-99) mg/dL POC Glucose (mg/dL) 126 H 118 H 142 H (75-99) mg/dL Calcium (8.4-10.2) mg/dL AST (17-59) U/L ALT (21-72) U/L Creatine Kinase (55-170) U/L Troponin I (0.000-0.034) ng/mL Total Protein (6.3-8.2) g/dL Albumin (3.5-5.0) g/dL 07/08/18 07/08/18 07/08/18 Range/Units 18:20 18:20 21:12 RBC (4.30-5.90) m/uL Hgb (13.0-17.5) gm/dL Hct (39.0-53.0) % APTT 57.0 H (22.0-30.0) sec Sodium (137-145) mmol/L Carbon Dioxide (22-30) mmol/L BUN (9-20) mg/dL Creatinine (0.66-1.25) mg/dL Glucose (74-99) mg/dL POC Glucose (mg/dL) 192 H (75-99) mg/dL Calcium (8.4-10.2) mg/dL AST (17-59) U/L ALT (21-72) U/L Creatine Kinase (55-170) U/L Troponin I 6.420 H* (0.000-0.034) ng/mL Total Protein (6.3-8.2) g/dL Albumin (3.5-5.0) g/dL 07/09/18 07/09/18 07/09/18 Range/Units 01:50 04:45 04:45 RBC 2.47 L (4.30-5.90) m/uL Hgb 7.4 L (13.0-17.5) gm/dL Hct 23.2 L (39.0-53.0) % APTT (22.0-30.0) sec Sodium 136 L (137-145) mmol/L Carbon Dioxide 21 L (22-30) mmol/L BUN 61 H (9-20) mg/dL Creatinine 2.44 H (0.66-1.25) mg/dL Glucose 200 H (74-99) mg/dL POC Glucose (mg/dL) 215 H (75-99) mg/dL Calcium 8.3 L (8.4-10.2) mg/dL AST 256 H (17-59) U/L ALT 143 H (21-72) U/L Creatine Kinase (55-170) U/L Troponin I (0.000-0.034) ng/mL Total Protein 4.7 L (6.3-8.2) g/dL Albumin 2.5 L (3.5-5.0) g/dL 07/09/18 07/09/18 07/09/18 Range/Units 04:45 04:45 07:06 RBC (4.30-5.90) m/uL Hgb (13.0-17.5) gm/dL Hct (39.0-53.0) % APTT 57.7 H (22.0-30.0) sec Sodium (137-145) mmol/L Carbon Dioxide (22-30) mmol/L BUN (9-20) mg/dL Creatinine (0.66-1.25) mg/dL Glucose (74-99) mg/dL POC Glucose (mg/dL) 212 H (75-99) mg/dL Calcium (8.4-10.2) mg/dL AST (17-59) U/L ALT (21-72) U/L Creatine Kinase 1092 H* (55-170) U/L Troponin I (0.000-0.034) ng/mL Total Protein (6.3-8.2) g/dL Albumin (3.5-5.0) g/dL 07/09/18 07/09/18 Range/Units 07:57 12:17 RBC (4.30-5.90) m/uL Hgb (13.0-17.5) gm/dL Hct (39.0-53.0) % APTT (22.0-30.0) sec Sodium (137-145) mmol/L Carbon Dioxide (22-30) mmol/L BUN (9-20) mg/dL Creatinine (0.66-1.25) mg/dL Glucose (74-99) mg/dL POC Glucose (mg/dL) 220 H 163 H (75-99) mg/dL Calcium (8.4-10.2) mg/dL AST (17-59) U/L ALT (21-72) U/L Creatine Kinase (55-170) U/L Troponin I (0.000-0.034) ng/mL Total Protein (6.3-8.2) g/dL Albumin (3.5-5.0) g/dL Microbiology - Last 24 Hours (Table) 07/07/18 05:25 Gram Stain - Final Buttock Wound Culture - Final 07/07/18 05:40 Blood Culture - Preliminary Blood No Growth after 48 hours 07/07/18 05:56 Blood Culture - Preliminary Blood No Growth after 48 hours Assessment and Plan Assessment: Impression: 1 acute hypoxic respiratory failure secondary to sepsis, most likely source is his sacral ulcer. Although other possibilities including urine and pneumonia not entirely ruled out. But felt to be less likely. On high flow nasal cannula , being titrated down will likely be transitioned to a regular nasal cannula. 2 acute lactic acidosis secondary to sepsis improving. 3 severe LV dysfunction, ejection fraction of 20%, patient is high risk for developing congestive heart failure and pulmonary edema with treatment of sepsis and fluids. 4 electrolytes imbalance including hyponatremia and hyperkalemia, significantly improved. 5 coronary artery disease, Plavix is presently on hold, patient is on heparin. Acute non-ST elevation myocardial infarction is strongly suspected based on his elevated troponins and based on the dramatic worsening of his echocardiogram with severe LV dysfunction. That is being addressed by cardiology on the case. 6 chronic anemia 7 acute on chronic kidney disease, possibly acute kidney injury, being followed by nephrology, consultation was initiated today. 8 chronic obstructive pulmonary disease, supposedly moderately severe. Patient is normally on updrafts at home. But not O2 dependent. 9 history of CVA and history of hydrocephalus requiring OCCUPATIONAL HEALTH COORDINATOR shunt, history of chronic right foot drop. 10 status post right hemiarthroplasty for right hip fracture, patient is postoperative day #6 Recommendation: Continue empiric broad-spectrum antibiotics, patient is now on daptomycin and Zosyn, antibiotics as per infectious disease on the case. Continue treatment as per sepsis protocol, however patient is high risk for developing congestive heart failure considering his poor LV function ejection fraction of 20%. Continue anticoagulation therapy, patient used to be on Plavix, presently on heparin, and he is on heparin as per protocol. Continue insulin drip,, transitioned to sliding scale insulin. Continue bronchodilators Continue incentive spirometry Discussed his condition with his at bedside, and definite improvement noted , however the patient remains critically ill, and not quite ready to be transferred out of the ICU, still requiring significant amount of action, several requiring a significant amount of pressors/norepinephrine. Patient was seen by nephrology today, and his renal issues are being addressed by nephrology. We'll continue to follow. Time with Patient: Less than 30
[2018-07-09 17:20] LABS: Glucose,Whole Blood 219 mg/dL (75-99)
[2018-07-09 21:06] LABS: Glucose,Whole Blood 156 mg/dL (75-99)
[2018-07-09] MEDS: SENNOSIDES-DOCUSATE SODIUM 1 EACH TAB PO SCH (21:56)
[2018-07-10 02:07] LABS: Glucose,Whole Blood 139 mg/dL (75-99)
[2018-07-10 04:47] LABS: Glucose,Whole Blood 145 mg/dL (75-99)
[2018-07-10] MEDS: HEPARIN SOD,PORK IN 0.45% NACL 25,000 UNIT in 0.45% NACL 1 250ML.BAG IV SCH ×3 (04:50→19:22)
[2018-07-10] MEDS: INSULIN ASPART 100 UNIT/ML 1 ML 10 ML VIAL SQ SCH ×5 (04:52→21:40)
[2018-07-10 05:14] LABS: HCT 21.8 % (39.0-53.0); HGB 7.1 gm/dL (13.0-17.5); Hypochromasia Slight; MCH 30.6 pg (25.0-35.0); MCHC 32.8 g/dL (31.0-37.0); MCV 93.3 fL (80.0-100.0); Mean Platelet Volume 8.5; Platelet Count 250 k/uL (150-450); Poikilocytosis Slight; RBC 2.33 m/uL (4.30-5.90); RDW 14.7 % (11.5-15.5)
[2018-07-10 05:25] LABS: Albumin 2.3 g/dL (3.5-5.0); Calcium 8.4 mg/dL (8.4-10.2); Magnesium 1.7 mg/dL (1.6-2.3); Phosphorus 3.8 mg/dL (2.5-4.5); Potassium 3.5 mmol/L (3.5-5.1); Total Protein 4.5 g/dL (6.3-8.2)
[2018-07-10 05:47] LABS: Appearance,Urine Cloudy (Clear); Bacteria,Urine Rare /hpf; Bilirubin,Urine Negative (Negative); Blood,Urine Negative (Negative); Color,Urine Yellow; Glucose,Urine (UA) Negative (Negative); Ketones,Urine Negative (Negative); Leukocyte Esterase,Urine Negative (Negative); Mucus,Urine Rare /hpf; Nitrite,Urine Negative (Negative); Protein,Urine Trace (Negative); RBC,Urine 1 /hpf (0-5); Specific Gravity,Urine 1.014 (1.001-1.035); Urobilinogen,Urine <2.0 mg/dL (<2.0); WBC,Urine 2 /hpf (0-5)
[2018-07-10] MEDS: PIPERACILLIN-TAZOBACTAM 3.375 GM in SODIUM CHLORIDE 0.9% 100 ML IVPB SCH ×3 (06:04→21:40)
[2018-07-10 07:06] LABS: Glucose,Whole Blood 154 mg/dL (75-99)
--- NOTE | 2018-07-10 07:30 | P.PN ---
Subjective Progress Note Date: 07/10/18 Principal diagnosis: Acute non-ST elevation NM This is a pleasant 78-year-old gentleman who we did see and signed off during this admission, asked to see the patient again because of acute coronary syndrome. 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 He was on the surgical floor last night when he developed sudden onset of shortness of breath associated with change in mental status and he was in acute respiratory distress.The patient ruled in for acute non-ST elevation myocardial infarction with increasing in his troponin from 4- 5. The EKG showed sinus tachycardia. Beside that he was running temperature and there is questionable sepsis, infectious disease was consulted to see the patient. More importantly, the patient creatinine is elevated. Also the d- dimer came in to be abnormal and currently he is on heparin IV. Beside that the patient underwent an echocardiogram after this incident and that showed severe cardiomyopathy with EF around 20% with global hypokinesia. The echocardiogram before surgery showed an ejection fraction of 50%. On follow-up with the patient today, July 102018, overall he is doing better. He is not as in respiratory distress as yesterday and the day before. Beside that now he is hemodynamically stable and he's off the norepinephrine. The hemoglobin this morning is around 7. The creatinine is around 2 which is above his baseline. He continues to be on heparin IV, aspirin, as well as on Plavix. I would suggest the patient to have a VQ scan to assess and rule out a PE and decide about the need for anticoagulation on long-term. Objective - Vital Signs Vital signs: Vital Signs Temp 99.0 F 07/10/18 00:00 Pulse 77 07/10/18 07:00 Resp 14 07/10/18 07:00 BP 101/54 07/10/18 03:00 Pulse Ox 96 07/10/18 07:00 Intake & Output 07/09/18 07/10/18 07/10/18 18:59 06:59 18:59 Intake Total 1923.107 771.162 10 Output Total 910 1215 30 Balance 1013.107 -443.838 -20 Weight 111 kg Intake: IV 220 320 10 0.9 NACL 120 120 10 Piperacillin-Tazobactam 3 100 200 .375 gm In Sodium Chloride 0.9% 100 ml @ 25 mls/hr IVPB Q8H [facility] Rx#: [id number] Intake, IV Titration 313.107 211.162 Amount Heparin Sod,Pork in 0.45% 169.877 183.978 NaCl 25,000 unit In 0.45 % NaCl 1 250ml.bag @ 18 UNITS/KG/HR 19.84 mls/hr IV .[id number] [facility] Rx#: [id number] Norepinephrine 16 mg In 143.230 27.184 Sodium Chloride 0.9% 250 ml @ Titrate IV .Q0M [facility] Rx#:[id number] Oral 1390 240 Output: Urine 910 1215 30 Other: Voiding Method Indwelling Catheter Indwelling Catheter ABP, PAP, CO, CI - Last Documented Arterial Blood Pressure 97/42 - Constitutional General appearance: Present: no acute distress - Respiratory Respiratory: bilateral: diminished - Cardiovascular Rhythm: regular Heart sounds: normal: S1, S2 - Labs CBC & Chem 7: 07/10/18 04:40 07/10/18 04:40 Labs: Abnormal Lab Results - Last 24 Hours (Table) 07/08/18 07/09/18 07/09/18 Range/Units 11:06 04:45 07:57 RBC (4.30-5.90) m/uL Hgb (13.0-17.5) gm/dL Hct (39.0-53.0) % APTT (22.0-30.0) sec Sodium (137-145) mmol/L BUN (9-20) mg/dL Creatinine (0.66-1.25) mg/dL Glucose (74-99) mg/dL POC Glucose (mg/dL) 220 H (75-99) mg/dL AST (17-59) U/L ALT (21-72) U/L Creatine Kinase 1092 H* (55-170) U/L Total Protein (6.3-8.2) g/dL Albumin (3.5-5.0) g/dL Procalcitonin 4.28 H (0.02-0.09) ng/mL Urine Protein (Negative) Urine Bacteria (None) /hpf Urine Mucus (None) /hpf 07/09/18 07/09/18 07/09/18 Range/Units 12:17 17:05 20:55 RBC (4.30-5.90) m/uL Hgb (13.0-17.5) gm/dL Hct (39.0-53.0) % APTT (22.0-30.0) sec Sodium (137-145) mmol/L BUN (9-20) mg/dL Creatinine (0.66-1.25) mg/dL Glucose (74-99) mg/dL POC Glucose (mg/dL) 163 H 219 H 156 H (75-99) mg/dL AST (17-59) U/L ALT (21-72) U/L Creatine Kinase (55-170) U/L Total Protein (6.3-8.2) g/dL Albumin (3.5-5.0) g/dL Procalcitonin (0.02-0.09) ng/mL Urine Protein (Negative) Urine Bacteria (None) /hpf Urine Mucus (None) /hpf 07/10/18 07/10/18 07/10/18 Range/Units 01:54 04:36 04:40 RBC 2.33 L (4.30-5.90) m/uL Hgb 7.1 L (13.0-17.5) gm/dL Hct 21.8 L (39.0-53.0) % APTT (22.0-30.0) sec Sodium (137-145) mmol/L BUN (9-20) mg/dL Creatinine (0.66-1.25) mg/dL Glucose (74-99) mg/dL POC Glucose (mg/dL) 139 H 145 H (75-99) mg/dL AST (17-59) U/L ALT (21-72) U/L Creatine Kinase (55-170) U/L Total Protein (6.3-8.2) g/dL Albumin (3.5-5.0) g/dL Procalcitonin (0.02-0.09) ng/mL Urine Protein (Negative) Urine Bacteria (None) /hpf Urine Mucus (None) /hpf 07/10/18 07/10/18 07/10/18 Range/Units 04:40 04:40 06:55 RBC (4.30-5.90) m/uL Hgb (13.0-17.5) gm/dL Hct (39.0-53.0) % APTT 52.1 H (22.0-30.0) sec Sodium 135 L (137-145) mmol/L BUN 61 H (9-20) mg/dL Creatinine 2.47 H (0.66-1.25) mg/dL Glucose 133 H (74-99) mg/dL POC Glucose (mg/dL) (75-99) mg/dL AST 152 H (17-59) U/L ALT 116 H (21-72) U/L Creatine Kinase (55-170) U/L Total Protein 4.5 L (6.3-8.2) g/dL Albumin 2.3 L (3.5-5.0) g/dL Procalcitonin (0.02-0.09) ng/mL Urine Protein Trace H (Negative) Urine Bacteria Rare H (None) /hpf Urine Mucus Rare H (None) /hpf 07/10/18 Range/Units 06:55 RBC (4.30-5.90) m/uL Hgb (13.0-17.5) gm/dL Hct (39.0-53.0) % APTT (22.0-30.0) sec Sodium (137-145) mmol/L BUN (9-20) mg/dL Creatinine (0.66-1.25) mg/dL Glucose (74-99) mg/dL POC Glucose (mg/dL) 154 H (75-99) mg/dL AST (17-59) U/L ALT (21-72) U/L Creatine Kinase (55-170) U/L Total Protein (6.3-8.2) g/dL Albumin (3.5-5.0) g/dL Procalcitonin (0.02-0.09) ng/mL Urine Protein (Negative) Urine Bacteria (None) /hpf Urine Mucus (None) /hpf Microbiology - Last 24 Hours (Table) 07/07/18 05:25 Gram Stain - Final Buttock Wound Culture - Final 07/07/18 05:40 Blood Culture - Preliminary Blood No Growth after 48 hours 07/07/18 05:56 Blood Culture - Preliminary Blood No Growth after 48 hours Assessment and Plan Assessment: Assessment #1 acute respiratory distress #2 possible pulmonary embolization #3 possible sepsis of unknown source #4 acute non-ST patient myocardial infarction, type I versus type II #4 severe cardiomyopathy with significant drop in the left ventricle systolic function #5 acute on chronic renal failure Plan #1 I did recommend a conservative medical approach for the non-ST elevation NM. In the absence of any chest pain or chest discomfort and in the presence of renal failure #2 dual antiplatelet therapy with aspirin and Plavix #3 continue heparin #4 I would suggest obtaining a VQ scan to rule out a PE and assess for the need of long-term anticoagulation #5 follow-up with the patient
[2018-07-10] MEDS: ALBUTEROL NEBULIZED 2.5 MG/3 ML INHALATION SCH ×2 (08:26→20:58)
--- NOTE | 2018-07-10 09:09 | XR ---
EXAMINATION TYPE: XR chest 1V portable DATE OF EXAM: 07/10/2018 COMPARISON: 07/09/2018 HISTORY: Shortness of breath TECHNIQUE: Single frontal view of the chest is obtained. FINDINGS: Postop change noted to the cervical spine. Suspect ventriculoperitoneal shunt tubing is pl tom on the right. Cardiac leads are noted. Heart size is stable and enlarged. Pleural calcifications suspected along the right hemidiaphragm. Increased density at the left lung base obscures the hemidia phragm. No pneumothorax. Interstitium is increased. Postop changes to the shoulders again noted. IMPRESSION: 1. Left-sided consolidation and pleural effusion. Correlate for pneumonia. 2. Correlate for asbestos related disease.
[2018-07-10] MEDS: PARoxetine 20 MG TAB PO SCH ×2 (09:37→21:40)
[2018-07-10] MEDS: CLOPIDOGREL 75 MG TAB PO SCH (09:37)
[2018-07-10] MEDS: ASPIRIN 81 MG PO SCH (09:37)
[2018-07-10] MEDS: INSULIN DETEMIR 100 UNIT/ML 10 ML VIAL SQ SCH (09:39)
[2018-07-10] MEDS ORDERED: POTASSIUM CHLORIDE ER 20 MEQ TAB.ER PO STA (09:45)
[2018-07-10] MEDS ORDERED: FUROSEMIDE 10 MG/ML 4 ML VIAL IV STA (09:46)
[2018-07-10] MEDS ORDERED: MAGNESIUM SULFATE-D5W PMX 1 GM in DEXTROSE/WATER 1 100ML.BAG IVPB ONE (10:00)
--- NOTE | 2018-07-10 10:01 | US ---
EXAMINATION TYPE: US venous doppler duplex LE DATE OF EXAM: 07/10/2018 9:12 AM COMPARISON: NONE CLINICAL HISTORY: edema, DVT. SIDE PERFORMED: Bilateral TECHNIQUE: The lower extremity deep venous system is examined utilizing real time linear array sonog madai with graded compression, doppler sonography and color-flow sonography. VESSELS IMAGED: Femoral Vein Popliteal Vein Small Saphenous Vein * Proximal Calf Veins (* superficial vessels) Unable to achieve images in bilateral groins, Triple lum central line in rt groin; bandaging and cat heter at lt groin Right Leg: Negative for DVT Left Leg: Negative for DVT No evidence of DVT on very limited study IMPRESSION: 1. No diagnostic evidence of DVT as visualized. See above regarding limitations of the exam.
--- NOTE | 2018-07-10 10:22 | P.PN ---
Subjective Patient is seen in follow-up for acute kidney injury. Patient had a fall and was noted to have right femoral neck fracture and underwent right hip hemiarthroplasty on July 03. Patient was transferred to the intensive care unit for hypotension. He is currently off Levophed. He is nonoliguric. Renal function stable. Vital signs are stable. General: The patient appeared well nourished and normally developed. HEENT: Head exam is unremarkable. Neck is without jugular venous distension. LUNGS: Lungs are clear to auscultation and percussion. Breath sounds decreased. HEART: Rate and Rhythm are regular. First and second heart sounds normal. No murmurs, rubs or gallops. ABDOMEN: Abdominal exam reveals normal bowel sounds. Non-tender and non- distended. No evidence of peritonitis. EXTREMITITES: 1+ edema. Objective - Vital Signs Vital signs: Vital Signs Temp 98.5 F 07/10/18 08:00 Pulse 81 07/10/18 09:00 Resp 30 H 07/10/18 09:00 BP 94/47 07/10/18 09:00 Pulse Ox 92 L 07/10/18 09:00 Intake & Output 07/09/18 07/10/18 07/10/18 18:59 06:59 18:59 Intake Total 1923.107 771.162 73.015 Output Total 910 1215 30 Balance 1013.107 -443.838 43.015 Weight 111 kg Intake: IV 220 320 10 0.9 NACL 120 120 10 Piperacillin-Tazobactam 3 100 200 .375 gm In Sodium Chloride 0.9% 100 ml @ 25 mls/hr IVPB Q8H [facility] Rx#: [id number] Intake, IV Titration 313.107 211.162 63.015 Amount Heparin Sod,Pork in 0.45% 169.877 183.978 63.015 NaCl 25,000 unit In 0.45 % NaCl 1 250ml.bag @ 18 UNITS/KG/HR 19.84 mls/hr IV .[id number] [facility] Rx#: [id number] Norepinephrine 16 mg In 143.230 27.184 Sodium Chloride 0.9% 250 ml @ Titrate IV .Q0M [facility] Rx#:[id number] Oral 1390 240 Output: Urine 910 1215 30 Other: Voiding Method Indwelling Catheter Indwelling Catheter ABP, PAP, CO, CI - Last Documented Arterial Blood Pressure 97/40 - Labs CBC & Chem 7: 07/10/18 04:40 07/10/18 04:40 Labs: Abnormal Lab Results - Last 24 Hours (Table) 07/08/18 07/09/18 07/09/18 Range/Units 11:06 04:45 12:17 RBC (4.30-5.90) m/uL Hgb (13.0-17.5) gm/dL Hct (39.0-53.0) % APTT (22.0-30.0) sec Sodium (137-145) mmol/L BUN (9-20) mg/dL Creatinine (0.66-1.25) mg/dL Glucose (74-99) mg/dL POC Glucose (mg/dL) 163 H (75-99) mg/dL AST (17-59) U/L ALT (21-72) U/L Creatine Kinase 1092 H* (55-170) U/L Total Protein (6.3-8.2) g/dL Albumin (3.5-5.0) g/dL Procalcitonin 4.28 H (0.02-0.09) ng/mL Urine Protein (Negative) Urine Bacteria (None) /hpf Urine Mucus (None) /hpf 07/09/18 07/09/18 07/10/18 Range/Units 17:05 20:55 01:54 RBC (4.30-5.90) m/uL Hgb (13.0-17.5) gm/dL Hct (39.0-53.0) % APTT (22.0-30.0) sec Sodium (137-145) mmol/L BUN (9-20) mg/dL Creatinine (0.66-1.25) mg/dL Glucose (74-99) mg/dL POC Glucose (mg/dL) 219 H 156 H 139 H (75-99) mg/dL AST (17-59) U/L ALT (21-72) U/L Creatine Kinase (55-170) U/L Total Protein (6.3-8.2) g/dL Albumin (3.5-5.0) g/dL Procalcitonin (0.02-0.09) ng/mL Urine Protein (Negative) Urine Bacteria (None) /hpf Urine Mucus (None) /hpf 07/10/18 07/10/18 07/10/18 Range/Units 04:36 04:40 04:40 RBC 2.33 L (4.30-5.90) m/uL Hgb 7.1 L (13.0-17.5) gm/dL Hct 21.8 L (39.0-53.0) % APTT (22.0-30.0) sec Sodium 135 L (137-145) mmol/L BUN 61 H (9-20) mg/dL Creatinine 2.47 H (0.66-1.25) mg/dL Glucose 133 H (74-99) mg/dL POC Glucose (mg/dL) 145 H (75-99) mg/dL AST 152 H (17-59) U/L ALT 116 H (21-72) U/L Creatine Kinase (55-170) U/L Total Protein 4.5 L (6.3-8.2) g/dL Albumin 2.3 L (3.5-5.0) g/dL Procalcitonin (0.02-0.09) ng/mL Urine Protein (Negative) Urine Bacteria (None) /hpf Urine Mucus (None) /hpf 07/10/18 07/10/18 07/10/18 Range/Units 04:40 06:55 06:55 RBC (4.30-5.90) m/uL Hgb (13.0-17.5) gm/dL Hct (39.0-53.0) % APTT 52.1 H (22.0-30.0) sec Sodium (137-145) mmol/L BUN (9-20) mg/dL Creatinine (0.66-1.25) mg/dL Glucose (74-99) mg/dL POC Glucose (mg/dL) 154 H (75-99) mg/dL AST (17-59) U/L ALT (21-72) U/L Creatine Kinase (55-170) U/L Total Protein (6.3-8.2) g/dL Albumin (3.5-5.0) g/dL Procalcitonin (0.02-0.09) ng/mL Urine Protein Trace H (Negative) Urine Bacteria Rare H (None) /hpf Urine Mucus Rare H (None) /hpf Microbiology - Last 24 Hours (Table) 07/07/18 05:40 Blood Culture - Preliminary Blood No Growth after 72 hours 07/07/18 05:56 Blood Culture - Preliminary Blood No Growth after 72 hours 07/07/18 05:25 Gram Stain - Final Buttock Wound Culture - Final Assessment and Plan Plan: Assessment: 1. Acute kidney injury secondary to ATN secondary to hypotension. Creatinine was 1.2 on July 03 and is stable at 2.47 today. No records available from prior to this admission. UA is quite benign. No hydronephrosis noted on kidney ultrasound. Left kidney not fully visualized. 2. NSTEMI maintained on IV heparin. Repeat echocardiogram revealed ejection fraction of less than 20%. 3. Pneumonia maintained on IV antibiotics. 4. Hypotension secondary to shock - cardiogenic versus septic? Currently off vasopressors. 5. Right hip fracture status post hemiarthroplasty this admission. 6. Metabolic acidosis secondary to acute kidney injury. Better. 7. Diabetes mellitus. 8. Anemia. Rule out iron deficiency. Possible component of chronic kidney disease. Plan: Lasix 40 mg IV once today. Avoid nephrotoxins. Continue to monitor renal function and urine output. Check iron studies. Add Aranesp. Potassium and magnesium being replaced.
[2018-07-10] MEDS ORDERED: DARBEPOETIN ALFA 40 MCG/0.4 ML SYRINGE SQ SCH (11:00)
[2018-07-10] MEDS: IPRATROPIUM-ALBUTEROL 3 ML NEB INHALATION PRN (11:55)
[2018-07-10 12:19] LABS: Glucose,Whole Blood 209 mg/dL (75-99)
--- NOTE | 2018-07-10 13:56 | P.PN ---
Subjective Progress Note Date: 07/17/18 Principal diagnosis: Acute hypoxic respiratory failure, sepsis, congestive heart failure. Systolic dysfunction. This is a 78-year-old white male with history of multiple medical problems including coronary artery disease, type 2 diabetes, chronic kidney disease, chronic right foot drop, previous CVA and previous MOTOR WINDER shunt. Underlying COPD, obstructive sleep apnea syndrome, patient was admitted to the hospital on 2018, and he was admitted after a fall sustaining a right hip fracture, patient was admitted, seen by orthopedic surgery on consultation, and he underwent right hip arthroplasty for right upper Patellofemoral neck fracture by Dr. Abernathy on 07/03/2018. Patient is also known to have history of chronic decubitus sacral ulcer. Overnight last night, patient developed changes in mental status. He was also noted to have more difficulty breathing. He was noted to be hypoxic, tachypneic, and he had a low-grade temp of 100.5. The rapid response team from the intensive care unit responded to the patient, he was noted to be metabolically acidotic, his lactic acid was elevated, d-dimer was also elevated, his renal functioning was noted to be worse, and his ABG showed a pO2 of 201, pCO2 was 29 and pH was 7.21. Hence patient was placed on BiPAP, placed on a sodium bicarb drip, antibiotics where broadened spectrum, patient was placed on insulin drip for hyperglycemia, and he was transferred to the ICU. Patient has a DO NOT RESUSCITATE CODE STATUS based on his previously expressed wishes, hence he was managed with BiPAP, and will be managed with mostly antibiotics, fluids, however the patient is known to have history of LV dysfunction and his ejection fraction is about 20%. I saw the patient this morning in the ICU, and I discussed the different issues with his family at bedside. Reviewed all the medications he is presently on, and recommended infectious disease consultation on the patient. His chest x-ray did show evidence of interstitial edema or infiltrate in the left lung. X-rays of the lumbosacral spine showed compression fractures and deformities in the lumbar spine and lower thoracic vertebral. Echocardiogram showed severe global hypokinesis of the left ventricle. His lactic acid was noted to be elevated, 9.6 initially, and it is 7.4 now. Patient received fluid boluses of 1.5 L, hence maintenance IV fluid was placed at 100 mL/h, and sodium bicarb drip was addressed. PTT was over 200 and heparin was adjusted as per protocol. D-dimer was 2.28. Patient is normally on Plavix but presently on heparin Reevaluated today on 07/08/2018, patient remains in the ICU, on BiPAP, remains on antibiotics, bronchodilators, diuretics, patient remains on norepinephrine, presently at 15 g, and this is running through a peripheral IV line, hence I will establish a central IV access today. Patient's x-ray continues to show abnormalities on the left side, mostly interstitial edema-like picture, however the possibility of left lower lobe pneumonia and pleural effusion is not entirely ruled out. Pulmonary status is definitely marginal. His ABG reflected significant improvement in his acidosis, hence I recommended that was stopped sodium bicarb drip today. However what is interesting is the fact that his troponin is significantly high, and his BNP level is quite high at 44 600, troponin is 9.610. Dr. Tadeo seems to be quite concerned about the possibility of non-ST elevation myocardial infarction, and he is treating him as such. Patient is not the most ideal candidate for cardiac catheterization at this point considering his renal functioning. And considering the possibility of ongoing sepsis patient is still hemodynamically requiring significant dose of norepinephrine. I did review the chest x-ray, I recommended diuretics, and I'm still keeping the patient on broad-spectrum antibiotics for presumptive underlying sepsis. Patient was seen by infectious disease on consultation. WBC count is 7.2 hemoglobin is 7.7. PT is 68, however I held the heparin to safely place a central IV access. ABG showed a pO2 of 108 pCO2 of 31 pH of 7.55 and this is on O2 with IPAP of 12 and EPAP of 6. Patient was reevaluated today on 07/09/2018, remains in the ICU, off BiPAP, he is on a high flow nasal cannula at 10 L/m. Chest x-ray is showing improvement in his interstitial edema and possible left lower lobe pneumonia with atelectasis in the left lower lobe, patient remains on norepinephrine at 13 mcg/ m, blood pressure remains marginal. Clinically however the patient is feeling better, breathing easier, and his chest x-ray is clearly showing some improvement. All labs were reviewed, hemoglobin is 7.4 today. WBC count is 8.9. Electrolytes are noted, continues to have anion gap of 15, BUN is 61 creatinine is 2.44, slightly worse compared to the last couple of days, hence considering the patient is diuresing on his own, we'll hold the Lasix for the time being. I believe that renal functioning is mostly cardiorenal in nature patient does have severe LV dysfunction. And has been receiving a significant amount of diuretics since admission to the ICU. Liver enzymes were noted to be slightly elevated/transaminases. CPK was also noted to be elevated at 1092. Renal ultrasound was noted to be unremarkable, however the left kidney could not be visualized with certainly. Patient is feeling better, he is hard of hearing, but he is feeling better today compared to how he felt over the last few days, and seems to be very appropriate. But again has difficulty hearing. Patient was reevaluated today on 07/10/2018. Remains in the intensive care unit , presently on 4 L nasal cannula. He is in normal sinus rhythm, off norepinephrine, continues to have some fluid and consolidation in the left lower lobe area. Clinically however the patient is feeling much better. Venous Doppler of the leg was negative. And I see no value of ordering a VQ scan on this patient, because my index of suspicion for pulmonary embolism is extremely low. Patient does not have thromboembolic disease. However his heparin was initially started with the assumption that the patient had atrial fibrillation he also had LV dysfunction, and significantly elevated troponins. We felt that the reason we started heparin was mostly because of cardiac issues and not because of pulmonary issues. Pulmonary-amin, the patient is feeling better, his breathing a lot easier, and again he is only on 4 L nasal cannula. Urine output remains good, he received a dose of Lasix today given to him by the shrub planter. Chest x-ray was reviewed, all labs were reviewed, BUN is 61 creatinine is 2.47. Liver enzymes are borderline elevated. Hemoglobin is 7.1, may consider giving the patient a unit of packed RBCs. Objective - Vital Signs Vital signs: Vital Signs Temp 98.5 F 07/10/18 08:00 Pulse 82 07/10/18 13:00 Resp 21 07/10/18 13:00 BP 102/49 07/10/18 12:00 Pulse Ox 95 07/10/18 13:00 Intake & Output 07/09/18 07/10/18 07/10/18 18:59 06:59 18:59 Intake Total 1923.107 771.162 133.015 Output Total 910 1215 360 Balance 1013.107 -443.838 -226.985 Weight 111 kg Intake: IV 220 320 70 0.9 NACL 120 120 70 Piperacillin-Tazobactam 3 100 200 .375 gm In Sodium Chloride 0.9% 100 ml @ 25 mls/hr IVPB Q8H [facility] Rx#: [id number] Intake, IV Titration 313.107 211.162 63.015 Amount Heparin Sod,Pork in 0.45% 169.877 183.978 63.015 NaCl 25,000 unit In 0.45 % NaCl 1 250ml.bag @ 18 UNITS/KG/HR 19.84 mls/hr IV .[id number] [facility] Rx#: [id number] Norepinephrine 16 mg In 143.230 27.184 Sodium Chloride 0.9% 250 ml @ Titrate IV .Q0M [facility] Rx#:[id number] Oral 1390 240 Output: Urine 910 1215 360 Other: Voiding Method Indwelling Catheter Indwelling Catheter Indwelling Catheter # Bowel Movements 1 ABP, PAP, CO, CI - Last Documented Arterial Blood Pressure 109/44 - Exam Physical Exam: Revealed a 78-year-old white male, on 4 L nasal cannula, hard of hearing, but asymptomatic. Head: Atraumatic, normocephalic. HEENT:[Neck is supple.] [No neck masses.] [No thyromegaly.] [No JVD.] PERRLA, EOMI, no icterus. Throat is clear. Moist mucous membranes noted. Chest: [Minimal crackles at the left base, no rhonchi and no wheezes. No chest wall tenderness. Symmetrical expansion noted. Cardiac Exam: [Distant S1 and S2, no S3 gallop, no murmur.] Abdomen: [Soft, nontender, no megaly, no rebound, no guarding, diminished bowel sounds Extremities: [No clubbing, no edema, no cyanosis.] Neurological Exam: Generally weak, right-sided foot drop is noted, hard of hearing, otherwise no gross focal neurologic deficits. Skin: Deep sacral decubitus ulcer noted by the nurse, being addressed by infectious disease on consultation.. Surgical site on the right hip is intact and clean and dry Psychiatric: Normal mood, normal affect, normal mental status examination - Labs CBC & Chem 7: 07/10/18 04:40 07/10/18 04:40 Labs: Abnormal Lab Results - Last 24 Hours (Table) 07/08/18 07/09/18 07/09/18 Range/Units 11:06 17:05 20:55 RBC (4.30-5.90) m/uL Hgb (13.0-17.5) gm/dL Hct (39.0-53.0) % APTT (22.0-30.0) sec Sodium (137-145) mmol/L BUN (9-20) mg/dL Creatinine (0.66-1.25) mg/dL Glucose (74-99) mg/dL POC Glucose (mg/dL) 219 H 156 H (75-99) mg/dL AST (17-59) U/L ALT (21-72) U/L Total Protein (6.3-8.2) g/dL Albumin (3.5-5.0) g/dL Procalcitonin 4.28 H (0.02-0.09) ng/mL Urine Protein (Negative) Urine Bacteria (None) /hpf Urine Mucus (None) /hpf 07/10/18 07/10/18 07/10/18 Range/Units 01:54 04:36 04:40 RBC 2.33 L (4.30-5.90) m/uL Hgb 7.1 L (13.0-17.5) gm/dL Hct 21.8 L (39.0-53.0) % APTT (22.0-30.0) sec Sodium (137-145) mmol/L BUN (9-20) mg/dL Creatinine (0.66-1.25) mg/dL Glucose (74-99) mg/dL POC Glucose (mg/dL) 139 H 145 H (75-99) mg/dL AST (17-59) U/L ALT (21-72) U/L Total Protein (6.3-8.2) g/dL Albumin (3.5-5.0) g/dL Procalcitonin (0.02-0.09) ng/mL Urine Protein (Negative) Urine Bacteria (None) /hpf Urine Mucus (None) /hpf 07/10/18 07/10/18 07/10/18 Range/Units 04:40 04:40 06:55 RBC (4.30-5.90) m/uL Hgb (13.0-17.5) gm/dL Hct (39.0-53.0) % APTT 52.1 H (22.0-30.0) sec Sodium 135 L (137-145) mmol/L BUN 61 H (9-20) mg/dL Creatinine 2.47 H (0.66-1.25) mg/dL Glucose 133 H (74-99) mg/dL POC Glucose (mg/dL) (75-99) mg/dL AST 152 H (17-59) U/L ALT 116 H (21-72) U/L Total Protein 4.5 L (6.3-8.2) g/dL Albumin 2.3 L (3.5-5.0) g/dL Procalcitonin (0.02-0.09) ng/mL Urine Protein Trace H (Negative) Urine Bacteria Rare H (None) /hpf Urine Mucus Rare H (None) /hpf 07/10/18 07/10/18 Range/Units 06:55 12:07 RBC (4.30-5.90) m/uL Hgb (13.0-17.5) gm/dL Hct (39.0-53.0) % APTT (22.0-30.0) sec Sodium (137-145) mmol/L BUN (9-20) mg/dL Creatinine (0.66-1.25) mg/dL Glucose (74-99) mg/dL POC Glucose (mg/dL) 154 H 209 H (75-99) mg/dL AST (17-59) U/L ALT (21-72) U/L Total Protein (6.3-8.2) g/dL Albumin (3.5-5.0) g/dL Procalcitonin (0.02-0.09) ng/mL Urine Protein (Negative) Urine Bacteria (None) /hpf Urine Mucus (None) /hpf Microbiology - Last 24 Hours (Table) 07/07/18 05:40 Blood Culture - Preliminary Blood No Growth after 72 hours 07/07/18 05:56 Blood Culture - Preliminary Blood No Growth after 72 hours Assessment and Plan Assessment: Impression: 1 acute hypoxic respiratory failure secondary to sepsis, most likely source is his sacral ulcer. Although other possibilities including urine and pneumonia not entirely ruled out. But felt to be less likely. On 4 L nasal cannula presently. 2 acute lactic acidosis secondary to sepsis improving. 3 severe LV dysfunction, ejection fraction of 20%, patient is high risk for developing congestive heart failure and pulmonary edema with treatment of sepsis and fluids. Given a dose of Lasix earlier today by nephrology. 4 electrolytes imbalance including hyponatremia and hyperkalemia, resolved 5 coronary artery disease, Plavix is presently on hold, patient is on heparin. Acute non-ST elevation myocardial infarction is strongly suspected based on his elevated troponins and based on the dramatic worsening of his echocardiogram with severe LV dysfunction. That is being addressed by cardiology on the case. 6 chronic anemia 7 acute on chronic kidney disease, possibly acute kidney injury, being followed by nephrology, consultation was initiated today. 8 chronic obstructive pulmonary disease, supposedly moderately severe. Patient is normally on updrafts at home. 9 history of CVA and history of hydrocephalus requiring MOTOR WINDER shunt, history of chronic right foot drop. 10 status post right hemiarthroplasty for right hip fracture, patient is postoperative day #7 Recommendation: Continue empiric broad-spectrum antibiotics, patient is now on daptomycin and Zosyn, antibiotics as per infectious disease on the case. Continue treatment as per sepsis protocol, however patient is high risk for developing congestive heart failure considering his poor LV function ejection fraction of 20%. Continue anticoagulation therapy, patient used to be on Plavix, presently on heparin, and he is on heparin as per protocol. Continue insulin drip,, transitioned to sliding scale insulin. Continue bronchodilators Continue incentive spirometry Plan is to continue to monitor the patient for another day in the intensive care unit, consider transferring him out of the ICU in the next 24 hours, continues to have lots of complex medical problems as noted above, prognosis in the long run remains guarded especially with his LV dysfunction and his underlying COPD. Patient again is being followed by multiple consultants Time with Patient: Less than 30
--- NOTE | 2018-07-10 14:52 | P.PN ---
Subjective Progress Note Date: 07/10/18 (Delayed charting patient seen at 0810) Principal diagnosis: Hypotension Patient is a 78-year-old male past medical history of coronary artery disease, congestive heart failure, diabetes, and hearing loss who presented to our facility as a transfer for orthopedic evaluation. He was trying to get on his exercise bike when he sustained a mechanical fall. At the outside hospital he was found to have a right hip fracture. Upon review of records from prior hospitalization he has found to have acidosis, hyperkalemia, anemia, and elevated creatinine. He was subsequently administered insulin and dextrose, he was started on IV fluids, repeat ABG was obtained and he was started on BiPAP therapy. Initial echocardiogram showed preserved ejection fraction at 55 to 60% . He was seen by cardiology and his Lopressor was decreased to 12.5 daily, his amiodarone was discontinued and Plavix was held in light of probable need for surgery. Patient underwent a right hemiarthroplasty on 07/03/18. Initially he tolerated the procedure well. His acidosis seemed to be improving. He was noted to have a hemoglobin drop on 07/05 at 10.2-8.3. He had been working with therapy and progressing well. On the morning of 07/07 he went into acute mental status changes associated with difficulty in breathing. He was found to be hypoxic and an EKG showed a new left bundle branch block with underlying A. fib rhythm. This was discussed with cardiology who recommended a stat echocardiogram as troponins came back at 3.7. Stat echo revealed a decreased ejection fraction of less than 20%. He was also noted to have worsening acidosis and was placed on a bicarb drip. He was transferred to the ICU for close monitoring. There was concern for possible pneumonia and he was empirically started on Zosyn and daptomycin due to vancomycin ALLERGY. Patient was seen by Dr. Garcia who felt he could have possible sepsis and echo and Zosyn were continued. He also was found to have deep sacral decubitus ulcer, he did suffer a fall prior to admission. His statin was held due to elevated CPKs. He developed hypotension on the morning of 07/08 and required levophed to be started. His reanl function continued to worsen despite optimization of his blood pressures. He was seen by nephrology. He was able to be weaned off BIPAP and levophed by the morning of 07/10. Patient seen and examined at bedside. Off BiPap, No chest chest pain, no shortness of breath, no nausea, all questions answered. Objective - Vital Signs Vital signs: Vital Signs Temp 98.5 F 07/10/18 08:00 Pulse 80 07/10/18 14:00 Resp 28 H 07/10/18 14:00 BP 102/49 07/10/18 12:00 Pulse Ox 95 07/10/18 14:00 Intake & Output 07/09/18 07/10/18 07/10/18 18:59 06:59 18:59 Intake Total 1923.107 771.162 243.015 Output Total 910 1215 460 Balance 1013.107 -443.838 -216.985 Weight 111 kg Intake: IV 220 320 180 0.9 NACL 120 120 80 Piperacillin-Tazobactam 3 100 200 100 .375 gm In Sodium Chloride 0.9% 100 ml @ 25 mls/hr IVPB Q8H [facility] Rx#: [id number] Intake, IV Titration 313.107 211.162 63.015 Amount Heparin Sod,Pork in 0.45% 169.877 183.978 63.015 NaCl 25,000 unit In 0.45 % NaCl 1 250ml.bag @ 18 UNITS/KG/HR 19.84 mls/hr IV .[id number] [facility] Rx#: [id number] Norepinephrine 16 mg In 143.230 27.184 Sodium Chloride 0.9% 250 ml @ Titrate IV .Q0M [facility] Rx#:[id number] Oral 1390 240 Output: Urine 910 1215 460 Other: Voiding Method Indwelling Catheter Indwelling Catheter Indwelling Catheter # Bowel Movements 1 ABP, PAP, CO, CI - Last Documented Arterial Blood Pressure 104/46 - Exam General:Non toxic, no distress, appears at stated age, [place] Derm: warm, dry Head: atraumatic, normocephalic, symmetric Eyes: EOMI, no lid lag, anicteric sclera Mouth: no lip lesion, mucus membranes moist Cardiovascular: S1S2 reg, no murmur, positive posterior tibial pulse bilateral, Lungs: decreased bs b/l bases, no rhonchi, no rales , no accessory muscle use, Abdominal: soft, nontender to palpation, no guarding, no appreciable organomegaly Ext: no gross muscle atrophy, no edema, no contractures Neuro: CN II-XI grossly intact, no focal neuro deficits Psych: Alert, Awake, appropriate affect - Labs CBC & Chem 7: 07/10/18 04:40 07/10/18 04:40 Labs: Abnormal Lab Results - Last 24 Hours (Table) 07/08/18 07/09/18 07/09/18 Range/Units 11:06 17:05 20:55 RBC (4.30-5.90) m/uL Hgb (13.0-17.5) gm/dL Hct (39.0-53.0) % APTT (22.0-30.0) sec Sodium (137-145) mmol/L BUN (9-20) mg/dL Creatinine (0.66-1.25) mg/dL Glucose (74-99) mg/dL POC Glucose (mg/dL) 219 H 156 H (75-99) mg/dL AST (17-59) U/L ALT (21-72) U/L Total Protein (6.3-8.2) g/dL Albumin (3.5-5.0) g/dL Procalcitonin 4.28 H (0.02-0.09) ng/mL Urine Protein (Negative) Urine Bacteria (None) /hpf Urine Mucus (None) /hpf 07/10/18 07/10/18 07/10/18 Range/Units 01:54 04:36 04:40 RBC 2.33 L (4.30-5.90) m/uL Hgb 7.1 L (13.0-17.5) gm/dL Hct 21.8 L (39.0-53.0) % APTT (22.0-30.0) sec Sodium (137-145) mmol/L BUN (9-20) mg/dL Creatinine (0.66-1.25) mg/dL Glucose (74-99) mg/dL POC Glucose (mg/dL) 139 H 145 H (75-99) mg/dL AST (17-59) U/L ALT (21-72) U/L Total Protein (6.3-8.2) g/dL Albumin (3.5-5.0) g/dL Procalcitonin (0.02-0.09) ng/mL Urine Protein (Negative) Urine Bacteria (None) /hpf Urine Mucus (None) /hpf 07/10/18 07/10/18 07/10/18 Range/Units 04:40 04:40 06:55 RBC (4.30-5.90) m/uL Hgb (13.0-17.5) gm/dL Hct (39.0-53.0) % APTT 52.1 H (22.0-30.0) sec Sodium 135 L (137-145) mmol/L BUN 61 H (9-20) mg/dL Creatinine 2.47 H (0.66-1.25) mg/dL Glucose 133 H (74-99) mg/dL POC Glucose (mg/dL) (75-99) mg/dL AST 152 H (17-59) U/L ALT 116 H (21-72) U/L Total Protein 4.5 L (6.3-8.2) g/dL Albumin 2.3 L (3.5-5.0) g/dL Procalcitonin (0.02-0.09) ng/mL Urine Protein Trace H (Negative) Urine Bacteria Rare H (None) /hpf Urine Mucus Rare H (None) /hpf 07/10/18 07/10/18 Range/Units 06:55 12:07 RBC (4.30-5.90) m/uL Hgb (13.0-17.5) gm/dL Hct (39.0-53.0) % APTT (22.0-30.0) sec Sodium (137-145) mmol/L BUN (9-20) mg/dL Creatinine (0.66-1.25) mg/dL Glucose (74-99) mg/dL POC Glucose (mg/dL) 154 H 209 H (75-99) mg/dL AST (17-59) U/L ALT (21-72) U/L Total Protein (6.3-8.2) g/dL Albumin (3.5-5.0) g/dL Procalcitonin (0.02-0.09) ng/mL Urine Protein (Negative) Urine Bacteria (None) /hpf Urine Mucus (None) /hpf Microbiology - Last 24 Hours (Table) 07/07/18 05:40 Blood Culture - Preliminary Blood No Growth after 72 hours 07/07/18 05:56 Blood Culture - Preliminary Blood No Growth after 72 hours Assessment and Plan Assessment: Left sided PNA with sepsis - dapto, zosyn, IVF, await sputum and blood cultures - ID recs - procalcitionin 4.28 NSTEMI, 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% - ASA, PLAVIX, , Heparin gtt, - statin on hold due to elevated CK - Cardio recs: medical management at this point in time, may need cath in the future - BB and ACEI on hold due to low BP/JOSE- if BP stable in AM add low dose coreg Acute hypoxic respiratory failure - Improving and off bipap - VQ scan ordered to eval cause, however canceled by pulmonary - B/L LE venous dopplers negative. JOSE on CKD - Baseline Cr unknown - off IVF - avoid additional nephrotoxic agents - Nephro recs appreciated - maintain MAP >65 - renal US left kidney not visualized right normal - monitor urine output adequate Right hip fracture - Ortho recs: D/W Cuong HUBER will add orders to D/C tab - Pain control - PT/OT start today Hyponatremia, stable - follow BMP Tranamintis, improving - suspect due to hypoperfusion - follow liver enzymes Acute encephalopathy, improving - treatment of infection and supportive care COPD, without exacerbation -continue home regiment P. A. fib - tele - amio IV completed - Heparin gtt, may be discontinued per cardio, no recurrent A fib documented Diabetes Mellitus - off actos, glimepiride, metformin - SSI, levemir increased - A1C 6.7 Dyslipidemia - Statin on hold due to elevated CK Deep tissue injury - frequent turns - ID recs Lactic acidosis, improving hyperkalemia, resolved Mixed respiratory and metabolic acidosis, improved Septic shock, resolved DVT prophylaxis: Heparin gtt Discussed with: Patient, nursing Anticipated discharge: 2-[address]: rehab A total of 35 minutes was spent on the care of this complex patient more than 50 % of the time was spent in counseling and care coordination.
--- NOTE | 2018-07-10 16:13 | P.PN ---
Subjective Progress Note Date: 07/10/18 Principal diagnosis: Status post right hip hemiarthroplasty Patient evaluated today today at bedside in the ICU. He is resting comfortably. Pain is controlled. Objective - Vital Signs Vital signs: Vital Signs Temp 98.5 F 07/10/18 08:00 Pulse 83 07/10/18 15:00 Resp 20 07/10/18 15:00 BP 102/49 07/10/18 12:00 Pulse Ox 95 07/10/18 14:00 Intake & Output 07/09/18 07/10/18 07/10/18 18:59 06:59 18:59 Intake Total 1923.107 771.162 253.015 Output Total 910 1215 505 Balance 1013.107 -443.838 -251.985 Weight 111 kg Intake: IV 220 320 190 0.9 NACL 120 120 90 Piperacillin-Tazobactam 3 100 200 100 .375 gm In Sodium Chloride 0.9% 100 ml @ 25 mls/hr IVPB Q8H [facility] Rx#: [id number] Intake, IV Titration 313.107 211.162 63.015 Amount Heparin Sod,Pork in 0.45% 169.877 183.978 63.015 NaCl 25,000 unit In 0.45 % NaCl 1 250ml.bag @ 18 UNITS/KG/HR 19.84 mls/hr IV .[id number] [facility] Rx#: [id number] Norepinephrine 16 mg In 143.230 27.184 Sodium Chloride 0.9% 250 ml @ Titrate IV .Q0M [facility] Rx#:[id number] Oral 1390 240 Output: Urine 910 1215 505 Other: Voiding Method Indwelling Catheter Indwelling Catheter Indwelling Catheter # Bowel Movements 1 ABP, PAP, CO, CI - Last Documented Arterial Blood Pressure 109/49 - Exam Right lower extremity: Incision is clean dry and intact. Distal neurovascular exam intact. Calf is soft , no tenderness with palpation - Labs CBC & Chem 7: 07/10/18 04:40 07/10/18 04:40 Labs: Abnormal Lab Results - Last 24 Hours (Table) 07/08/18 07/09/18 07/09/18 Range/Units 11:06 17:05 20:55 RBC (4.30-5.90) m/uL Hgb (13.0-17.5) gm/dL Hct (39.0-53.0) % APTT (22.0-30.0) sec Sodium (137-145) mmol/L BUN (9-20) mg/dL Creatinine (0.66-1.25) mg/dL Glucose (74-99) mg/dL POC Glucose (mg/dL) 219 H 156 H (75-99) mg/dL AST (17-59) U/L ALT (21-72) U/L Total Protein (6.3-8.2) g/dL Albumin (3.5-5.0) g/dL Procalcitonin 4.28 H (0.02-0.09) ng/mL Urine Protein (Negative) Urine Bacteria (None) /hpf Urine Mucus (None) /hpf 07/10/18 07/10/18 07/10/18 Range/Units 01:54 04:36 04:40 RBC 2.33 L (4.30-5.90) m/uL Hgb 7.1 L (13.0-17.5) gm/dL Hct 21.8 L (39.0-53.0) % APTT (22.0-30.0) sec Sodium (137-145) mmol/L BUN (9-20) mg/dL Creatinine (0.66-1.25) mg/dL Glucose (74-99) mg/dL POC Glucose (mg/dL) 139 H 145 H (75-99) mg/dL AST (17-59) U/L ALT (21-72) U/L Total Protein (6.3-8.2) g/dL Albumin (3.5-5.0) g/dL Procalcitonin (0.02-0.09) ng/mL Urine Protein (Negative) Urine Bacteria (None) /hpf Urine Mucus (None) /hpf 07/10/18 07/10/18 07/10/18 Range/Units 04:40 04:40 06:55 RBC (4.30-5.90) m/uL Hgb (13.0-17.5) gm/dL Hct (39.0-53.0) % APTT 52.1 H (22.0-30.0) sec Sodium 135 L (137-145) mmol/L BUN 61 H (9-20) mg/dL Creatinine 2.47 H (0.66-1.25) mg/dL Glucose 133 H (74-99) mg/dL POC Glucose (mg/dL) (75-99) mg/dL AST 152 H (17-59) U/L ALT 116 H (21-72) U/L Total Protein 4.5 L (6.3-8.2) g/dL Albumin 2.3 L (3.5-5.0) g/dL Procalcitonin (0.02-0.09) ng/mL Urine Protein Trace H (Negative) Urine Bacteria Rare H (None) /hpf Urine Mucus Rare H (None) /hpf 07/10/18 07/10/18 Range/Units 06:55 12:07 RBC (4.30-5.90) m/uL Hgb (13.0-17.5) gm/dL Hct (39.0-53.0) % APTT (22.0-30.0) sec Sodium (137-145) mmol/L BUN (9-20) mg/dL Creatinine (0.66-1.25) mg/dL Glucose (74-99) mg/dL POC Glucose (mg/dL) 154 H 209 H (75-99) mg/dL AST (17-59) U/L ALT (21-72) U/L Total Protein (6.3-8.2) g/dL Albumin (3.5-5.0) g/dL Procalcitonin (0.02-0.09) ng/mL Urine Protein (Negative) Urine Bacteria (None) /hpf Urine Mucus (None) /hpf Microbiology - Last 24 Hours (Table) 07/07/18 05:40 Blood Culture - Preliminary Blood No Growth after 72 hours 07/07/18 05:56 Blood Culture - Preliminary Blood No Growth after 72 hours Assessment and Plan Plan: Assessment: Status post right hip hemiarthroplasty Plan: Pain control, continue current medication GI and DVT prophylaxis, per medical recommendations Continue work with physical therapy Other medical specialty recommendations Discharge planning: On a orthopedic standpoint patient remains stable. Ortho recommendations have been placed in discharge instruction section. We will be available for any other questions. Time with Patient: Less than 30
[2018-07-10 16:44] LABS: Iron Saturation 7.56 (15.00-50.00)
[2018-07-10 17:08] LABS: Glucose,Whole Blood 147 mg/dL (75-99)
[2018-07-10] MEDS: NICOTINE 14MG/24HR PATCH TRANSDERM SCH (17:20)
[2018-07-10 20:51] LABS: Glucose,Whole Blood 139 mg/dL (75-99)
[2018-07-10] MEDS: SENNOSIDES-DOCUSATE SODIUM 1 EACH TAB PO SCH (21:40)
[2018-07-11] MEDS: INSULIN ASPART 100 UNIT/ML 1 ML 10 ML VIAL SQ SCH ×5 (02:27→22:11)
[2018-07-11 02:37] LABS: Glucose,Whole Blood 123 mg/dL (75-99)
[2018-07-11 06:09] LABS: HCT 24.3 % (39.0-53.0); HGB 7.6 gm/dL (13.0-17.5); Hypochromasia Moderate; MCH 30.7 pg (25.0-35.0); MCHC 31.4 g/dL (31.0-37.0); MCV 97.9 fL (80.0-100.0); Platelet Count 274 k/uL (150-450); Poikilocytosis Slight; RBC 2.48 m/uL (4.30-5.90); RDW 14.6 % (11.5-15.5); WBC 6.4 k/uL (3.8-10.6)
[2018-07-11 06:11] LABS: Albumin 2.6 g/dL (3.5-5.0); Calcium 8.7 mg/dL (8.4-10.2); Phosphorus 4.3 mg/dL (2.5-4.5); Total Bilirubin 1.1 mg/dL (0.2-1.3)
[2018-07-11] MEDS: PIPERACILLIN-TAZOBACTAM 3.375 GM in SODIUM CHLORIDE 0.9% 100 ML IVPB SCH ×3 (06:30→21:04)
[2018-07-11] MEDS: HEPARIN SOD,PORK IN 0.45% NACL 25,000 UNIT in 0.45% NACL 1 250ML.BAG IV SCH (06:30)
[2018-07-11] MEDS: DAPTOmycin 500 MG in SODIUM CHLORIDE 0.9% 50 ML IVPB SCH (06:36)
[2018-07-11 07:09] LABS: Glucose,Whole Blood 147 mg/dL (75-99)
--- NOTE | 2018-07-11 07:47 | P.PN ---
Subjective Progress Note Date: 07/11/18 Principal diagnosis: Acute non-ST elevation CT This is a pleasant 78-year-old gentleman who we did see and signed off during this admission, asked to see the patient again because of acute coronary syndrome. The patient is a 78-year-old with history of coronary artery disease and status post CABG, does follow with a grant specialist at [facility], hypertension, and dyslipidemia, was admitted to the hospital and underwent right hip surgery which was uneventful. He was on the surgical floor last night when he developed sudden onset of shortness of breath associated with change in mental status and he was in acute respiratory distress.The patient ruled in for acute non-ST elevation myocardial infarction with increasing in his troponin from 4- 5. The EKG showed sinus tachycardia. Beside that he was running temperature and there is questionable sepsis, infectious disease was consulted to see the patient. More importantly, the patient creatinine is elevated. Also the d- dimer came in to be abnormal and currently he is on heparin IV. Beside that the patient underwent an echocardiogram after this incident and that showed severe cardiomyopathy with EF around 20% with global hypokinesia. The echocardiogram before surgery showed an ejection fraction of 50%. On follow-up with the patient today, July [id number], overall he is doing better. He is not as in respiratory distress as yesterday and the day before. Beside that now he is hemodynamically stable and he's off the norepinephrine. The hemoglobin this morning is around 7. The creatinine is around 2 which is above his baseline. He continues to be on heparin IV, aspirin, as well as on Plavix. I would suggest the patient to have a VQ scan to assess and rule out a PE and decide about the need for anticoagulation on long-term. Objective - Vital Signs Vital signs: Vital Signs Temp 97.4 F L 07/11/18 00:00 Pulse 71 07/11/18 07:00 Resp 28 H 07/11/18 07:00 BP 85/56 07/11/18 06:00 Pulse Ox 95 07/11/18 07:00 Intake & Output 07/10/18 07/11/18 07/11/18 18:59 06:59 18:59 Intake Total 283.015 720.028 10 Output Total 615 647 40 Balance -331.985 73.028 -30 Weight 113 kg Intake: IV 220 320 10 0.9 NACL 120 120 10 Piperacillin-Tazobactam 3 100 200 .375 gm In Sodium Chloride 0.9% 100 ml @ 25 mls/hr IVPB Q8H [facility] Rx#: [id number] Intake, IV Titration 63.015 280.028 Amount DAPTOmycin 500 mg In 50 Sodium Chloride 0.9% 50 ml @ 100 mls/hr IVPB Q24H [facility] Rx#:[id number] Heparin Sod,Pork in 0.45% 63.015 230.028 NaCl 25,000 unit In 0.45 % NaCl 1 250ml.bag @ 18 UNITS/KG/HR 19.84 mls/hr IV .[id number] [facility] Rx#: [id number] Oral 120 Output: Urine 615 647 40 Other: Voiding Method Indwelling Catheter Indwelling Catheter # Bowel Movements 1 3 ABP, PAP, CO, CI - Last Documented Arterial Blood Pressure 102/38 - Constitutional General appearance: Present: no acute distress - Respiratory Respiratory: bilateral: diminished - Cardiovascular Heart sounds: normal: S1, S2 - Labs CBC & Chem 7: 07/11/18 05:13 07/11/18 05:13 Labs: Abnormal Lab Results - Last 24 Hours (Table) 07/10/18 07/10/18 07/10/18 Range/Units 04:40 12:07 16:57 RBC (4.30-5.90) m/uL Hgb (13.0-17.5) gm/dL Hct (39.0-53.0) % APTT (22.0-30.0) sec Sodium (137-145) mmol/L BUN (9-20) mg/dL Creatinine (0.66-1.25) mg/dL Glucose (74-99) mg/dL POC Glucose (mg/dL) 209 H 147 H (75-99) mg/dL Iron 17 L (65-175) ug/dL TIBC 225 L (228-460) ug/dL Iron Saturation 7.56 L (15.00-50.00) AST (17-59) U/L ALT (21-72) U/L Total Protein (6.3-8.2) g/dL Albumin (3.5-5.0) g/dL 07/10/18 07/11/18 07/11/18 Range/Units 20:39 02:25 05:13 RBC 2.48 L (4.30-5.90) m/uL Hgb 7.6 L (13.0-17.5) gm/dL Hct 24.3 L (39.0-53.0) % APTT (22.0-30.0) sec Sodium (137-145) mmol/L BUN (9-20) mg/dL Creatinine (0.66-1.25) mg/dL Glucose (74-99) mg/dL POC Glucose (mg/dL) 139 H 123 H (75-99) mg/dL Iron (65-175) ug/dL TIBC (228-460) ug/dL Iron Saturation (15.00-50.00) AST (17-59) U/L ALT (21-72) U/L Total Protein (6.3-8.2) g/dL Albumin (3.5-5.0) g/dL 07/11/18 07/11/18 07/11/18 Range/Units 05:13 06:15 06:57 RBC (4.30-5.90) m/uL Hgb (13.0-17.5) gm/dL Hct (39.0-53.0) % APTT 50.6 H (22.0-30.0) sec Sodium 134 L (137-145) mmol/L BUN 70 H (9-20) mg/dL Creatinine 2.55 H (0.66-1.25) mg/dL Glucose 129 H (74-99) mg/dL POC Glucose (mg/dL) 147 H (75-99) mg/dL Iron (65-175) ug/dL TIBC (228-460) ug/dL Iron Saturation (15.00-50.00) AST 104 H (17-59) U/L ALT 109 H (21-72) U/L Total Protein 5.0 L (6.3-8.2) g/dL Albumin 2.6 L (3.5-5.0) g/dL Microbiology - Last 24 Hours (Table) 07/07/18 05:40 Blood Culture - Preliminary Blood No Growth after 72 hours 07/07/18 05:56 Blood Culture - Preliminary Blood No Growth after 72 hours Assessment and Plan Assessment: Assessment #1 acute respiratory distress #2 possible pulmonary embolization #3 possible sepsis of unknown source #4 acute non-ST patient myocardial infarction, type I versus type II #4 severe cardiomyopathy with significant drop in the left ventricle systolic function #5 acute on chronic renal failure Plan #1 I did recommend a conservative medical approach for the non-ST elevation CT. In the absence of any chest pain or chest discomfort and in the presence of renal failure #2 dual antiplatelet therapy with aspirin and Plavix #3 continue heparin #4 I would suggest obtaining a VQ scan to rule out a PE and assess for the need of long-term anticoagulation #5 follow-up with the patient
--- NOTE | 2018-07-11 08:02 | P.PN ---
Subjective Patient is seen in follow-up for acute kidney injury. Patient had a fall and was noted to have right femoral neck fracture and underwent right hip hemiarthroplasty on July 03. Patient was transferred to the intensive care unit for hypotension. He is currently off Levophed. He is nonoliguric. Renal function stable. Vital signs are stable. General: The patient appeared well nourished and normally developed. HEENT: Head exam is unremarkable. Neck is without jugular venous distension. LUNGS: Lungs are clear to auscultation and percussion. Breath sounds decreased. HEART: Rate and Rhythm are regular. First and second heart sounds normal. No murmurs, rubs or gallops. ABDOMEN: Abdominal exam reveals normal bowel sounds. Non-tender and non- distended. No evidence of peritonitis. EXTREMITITES: Trace edema. Objective - Vital Signs Vital signs: Vital Signs Temp 97.4 F L 07/11/18 00:00 Pulse 71 07/11/18 07:00 Resp 28 H 07/11/18 07:00 BP 85/56 07/11/18 06:00 Pulse Ox 95 07/11/18 07:00 Intake & Output 07/10/18 07/11/18 07/11/18 18:59 06:59 18:59 Intake Total 283.015 720.028 10 Output Total 615 647 40 Balance -331.985 73.028 -30 Weight 113 kg Intake: IV 220 320 10 0.9 NACL 120 120 10 Piperacillin-Tazobactam 3 100 200 .375 gm In Sodium Chloride 0.9% 100 ml @ 25 mls/hr IVPB Q8H [facility] Rx#: [id number] Intake, IV Titration 63.015 280.028 Amount DAPTOmycin 500 mg In 50 Sodium Chloride 0.9% 50 ml @ 100 mls/hr IVPB Q24H [facility] Rx#:[id number] Heparin Sod,Pork in 0.45% 63.015 230.028 NaCl 25,000 unit In 0.45 % NaCl 1 250ml.bag @ 18 UNITS/KG/HR 19.84 mls/hr IV .[id number] [facility] Rx#: [id number] Oral 120 Output: Urine 615 647 40 Other: Voiding Method Indwelling Catheter Indwelling Catheter # Bowel Movements 1 3 ABP, PAP, CO, CI - Last Documented Arterial Blood Pressure 102/38 - Labs CBC & Chem 7: 07/11/18 05:13 07/11/18 05:13 Labs: Abnormal Lab Results - Last 24 Hours (Table) 07/10/18 07/10/18 07/10/18 Range/Units 04:40 12:07 16:57 RBC (4.30-5.90) m/uL Hgb (13.0-17.5) gm/dL Hct (39.0-53.0) % APTT (22.0-30.0) sec Sodium (137-145) mmol/L BUN (9-20) mg/dL Creatinine (0.66-1.25) mg/dL Glucose (74-99) mg/dL POC Glucose (mg/dL) 209 H 147 H (75-99) mg/dL Iron 17 L (65-175) ug/dL TIBC 225 L (228-460) ug/dL Iron Saturation 7.56 L (15.00-50.00) AST (17-59) U/L ALT (21-72) U/L Total Protein (6.3-8.2) g/dL Albumin (3.5-5.0) g/dL 07/10/18 07/11/18 07/11/18 Range/Units 20:39 02:25 05:13 RBC 2.48 L (4.30-5.90) m/uL Hgb 7.6 L (13.0-17.5) gm/dL Hct 24.3 L (39.0-53.0) % APTT (22.0-30.0) sec Sodium (137-145) mmol/L BUN (9-20) mg/dL Creatinine (0.66-1.25) mg/dL Glucose (74-99) mg/dL POC Glucose (mg/dL) 139 H 123 H (75-99) mg/dL Iron (65-175) ug/dL TIBC (228-460) ug/dL Iron Saturation (15.00-50.00) AST (17-59) U/L ALT (21-72) U/L Total Protein (6.3-8.2) g/dL Albumin (3.5-5.0) g/dL 07/11/18 07/11/18 07/11/18 Range/Units 05:13 06:15 06:57 RBC (4.30-5.90) m/uL Hgb (13.0-17.5) gm/dL Hct (39.0-53.0) % APTT 50.6 H (22.0-30.0) sec Sodium 134 L (137-145) mmol/L BUN 70 H (9-20) mg/dL Creatinine 2.55 H (0.66-1.25) mg/dL Glucose 129 H (74-99) mg/dL POC Glucose (mg/dL) 147 H (75-99) mg/dL Iron (65-175) ug/dL TIBC (228-460) ug/dL Iron Saturation (15.00-50.00) AST 104 H (17-59) U/L ALT 109 H (21-72) U/L Total Protein 5.0 L (6.3-8.2) g/dL Albumin 2.6 L (3.5-5.0) g/dL Microbiology - Last 24 Hours (Table) 07/07/18 05:40 Blood Culture - Preliminary Blood No Growth after 72 hours 07/07/18 05:56 Blood Culture - Preliminary Blood No Growth after 72 hours Assessment and Plan Plan: Assessment: 1. Acute kidney injury secondary to ATN secondary to hypotension. Creatinine was 1.2 on July 03 and is stable at 2.55 today. No records available from prior to this admission. UA is quite benign. No hydronephrosis noted on kidney ultrasound. Left kidney not fully visualized. 2. NSTEMI maintained on IV heparin. Repeat echocardiogram revealed ejection fraction of less than 20%. 3. Pneumonia maintained on IV antibiotics. 4. Hypotension secondary to shock - cardiogenic versus septic? Currently off vasopressors. 5. Right hip fracture status post hemiarthroplasty this admission. 6. Metabolic acidosis secondary to acute kidney injury. Better. 7. Diabetes mellitus. 8. Anemia. Iron deficiency noted. Possible component of chronic kidney disease. Plan: Status post IV Lasix yesterday. Hold today. Will repeat dose if urine output drops. Avoid nephrotoxins. Continue to monitor renal function and urine output. Maintain Aranesp. Hold off on IV iron due to sepsis. Potassium and magnesium being replaced. Follow-up VQ scan.
--- NOTE | 2018-07-11 08:34 | XR ---
EXAMINATION TYPE: XR chest 1V portable DATE OF EXAM: 07/11/2018 COMPARISON: Prior chest x-ray 07/10/2018 HISTORY: Shortness of breath, BiPAP dependent, abnormal chest x-ray TECHNIQUE: Single frontal view of the chest is obtained. FINDINGS: Similar findings to prior exam. Calcification present along the right hemidiaphragm. Heart is enlarged. Retrocardiac density persists. No evident pneumothorax. Patient is rotated, exam is exp iratory. Postop changes noted to the cervical spine and shoulders. There are cardiac leads. IMPRESSION: Similar findings. Correlate for pneumonia, possible associated effusion, asbestos relate d disease
[2018-07-11] MEDS: ASPIRIN 81 MG PO SCH (08:40)
[2018-07-11] MEDS: CLOPIDOGREL 75 MG TAB PO SCH (08:41)
[2018-07-11] MEDS: PARoxetine 20 MG TAB PO SCH ×2 (08:41→21:01)
[2018-07-11] MEDS: INSULIN DETEMIR 100 UNIT/ML 10 ML VIAL SQ SCH (08:41)
[2018-07-11] MEDS: ALBUTEROL NEBULIZED 2.5 MG/3 ML INHALATION SCH ×2 (08:45→21:08)
[2018-07-11] MEDS: NICOTINE 14MG/24HR PATCH TRANSDERM SCH (09:00)
--- NOTE | 2018-07-11 10:51 | P.PN ---
Subjective Progress Note Date: 07/11/18 Principal diagnosis: Pneumonia Patient is a 78-year-old male past medical history of coronary artery disease, congestive heart failure, diabetes, and hearing loss who presented to our facility as a transfer for orthopedic evaluation. He was trying to get on his exercise bike when he sustained a mechanical fall. At the outside hospital he was found to have a right hip fracture. Upon review of records from prior hospitalization he has found to have acidosis, hyperkalemia, anemia, and elevated creatinine. He was subsequently administered insulin and dextrose, he was started on IV fluids, repeat ABG was obtained and he was started on BiPAP therapy. Initial echocardiogram showed preserved ejection fraction at 55 to 60% . He was seen by cardiology and his Lopressor was decreased to 12.5 daily, his amiodarone was discontinued and Plavix was held in light of probable need for surgery. Patient underwent a right hemiarthroplasty on 07/03/18. Initially he tolerated the procedure well. His acidosis seemed to be improving. He was noted to have a hemoglobin drop on 07/05 at 10.2-8.3. He had been working with therapy and progressing well. On the morning of 07/07 he went into acute mental status changes associated with difficulty in breathing. He was found to be hypoxic and an EKG showed a new left bundle branch block with underlying A. fib rhythm. This was discussed with cardiology who recommended a stat echocardiogram as troponins came back at 3.7. Stat echo revealed a decreased ejection fraction of less than 20%. He was also noted to have worsening acidosis and was placed on a bicarb drip. He was transferred to the ICU for close monitoring. There was concern for possible pneumonia and he was empirically started on Zosyn and daptomycin due to vancomycin ALLERGY. Patient was seen by Dr. Garcia who felt he could have possible sepsis and echo and Zosyn were continued. He also was found to have deep sacral decubitus ulcer, he did suffer a fall prior to admission. His statin was held due to elevated CPKs. He developed hypotension on the morning of 07/08 and required levophed to be started. His reanl function continued to worsen despite optimization of his blood pressures. He was seen by nephrology. He was able to be weaned off BIPAP and levophed by the morning of 07/10. Cardio felt that medical management is most appropriate in light of his renal failure and sepsis. Patient seen and examined at bedside. No acute events overnight per nursing. No chest pain, states breathing is good, denies nausea, vomiting, or diarrhea. Needs to work with PT and increase activity. Objective - Vital Signs Vital signs: Vital Signs Temp 97.4 F L 07/11/18 00:00 Pulse 88 07/11/18 08:57 Resp 24 07/11/18 08:45 BP 85/56 07/11/18 06:00 Pulse Ox 96 07/11/18 08:45 Intake & Output 07/10/18 07/11/18 07/11/18 18:59 06:59 18:59 Intake Total 283.015 720.028 10 Output Total 615 647 40 Balance -331.985 73.028 -30 Weight 113 kg Intake: IV 220 320 10 0.9 NACL 120 120 10 Piperacillin-Tazobactam 3 100 200 .375 gm In Sodium Chloride 0.9% 100 ml @ 25 mls/hr IVPB Q8H [facility] Rx#: [id number] Intake, IV Titration 63.015 280.028 Amount DAPTOmycin 500 mg In 50 Sodium Chloride 0.9% 50 ml @ 100 mls/hr IVPB Q24H [facility] Rx#:[id number] Heparin Sod,Pork in 0.45% 63.015 230.028 NaCl 25,000 unit In 0.45 % NaCl 1 250ml.bag @ 18 UNITS/KG/HR 19.84 mls/hr IV .[id number] [facility] Rx#: [id number] Oral 120 Output: Urine 615 647 40 Other: Voiding Method Indwelling Catheter Indwelling Catheter # Bowel Movements 1 3 ABP, PAP, CO, CI - Last Documented Arterial Blood Pressure 102/38 - Exam General:Non toxic, no distress, appears at stated age, [facility] Derm: warm, dry Head: atraumatic, normocephalic, symmetric Eyes: EOMI, no lid lag, anicteric sclera Mouth: no lip lesion, mucus membranes moist Cardiovascular: S1S2 reg, no murmur, positive posterior tibial pulse bilateral, Lungs: decreased bs b/l bases, no rhonchi, no rales , no accessory muscle use, Abdominal: soft, nontender to palpation, no guarding, no appreciable organomegaly Ext: no gross muscle atrophy, no edema, no contractures Neuro: CN II-XI grossly intact, no focal neuro deficits Psych: Alert, Awake, angry - Labs CBC & Chem 7: 07/11/18 05:13 07/11/18 05:13 Labs: Abnormal Lab Results - Last 24 Hours (Table) 07/10/18 07/10/18 07/10/18 Range/Units 04:40 12:07 16:57 RBC (4.30-5.90) m/uL Hgb (13.0-17.5) gm/dL Hct (39.0-53.0) % APTT (22.0-30.0) sec Sodium (137-145) mmol/L BUN (9-20) mg/dL Creatinine (0.66-1.25) mg/dL Glucose (74-99) mg/dL POC Glucose (mg/dL) 209 H 147 H (75-99) mg/dL Iron 17 L (65-175) ug/dL TIBC 225 L (228-460) ug/dL Iron Saturation 7.56 L (15.00-50.00) AST (17-59) U/L ALT (21-72) U/L Total Protein (6.3-8.2) g/dL Albumin (3.5-5.0) g/dL 07/10/18 07/11/18 07/11/18 Range/Units 20:39 02:25 05:13 RBC 2.48 L (4.30-5.90) m/uL Hgb 7.6 L (13.0-17.5) gm/dL Hct 24.3 L (39.0-53.0) % APTT (22.0-30.0) sec Sodium (137-145) mmol/L BUN (9-20) mg/dL Creatinine (0.66-1.25) mg/dL Glucose (74-99) mg/dL POC Glucose (mg/dL) 139 H 123 H (75-99) mg/dL Iron (65-175) ug/dL TIBC (228-460) ug/dL Iron Saturation (15.00-50.00) AST (17-59) U/L ALT (21-72) U/L Total Protein (6.3-8.2) g/dL Albumin (3.5-5.0) g/dL 01/07/11/18 07/11/18 Range/Units 05:13 06:15 06:57 RBC (4.30-5.90) m/uL Hgb (13.0-17.5) gm/dL Hct (39.0-53.0) % APTT 50.6 H (22.0-30.0) sec Sodium 134 L (137-145) mmol/L BUN 70 H (9-20) mg/dL Creatinine 2.55 H (0.66-1.25) mg/dL Glucose 129 H (74-99) mg/dL POC Glucose (mg/dL) 147 H (75-99) mg/dL Iron (65-175) ug/dL TIBC (228-460) ug/dL Iron Saturation (15.00-50.00) AST 104 H (17-59) U/L ALT 109 H (21-72) U/L Total Protein 5.0 L (6.3-8.2) g/dL Albumin 2.6 L (3.5-5.0) g/dL Microbiology - Last 24 Hours (Table) 07/07/18 05:40 Blood Culture - Preliminary Blood No Growth after 96 hours 07/07/18 05:56 Blood Culture - Preliminary Blood No Growth after 96 hours Assessment and Plan Assessment: Left sided PNA with sepsis - dapto, zosyn D #5 - unable to obtain sputum culture and blood cultures negative - ID recs - procalcitionin 4.28 Tranamintis, improving - suspect due to hypoperfusion - follow liver enzymes NSTEMI, 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% - ASA, PLAVIX, , Heparin gtt (Will discuss with cardio stopping gtt) - statin on hold due to elevated CK - Cardio recs: medical management at this point in time, may need cath in the future - ACEI on hold due to low BP/JOSE - add low dose coreg Acute hypoxic respiratory failure - Improving and off bipap - VQ scan not needed after discussion with pulm as multiple reasons for hypoxemia including PNA and NSTEMI - B/L LE venous dopplers negative. JOSE on CKD - Baseline Cr unknown - off IVF - avoid additional nephrotoxic agents - Nephro recs appreciated - maintain MAP >65 - renal US left kidney not visualized right normal - monitor urine output adequate Anemia of chronic disease - aranesp - no IV iron due to sepsis Right hip fracture - Ortho recs appreciated - Pain control - PT/OT start today Hyponatremia, stable - follow BMP COPD, without exacerbation -continue home regiment P. A. fib - tele - amio IV completed - Heparin gtt, ? discontinue no recurrent A fib documented Diabetes Mellitus - off actos, glimepiride, metformin - SSI, levemir - A1C 6.7 Dyslipidemia - Statin on hold due to elevated CK Deep tissue injury - frequent turns - ID recs Lactic acidosis, improving hyperkalemia, resolved Mixed respiratory and metabolic acidosis, improved Septic shock, resolved Acute encephalopathy, improving Transfer to selective care if ok with cardio and pulmonary DVT prophylaxis: Heparin gtt Discussed with: Patient, nursing Anticipated discharge: 1-[address]: rehab A total of 35 minutes was spent on the care of this complex patient more than 50 % of the time was spent in counseling and care coordination.
[2018-07-11] MEDS: IPRATROPIUM-ALBUTEROL 3 ML NEB INHALATION PRN (12:18)
[2018-07-11 12:21] LABS: Glucose,Whole Blood 127 mg/dL (75-99)
--- NOTE | 2018-07-11 13:17 | US ---
EXAMINATION TYPE: US chest DATE OF EXAM: 07/11/2018 COMPARISON: NONE CLINICAL HISTORY: Markings for thoracentesis by pulmonary staff. SOB, pleural effusion TECHNIQUE: Targeted ultrasound of the posterior lower bilaterally EXAM MEASUREMENTS: Right Pleural Effusion pocket size: 0 Left Pleural Effusion pocket size: 3.2 cm Left skin surface to fluid distance: 5.3 cm Right side NOT marked Left side marked for possible thoracentesis outside the dept. Pulmonologists are able to review the images in the patient?s EMR. Limited posterior ultrasound performed. IMPRESSIONS: Small left pleural effusion. No evident right pleural effusion
--- NOTE | 2018-07-11 13:24 | P.PN ---
Subjective Progress Note Date: 07/10/18 This is a 78-year-old male who presented to the hospital on July 01 after a mechanical fall that occurred on the . At outside facility, patient had a CAT scan of the head and neck that were negative and a right hip x -ray showed non-angulated nondisplaced subcapital femoral fracture. Patient was admitted to the hospital under the care of orthopedics and underwent a right hip hemiarthroplasty on July 03. Last evening patient developed mental status changes, difficulty breathing with hypoxia, tachypnea and temperature 100.5. Rapid response team was called and patient was transferred to the intensive care unit. He was found to have lactic acidosis, metabolic acidosis and elevated troponin. Blood cultures were obtained and wound culture obtained to a chronic right buttocks wound. Initial echocardiogram showed an EF of 55-60% and repeat echocardiogram done this morning showed an EF of less than 20 with severe global hypokinesia of the LV, moderate mitral regurgitation. Lumbar spine x-rays done yesterday showed compression fractures and deformities in the lumbar spine and lower thoracic vertebrae. White count 11.3, hemoglobin 8.4 and platelet count 351. BUN 53 and creatinine 2.05, blood sugars are improving on insulin drip. Patient remains on BiPAP but is able to interact with the observer. Seems to be comfortable, hearing is somewhat poor but with the 's help does seem to be less short of breath. No other new complaint. On 07/10/2018 the patient has had improvement of his status. BiPAP is being only utilized at night. He is less short of breath. He is hard of hearing but does interact with the observer. He does not seem to have any acute discomfort. Objective - Vital Signs Vital signs: Vital Signs Temp 98.5 F 07/11/18 12:00 Pulse 76 07/11/18 12:28 Resp 22 07/11/18 12:19 BP 85/39 07/11/18 12:00 Pulse Ox 94 L 07/11/18 12:00 Intake & Output 07/10/18 07/11/18 07/11/18 18:59 06:59 18:59 Intake Total 283.015 720.028 82.88 Output Total 615 647 315 Balance -331.985 73.028 -232.12 Weight 113 kg Intake: IV 220 320 30 0.9 NACL 120 120 30 Piperacillin-Tazobactam 3 100 200 .375 gm In Sodium Chloride 0.9% 100 ml @ 25 mls/hr IVPB Q8H [facility] Rx#: [id number] Intake, IV Titration 63.015 280.028 52.88 Amount DAPTOmycin 500 mg In 50 Sodium Chloride 0.9% 50 ml @ 100 mls/hr IVPB Q24H [facility] Rx#:[id number] Heparin Sod,Pork in 0.45% 63.015 230.028 52.88 NaCl 25,000 unit In 0.45 % NaCl 1 250ml.bag @ 18 UNITS/KG/HR 19.84 mls/hr IV .[id number] [facility] Rx#: [id number] Oral 120 Output: Urine 615 647 315 Other: Voiding Method Indwelling Catheter Indwelling Catheter Indwelling Catheter # Bowel Movements 1 3 ABP, PAP, CO, CI - Last Documented Arterial Blood Pressure 118/50 - Exam Gen: This is a 78-year-old obese male. He is resting in the ICU bed. He arouses to verbal stimuli. BiPAP is in place. HEENT: Head is atraumatic, normocephalic. Pupils equal, round. Sclerae is anicteric. NECK: Supple. No JVD. No lymphadenopathy. No thyromegaly. LUNGS: Diminished at the bases. No intercostal retractions. Few wheezes are heard HEART: Regular rate and rhythm. No murmur. ABDOMEN: Soft. Bowel sounds are present. No masses. No tenderness. Zuñiga catheter draining clear enmanuel urine. EXTREMITIES: No pedal edema. No calf tenderness. Right hip surgical site is clean and dry. The sacral deep tissue injury is noted. There is no significant drainage at this time. There is some surrounding in minimal erythema. NEUROLOGICAL: Patient is awake, alert. Generalized weakness noted. - Labs CBC & Chem 7: 07/11/18 05:13 07/11/18 05:13 Labs: Abnormal Lab Results - Last 24 Hours (Table) 07/10/18 07/10/18 07/10/18 Range/Units 04:40 16:57 20:39 RBC (4.30-5.90) m/uL Hgb (13.0-17.5) gm/dL Hct (39.0-53.0) % APTT (22.0-30.0) sec Sodium (137-145) mmol/L BUN (9-20) mg/dL Creatinine (0.66-1.25) mg/dL Glucose (74-99) mg/dL POC Glucose (mg/dL) 147 H 139 H (75-99) mg/dL Iron 17 L (65-175) ug/dL TIBC 225 L (228-460) ug/dL Iron Saturation 7.56 L (15.00-50.00) AST (17-59) U/L ALT (21-72) U/L Total Protein (6.3-8.2) g/dL Albumin (3.5-5.0) g/dL 07/11/18 07/11/18 07/11/18 Range/Units 02:25 05:13 05:13 RBC 2.48 L (4.30-5.90) m/uL Hgb 7.6 L (13.0-17.5) gm/dL Hct 24.3 L (39.0-53.0) % APTT (22.0-30.0) sec Sodium 134 L (137-145) mmol/L BUN 70 H (9-20) mg/dL Creatinine 2.55 H (0.66-1.25) mg/dL Glucose 129 H (74-99) mg/dL POC Glucose (mg/dL) 123 H (75-99) mg/dL Iron (65-175) ug/dL TIBC (228-460) ug/dL Iron Saturation (15.00-50.00) AST 104 H (17-59) U/L ALT 109 H (21-72) U/L Total Protein 5.0 L (6.3-8.2) g/dL Albumin 2.6 L (3.5-5.0) g/dL 07/11/18 07/11/18 07/11/18 Range/Units 06:15 06:57 12:10 RBC (4.30-5.90) m/uL Hgb (13.0-17.5) gm/dL Hct (39.0-53.0) % APTT 50.6 H (22.0-30.0) sec Sodium (137-145) mmol/L BUN (9-20) mg/dL Creatinine (0.66-1.25) mg/dL Glucose (74-99) mg/dL POC Glucose (mg/dL) 147 H 127 H (75-99) mg/dL Iron (65-175) ug/dL TIBC (228-460) ug/dL Iron Saturation (15.00-50.00) AST (17-59) U/L ALT (21-72) U/L Total Protein (6.3-8.2) g/dL Albumin (3.5-5.0) g/dL Microbiology - Last 24 Hours (Table) 07/07/18 05:40 Blood Culture - Preliminary Blood No Growth after 96 hours 07/07/18 05:56 Blood Culture - Preliminary Blood No Growth after 96 hours Laboratory Results WBC 6.4 k/uL (3.8-10.6) 07/11/18 05:13 RBC 2.48 m/uL (4.30-5.90) L 07/11/18 05:13 Hgb 7.6 gm/dL (13.0-17.5) L 07/11/18 05:13 Hct 24.3 % (39.0-53.0) L 07/11/18 05:13 MCV 97.9 fL (80.0-100.0) 07/11/18 05:13 MCH 30.7 pg (25.0-35.0) 07/11/18 05:13 MCHC 31.4 g/dL (31.0-37.0) 07/11/18 05:13 RDW 14.6 % (11.5-15.5) 07/11/18 05:13 Plt Count 274 k/uL (150-450) 07/11/18 05:13 Neutrophils % 77 % 07/06/18 07:45 Neutrophils % (Manual) 68 % 07/07/18 04:24 Lymphocytes % 11 % 07/06/18 07:45 Lymphocytes % (Manual) 21 % 07/07/18 04:24 Monocytes % 8 % 07/06/18 07:45 Monocytes % (Manual) 10 % 07/07/18 04:24 Eosinophils % 1 % 07/06/18 07:45 Eosinophils % (Manual) 2 % 07/07/18 04:24 Basophils % 0 % 07/06/18 07:45 Neutrophils # 5.5 k/uL (1.3-7.7) 07/06/18 07:45 Neutrophils # (Manual) 7.68 k/uL (1.3-7.7) 07/07/18 04:24 Lymphocytes # 0.8 k/uL (1.0-4.8) L 07/06/18 07:45 Lymphocytes # (Manual) 2.37 k/uL (1.0-4.8) 07/07/18 04:24 Monocytes # 0.6 k/uL (0-1.0) 07/06/18 07:45 Monocytes # (Manual) 1.13 k/uL (0-1.0) H 07/07/18 04:24 Eosinophils # 0.1 k/uL (0-0.7) 07/06/18 07:45 Eosinophils # (Manual) 0.23 k/uL (0-0.7) 07/07/18 04:24 Basophils # 0.0 k/uL (0-0.2) 07/06/18 07:45 Nucleated RBCs 1 /100 WBC (0-0) H 07/07/18 04:24 Manual Slide Review Performed 07/07/18 04:24 Large Platelets Present 07/07/18 04:24 Polychromasia Present 07/07/18 04:24 Hypochromasia Moderate 07/11/18 05:13 Poikilocytosis Slight 07/11/18 05:13 Macrocytosis Slight 07/07/18 04:24 Target Cells Present 07/07/18 04:24 PT 12.3 sec (9.0-12.0) H 07/07/18 04:24 INR 1.2 (<1.2) H 07/07/18 04:24 APTT 50.6 sec (22.0-30.0) H 07/11/18 06:15 D-Dimer 2.28 mg/L FEU (<0.60) H 07/07/18 04:24 Sample Site L rad 07/08/18 07:47 ABG pH 7.55 (7.35-7.45) H 07/08/18 07:47 ABG pCO2 31 mmHg (35-45) L 07/08/18 07:47 ABG pO2 108 mmHg (83-108) 07/08/18 07:47 ABG HCO3 27 mmol/L (21-25) H 07/08/18 07:47 ABG Total CO2 28 mmol/L (19-24) H 07/08/18 07:47 ABG O2 Saturation 98.7 % (94-97) H 07/08/18 07:47 ABG Base Excess 4.7 mmol/L 07/08/18 07:47 Manuel Test Yes 07/08/18 07:47 ABG Lactic Acid 1.0 mmol/L (0.5-1.6) 07/09/18 08:25 VBG pH 7.11 (7.31-7.41) L* 07/07/18 04:33 VBG pCO2 35 mmHg (37-51) L 07/07/18 04:33 VBG HCO3 11 mmol/L (24-28) L 07/07/18 04:33 FiO2 40 % 07/08/18 07:47 Sodium 134 mmol/L (137-145) L 07/11/18 05:13 Potassium 4.0 mmol/L (3.5-5.1) 07/11/18 05:13 Chloride 100 mmol/L (98-107) 07/11/18 05:13 Carbon Dioxide 22 mmol/L (22-30) 07/11/18 05:13 Anion Gap 12 mmol/L 07/11/18 05:13 BUN 70 mg/dL (9-20) H 07/11/18 05:13 Creatinine 2.55 mg/dL (0.66-1.25) H 07/11/18 05:13 Est GFR (CKD-EPI)AfAm 27 (>60 ml/min/1.73 sqM) 07/11/18 05:13 Est GFR (CKD-EPI)NonAf 24 (>60 ml/min/1.73 sqM) 07/11/18 05:13 Glucose 129 mg/dL (74-99) H 07/11/18 05:13 POC Glucose (mg/dL) 127 mg/dL (75-99) H 07/11/18 12:10 POC Glu Trench Trimmer Fine ID Rhonda Spann 07/11/18 12:[address] Glu mg/dL 146 07/07/18 04:24 Hemoglobin A1c 6.7 % (4.0-6.0) H 07/07/18 04:24 Lactic Ac Sepsis Rflx Y 07/07/18 05:18 Plasma Lactic Acid Heri 7.4 mmol/L (0.7-2.0) H* 07/07/18 08:49 Calcium 8.7 mg/dL (8.4-10.2) 07/11/18 05:13 Phosphorus 4.3 mg/dL (2.5-4.5) 07/11/18 05:13 Magnesium 2.0 mg/dL (1.6-2.3) 07/11/18 05:13 Iron 17 ug/dL (65-175) L 07/10/18 04:40 TIBC 225 ug/dL (228-460) L 07/10/18 04:40 Iron Saturation 7.56 (15.00-50.00) L 07/10/18 04:40 Ferritin 206.4 ng/mL (22.0-322.0) 07/10/18 04:40 Total Bilirubin 1.1 mg/dL (0.2-1.3) 07/11/18 05:13 Conjugated Bilirubin 0.0 mg/dL (0.0-0.3) 07/07/18 04:24 Unconjugated Bilirubin 0.3 mg/dL (0.0-1.1) 07/07/18 04:24 Delta Bilirubin 0.3 mg/dL (0.0-0.2) H 07/07/18 04:24 AST 104 U/L (17-59) H 07/11/18 05:13 ALT 109 U/L (21-72) H 07/11/18 05:13 Alkaline Phosphatase 81 U/L (38-126) 07/11/18 05:13 Creatine Kinase 1092 U/L (55-170) H* 07/09/18 04:45 Total Creatine Kinase 1157 U/L (55-170) H* 07/07/18 20:21 CK-MB (CK-2) 7.7 ng/mL (0.0-2.4) H 07/07/18 20:21 CK-MB (CK-2) Rel Index 0.7 07/07/18 20:21 Troponin I 6.420 ng/mL (0.000-0.034) H* 07/08/18 18:20 NT-Pro-B Natriuret Pep 85998 pg/mL 07/08/18 11:06 Total Protein 5.0 g/dL (6.3-8.2) L 07/11/18 05:13 Albumin 2.6 g/dL (3.5-5.0) L 07/11/18 05:13 Procalcitonin 4.28 ng/mL (0.02-0.09) H 07/08/18 11:06 Urine Color Yellow 07/10/18 04:40 Urine Appearance Cloudy (Clear) 07/10/18 04:40 Urine pH 5.0 (5.0-8.0) 07/10/18 04:40 Ur Specific [place] 1.014 (1.001-1.035) 07/10/18 04:40 Urine Protein Trace (Negative) H 07/10/18 04:40 Urine Glucose (UA) Negative (Negative) 07/10/18 04:40 Urine Ketones Negative (Negative) 07/10/18 04:40 Urine Blood Negative (Negative) 07/10/18 04:40 Urine Nitrite Negative (Negative) 07/10/18 04:40 Urine Bilirubin Negative (Negative) 07/10/18 04:40 Urine Urobilinogen <2.0 mg/dL (<2.0) 07/10/18 04:40 Ur Leukocyte Esterase Negative (Negative) 07/10/18 04:40 Urine RBC 1 /hpf (0-5) 07/10/18 04:40 Urine WBC 2 /hpf (0-5) 07/10/18 04:40 Urine Bacteria Rare /hpf (None) H 07/10/18 04:40 Urine Mucus Rare /hpf (None) H 07/10/18 04:40 Stool Occult Blood Positive (Negative) 07/07/18 23:30 Blood Type B Positive 07/01/18 03:55 Blood Type Confirm B Positive 07/01/18 04:05 Blood Type Recheck CABO Indicated 07/01/18 03:55 Antibody Screen NEGATIVE 07/01/18 03:55 Spec Expiration Date 07/04/2018 - 2915 07/01/18 03:55 Microbiology 07/07/18 05:40 Blood Blood Culture - Preliminary No Growth after 96 hours 07/07/18 05:56 Blood Blood Culture - Preliminary No Growth after 96 hours 07/07/18 05:25 Buttock Gram Stain - Final 07/07/18 05:25 Buttock Wound Culture - Final Assessment and Plan (1) Acute respiratory failure Current Visit: Yes Status: Acute Code(s): J96.00 - ACUTE RESPIRATORY FAILURE , UNSP W HYPOXIA OR HYPERCAPNIA SNOMED Code(s): 82878225 (2) Acute myocardial infarction Current Visit: Yes Status: Acute Code(s): I21.9 - ACUTE MYOCARDIAL INFARCTION, UNSPECIFIED SNOMED Code(s): 24013483 (3) Left ventricular ejection fraction of 21% to 30% Current Visit: Yes Status: Acute Code(s): R93.1 - ABNORMAL FINDINGS ON DX IMAGING OF HEART AND COR CIRC SNOMED Code(s): 734841636 (4) Deep tissue injury Narrative/Plan: This 78-year-old male has difficulties with an acute change in the status appears have had an acute myocardial infarction with a marked reduction of his cardiac function. Resulting in many difficulties including his elevated lactic acid occurring in the basis of the acute myocardial infarction, as well as acute liver failure. Cardiology is following. Is evidence of the large deep tissue injury to the coccyx area. Of note the patient suffered a fall before admission of serious enough nature to resulted in his hip Fracture. Has also had multiple other events occurring such as a long time on the transfer board which could've also worsened his deep tissue injury. He will be cared for with the operative foam dressing. Ongoing care of the specialty ICU bed. Frequent turning. It opens and drains and then will further alter local wound care.there are cultures in process which antibiotic therapy of daptomycin and Zosyn with attempts for de-escalation as possible. The lactic acidosis is multifactorial including the acute myocardial infarction, the acute renal failure and significant acidosis. Patient continues to be BiPAP dependent with his respiratory failure. Appears to the respiratory failure is related to his acute myocardial infarction and acute systolic congestive heart failure with his very low ejection fraction. Being followed by cardiology with concerns to a poor outcome. Local wound care as the foam dressing over the to tissue injury to the coccyx area. Antimicrobial therapy aimed at tissue infection continues with Zosyn and daptomycin for now. Cultures in progress blood cultures negative so far. Current Visit: Yes Status: Acute Code(s): T14.8XXA - OTHER INJURY OF UNSPECIFIED BODY REGION, INITIAL ENCOUNTER SNOMED Code(s): 167314583
--- NOTE | 2018-07-11 13:41 | P.PN ---
Subjective Progress Note Date: 07/11/18 Principal diagnosis: Acute hypoxic respiratory failure, sepsis, congestive heart failure. Systolic dysfunction. This is a 78-year-old white male with history of multiple medical problems including coronary artery disease, type 2 diabetes, chronic kidney disease, chronic right foot drop, previous CVA and previous REPRINT SORTER shunt. Underlying COPD, obstructive sleep apnea syndrome, patient was admitted to the hospital on 2018, and he was admitted after a fall sustaining a right hip fracture, patient was admitted, seen by orthopedic surgery on consultation, and he underwent right hip arthroplasty for right upper Patellofemoral neck fracture by Dr. Abernathy on 07/03/2018. Patient is also known to have history of chronic decubitus sacral ulcer. Overnight last night, patient developed changes in mental status. He was also noted to have more difficulty breathing. He was noted to be hypoxic, tachypneic, and he had a low-grade temp of 100.5. The rapid response team from the intensive care unit responded to the patient, he was noted to be metabolically acidotic, his lactic acid was elevated, d-dimer was also elevated, his renal functioning was noted to be worse, and his ABG showed a pO2 of 201, pCO2 was 29 and pH was 7.21. Hence patient was placed on BiPAP, placed on a sodium bicarb drip, antibiotics where broadened spectrum, patient was placed on insulin drip for hyperglycemia, and he was transferred to the ICU. Patient has a DO NOT RESUSCITATE CODE STATUS based on his previously expressed wishes, hence he was managed with BiPAP, and will be managed with mostly antibiotics, fluids, however the patient is known to have history of LV dysfunction and his ejection fraction is about 20%. I saw the patient this morning in the ICU, and I discussed the different issues with his family at bedside. Reviewed all the medications he is presently on, and recommended infectious disease consultation on the patient. His chest x-ray did show evidence of interstitial edema or infiltrate in the left lung. X-rays of the lumbosacral spine showed compression fractures and deformities in the lumbar spine and lower thoracic vertebral. Echocardiogram showed severe global hypokinesis of the left ventricle. His lactic acid was noted to be elevated, 9.6 initially, and it is 7.4 now. Patient received fluid boluses of 1.5 L, hence maintenance IV fluid was placed at 100 mL/h, and sodium bicarb drip was addressed. PTT was over 200 and heparin was adjusted as per protocol. D-dimer was 2.28. Patient is normally on Plavix but presently on heparin Reevaluated today on 07/08/2018, patient remains in the ICU, on BiPAP, remains on antibiotics, bronchodilators, diuretics, patient remains on norepinephrine, presently at 15 g, and this is running through a peripheral IV line, hence I will establish a central IV access today. Patient's x-ray continues to show abnormalities on the left side, mostly interstitial edema-like picture, however the possibility of left lower lobe pneumonia and pleural effusion is not entirely ruled out. Pulmonary status is definitely marginal. His ABG reflected significant improvement in his acidosis, hence I recommended that was stopped sodium bicarb drip today. However what is interesting is the fact that his troponin is significantly high, and his BNP level is quite high at 44 600, troponin is 9.610. Dr. Tadeo seems to be quite concerned about the possibility of non-ST elevation myocardial infarction, and he is treating him as such. Patient is not the most ideal candidate for cardiac catheterization at this point considering his renal functioning. And considering the possibility of ongoing sepsis patient is still hemodynamically requiring significant dose of norepinephrine. I did review the chest x-ray, I recommended diuretics, and I'm still keeping the patient on broad-spectrum antibiotics for presumptive underlying sepsis. Patient was seen by infectious disease on consultation. WBC count is 7.2 hemoglobin is 7.7. PT is 68, however I held the heparin to safely place a central IV access. ABG showed a pO2 of 108 pCO2 of 31 pH of 7.55 and this is on O2 with IPAP of 12 and EPAP of 6. Patient was reevaluated today on 07/09/2018, remains in the ICU, off BiPAP, he is on a high flow nasal cannula at 10 L/m. Chest x-ray is showing improvement in his interstitial edema and possible left lower lobe pneumonia with atelectasis in the left lower lobe, patient remains on norepinephrine at 13 mcg/ m, blood pressure remains marginal. Clinically however the patient is feeling better, breathing easier, and his chest x-ray is clearly showing some improvement. All labs were reviewed, hemoglobin is 7.4 today. WBC count is 8.9. Electrolytes are noted, continues to have anion gap of 15, BUN is 61 creatinine is 2.44, slightly worse compared to the last couple of days, hence considering the patient is diuresing on his own, we'll hold the Lasix for the time being. I believe that renal functioning is mostly cardiorenal in nature patient does have severe LV dysfunction. And has been receiving a significant amount of diuretics since admission to the ICU. Liver enzymes were noted to be slightly elevated/transaminases. CPK was also noted to be elevated at 1092. Renal ultrasound was noted to be unremarkable, however the left kidney could not be visualized with certainly. Patient is feeling better, he is hard of hearing, but he is feeling better today compared to how he felt over the last few days, and seems to be very appropriate. But again has difficulty hearing. Patient was reevaluated today on 07/10/2018. Remains in the intensive care unit , presently on 4 L nasal cannula. He is in normal sinus rhythm, off norepinephrine, continues to have some fluid and consolidation in the left lower lobe area. Clinically however the patient is feeling much better. Venous Doppler of the leg was negative. And I see no value of ordering a VQ scan on this patient, because my index of suspicion for pulmonary embolism is extremely low. Patient does not have thromboembolic disease. However his heparin was initially started with the assumption that the patient had atrial fibrillation he also had LV dysfunction, and significantly elevated troponins. We felt that the reason we started heparin was mostly because of cardiac issues and not because of pulmonary issues. Pulmonary-amin, the patient is feeling better, his breathing a lot easier, and again he is only on 4 L nasal cannula. Urine output remains good, he received a dose of Lasix today [place] to [place] [employer]. Chest x-ray was reviewed, all labs were reviewed, BUN is 61 creatinine is 2.47. Liver enzymes are borderline elevated. Hemoglobin is 7.1, may consider giving the patient a unit of packed RBCs. Patient was reevaluated today on , remains in the ICU, but he is doing excellent, significantly improved over the last few days. Patient is on few liters nasal cannula, he is off pressors, heparin was discontinued, and my index of suspicion for pulmonary embolism is extremely low. His presentation was clearly not a pulmonary embolism presentation. It was mostly a presentation of sepsis, non-ST elevation myocardial infarction, congestive heart failure, and left lower lobe pneumonia was strongly suspected. Nowhere in my notes I even considered pulmonary embolism in this patient. I have no idea why is the VQ scan being considered on this patient. Not to mention the VQ scan will come back abnormal considering the abnormal findings on the chest x -ray. Considering no index of suspicion for pulmonary embolism on my behalf, and considering there are many other issues that can explain his presentation, no need for VQ scan, and no need for heparin for pulmonary issues unless it is felt necessary for cardiac issues including episodes of atrial fibrillation and non-ST elevation myocardial infarction and severe LV dysfunction. I reviewed the chest x-ray today with the , and explained to her that I may consider ultrasound of the chest, and may consider left-sided thoracentesis if there is enough fluid to be drained. All labs were reviewed, patient continues to have acute kidney injury, and that being addressed by nephrology on the case. Objective - Vital Signs Vital signs: Vital Signs Temp 98.5 F 07/11/18 12:00 Pulse 76 07/11/18 12:28 Resp 22 07/11/18 12:19 BP 85/39 07/11/18 12:00 Pulse Ox 94 L 07/11/18 12:00 Intake & Output 07/10/18 07/11/18 07/11/18 18:59 06:59 18:59 Intake Total 283.015 720.028 82.88 Output Total 615 647 315 Balance -331.985 73.028 -232.12 Weight 113 kg Intake: IV 220 320 30 0.9 NACL 120 120 30 Piperacillin-Tazobactam 3 100 200 .375 gm In Sodium Chloride 0.9% 100 ml @ 25 mls/hr IVPB Q8H [facility] Rx#: [id number] Intake, IV Titration 63.015 280.028 52.88 Amount DAPTOmycin 500 mg In 50 Sodium Chloride 0.9% 50 ml @ 100 mls/hr IVPB Q24H [facility] Rx#:[id number] Heparin Sod,Pork in 0.45% 63.015 230.028 52.88 NaCl 25,000 unit In 0.45 % NaCl 1 250ml.bag @ 18 UNITS/KG/HR 19.84 mls/hr IV .[id number] [facility] Rx#: [id number] Oral 120 Output: Urine 615 647 315 Other: Voiding Method Indwelling Catheter Indwelling Catheter Indwelling Catheter # Bowel Movements 1 3 ABP, PAP, CO, CI - Last Documented Arterial Blood Pressure 118/50 - Exam Physical Exam: Revealed a 78-year-old white male, on 4 L nasal cannula, hard of hearing, denies any shortness of breath cough or wheezing. Head: Atraumatic, normocephalic. HEENT:[Neck is supple.] [No neck masses.] [No thyromegaly.] [No JVD.] PERRLA, EOMI, no icterus. Throat is clear. Moist mucous membranes noted. Chest: [Minimal crackles at the left base, no rhonchi and no wheezes. No chest wall tenderness. Symmetrical expansion noted. Cardiac Exam: [Distant S1 and S2, no S3 gallop, no murmur.] Abdomen: [Soft, nontender, no megaly, no rebound, no guarding, diminished bowel sounds Extremities: [No clubbing, no edema, no cyanosis.] Neurological Exam: Generally weak, right-sided foot drop is noted, hard of hearing, otherwise no gross focal neurologic deficits. Skin: Deep sacral decubitus ulcer noted by the nurse, being addressed by infectious disease on consultation.. Surgical site on the right hip is intact and clean and dry Psychiatric: Normal mood, normal affect, normal mental status examination - Labs CBC & Chem 7: 07/11/18 05:13 07/11/18 05:13 Labs: Abnormal Lab Results - Last 24 Hours (Table) 07/10/18 07/10/18 07/10/18 Range/Units 04:40 16:57 20:39 RBC (4.30-5.90) m/uL Hgb (13.0-17.5) gm/dL Hct (39.0-53.0) % APTT (22.0-30.0) sec Sodium (137-145) mmol/L BUN (9-20) mg/dL Creatinine (0.66-1.25) mg/dL Glucose (74-99) mg/dL POC Glucose (mg/dL) 147 H 139 H (75-99) mg/dL Iron 17 L (65-175) ug/dL TIBC 225 L (228-460) ug/dL Iron Saturation 7.56 L (15.00-50.00) AST (17-59) U/L ALT (21-72) U/L Total Protein (6.3-8.2) g/dL Albumin (3.5-5.0) g/dL 07/11/18 07/11/18 07/11/18 Range/Units 02:25 05:13 05:13 RBC 2.48 L (4.30-5.90) m/uL Hgb 7.6 L (13.0-17.5) gm/dL Hct 24.3 L (39.0-53.0) % APTT (22.0-30.0) sec Sodium 134 L (137-145) mmol/L BUN 70 H (9-20) mg/dL Creatinine 2.55 H (0.66-1.25) mg/dL Glucose 129 H (74-99) mg/dL POC Glucose (mg/dL) 123 H (75-99) mg/dL Iron (65-175) ug/dL TIBC (228-460) ug/dL Iron Saturation (15.00-50.00) AST 104 H (17-59) U/L ALT 109 H (21-72) U/L Total Protein 5.0 L (6.3-8.2) g/dL Albumin 2.6 L (3.5-5.0) g/dL 07/11/18 07/11/18 07/11/18 Range/Units 06:15 06:57 12:10 RBC (4.30-5.90) m/uL Hgb (13.0-17.5) gm/dL Hct (39.0-53.0) % APTT 50.6 H (22.0-30.0) sec Sodium (137-145) mmol/L BUN (9-20) mg/dL Creatinine (0.66-1.25) mg/dL Glucose (74-99) mg/dL POC Glucose (mg/dL) 147 H 127 H (75-99) mg/dL Iron (65-175) ug/dL TIBC (228-460) ug/dL Iron Saturation (15.00-50.00) AST (17-59) U/L ALT (21-72) U/L Total Protein (6.3-8.2) g/dL Albumin (3.5-5.0) g/dL Microbiology - Last 24 Hours (Table) 07/07/18 05:40 Blood Culture - Preliminary Blood No Growth after 96 hours 07/07/18 05:56 Blood Culture - Preliminary Blood No Growth after 96 hours Assessment and Plan Assessment: Impression: 1 acute hypoxic respiratory failure secondary to sepsis, most likely source is his sacral ulcer. Although other possibilities including urine and pneumonia not entirely ruled out. But felt to be less likely. On 4 L nasal cannula presently. 2 acute lactic acidosis secondary to sepsis improving. His lactic acidosis could also be secondary to his cardiogenic dysfunction. Ejection fraction is 20 % 3 severe LV dysfunction, ejection fraction of 20%, patient is high risk for developing congestive heart failure and pulmonary edema with treatment of sepsis and fluids. . 4 electrolytes imbalance including hyponatremia and hyperkalemia, resolved 5 coronary artery disease, 6 chronic anemia 7 acute on chronic kidney disease, possibly acute kidney injury, being followed by nephrology, consultation was initiated today. 8 chronic obstructive pulmonary disease, supposedly moderately severe. Patient is normally on updrafts at home. 9 history of CVA and history of hydrocephalus requiring REPRINT SORTER shunt, history of chronic right foot drop. 10 status post right hemiarthroplasty for right hip fracture, patient is postoperative day #8 11 suspect left pleural effusion, hence ultrasound of the chest was ordered, may even consider left-sided thoracentesis. 12 extremely low index of suspicion for pulmonary embolism, hence if heparin is not to be used by cardiology, and no cardiac indication for heparin, there is definitely no pulmonary indication for heparin at this point. Again no need for a VQ scan. Discussed this issue specifically with Dr. Tadeo on the case. Recommendation: Continue empiric broad-spectrum antibiotics, patient is now on daptomycin and Zosyn, antibiotics as per infectious disease on the case. Continue treatment as per sepsis protocol, however patient is high risk for developing congestive heart failure considering his poor LV function ejection fraction of 20%. Continue anticoagulation therapy, patient used to be on Plavix, presently on heparin, and he is on heparin as per protocol. Continue insulin drip,, transitioned to sliding scale insulin. Continue bronchodilators Continue incentive spirometry Cost all of the above with the at bedside, my only recommendation right now is consider transferring the patient out of the ICU to a monitor bed on selective, consider ultrasound of the chest and possible left-sided thoracentesis, we'll continue to follow closely. Long-term prognosis remains poor and guarded, will follow Time with Patient: Less than 30
[2018-07-11] MEDS: CARVEDILOL 1.563 MG TAB PO SCH (16:28)
[2018-07-11 16:46] LABS: ABG Base Excess 0.8 mmol/L; ABG HCO3 24 mmol/L (21-25); ABG Oxygen Saturation 97.4 % (94-97); ABG PCO2 30 mmHg (35-45); ABG PH 7.51 (7.35-7.45); ABG PO2 84 mmHg (83-108); ABG TCO2 25 mmol/L (19-24)
--- NOTE | 2018-07-11 17:10 | P.PN ---
Progress Note - Text Progress Note Date: 07/11/18 Hospitalist Interval Note Called to see patient: Code stroke Patient seen and examined at bedside with and nursing present. Apparently he was at his baseline but then became very lethargic this afternoon. He was having difficulty speaking and seemed more confused than baseline. He then developed a left upward gaze palsy. Initially he was unable to squeeze the nurse's hands. Patient is very hard of hearing and has been slightly uncooperative throughout his stay. Patient now is sometimes seeking clearly and intermittently garbled. He is unable to tell us where he is at. He is able to recognize his and say her name. He denies any pain at this point in time. Vital signs reviewed General: ill appearing, no distress, appears at stated age Derm: Multiple areas of ecchymoses warm, dry Head: atraumatic, normocephalic, symmetric Eyes: EOMI, no lid lag, anicteric sclera Mouth: no lip lesion, mucus membranes moist Cardiovascular: S1S2 reg, no murmur, positive posterior tibial pulse bilateral, Lungs: CTA bilateral, no rhonchi, no rales , no accessory muscle use Abdominal: soft, nontender to palpation, no guarding, no appreciable organomegaly Ext: no gross muscle atrophy, no edema, no contractures Neuro: Able to wiggle bilateral feet, is able to contract muscles to lift legs off the bed but is too weak to do so, muscle strength 5 out of 5 with dorsiflexion of feet, light touch intact all 4 extremities is, muscle strength 4 out of 5 in bilateral upper extremities, light touch intact bilateral face, left pupil sluggishly reactive, right pupil reactive. Unable to follow commands for [id number] testing Psych: Alert, oriented to self, appropriate affect Assessment/Plan: 1.Confusion with left gaze preference, concern for stroke-improving, will check stat head CT in light of patient having recently been on heparin drip secondary to myocardial infarction and A. fib with RVR. Code stroke was initiated. ABG was ordered and is within normal limits. Will have telemetry neurology evaluate patient. We will attempt to limit contrast exposure as able secondary to acute kidney injury on chronic kidney disease. Check CMC, BMP, PT/PTT, Ammonia. Will follow head CT and lab results A total of 32 minutes of critical care time was spent on this complex patient.
[2018-07-11 17:19] LABS: Glucose,Whole Blood 166 mg/dL (75-99)
[2018-07-11 17:23] LABS: Albumin 2.5 g/dL (3.5-5.0); Calcium 8.6 mg/dL (8.4-10.2); Magnesium 2.1 mg/dL (1.6-2.3); Potassium 3.5 mmol/L (3.5-5.1)
--- NOTE | 2018-07-11 17:25 | CT ---
EXAMINATION TYPE: CT brain wo con DATE OF EXAM: 07/11/2018 COMPARISON: None HISTORY: Code stroke CT DLP: 1039.4 mGycm Automated exposure control for dose reduction was used. FINDINGS: There is a large area of hypodensity involving the right temporal lobe consistent with old infarct. T here is a ventricular shunt catheter noted with the tip in the frontal horn left lateral ventricle an d catheter entering the right posterior parietal bone. There is right frontoparietal craniotomy defec t. There is no midline shift. There is no sign of intracranial hemorrhage. There is cerebral atrophy. IMPRESSION: PREVIOUS SURGERY. 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 NO ACUTE INTRACRANIAL ABNORMALITY.
[2018-07-11 17:28] LABS: INR 1.3 (<1.2); Partial Thromboplastin Time 29.2 sec (22.0-30.0); Prothrombin Time 13.3 sec (9.0-12.0)
[2018-07-11 17:38] LABS: Hypochromasia Slight; Poikilocytosis Slight
[2018-07-11 17:39] LABS: HCT 22.4 % (39.0-53.0); HGB 7.4 gm/dL (13.0-17.5); MCH 31.3 pg (25.0-35.0); MCHC 32.9 g/dL (31.0-37.0); MCV 95.2 fL (80.0-100.0); Mean Platelet Volume 9.1; Platelet Count 278 k/uL (150-450); RBC 2.35 m/uL (4.30-5.90); RDW 15.2 % (11.5-15.5)
[2018-07-11 18:08] LABS: Eosinophils # (M) 0.23 k/uL (0-0.7); Lymphocytes # (M) 0.41 k/uL (1.0-4.8); Monocytes # (M) 0.52 k/uL (0-1.0); Neutrophils % (M) 81 %; Nucleated Red Blood Cells 1 /100 WBC (0-0); Polychromasia Present; Stomatocytes Present; Total Cells Counted 200; WBC 5.8 k/uL (3.8-10.6)
[2018-07-11 19:57] LABS: Glucose,Whole Blood 138 mg/dL (75-99)
[2018-07-11 20:45] LABS: Glucose,Whole Blood 138 mg/dL (75-99)
[2018-07-11] MEDS: ACETAMINOPHEN TAB 500 MG TAB PO SCH (21:00)
[2018-07-11] MEDS: SENNOSIDES-DOCUSATE SODIUM 1 EACH TAB PO SCH (21:01)
[2018-07-12] MEDS: ACETAMINOPHEN TAB 500 MG TAB PO SCH ×4 (02:29→21:37)
[2018-07-12] MEDS: INSULIN ASPART 100 UNIT/ML 1 ML 10 ML VIAL SQ SCH ×5 (02:30→21:38)
[2018-07-12 02:36] LABS: Glucose,Whole Blood 136 mg/dL (75-99)
[2018-07-12] MEDS: PIPERACILLIN-TAZOBACTAM 3.375 GM in SODIUM CHLORIDE 0.9% 100 ML IVPB SCH ×3 (05:22→21:44)
--- NOTE | 2018-07-12 06:19 | XR ---
EXAMINATION TYPE: XR chest 1V portable DATE OF EXAM: 07/12/2018 HISTORY: bipap dependent. REFERENCE: Previous study dated 07/11/2018. FINDINGS: There has been a previous ACDF in the lower cervical spine. There are bilateral shoulder pr ostheses in place. Heart size is upper limits of normal. There is vascular congestion and mild edema. There is confluent left basilar airspace disease. There are bilateral effusions, larger on the left than the right. IMPRESSION: 1. VASCULAR CONGESTION AND MILD EDEMA. THIS HAS WORSENED. 2. CONTINUING LEFT BASILAR AIRSPACE DISEASE. 3. SMALL, BILATERAL EFFUSIONS, GREATER ON THE LEFT THAN THE RIGHT.
[2018-07-12 07:18] LABS: Glucose,Whole Blood 131 mg/dL (75-99)
[2018-07-12] MEDS: ALBUTEROL NEBULIZED 2.5 MG/3 ML INHALATION SCH ×2 (07:26→19:15)
--- NOTE | 2018-07-12 07:29 | P.PN ---
Subjective Progress Note Date: 07/12/18 Principal diagnosis: Acute non-ST elevation [place] This is a pleasant 78-year-old gentleman who we did see and signed off during this admission, asked to see the patient again because of acute coronary syndrome. 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 He was on the surgical floor last night when he developed sudden onset of shortness of breath associated with change in mental status and he was in acute respiratory distress.The patient ruled in for acute non-ST elevation myocardial infarction with increasing in his troponin from 4- 5. The EKG showed sinus tachycardia. Beside that he was running temperature and there is questionable sepsis, infectious disease was consulted to see the patient. More importantly, the patient creatinine is elevated. Also the d- dimer came in to be abnormal and currently he is on heparin IV. Beside that the patient underwent an echocardiogram after this incident and that showed severe cardiomyopathy with EF around 20% with global hypokinesia. The echocardiogram before surgery showed an ejection fraction of 50%. On follow-up with the patient today, 07/12/2018, the patient seems to be in mild respiratory distress. Hemodynamically he continues to be stable. The chest x-ray showed worsening finding of congestive heart failure with bilateral pleural effusion. I am going to restart the patient back on Lasix IV at 40 mg twice a day. The creatinine this morning is 2.59. Objective - Vital Signs Vital signs: Vital Signs Temp 98.2 F 07/12/18 00:00 Pulse 67 07/12/18 04:00 Resp 18 07/12/18 04:00 BP 103/48 07/12/18 04:00 Pulse Ox 95 07/12/18 04:00 Intake & Output 07/11/18 07/12/18 07/12/18 18:59 06:59 18:59 Intake Total 122.88 220 Output Total 565 550 Balance -442.12 -330 Weight 113 kg Intake: IV 70 220 0.9 NACL 70 120 Piperacillin-Tazobactam 3 100 .375 gm In Sodium Chloride 0.9% 100 ml @ 25 mls/hr IVPB Q8H [facility] Rx#: [id number] Intake, IV Titration 52.88 Amount Heparin Sod,Pork in 0.45% 52.88 NaCl 25,000 unit In 0.45 % NaCl 1 250ml.bag @ 18 UNITS/KG/HR 19.84 mls/hr IV .[id number] [facility] Rx#: [id number] Output: Urine 565 550 Other: Voiding Method Indwelling Catheter Indwelling Catheter # Voids 2 ABP, PAP, CO, CI - Last Documented Arterial Blood Pressure 122/49 - Constitutional General appearance: Present: mild distress - Respiratory Respiratory: bilateral: diminished - Cardiovascular Rhythm: regular - Labs CBC & Chem 7: 07/11/18 16:56 07/11/18 16:56 Labs: Abnormal Lab Results - Last 24 Hours (Table) 07/11/18 07/11/18 07/11/18 Range/Units 06:15 12:10 16:43 RBC (4.30-5.90) m/uL Hgb (13.0-17.5) gm/dL Hct (39.0-53.0) % Lymphocytes # (Manual) (1.0-4.8) k/uL Nucleated RBCs (0-0) /100 WBC PT (9.0-12.0) sec INR (<1.2) APTT 50.6 H (22.0-30.0) sec ABG pH 7.51 H (7.35-7.45) ABG pCO2 30 L (35-45) mmHg ABG Total CO2 25 H (19-24) mmol/L ABG O2 Saturation 97.4 H (94-97) % Sodium (137-145) mmol/L BUN (9-20) mg/dL Creatinine (0.66-1.25) mg/dL Glucose (74-99) mg/dL POC Glucose (mg/dL) 127 H (75-99) mg/dL AST (17-59) U/L ALT (21-72) U/L Troponin I (0.000-0.034) ng/mL Total Protein (6.3-8.2) g/dL Albumin (3.5-5.0) g/dL 07/11/18 07/11/18 07/11/18 Range/Units 16:56 16:56 16:56 RBC 2.35 L (4.30-5.90) m/uL Hgb 7.4 L (13.0-17.5) gm/dL Hct 22.4 L (39.0-53.0) % Lymphocytes # (Manual) 0.41 L (1.0-4.8) k/uL Nucleated RBCs 1 H (0-0) /100 WBC PT 13.3 H (9.0-12.0) sec INR 1.3 H (<1.2) APTT (22.0-30.0) sec ABG pH (7.35-7.45) ABG pCO2 (35-45) mmHg ABG Total CO2 (19-24) mmol/L ABG O2 Saturation (94-97) % Sodium 133 L (137-145) mmol/L BUN 73 H (9-20) mg/dL Creatinine 2.59 H (0.66-1.25) mg/dL Glucose 160 H (74-99) mg/dL POC Glucose (mg/dL) (75-99) mg/dL AST 81 H (17-59) U/L ALT 107 H (21-72) U/L Troponin I (0.000-0.034) ng/mL Total Protein 5.0 L (6.3-8.2) g/dL Albumin 2.5 L (3.5-5.0) g/dL 07/11/18 07/11/18 07/11/18 Range/Units 16:56 16:57 19:45 RBC (4.30-5.90) m/uL Hgb (13.0-17.5) gm/dL Hct (39.0-53.0) % Lymphocytes # (Manual) (1.0-4.8) k/uL Nucleated RBCs (0-0) /100 WBC PT (9.0-12.0) sec INR (<1.2) APTT (22.0-30.0) sec ABG pH (7.35-7.45) ABG pCO2 (35-45) mmHg ABG Total CO2 (19-24) mmol/L ABG O2 Saturation (94-97) % Sodium (137-145) mmol/L BUN (9-20) mg/dL Creatinine (0.66-1.25) mg/dL Glucose (74-99) mg/dL POC Glucose (mg/dL) 166 H 138 H (75-99) mg/dL AST (17-59) U/L ALT (21-72) U/L Troponin I 2.920 H* (0.000-0.034) ng/mL Total Protein (6.3-8.2) g/dL Albumin (3.5-5.0) g/dL 07/11/18 07/12/18 07/12/18 Range/Units 20:33 02:25 07:06 RBC (4.30-5.90) m/uL Hgb (13.0-17.5) gm/dL Hct (39.0-53.0) % Lymphocytes # (Manual) (1.0-4.8) k/uL Nucleated RBCs (0-0) /100 WBC PT (9.0-12.0) sec INR (<1.2) APTT (22.0-30.0) sec ABG pH (7.35-7.45) ABG pCO2 (35-45) mmHg ABG Total CO2 (19-24) mmol/L ABG O2 Saturation (94-97) % Sodium (137-145) mmol/L BUN (9-20) mg/dL Creatinine (0.66-1.25) mg/dL Glucose (74-99) mg/dL POC Glucose (mg/dL) 138 H 136 H 131 H (75-99) mg/dL AST (17-59) U/L ALT (21-72) U/L Troponin I (0.000-0.034) ng/mL Total Protein (6.3-8.2) g/dL Albumin (3.5-5.0) g/dL Microbiology - Last 24 Hours (Table) 07/07/18 05:40 Blood Culture - Preliminary Blood No Growth after 96 hours 07/07/18 05:56 Blood Culture - Preliminary Blood No Growth after 96 hours Assessment and Plan Assessment: Assessment #1 acute respiratory distress #2 possible pulmonary embolization #3 possible sepsis of unknown source #4 acute non-ST patient myocardial infarction, type I versus type II #4 severe cardiomyopathy with significant drop in the left ventricle systolic function #5 acute on chronic renal failure Plan #1 I did recommend a conservative medical approach for the non-ST elevation WI. In the absence of any chest pain or chest discomfort and in the presence of renal failure #2 dual antiplatelet therapy with aspirin and Plavix #3 restart the patient back on Lasix IV #4 follow-up with
[2018-07-12] MEDS: INSULIN DETEMIR 100 UNIT/ML 10 ML VIAL SQ SCH (08:31)
[2018-07-12] MEDS: CLOPIDOGREL 75 MG TAB PO SCH (08:31)
[2018-07-12] MEDS: ASPIRIN 81 MG PO SCH (08:31)
[2018-07-12] MEDS: HYDROcodone/APAP 5-325MG 1 EACH TAB PO PRN (08:32)
[2018-07-12] MEDS: NICOTINE 14MG/24HR PATCH TRANSDERM SCH (08:32)
[2018-07-12] MEDS: PARoxetine 20 MG TAB PO SCH ×2 (08:32→21:37)
[2018-07-12 08:38] LABS: HCT 23.3 % (39.0-53.0); HGB 7.4 gm/dL (13.0-17.5); Hypochromasia Slight; MCH 30.2 pg (25.0-35.0); MCHC 31.7 g/dL (31.0-37.0); MCV 95.5 fL (80.0-100.0); Mean Platelet Volume 9.3; Platelet Count 271 k/uL (150-450); Poikilocytosis Slight; RBC 2.44 m/uL (4.30-5.90); RDW 15.3 % (11.5-15.5); WBC 5.8 k/uL (3.8-10.6)
[2018-07-12] MEDS: CARVEDILOL 1.563 MG TAB PO SCH ×2 (08:41→21:36)
[2018-07-12 08:48] LABS: Albumin 2.6 g/dL (3.5-5.0); Calcium 8.6 mg/dL (8.4-10.2); Potassium 3.5 mmol/L (3.5-5.1)
[2018-07-12] MEDS ORDERED: FUROSEMIDE 10 MG/ML 4 ML VIAL IV SCH ×2 (09:00)
--- NOTE | 2018-07-12 09:24 | P.PN ---
Subjective Progress Note Date: 07/12/18 Principal diagnosis: Pneumonia Patient is a 78-year-old male past medical history of coronary artery disease, congestive heart failure, diabetes, and hearing loss who presented to our facility as a transfer for orthopedic evaluation. He was trying to get on his exercise bike when he sustained a mechanical fall. At the outside hospital he was found to have a right hip fracture. Upon review of records from prior hospitalization he has found to have acidosis, hyperkalemia, anemia, and elevated creatinine. He was subsequently administered insulin and dextrose, he was started on IV fluids, repeat ABG was obtained and he was started on BiPAP therapy. Initial echocardiogram showed preserved ejection fraction at 55 to 60% . He was seen by cardiology and his Lopressor was decreased to 12.5 daily, his amiodarone was discontinued and Plavix was held in light of probable need for surgery. Patient underwent a right hemiarthroplasty on 07/03/18. Initially he tolerated the procedure well. His acidosis seemed to be improving. He was noted to have a hemoglobin drop on 07/05 at 10.2-8.3. He had been working with therapy and progressing well. On the morning of 07/07 he went into acute mental status changes associated with difficulty in breathing. He was found to be hypoxic and an EKG showed a new left bundle branch block with underlying A. fib rhythm. This was discussed with cardiology who recommended a stat echocardiogram as troponins came back at 3.7. Stat echo revealed a decreased ejection fraction of less than 20%. He was also noted to have worsening acidosis and was placed on a bicarb drip. He was transferred to the ICU for close monitoring. There was concern for possible pneumonia and he was empirically started on Zosyn and daptomycin due to vancomycin ALLERGY. Patient was seen by Dr. Garcia who felt he could have possible sepsis and echo and Zosyn were continued. He also was found to have deep sacral decubitus ulcer, he did suffer a fall prior to admission. His statin was held due to elevated CPKs. He developed hypotension on the morning of 07/08 and required levophed to be started. His reanl function continued to worsen despite optimization of his blood pressures. He was seen by nephrology. He was able to be weaned off BIPAP and levophed by the morning of 07/10. Cardio felt that medical management is most appropriate in light of his renal failure and sepsis. He developed increased confusion and upward gaze deviation on the evening of 07/11. Head CT was negative and his confusion improved. He was started on scheduled tylenol which seemed to help with his encephalopathy. His vascular congestion was again increased on 07/12 and he was given a dose of lasix. Patient seen and examined at bedside. Did well overnight per nursing. States that he is feeling better today. Deneis pain, intermittent Shortness of breath. Going to sit on edge of bed again today. D/W case and care with nursing. Objective - Vital Signs Vital signs: Vital Signs Temp 97.5 F L 07/12/18 08:00 Pulse 70 07/12/18 08:00 Resp 17 07/12/18 08:00 BP 103/48 07/12/18 04:00 Pulse Ox 96 07/12/18 08:00 Intake & Output 07/11/18 07/12/18 07/12/18 18:59 06:59 18:59 Intake Total 122.88 220 20 Output Total 565 550 200 Balance -442.12 -330 -180 Weight 113 kg Intake: IV 70 220 20 0.9 NACL 70 120 20 Piperacillin-Tazobactam 3 100 .375 gm In Sodium Chloride 0.9% 100 ml @ 25 mls/hr IVPB Q8H [facility] Rx#: [id number] Intake, IV Titration 52.88 Amount Heparin Sod,Pork in 0.45% 52.88 NaCl 25,000 unit In 0.45 % NaCl 1 250ml.bag @ 18 UNITS/KG/HR 19.84 mls/hr IV .[id number] [facility] Rx#: [id number] Output: Urine 565 550 200 Other: Voiding Method Indwelling Catheter Indwelling Catheter # Voids 2 ABP, PAP, CO, CI - Last Documented Arterial Blood Pressure 126/52 - Exam General:Non toxic, no distress, appears at stated age, [place] Derm: warm, dry Head: atraumatic, normocephalic, symmetric Eyes: EOMI, no lid lag, anicteric sclera Mouth: no lip lesion, mucus membranes moist Cardiovascular: S1S2 reg, no murmur, positive posterior tibial pulse bilateral, Lungs: dcrackels b/l bases , no accessory muscle use, Abdominal: soft, nontender to palpation, no guarding, no appreciable organomegaly Ext: no gross muscle atrophy, no edema, no contractures Neuro: CN II-XI grossly intact, no focal neuro deficits Psych: Alert, Awake, improved mentation - Labs CBC & Chem 7: 07/12/18 08:14 07/12/18 08:14 Labs: Abnormal Lab Results - Last 24 Hours (Table) 07/11/18 07/11/18 07/11/18 Range/Units 12:10 16:43 16:56 RBC 2.35 L (4.30-5.90) m/uL Hgb 7.4 L (13.0-17.5) gm/dL Hct 22.4 L (39.0-53.0) % Lymphocytes # (Manual) 0.41 L (1.0-4.8) k/uL Nucleated RBCs 1 H (0-0) /100 WBC PT (9.0-12.0) sec INR (<1.2) ABG pH 7.51 H (7.35-7.45) ABG pCO2 30 L (35-45) mmHg ABG Total CO2 25 H (19-24) mmol/L ABG O2 Saturation 97.4 H (94-97) % Sodium (137-145) mmol/L BUN (9-20) mg/dL Creatinine (0.66-1.25) mg/dL Glucose (74-99) mg/dL POC Glucose (mg/dL) 127 H (75-99) mg/dL AST (17-59) U/L ALT (21-72) U/L Troponin I (0.000-0.034) ng/mL Total Protein (6.3-8.2) g/dL Albumin (3.5-5.0) g/dL 07/11/18 07/11/18 07/11/18 Range/Units 16:56 16:56 16:56 RBC (4.30-5.90) m/uL Hgb (13.0-17.5) gm/dL Hct (39.0-53.0) % Lymphocytes # (Manual) (1.0-4.8) k/uL Nucleated RBCs (0-0) /100 WBC PT 13.3 H (9.0-12.0) sec INR 1.3 H (<1.2) ABG pH (7.35-7.45) ABG pCO2 (35-45) mmHg ABG Total CO2 (19-24) mmol/L ABG O2 Saturation (94-97) % Sodium 133 L (137-145) mmol/L BUN 73 H (9-20) mg/dL Creatinine 2.59 H (0.66-1.25) mg/dL Glucose 160 H (74-99) mg/dL POC Glucose (mg/dL) (75-99) mg/dL AST 81 H (17-59) U/L ALT 107 H (21-72) U/L Troponin I 2.920 H* (0.000-0.034) ng/mL Total Protein 5.0 L (6.3-8.2) g/dL Albumin 2.5 L (3.5-5.0) g/dL 07/11/18 07/11/18 07/11/18 Range/Units 16:57 19:45 20:33 RBC (4.30-5.90) m/uL Hgb (13.0-17.5) gm/dL Hct (39.0-53.0) % Lymphocytes # (Manual) (1.0-4.8) k/uL Nucleated RBCs (0-0) /100 WBC PT (9.0-12.0) sec INR (<1.2) ABG pH (7.35-7.45) ABG pCO2 (35-45) mmHg ABG Total CO2 (19-24) mmol/L ABG O2 Saturation (94-97) % Sodium (137-145) mmol/L BUN (9-20) mg/dL Creatinine (0.66-1.25) mg/dL Glucose (74-99) mg/dL POC Glucose (mg/dL) 166 H 138 H 138 H (75-99) mg/dL AST (17-59) U/L ALT (21-72) U/L Troponin I (0.000-0.034) ng/mL Total Protein (6.3-8.2) g/dL Albumin (3.5-5.0) g/dL 07/12/18 07/12/18 07/12/18 Range/Units 02:25 07:06 08:14 RBC 2.44 L (4.30-5.90) m/uL Hgb 7.4 L (13.0-17.5) gm/dL Hct 23.3 L (39.0-53.0) % Lymphocytes # (Manual) (1.0-4.8) k/uL Nucleated RBCs (0-0) /100 WBC PT (9.0-12.0) sec INR (<1.2) ABG pH (7.35-7.45) ABG pCO2 (35-45) mmHg ABG Total CO2 (19-24) mmol/L ABG O2 Saturation (94-97) % Sodium (137-145) mmol/L BUN (9-20) mg/dL Creatinine (0.66-1.25) mg/dL Glucose (74-99) mg/dL POC Glucose (mg/dL) 136 H 131 H (75-99) mg/dL AST (17-59) U/L ALT (21-72) U/L Troponin I (0.000-0.034) ng/mL Total Protein (6.3-8.2) g/dL Albumin (3.5-5.0) g/dL 07/12/18 Range/Units 08:14 RBC (4.30-5.90) m/uL Hgb (13.0-17.5) gm/dL Hct (39.0-53.0) % Lymphocytes # (Manual) (1.0-4.8) k/uL Nucleated RBCs (0-0) /100 WBC PT (9.0-12.0) sec INR (<1.2) ABG pH (7.35-7.45) ABG pCO2 (35-45) mmHg ABG Total CO2 (19-24) mmol/L ABG O2 Saturation (94-97) % Sodium 135 L (137-145) mmol/L BUN 69 H (9-20) mg/dL Creatinine 2.62 H (0.66-1.25) mg/dL Glucose 120 H (74-99) mg/dL POC Glucose (mg/dL) (75-99) mg/dL AST 60 H (17-59) U/L ALT 88 H (21-72) U/L Troponin I (0.000-0.034) ng/mL Total Protein 5.0 L (6.3-8.2) g/dL Albumin 2.6 L (3.5-5.0) g/dL Microbiology - Last 24 Hours (Table) 07/07/18 05:40 Blood Culture - Preliminary Blood No Growth after 120 hours 07/07/18 05:56 Blood Culture - Preliminary Blood No Growth after 120 hours Assessment and Plan Assessment: Left sided PNA with sepsis - dapto, zosyn D #6 - unable to obtain sputum culture and blood cultures negative - ID recs - procalcitionin 4.28 acute metabolic encephalopathy - Tylenol ATC - treatment of other underlying disease Tranamintis, improving - suspect due to hypoperfusion - follow liver enzymes NSTEMI, 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% - Lasix monitor renal function - ASA, PLAVIX, , eliquis 2.5mg - add lipitor once dapto complete - Cardio recs: medical management at this point in time, may need cath in the future - ACEI on hold due to low BP/JOSE - coreg Acute hypoxic respiratory failure - Improving - continued treatment of PNA JOSE on CKD - Baseline Cr unknown - avoid additional nephrotoxic agents - Nephro recs appreciated - maintain MAP >65 - renal US left kidney not visualized right normal - monitor urine output adequate Anemia of chronic disease - aranesp - no IV iron due to sepsis Right hip fracture - Ortho recs appreciated - Pain control - PT/OT Hyponatremia, stable - follow BMP COPD, without exacerbation -continue home regiment P. A. fib - tele - amio IV completed - eliquis Diabetes Mellitus - off actos, glimepiride, metformin - SSI, levemir - A1C 6.7 Dyslipidemia - Statin on hold due to elevated CK and dapto use Deep tissue injury - frequent turns - ID recs Lactic acidosis, improving hyperkalemia, resolved Mixed respiratory and metabolic acidosis, improved Septic shock, resolved Acute encephalopathy, improving Transfer to selective care if ok with cardio and pulmonary DVT prophylaxis: natty Discussed with: Patient, nursing Anticipated discharge: 2-[address]: rehab A total of 35 minutes was spent on the care of this complex patient more than 50 % of the time was spent in counseling and care coordination.
[2018-07-12 11:53] LABS: Glucose,Whole Blood 128 mg/dL (75-99)
--- NOTE | 2018-07-12 11:54 | P.PN ---
Subjective Progress Note Date: 07/12/18 Principal diagnosis: Acute hypoxic respiratory failure, sepsis, congestive heart failure. Systolic dysfunction. 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 Underlying COPD, obstructive sleep apnea syndrome, patient was admitted to the hospital on 2018, and he was admitted after a fall sustaining a right hip fracture, patient was admitted, seen by orthopedic surgery on consultation, and he underwent right hip arthroplasty for right upper Patellofemoral neck fracture by Dr. Abernathy on 07/03/2018. Patient is also known to have history of chronic decubitus sacral ulcer. Overnight last night, patient developed changes in mental status. He was also noted to have more difficulty breathing. He was noted to be hypoxic, tachypneic, and he had a low-grade temp of 100.5. The rapid response team from the intensive care unit responded to the patient, he was noted to be metabolically acidotic, his lactic acid was elevated, d-dimer was also elevated, his renal functioning was noted to be worse, and his ABG showed a pO2 of 201, pCO2 was 29 and pH was 7.21. Hence patient was placed on BiPAP, placed on a sodium bicarb drip, antibiotics where broadened spectrum, patient was placed on insulin drip for hyperglycemia, and he was transferred to the ICU. Patient has a DO NOT RESUSCITATE CODE STATUS based on his previously expressed wishes, hence he was managed with BiPAP, and will be managed with mostly antibiotics, fluids, however the patient is known to have history of LV dysfunction and his ejection fraction is about 20%. I saw the patient this morning in the ICU, and I discussed the different issues with his family at bedside. Reviewed all the medications he is presently on, and recommended infectious disease consultation on the patient. His chest x-ray did show evidence of interstitial edema or infiltrate in the left lung. X-rays of the lumbosacral spine showed compression fractures and deformities in the lumbar spine and lower thoracic vertebral. Echocardiogram showed severe global hypokinesis of the left ventricle. His lactic acid was noted to be elevated, 9.6 initially, and it is 7.4 now. Patient received fluid boluses of 1.5 L, hence maintenance IV fluid was placed at 100 mL/h, and sodium bicarb drip was addressed. PTT was over 200 and heparin was adjusted as per protocol. D-dimer was 2.28. Patient is normally on Plavix but presently on heparin Reevaluated today on 07/08/2018, patient remains in the ICU, on BiPAP, remains on antibiotics, bronchodilators, diuretics, patient remains on norepinephrine, presently at 15 g, and this is running through a peripheral IV line, hence I will establish a central IV access today. Patient's x-ray continues to show abnormalities on the left side, mostly interstitial edema-like picture, however the possibility of left lower lobe pneumonia and pleural effusion is not entirely ruled out. Pulmonary status is definitely marginal. His ABG reflected significant improvement in his acidosis, hence I recommended that was stopped sodium bicarb drip today. However what is interesting is the fact that his troponin is significantly high, and his BNP level is quite high at 44 600, troponin is 9.610. Dr. Tadeo seems to be quite concerned about the possibility of non-ST elevation myocardial infarction, and he is treating him as such. Patient is not the most ideal candidate for cardiac catheterization at this point considering his renal functioning. And considering the possibility of ongoing sepsis patient is still hemodynamically requiring significant dose of norepinephrine. I did review the chest x-ray, I recommended diuretics, and I'm still keeping the patient on broad-spectrum antibiotics for presumptive underlying sepsis. Patient was seen by infectious disease on consultation. WBC count is 7.2 hemoglobin is 7.7. PT is 68, however I held the heparin to safely place a central IV access. ABG showed a pO2 of 108 pCO2 of 31 pH of 7.55 and this is on O2 with IPAP of 12 and EPAP of 6. Patient was reevaluated today on 07/09/2018, remains in the ICU, off BiPAP, he is on a high flow nasal cannula at 10 L/m. Chest x-ray is showing improvement in his interstitial edema and possible left lower lobe pneumonia with atelectasis in the left lower lobe, patient remains on norepinephrine at 13 mcg/ m, blood pressure remains marginal. Clinically however the patient is feeling better, breathing easier, and his chest x-ray is clearly showing some improvement. All labs were reviewed, hemoglobin is 7.4 today. WBC count is 8.9. Electrolytes are noted, continues to have anion gap of 15, BUN is 61 creatinine is 2.44, slightly worse compared to the last couple of days, hence considering the patient is diuresing on his own, we'll hold the Lasix for the time being. I believe that renal functioning is mostly cardiorenal in nature patient does have severe LV dysfunction. And has been receiving a significant amount of diuretics since admission to the ICU. Liver enzymes were noted to be slightly elevated/transaminases. CPK was also noted to be elevated at 1092. Renal ultrasound was noted to be unremarkable, however the left kidney could not be visualized with certainly. Patient is feeling better, he is hard of hearing, but he is feeling better today compared to how he felt over the last few days, and seems to be very appropriate. But again has difficulty hearing. Patient was reevaluated today on 07/10/2018. Remains in the intensive care unit , presently on 4 L nasal cannula. He is in normal sinus rhythm, off norepinephrine, continues to have some fluid and consolidation in the left lower lobe area. Clinically however the patient is feeling much better. Venous Doppler of the leg was negative. And I see no value of ordering a VQ scan on this patient, because my index of suspicion for pulmonary embolism is extremely low. Patient does not have thromboembolic disease. However his heparin was initially started with the assumption that the patient had atrial fibrillation he also had LV dysfunction, and significantly elevated troponins. We felt that the reason we started heparin was mostly because of cardiac issues and not because of pulmonary issues. Pulmonary-amin, the patient is feeling better, his breathing a lot easier, and again he is only on 4 L nasal cannula. Urine output remains good, he received a dose of Lasix today given to him by the staff development educator. Chest x-ray was reviewed, all labs were reviewed, BUN is 61 creatinine is 2.47. Liver enzymes are borderline elevated. Hemoglobin is 7.1, may consider giving the patient a unit of packed RBCs. Patient was reevaluated today on 07/11/2018, remains in the ICU, but he is doing excellent, significantly improved over the last few days. Patient is on few liters nasal cannula, he is off pressors, heparin was discontinued, and my index of suspicion for pulmonary embolism is extremely low. His presentation was clearly not a pulmonary embolism presentation. It was mostly a presentation of sepsis, non-ST elevation myocardial infarction, congestive heart failure, and left lower lobe pneumonia was strongly suspected. Nowhere in my notes I even considered pulmonary embolism in this patient. I have no idea why is the VQ scan being considered on this patient. Not to mention the VQ scan will come back abnormal considering the abnormal findings on the chest x -ray. Considering no index of suspicion for pulmonary embolism on my behalf, and considering there are many other issues that can explain his presentation, no need for VQ scan, and no need for heparin for pulmonary issues unless it is felt necessary for cardiac issues including episodes of atrial fibrillation and non-ST elevation myocardial infarction and severe LV dysfunction. I reviewed the chest x-ray today with the , and explained to her that I may consider ultrasound of the chest, and may consider left-sided thoracentesis if there is enough fluid to be drained. All labs were reviewed, patient continues to have acute kidney injury, and that being addressed by nephrology on the case. Patient was reevaluated today on 07/12/2018, patient remains in the ICU, however he is an overflow from selective. Remains on 3 L nasal cannula, off pressors, off heparin, remains on antibiotics for presumptive left lower lobe pneumonia, remains on diuretics, and he received an extra dose of Lasix today by cardiology since his chest x-ray is showing some evidence of interstitial edema , and the patient is known to have history of cardiomyopathy and LV dysfunction. The patient himself is relatively asymptomatic. Reviewed the ultrasound from yesterday, there isn't much fluid to be drained from the left pleural space. Hemoglobin remains low at 7.4, WBC count is 5.8. Electrode was are normal however his BUN is 69 creatinine is 2.6, and I believe this is mostly related to his cardiorenal picture. And severe LV dysfunction. Objective - Vital Signs Vital signs: Vital Signs Temp 97.5 F L 07/12/18 08:00 Pulse 70 07/12/18 08:00 Resp 17 07/12/18 08:00 BP 103/48 07/12/18 04:00 Pulse Ox 96 07/12/18 08:00 Intake & Output 07/11/18 07/12/18 07/12/18 18:59 06:59 18:59 Intake Total 122.88 220 20 Output Total 565 550 200 Balance -442.12 -330 -180 Weight 113 kg Intake: IV 70 220 20 0.9 NACL 70 120 20 Piperacillin-Tazobactam 3 100 .375 gm In Sodium Chloride 0.9% 100 ml @ 25 mls/hr IVPB Q8H [facility] Rx#: [id number] Intake, IV Titration 52.88 Amount Heparin Sod,Pork in 0.45% 52.88 NaCl 25,000 unit In 0.45 % NaCl 1 250ml.bag @ 18 UNITS/KG/HR 19.84 mls/hr IV .[id number] [facility] Rx#: [id number] Output: Urine 565 550 200 Other: Voiding Method Indwelling Catheter Indwelling Catheter # Voids 2 ABP, PAP, CO, CI - Last Documented Arterial Blood Pressure 126/52 - Exam Physical Exam: Revealed a 78-year-old white male, on 3 L nasal cannula, asymptomatic in no distress. Head: Atraumatic, normocephalic. HEENT:[Neck is supple.] [No neck masses.] [No thyromegaly.] [No JVD.] PERRLA, EOMI, no icterus. Throat is clear. Moist mucous membranes noted. Chest: [Minimal crackles at the left base, no rhonchi and no wheezes. No chest wall tenderness. Symmetrical expansion noted. Cardiac Exam: [Distant S1 and S2, no S3 gallop, no murmur.] Abdomen: [Soft, nontender, no megaly, no rebound, no guarding, diminished bowel sounds Extremities: [No clubbing, no edema, no cyanosis.] Neurological Exam: No gross focal neurologic deficit except for a right foot drop. Skin: Deep sacral decubitus ulcer noted by the nurse, being addressed by infectious disease on consultation.. Surgical site on the right hip is intact and clean and dry Psychiatric: Normal mood, normal affect, normal mental status examination - Labs CBC & Chem 7: 07/12/18 08:14 07/12/18 08:14 Labs: Abnormal Lab Results - Last 24 Hours (Table) 07/11/18 07/11/18 07/11/18 Range/Units 12:10 16:43 16:56 RBC 2.35 L (4.30-5.90) m/uL Hgb 7.4 L (13.0-17.5) gm/dL Hct 22.4 L (39.0-53.0) % Lymphocytes # (Manual) 0.41 L (1.0-4.8) k/uL Nucleated RBCs 1 H (0-0) /100 WBC PT (9.0-12.0) sec INR (<1.2) ABG pH 7.51 H (7.35-7.45) ABG pCO2 30 L (35-45) mmHg ABG Total CO2 25 H (19-24) mmol/L ABG O2 Saturation 97.4 H (94-97) % Sodium (137-145) mmol/L BUN (9-20) mg/dL Creatinine (0.66-1.25) mg/dL Glucose (74-99) mg/dL POC Glucose (mg/dL) 127 H (75-99) mg/dL AST (17-59) U/L ALT (21-72) U/L Troponin I (0.000-0.034) ng/mL Total Protein (6.3-8.2) g/dL Albumin (3.5-5.0) g/dL 07/11/18 07/11/18 07/11/18 Range/Units 16:56 16:56 16:56 RBC (4.30-5.90) m/uL Hgb (13.0-17.5) gm/dL Hct (39.0-53.0) % Lymphocytes # (Manual) (1.0-4.8) k/uL Nucleated RBCs (0-0) /100 WBC PT 13.3 H (9.0-12.0) sec INR 1.3 H (<1.2) ABG pH (7.35-7.45) ABG pCO2 (35-45) mmHg ABG Total CO2 (19-24) mmol/L ABG O2 Saturation (94-97) % Sodium 133 L (137-145) mmol/L BUN 73 H (9-20) mg/dL Creatinine 2.59 H (0.66-1.25) mg/dL Glucose 160 H (74-99) mg/dL POC Glucose (mg/dL) (75-99) mg/dL AST 81 H (17-59) U/L ALT 107 H (21-72) U/L Troponin I 2.920 H* (0.000-0.034) ng/mL Total Protein 5.0 L (6.3-8.2) g/dL Albumin 2.5 L (3.5-5.0) g/dL 07/11/18 07/11/18 07/11/18 Range/Units 16:57 19:45 20:33 RBC (4.30-5.90) m/uL Hgb (13.0-17.5) gm/dL Hct (39.0-53.0) % Lymphocytes # (Manual) (1.0-4.8) k/uL Nucleated RBCs (0-0) /100 WBC PT (9.0-12.0) sec INR (<1.2) ABG pH (7.35-7.45) ABG pCO2 (35-45) mmHg ABG Total CO2 (19-24) mmol/L ABG O2 Saturation (94-97) % Sodium (137-145) mmol/L BUN (9-20) mg/dL Creatinine (0.66-1.25) mg/dL Glucose (74-99) mg/dL POC Glucose (mg/dL) 166 H 138 H 138 H (75-99) mg/dL AST (17-59) U/L ALT (21-72) U/L Troponin I (0.000-0.034) ng/mL Total Protein (6.3-8.2) g/dL Albumin (3.5-5.0) g/dL 07/12/18 07/12/18 07/12/18 Range/Units 02:25 07:06 08:14 RBC 2.44 L (4.30-5.90) m/uL Hgb 7.4 L (13.0-17.5) gm/dL Hct 23.3 L (39.0-53.0) % Lymphocytes # (Manual) (1.0-4.8) k/uL Nucleated RBCs (0-0) /100 WBC PT (9.0-12.0) sec INR (<1.2) ABG pH (7.35-7.45) ABG pCO2 (35-45) mmHg ABG Total CO2 (19-24) mmol/L ABG O2 Saturation (94-97) % Sodium (137-145) mmol/L BUN (9-20) mg/dL Creatinine (0.66-1.25) mg/dL Glucose (74-99) mg/dL POC Glucose (mg/dL) 136 H 131 H (75-99) mg/dL AST (17-59) U/L ALT (21-72) U/L Troponin I (0.000-0.034) ng/mL Total Protein (6.3-8.2) g/dL Albumin (3.5-5.0) g/dL 07/12/18 Range/Units 08:14 RBC (4.30-5.90) m/uL Hgb (13.0-17.5) gm/dL Hct (39.0-53.0) % Lymphocytes # (Manual) (1.0-4.8) k/uL Nucleated RBCs (0-0) /100 WBC PT (9.0-12.0) sec INR (<1.2) ABG pH (7.35-7.45) ABG pCO2 (35-45) mmHg ABG Total CO2 (19-24) mmol/L ABG O2 Saturation (94-97) % Sodium 135 L (137-145) mmol/L BUN 69 H (9-20) mg/dL Creatinine 2.62 H (0.66-1.25) mg/dL Glucose 120 H (74-99) mg/dL POC Glucose (mg/dL) (75-99) mg/dL AST 60 H (17-59) U/L ALT 88 H (21-72) U/L Troponin I (0.000-0.034) ng/mL Total Protein 5.0 L (6.3-8.2) g/dL Albumin 2.6 L (3.5-5.0) g/dL Microbiology - Last 24 Hours (Table) 07/07/18 05:40 Blood Culture - Preliminary Blood No Growth after 120 hours 07/07/18 05:56 Blood Culture - Preliminary Blood No Growth after 120 hours Assessment and Plan Assessment: Impression: 1 acute hypoxic respiratory failure secondary to sepsis, most likely source is his sacral ulcer. Although other possibilities including urine and pneumonia not entirely ruled out. But felt to be less likely. On 3 L nasal 2 acute lactic acidosis secondary to sepsis improving. His lactic acidosis could also be secondary to his cardiogenic dysfunction. Ejection fraction is 20 % 3 severe LV dysfunction, ejection fraction of 20%, patient is high risk for developing congestive heart failure and pulmonary edema with treatment of sepsis and fluids. . 4 electrolytes imbalance including hyponatremia and hyperkalemia, resolved 5 coronary artery disease, 6 chronic anemia 7 acute on chronic kidney disease, possibly acute kidney injury, being followed by nephrology, likely cardiorenal in nature 8 chronic obstructive pulmonary disease, supposedly moderately severe. Patient is normally on updrafts at home. 9 history of CVA and history of hydrocephalus requiring LIAISON OFFICER shunt, history of chronic right foot drop. 10 status post right hemiarthroplasty for right hip fracture, patient is postoperative day #8 11 suspect left pleural effusion, however ultrasound revealed minimal amount of fluid, not safe to do thoracentesis at this point. 12 extremely low index of suspicion for pulmonary embolism, hence if heparin is not to be used by cardiology, and no cardiac indication for heparin, there is definitely no pulmonary indication for heparin at this point. Again no need for a VQ scan. Discussed this issue specifically with Dr. Tadeo on the case. Recommendation: Continue empiric broad-spectrum antibiotics, patient is now on daptomycin and Zosyn, antibiotics as per infectious disease on the case. Continue treatment as per sepsis protocol, however patient is high risk for developing congestive heart failure considering his poor LV function ejection fraction of 20%. Continue insulin drip,, transitioned to sliding scale insulin. Continue bronchodilators Continue incentive spirometry Transfer patient to a monitored bed on selective today, consider possibly discharge planning in the next 48 hours we'll continue to follow. Long-term prognosis remains guarded considering the patient's complex multiple medical problems as noted above. Time with Patient: Less than 30
[2018-07-12] MEDS ORDERED: ACETAMINOPHEN TAB 500 MG TAB ONE (17:14)
[2018-07-12] MEDS ORDERED: ALBUTEROL NEBULIZED 2.5 MG/3 ML INHALATION ONE (17:14)
[2018-07-12] MEDS ORDERED: CARVEDILOL 1.563 MG TAB ONE (17:14)
[2018-07-12 18:47] LABS: Glucose,Whole Blood 134 mg/dL (75-99)
[2018-07-12] MEDS: IPRATROPIUM-ALBUTEROL 3 ML NEB INHALATION PRN (19:18)
[2018-07-12 21:00] LABS: Glucose,Whole Blood 166 mg/dL (75-99)
[2018-07-12] MEDS: APIXABAN 2.5 MG TABLET PO SCH (21:37)
[2018-07-12] MEDS: FUROSEMIDE 10 MG/ML 4 ML VIAL IV SCH (21:38)
[2018-07-12] MEDS: SENNOSIDES-DOCUSATE SODIUM 1 EACH TAB PO SCH (21:39)
[2018-07-13 01:41] LABS: Glucose,Whole Blood 129 mg/dL (75-99)
[2018-07-13] MEDS: ACETAMINOPHEN TAB 500 MG TAB PO SCH ×4 (02:24→18:38)
[2018-07-13] MEDS: INSULIN ASPART 100 UNIT/ML 1 ML 10 ML VIAL SQ SCH ×5 (02:25→22:24)
[2018-07-13] MEDS: DAPTOmycin 500 MG in SODIUM CHLORIDE 0.9% 50 ML IVPB SCH (05:00)
[2018-07-13] MEDS: PIPERACILLIN-TAZOBACTAM 3.375 GM in SODIUM CHLORIDE 0.9% 100 ML IVPB SCH (05:06)
[2018-07-13 06:01] LABS: HCT 25.3 % (39.0-53.0); HGB 7.9 gm/dL (13.0-17.5); Hypochromasia Moderate; MCH 30.6 pg (25.0-35.0); MCHC 31.4 g/dL (31.0-37.0); MCV 97.6 fL (80.0-100.0); Mean Platelet Volume 8.3; Platelet Count 295 k/uL (150-450); Poikilocytosis Slight; RBC 2.59 m/uL (4.30-5.90); WBC 6.2 k/uL (3.8-10.6)
[2018-07-13 06:25] LABS: Albumin 2.8 g/dL (3.5-5.0); Calcium 8.6 mg/dL (8.4-10.2); Potassium 3.6 mmol/L (3.5-5.1); Total Bilirubin 0.9 mg/dL (0.2-1.3); Total Protein 5.3 g/dL (6.3-8.2)
[2018-07-13 07:14] LABS: Glucose,Whole Blood 124 mg/dL (75-99)
[2018-07-13] MEDS ORDERED: Potassium Replacement Protocol 1 EACH MISC MISCELLANE PRN (07:32)
--- NOTE | 2018-07-13 07:40 | P.PN ---
Subjective Progress Note Date: 07/13/18 Principal diagnosis: Acute non-ST elevation GA This is a pleasant 78-year-old gentleman who we did see and signed off during this admission, asked to see the patient again because of acute coronary syndrome. The patient is a 78-year-old with history of coronary artery disease and status post CABG, does follow with a logging worker at [facility], hypertension, and dyslipidemia, was admitted to the hospital and underwent right hip surgery which was uneventful. He was on the surgical floor last night when he developed sudden onset of shortness of breath associated with change in mental status and he was in acute respiratory distress.The patient ruled in for acute non-ST elevation myocardial infarction with increasing in his troponin from 4- 5. The EKG showed sinus tachycardia. Beside that he was running temperature and there is questionable sepsis, infectious disease was consulted to see the patient. More importantly, the patient creatinine is elevated. Also the d- dimer came in to be abnormal and currently he is on heparin IV. Beside that the patient underwent an echocardiogram after this incident and that showed severe cardiomyopathy with EF around 20% with global hypokinesia. The echocardiogram before surgery showed an ejection fraction of 50%. On follow-up with the patient today, July [id number], the patient is looking better clinically. He is not in acute respiratory distress. I did start him yesterday on Lasix IV and the dose was increased by the nephrology team. Objective - Vital Signs Vital signs: Vital Signs Temp 97.4 F L 07/13/18 04:00 Pulse 63 07/13/18 04:00 Resp 18 07/13/18 04:00 BP 103/68 07/13/18 04:00 Pulse Ox 99 07/13/18 00:00 Intake & Output 07/12/18 07/13/18 07/13/18 18:59 06:59 18:59 Intake Total 580 580 Output Total 860 800 Balance -280 -220 Weight 112.5 kg Intake: IV 220 220 0.9 NACL 120 120 Piperacillin-Tazobactam 3 100 100 .375 gm In Sodium Chloride 0.9% 100 ml @ 25 mls/hr IVPB Q8H [facility] Rx#: [id number] Oral 360 360 Output: Urine 860 800 Other: Voiding Method Indwelling Catheter Indwelling Catheter # Voids 2 ABP, PAP, CO, CI - Last Documented Arterial Blood Pressure 118/47 - Constitutional General appearance: Present: no acute distress - Respiratory Respiratory: bilateral: diminished - Cardiovascular Rhythm: regular Heart sounds: normal: S1, S2 - Labs CBC & Chem 7: 07/13/18 04:57 07/13/18 04:57 Labs: Abnormal Lab Results - Last 24 Hours (Table) 07/12/18 07/12/18 07/12/18 Range/Units 08:14 08:14 11:42 RBC 2.44 L (4.30-5.90) m/uL Hgb 7.4 L (13.0-17.5) gm/dL Hct 23.3 L (39.0-53.0) % Sodium 135 L (137-145) mmol/L BUN 69 H (9-20) mg/dL Creatinine 2.62 H (0.66-1.25) mg/dL Glucose 120 H (74-99) mg/dL POC Glucose (mg/dL) 128 H (75-99) mg/dL AST 60 H (17-59) U/L ALT 88 H (21-72) U/L Total Protein 5.0 L (6.3-8.2) g/dL Albumin 2.6 L (3.5-5.0) g/dL 07/12/18 07/12/18 07/13/18 Range/Units 17:04 20:48 01:29 RBC (4.30-5.90) m/uL Hgb (13.0-17.5) gm/dL Hct (39.0-53.0) % Sodium (137-145) mmol/L BUN (9-20) mg/dL Creatinine (0.66-1.25) mg/dL Glucose (74-99) mg/dL POC Glucose (mg/dL) 134 H 166 H 129 H (75-99) mg/dL AST (17-59) U/L ALT (21-72) U/L Total Protein (6.3-8.2) g/dL Albumin (3.5-5.0) g/dL 07/13/18 07/13/18 07/13/18 Range/Units 04:57 04:57 07:02 RBC 2.59 L (4.30-5.90) m/uL Hgb 7.9 L (13.0-17.5) gm/dL Hct 25.3 L (39.0-53.0) % Sodium (137-145) mmol/L BUN 70 H (9-20) mg/dL Creatinine 2.37 H (0.66-1.25) mg/dL Glucose 107 H (74-99) mg/dL POC Glucose (mg/dL) 124 H (75-99) mg/dL AST (17-59) U/L ALT 85 H (21-72) U/L Total Protein 5.3 L (6.3-8.2) g/dL Albumin 2.8 L (3.5-5.0) g/dL Microbiology - Last 24 Hours (Table) 07/07/18 05:40 Blood Culture - Preliminary Blood No Growth after 120 hours 07/07/18 05:56 Blood Culture - Preliminary Blood No Growth after 120 hours Assessment and Plan Assessment: Assessment #1 acute respiratory distress #2 possible pulmonary embolization #3 possible sepsis of unknown source #4 acute non-ST patient myocardial infarction, type I versus type II #4 severe cardiomyopathy with significant drop in the left ventricle systolic function #5 acute on chronic renal failure Plan #1 I did recommend a conservative medical approach for the non-ST elevation GA. In the absence of any chest pain or chest discomfort and in the presence of renal failure #2 dual antiplatelet therapy with aspirin and Plavix #3 continue the current dose of Lasix IV #4 continue oral anticoagulation for the atrial fibrillation
[2018-07-13] MEDS ORDERED: POTASSIUM CHLORIDE ER 20 MEQ TAB.ER PO SCH (08:00)
[2018-07-13] MEDS: CARVEDILOL 1.563 MG TAB PO SCH ×2 (08:29→18:38)
[2018-07-13] MEDS: PARoxetine 20 MG TAB PO SCH ×2 (08:30→22:22)
[2018-07-13] MEDS: APIXABAN 2.5 MG TABLET PO SCH ×2 (08:30→22:22)
[2018-07-13] MEDS: FUROSEMIDE 10 MG/ML 4 ML VIAL IV SCH ×2 (08:30→22:24)
[2018-07-13] MEDS: CLOPIDOGREL 75 MG TAB PO SCH (08:30)
[2018-07-13] MEDS: ASPIRIN 81 MG PO SCH (08:30)
[2018-07-13] MEDS: NICOTINE 14MG/24HR PATCH TRANSDERM SCH (08:30)
[2018-07-13] MEDS: INSULIN DETEMIR 100 UNIT/ML 10 ML VIAL SQ SCH (08:40)
[2018-07-13] MEDS: ALBUTEROL NEBULIZED 2.5 MG/3 ML INHALATION SCH ×2 (08:52→20:48)
--- NOTE | 2018-07-13 10:25 | P.PN ---
Subjective Progress Note Date: 07/13/18 Principal diagnosis: Acute hypoxic respiratory failure, sepsis, congestive heart failure. Systolic dysfunction. This is a 78-year-old white male with history of multiple medical problems including coronary artery disease, type 2 diabetes, chronic kidney disease, chronic right foot drop, previous CVA and previous FOOD INSPECTOR shunt. Underlying COPD, obstructive sleep apnea syndrome, patient was admitted to the hospital on 2018, and he was admitted after a fall sustaining a right hip fracture, patient was admitted, seen by orthopedic surgery on consultation, and he underwent right hip arthroplasty for right upper Patellofemoral neck fracture by Dr. Abernathy on 07/03/2018. Patient is also known to have history of chronic decubitus sacral ulcer. Overnight last night, patient developed changes in mental status. He was also noted to have more difficulty breathing. He was noted to be hypoxic, tachypneic, and he had a low-grade temp of 100.5. The rapid response team from the intensive care unit responded to the patient, he was noted to be metabolically acidotic, his lactic acid was elevated, d-dimer was also elevated, his renal functioning was noted to be worse, and his ABG showed a pO2 of 201, pCO2 was 29 and pH was 7.21. Hence patient was placed on BiPAP, placed on a sodium bicarb drip, antibiotics where broadened spectrum, patient was placed on insulin drip for hyperglycemia, and he was transferred to the ICU. Patient has a DO NOT RESUSCITATE CODE STATUS based on his previously expressed wishes, hence he was managed with BiPAP, and will be managed with mostly antibiotics, fluids, however the patient is known to have history of LV dysfunction and his ejection fraction is about 20%. I saw the patient this morning in the ICU, and I discussed the different issues with his family at bedside. Reviewed all the medications he is presently on, and recommended infectious disease consultation on the patient. His chest x-ray did show evidence of interstitial edema or infiltrate in the left lung. X-rays of the lumbosacral spine showed compression fractures and deformities in the lumbar spine and lower thoracic vertebral. Echocardiogram showed severe global hypokinesis of the left ventricle. His lactic acid was noted to be elevated, 9.6 initially, and it is 7.4 now. Patient received fluid boluses of 1.5 L, hence maintenance IV fluid was placed at 100 mL/h, and sodium bicarb drip was addressed. PTT was over 200 and heparin was adjusted as per protocol. D-dimer was 2.28. Patient is normally on Plavix but presently on heparin Reevaluated today on 07/08/2018, patient remains in the ICU, on BiPAP, remains on antibiotics, bronchodilators, diuretics, patient remains on norepinephrine, presently at 15 g, and this is running through a peripheral IV line, hence I will establish a central IV access today. Patient's x-ray continues to show abnormalities on the left side, mostly interstitial edema-like picture, however the possibility of left lower lobe pneumonia and pleural effusion is not entirely ruled out. Pulmonary status is definitely marginal. His ABG reflected significant improvement in his acidosis, hence I recommended that was stopped sodium bicarb drip today. However what is interesting is the fact that his troponin is significantly high, and his BNP level is quite high at 44 600, troponin is 9.610. Dr. Tadeo seems to be quite concerned about the possibility of non-ST elevation myocardial infarction, and he is treating him as such. Patient is not the most ideal candidate for cardiac catheterization at this point considering his renal functioning. And considering the possibility of ongoing sepsis patient is still hemodynamically requiring significant dose of norepinephrine. I did review the chest x-ray, I recommended diuretics, and I'm still keeping the patient on broad-spectrum antibiotics for presumptive underlying sepsis. Patient was seen by infectious disease on consultation. WBC count is 7.2 hemoglobin is 7.7. PT is 68, however I held the heparin to safely place a central IV access. ABG showed a pO2 of 108 pCO2 of 31 pH of 7.55 and this is on O2 with IPAP of 12 and EPAP of 6. Patient was reevaluated today on 07/09/2018, remains in the ICU, off BiPAP, he is on a high flow nasal cannula at 10 L/m. Chest x-ray is showing improvement in his interstitial edema and possible left lower lobe pneumonia with atelectasis in the left lower lobe, patient remains on norepinephrine at 13 mcg/ m, blood pressure remains marginal. Clinically however the patient is feeling better, breathing easier, and his chest x-ray is clearly showing some improvement. All labs were reviewed, hemoglobin is 7.4 today. WBC count is 8.9. Electrolytes are noted, continues to have anion gap of 15, BUN is 61 creatinine is 2.44, slightly worse compared to the last couple of days, hence considering the patient is diuresing on his own, we'll hold the Lasix for the time being. I believe that renal functioning is mostly cardiorenal in nature patient does have severe LV dysfunction. And has been receiving a significant amount of diuretics since admission to the ICU. Liver enzymes were noted to be slightly elevated/transaminases. CPK was also noted to be elevated at 1092. Renal ultrasound was noted to be unremarkable, however the left kidney could not be visualized with certainly. Patient is feeling better, he is hard of hearing, but he is feeling better today compared to how he felt over the last few days, and seems to be very appropriate. But again has difficulty hearing. Patient was reevaluated today on 07/10/2018. Remains in the intensive care unit , presently on 4 L nasal cannula. He is in normal sinus rhythm, off norepinephrine, continues to have some fluid and consolidation in the left lower lobe area. Clinically however the patient is feeling much better. Venous Doppler of the leg was negative. And I see no value of ordering a VQ scan on this patient, because my index of suspicion for pulmonary embolism is extremely low. Patient does not have thromboembolic disease. However his heparin was initially started with the assumption that the patient had atrial fibrillation he also had LV dysfunction, and significantly elevated troponins. We felt that the reason we started heparin was mostly because of cardiac issues and not because of pulmonary issues. Pulmonary-amin, the patient is feeling better, his breathing a lot easier, and again he is only on 4 L nasal cannula. Urine output remains good, he received a dose of Lasix today given to him by the field service tech. Chest x-ray was reviewed, all labs were reviewed, BUN is 61 creatinine is 2.47. Liver enzymes are borderline elevated. Hemoglobin is 7.1, may consider giving the patient a unit of packed RBCs. Patient was reevaluated today on 07/11/2018, remains in the ICU, but he is doing excellent, significantly improved over the last few days. Patient is on few liters nasal cannula, he is off pressors, heparin was discontinued, and my index of suspicion for pulmonary embolism is extremely low. His presentation was clearly not a pulmonary embolism presentation. It was mostly a presentation of sepsis, non-ST elevation myocardial infarction, congestive heart failure, and left lower lobe pneumonia was strongly suspected. Nowhere in my notes I even considered pulmonary embolism in this patient. I have no idea why is the VQ scan being considered on this patient. Not to mention the VQ scan will come back abnormal considering the abnormal findings on the chest x -ray. Considering no index of suspicion for pulmonary embolism on my behalf, and considering there are many other issues that can explain his presentation, no need for VQ scan, and no need for heparin for pulmonary issues unless it is felt necessary for cardiac issues including episodes of atrial fibrillation and non-ST elevation myocardial infarction and severe LV dysfunction. I reviewed the chest x-ray today with the , and explained to her that I may consider ultrasound of the chest, and may consider left-sided thoracentesis if there is enough fluid to be drained. All labs were reviewed, patient continues to have acute kidney injury, and that being addressed by nephrology on the case. Patient was reevaluated today on 07/12/2018, patient remains in the ICU, however he is an overflow from [facility]. Remains on 3 L nasal cannula, off pressors, off heparin, remains on antibiotics for presumptive left lower lobe pneumonia, remains on diuretics, and he received an extra dose of Lasix today by cardiology since his chest x-ray is showing some evidence of interstitial edema , and the patient is known to have history of cardiomyopathy and LV dysfunction. The patient himself is relatively asymptomatic. Reviewed the ultrasound from yesterday, there isn't much fluid to be drained from the left pleural space. Hemoglobin remains low at 7.4, WBC count is 5.8. Electrode was are normal however his BUN is 69 creatinine is 2.6, and I believe this is mostly related to his cardiorenal picture. And severe LV dysfunction. Patient was reevaluated today on 07/13/2018, he is still in the ICU as an overflow from [facility]. Remains on 3 L nasal cannula which is his baseline O2 requirement. Patient remains off heparin, remains on antibiotics, his ultrasound was reviewed and again he was updated that there is not much fluid to perform thoracentesis on. Patient is still being followed by many consultants including cardiology and nephrology. His urine output is excellent today. Labs were reviewed, his BUN is 70 creatinine is 2.37. His baseline creatinine on admission was 1.65. And it improved as low as 1.20 on 07/03. Creatinine yesterday was 2.62 and today it is 2.37. I believe the patient clearly has cardiorenal dysfunction, and that is causing his creatinine to be elevated. Patient remains on furosemide 40 mg IV push every 12 hours, and he is closely monitored by nephrology. Remains on Zosyn for presumptive left lower lobe pneumonia. All cultures have been negative. Objective - Vital Signs Vital signs: Vital Signs Temp 97.8 F 07/13/18 08:00 Pulse 64 07/13/18 08:50 Resp 27 H 07/13/18 08:00 BP 98/54 07/13/18 08:00 Pulse Ox 99 07/13/18 00:00 Intake & Output 07/12/18 07/13/18 07/13/18 18:59 06:59 18:59 Intake Total 580 580 40 Output Total 860 800 500 Balance -280 -220 -460 Weight 112.5 kg Intake: IV 220 220 40 0.9 NACL 120 120 40 Piperacillin-Tazobactam 3 100 100 .375 gm In Sodium Chloride 0.9% 100 ml @ 25 mls/hr IVPB Q8H [facility] Rx#: [id number] Oral 360 360 Output: Urine 860 800 500 Other: Voiding Method Indwelling Catheter Indwelling Catheter # Voids 2 ABP, PAP, CO, CI - Last Documented Arterial Blood Pressure 118/47 - Exam Physical Exam: Revealed a 78-year-old white male, on 3 L nasal cannula, asymptomatic in no distress. Head: Atraumatic, normocephalic. HEENT:[Neck is supple.] [No neck masses.] [No thyromegaly.] [No JVD.] PERRLA, EOMI, no icterus. Throat is clear. Moist mucous membranes noted. Chest: [Minimal crackles at the left base, no rhonchi and no wheezes. No chest wall tenderness. Symmetrical expansion noted. Cardiac Exam: [Distant S1 and S2, no S3 gallop, no murmur.] Abdomen: [Soft, nontender, no megaly, no rebound, no guarding, diminished bowel sounds Extremities: [No clubbing, no edema, no cyanosis.] Neurological Exam: No gross focal neurologic deficit except for a right foot drop. Skin: Deep sacral decubitus ulcer noted by the nurse, being addressed by infectious disease on the case. Psychiatric: Normal mood, normal affect, normal mental status examination - Labs CBC & Chem 7: 07/13/18 04:57 07/13/18 04:57 Labs: Abnormal Lab Results - Last 24 Hours (Table) 07/12/18 07/12/18 07/12/18 Range/Units 11:42 17:04 20:48 RBC (4.30-5.90) m/uL Hgb (13.0-17.5) gm/dL Hct (39.0-53.0) % BUN (9-20) mg/dL Creatinine (0.66-1.25) mg/dL Glucose (74-99) mg/dL POC Glucose (mg/dL) 128 H 134 H 166 H (75-99) mg/dL ALT (21-72) U/L Total Protein (6.3-8.2) g/dL Albumin (3.5-5.0) g/dL 07/13/18 07/13/18 07/13/18 Range/Units 01:29 04:57 04:57 RBC 2.59 L (4.30-5.90) m/uL Hgb 7.9 L (13.0-17.5) gm/dL Hct 25.3 L (39.0-53.0) % BUN 70 H (9-20) mg/dL Creatinine 2.37 H (0.66-1.25) mg/dL Glucose 107 H (74-99) mg/dL POC Glucose (mg/dL) 129 H (75-99) mg/dL ALT 85 H (21-72) U/L Total Protein 5.3 L (6.3-8.2) g/dL Albumin 2.8 L (3.5-5.0) g/dL 07/13/18 Range/Units 07:02 RBC (4.30-5.90) m/uL Hgb (13.0-17.5) gm/dL Hct (39.0-53.0) % BUN (9-20) mg/dL Creatinine (0.66-1.25) mg/dL Glucose (74-99) mg/dL POC Glucose (mg/dL) 124 H (75-99) mg/dL ALT (21-72) U/L Total Protein (6.3-8.2) g/dL Albumin (3.5-5.0) g/dL Microbiology - Last 24 Hours (Table) 07/07/18 05:40 Blood Culture - Final Blood No Growth after 144 hours 07/07/18 05:56 Blood Culture - Final Blood No Growth after 144 hours Assessment and Plan Assessment: Impression: 1 acute hypoxic respiratory failure secondary to sepsis, most likely source is his sacral ulcer. Although other possibilities including urine and pneumonia not entirely ruled out. But felt to be less likely. On 3 L nasal 2 acute lactic acidosis secondary to sepsis improving. His lactic acidosis could also be secondary to his cardiogenic dysfunction. Ejection fraction is 20 % 3 severe LV dysfunction, ejection fraction of 20%, patient is high risk for developing congestive heart failure and pulmonary edema with treatment of sepsis and fluids. . 4 electrolytes imbalance including hyponatremia and hyperkalemia, resolved 5 coronary artery disease, 6 chronic anemia 7 acute on chronic kidney disease, possibly acute kidney injury, being followed by nephrology, likely cardiorenal in nature 8 chronic obstructive pulmonary disease, supposedly moderately severe. Patient is normally on updrafts at home. 9 history of CVA and history of hydrocephalus requiring FOOD INSPECTOR shunt, history of chronic right foot drop. 10 status post right hemiarthroplasty for right hip fracture, patient is postoperative day #9 11 suspect left pleural effusion, however ultrasound revealed minimal amount of fluid, not safe to do thoracentesis at this point. 12 extremely low index of suspicion for pulmonary embolism, hence if heparin is not to be used by cardiology, and no cardiac indication for heparin, there is definitely no pulmonary indication for heparin at this point. Again no need for a VQ scan. Discussed this issue specifically with Dr. Tadeo on the case. Recommendation: Continue empiric broad-spectrum antibiotics, as per infectious disease on the case Continue insulin , as per protocol. Sliding scale coverage. Continue bronchodilators Continue incentive spirometry Transfer patient to a monitored bed on [facility] today, once a bed becomes available, patient is presently overflow in the ICU, will continue to follow. We'll discuss with the family/ whether they would like to have Dr. Chele pardo see him, once he transfers out of the ICU, since he has been taking care of his lungs at [place] for some time. Patient will eventually need further diagnostic cardiac workup to look into his ischemic cardiomyopathy and LV dysfunction. And that is being addressed by Dr. Tadeo on the case. Time with Patient: Less than 30
--- NOTE | 2018-07-13 10:26 | P.PN ---
Subjective Progress Note Date: 07/13/18 Seen and examined for the follow-up of acute kidney injury. Feels better. Good urine output. No nausea vomiting or diarrhea. Lasix was increased to 40 mg IV twice a day yesterday. Tolerating well. Objective - Vital Signs Vital signs: Vital Signs Temp 97.8 F 07/13/18 08:00 Pulse 64 07/13/18 08:50 Resp 27 H 07/13/18 08:00 BP 98/54 07/13/18 08:00 Pulse Ox 99 07/13/18 00:00 Intake & Output 07/12/18 07/13/18 07/13/18 18:59 06:59 18:59 Intake Total 580 580 40 Output Total 860 800 500 Balance -280 -220 -460 Weight 112.5 kg Intake: IV 220 220 40 0.9 NACL 120 120 40 Piperacillin-Tazobactam 3 100 100 .375 gm In Sodium Chloride 0.9% 100 ml @ 25 mls/hr IVPB Q8H [facility] Rx#: [id number] Oral 360 360 Output: Urine 860 800 500 Other: Voiding Method Indwelling Catheter Indwelling Catheter # Voids 2 ABP, PAP, CO, CI - Last Documented Arterial Blood Pressure 118/47 - Exam No acute distress S1-S2 heard Lungs clear Edema. - Labs CBC & Chem 7: 07/13/18 04:57 07/13/18 04:57 Labs: Abnormal Lab Results - Last 24 Hours (Table) 07/12/18 07/12/18 07/12/18 Range/Units 11:42 17:04 20:48 RBC (4.30-5.90) m/uL Hgb (13.0-17.5) gm/dL Hct (39.0-53.0) % BUN (9-20) mg/dL Creatinine (0.66-1.25) mg/dL Glucose (74-99) mg/dL POC Glucose (mg/dL) 128 H 134 H 166 H (75-99) mg/dL ALT (21-72) U/L Total Protein (6.3-8.2) g/dL Albumin (3.5-5.0) g/dL 07/13/18 07/13/18 07/13/18 Range/Units 01:29 04:57 04:57 RBC 2.59 L (4.30-5.90) m/uL Hgb 7.9 L (13.0-17.5) gm/dL Hct 25.3 L (39.0-53.0) % BUN 70 H (9-20) mg/dL Creatinine 2.37 H (0.66-1.25) mg/dL Glucose 107 H (74-99) mg/dL POC Glucose (mg/dL) 129 H (75-99) mg/dL ALT 85 H (21-72) U/L Total Protein 5.3 L (6.3-8.2) g/dL Albumin 2.8 L (3.5-5.0) g/dL 07/13/18 Range/Units 07:02 RBC (4.30-5.90) m/uL Hgb (13.0-17.5) gm/dL Hct (39.0-53.0) % BUN (9-20) mg/dL Creatinine (0.66-1.25) mg/dL Glucose (74-99) mg/dL POC Glucose (mg/dL) 124 H (75-99) mg/dL ALT (21-72) U/L Total Protein (6.3-8.2) g/dL Albumin (3.5-5.0) g/dL Microbiology - Last 24 Hours (Table) 07/07/18 05:40 Blood Culture - Final Blood No Growth after 144 hours 07/07/18 05:56 Blood Culture - Final Blood No Growth after 144 hours Assessment and Plan Assessment: #1 nonoliguric acute kidney injury secondary to hemodynamic ATN. Baseline Creatinine 1.2 MG per DL in June 2016. #2 non-ST elevation NM. #3 cardiomyopathy with EF of 20% #4 shock septic versus cardiogenic resolved. Blood pressures still soft low normal #5 right hip fracture status post hemiarthroplasty Plan: #1 continue with Lasix 40 mg IV twice a day. Renal functions improving. #2 avoid nephrotoxic agents and hypotensive episodes #3 on ELHAM. #4 repeat labs in the morning
[2018-07-13 12:14] LABS: Glucose,Whole Blood 117 mg/dL (75-99)
--- NOTE | 2018-07-13 13:38 | P.PN ---
Subjective Progress Note Date: 07/13/18 (delayed charting seen at 0815) Principal diagnosis: Pneumonia Patient is a 78-year-old male past medical history of coronary artery disease, congestive heart failure, diabetes, and hearing loss who presented to our facility as a transfer for orthopedic evaluation. He was trying to get on his exercise bike when he sustained a mechanical fall. At the outside hospital he was found to have a right hip fracture. Upon review of records from prior hospitalization he has found to have acidosis, hyperkalemia, anemia, and elevated creatinine. He was subsequently administered insulin and dextrose, he was started on IV fluids, repeat ABG was obtained and he was started on BiPAP therapy. Initial echocardiogram showed preserved ejection fraction at 55 to 60% . He was seen by cardiology and his Lopressor was decreased to 12.5 daily, his amiodarone was discontinued and Plavix was held in light of probable need for surgery. Patient underwent a right hemiarthroplasty on 07/03/18. Initially he tolerated the procedure well. His acidosis seemed to be improving. He was noted to have a hemoglobin drop on 07/05 at 10.2-8.3. He had been working with therapy and progressing well. On the morning of 07/07 he went into acute mental status changes associated with difficulty in breathing. He was found to be hypoxic and an EKG showed a new left bundle branch block with underlying A. fib rhythm. This was discussed with cardiology who recommended a stat echocardiogram as troponins came back at 3.7. Stat echo revealed a decreased ejection fraction of less than 20%. He was also noted to have worsening acidosis and was placed on a bicarb drip. He was transferred to the ICU for close monitoring. There was concern for possible pneumonia and he was empirically started on Zosyn and daptomycin due to vancomycin ALLERGY. Patient was seen by Dr. Garcia who felt he could have possible sepsis and echo and Zosyn were continued. He also was found to have deep sacral decubitus ulcer, he did suffer a fall prior to admission. His statin was held due to elevated CPKs. He developed hypotension on the morning of 07/08 and required levophed to be started. His reanl function continued to worsen despite optimization of his blood pressures. He was seen by nephrology. He was able to be weaned off BIPAP and levophed by the morning of 07/10. Cardio felt that medical management is most appropriate in light of his renal failure and sepsis. He developed increased confusion and upward gaze deviation on the evening of 07/11. Head CT was negative and his confusion improved. He was started on scheduled tylenol which seemed to help with his encephalopathy. His vascular congestion was again increased on 07/12 and he was given a dose of lasix. He continued to have improvement. Patient seen and examined at bedside. DOing well more awake and more oral intake. Denies chest pain, SOB, nausea, or vomiting. Discussed care with nursing. Objective - Vital Signs Vital signs: Vital Signs Temp 97.8 F 07/13/18 08:00 Pulse 64 07/13/18 09:05 Resp 27 H 07/13/18 08:00 BP 98/54 07/13/18 08:00 Pulse Ox 99 07/13/18 00:00 Intake & Output 07/12/18 07/13/18 07/13/18 18:59 06:59 18:59 Intake Total 580 580 40 Output Total 860 800 500 Balance -280 -220 -460 Weight 112.5 kg Intake: IV 220 220 40 0.9 NACL 120 120 40 Piperacillin-Tazobactam 3 100 100 .375 gm In Sodium Chloride 0.9% 100 ml @ 25 mls/hr IVPB Q8H [facility] Rx#: [id number] Oral 360 360 Output: Urine 860 800 500 Other: Voiding Method Indwelling Catheter Indwelling Catheter Indwelling Catheter # Voids 2 ABP, PAP, CO, CI - Last Documented Arterial Blood Pressure 118/47 - Exam General:Non toxic, no distress, appears at stated age, [facility] Derm: warm, dry Head: atraumatic, normocephalic, symmetric Eyes: EOMI, no lid lag, anicteric sclera Mouth: no lip lesion, mucus membranes moist Cardiovascular: S1S2 reg, no murmur, positive posterior tibial pulse bilateral, Lungs: decreased bs b/l bases, no accessory muscle use, Abdominal: soft, nontender to palpation, no guarding, no appreciable organomegaly Ext: no gross muscle atrophy, no edema, no contractures Neuro: CN II-XI grossly intact, no focal neuro deficits Psych: Alert, Awake, improved mentation - Labs CBC & Chem 7: 07/13/18 04:57 07/13/18 04:57 Labs: Abnormal Lab Results - Last 24 Hours (Table) 07/12/18 07/12/18 07/13/18 Range/Units 17:04 20:48 01:29 RBC (4.30-5.90) m/uL Hgb (13.0-17.5) gm/dL Hct (39.0-53.0) % BUN (9-20) mg/dL Creatinine (0.66-1.25) mg/dL Glucose (74-99) mg/dL POC Glucose (mg/dL) 134 H 166 H 129 H (75-99) mg/dL ALT (21-72) U/L Total Protein (6.3-8.2) g/dL Albumin (3.5-5.0) g/dL 07/13/18 07/13/18 07/13/18 Range/Units 04:57 04:57 07:02 RBC 2.59 L (4.30-5.90) m/uL Hgb 7.9 L (13.0-17.5) gm/dL Hct 25.3 L (39.0-53.0) % BUN 70 H (9-20) mg/dL Creatinine 2.37 H (0.66-1.25) mg/dL Glucose 107 H (74-99) mg/dL POC Glucose (mg/dL) 124 H (75-99) mg/dL ALT 85 H (21-72) U/L Total Protein 5.3 L (6.3-8.2) g/dL Albumin 2.8 L (3.5-5.0) g/dL 07/13/18 Range/Units 12:03 RBC (4.30-5.90) m/uL Hgb (13.0-17.5) gm/dL Hct (39.0-53.0) % BUN (9-20) mg/dL Creatinine (0.66-1.25) mg/dL Glucose (74-99) mg/dL POC Glucose (mg/dL) 117 H (75-99) mg/dL ALT (21-72) U/L Total Protein (6.3-8.2) g/dL Albumin (3.5-5.0) g/dL Microbiology - Last 24 Hours (Table) 07/07/18 05:40 Blood Culture - Final Blood No Growth after 144 hours 07/07/18 05:56 Blood Culture - Final Blood No Growth after 144 hours Assessment and Plan Assessment: Left sided PNA with sepsis - dapto, zosyn D #7, d/c in AM - unable to obtain sputum culture and blood cultures negative - ID recs - procalcitionin 4.28 acute metabolic encephalopathy, improving - Tylenol ATC - treatment of other underlying disease NSTEMI, 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% - Lasix monitor renal function - ASA, PLAVIX, , eliquis 2.5mg - Lipitor - Cardio recs: medical management at this point in time, may need cath in the future - If BP and Cr stable 07/14 consider added lisinopril 2.5mg daily in AM - coreg Acute hypoxic respiratory failure - Improving JOSE on CKD, improving - Baseline Cr unknown - avoid additional nephrotoxic agents - Nephro recs appreciated - maintain MAP >65 - renal US left kidney not visualized right normal - monitor urine output adequate Anemia of chronic disease - aranesp - no IV iron due to sepsis Right hip fracture - Ortho recs appreciated - Pain control - PT/OT Hyponatremia, stable - follow BMP COPD, without exacerbation -continue home regiment P. A. fib - tele - amio IV completed - pattiqunat Diabetes Mellitus - off actos, glimepiride, metformin - SSI, levemir, levemir on D/C would avoid orals with current renal function and now CHF diagnosis - A1C 6.7 Dyslipidemia - Statin on hold due to elevated CK and dapto use Deep tissue injury - frequent turns - ID recs Lactic acidosis, improving hyperkalemia, resolved Mixed respiratory and metabolic acidosis, improved Septic shock, resolved Tranamintis, resolved Likely to rehab in AM, I would recommend somewhere in [place] due to severity of illness. If this happens could follow with Dr. Gabriel in 2 weeks, he also goes up to [facility] [address] [facility] once a month. Will need repeat BMP in 1 week and follow with nephrology, repeat CXR in 1 week for pleural effusion. All added to D/C tab DVT prophylaxis: natty Discussed with: Patient, nursing Anticipated discharge: 24-[address]: rehab A total of 35 minutes was spent on the care of this complex patient more than 50 % of the time was spent in counseling and care coordination.
[2018-07-13] MEDS: IPRATROPIUM-ALBUTEROL 3 ML NEB INHALATION PRN (16:47)
[2018-07-13 17:16] LABS: Glucose,Whole Blood 199 mg/dL (75-99)
[2018-07-13 21:16] LABS: Glucose,Whole Blood 258 mg/dL (75-99)
[2018-07-13] MEDS: SENNOSIDES-DOCUSATE SODIUM 1 EACH TAB PO SCH (22:22)
[2018-07-14] MEDS: ACETAMINOPHEN TAB 500 MG TAB PO SCH ×5 (00:32→23:53)
[2018-07-14] MEDS: INSULIN ASPART 100 UNIT/ML 1 ML 10 ML VIAL SQ SCH ×5 (03:38→20:48)
[2018-07-14 03:41] LABS: Glucose,Whole Blood 172 mg/dL (75-99)
[2018-07-14 05:17] LABS: Basophils % (A) 0 %; Eosinophils # (A) 0.1 k/uL (0-0.7); Eosinophils % (A) 2 %; HCT 25.2 % (39.0-53.0); HGB 7.8 gm/dL (13.0-17.5); Hypochromasia Moderate; Lymphocytes # (A) 0.9 k/uL (1.0-4.8); Lymphocytes % (A) 12 %; MCH 30.5 pg (25.0-35.0); MCHC 31.1 g/dL (31.0-37.0); Mean Platelet Volume 8.3; Monocytes # (A) 0.4 k/uL (0-1.0); Monocytes % (A) 5 %; Neutrophils # (A) 5.8 k/uL (1.3-7.7); Neutrophils % (A) 80 %; Platelet Count 309 k/uL (150-450); Poikilocytosis Slight; RBC 2.58 m/uL (4.30-5.90); RDW 15.3 % (11.5-15.5); WBC 7.3 k/uL (3.8-10.6)
[2018-07-14] MEDS: ALBUTEROL NEBULIZED 2.5 MG/3 ML INHALATION SCH ×2 (05:42→19:23)
[2018-07-14 05:48] LABS: Albumin 2.7 g/dL (3.5-5.0); Calcium 8.8 mg/dL (8.4-10.2); Magnesium 1.9 mg/dL (1.6-2.3); Phosphorus 3.6 mg/dL (2.5-4.5); Potassium 3.4 mmol/L (3.5-5.1); Total Bilirubin 0.7 mg/dL (0.2-1.3); Total Protein 5.2 g/dL (6.3-8.2)
[2018-07-14 06:23] LABS: Glucose,Whole Blood 122 mg/dL (75-99)
[2018-07-14] MEDS: CARVEDILOL 1.563 MG TAB PO SCH ×2 (06:31→17:05)
--- NOTE | 2018-07-14 07:29 | P.PN ---
Subjective Progress Note Date: 07/14/18 Principal diagnosis: Acute non-ST elevation ME This is a pleasant 78-year-old gentleman who we did see and signed off during this admission, asked to see the patient again because of acute coronary syndrome. 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 He was on the surgical floor last night when he developed sudden onset of shortness of breath associated with change in mental status and he was in acute respiratory distress.The patient ruled in for acute non-ST elevation myocardial infarction with increasing in his troponin from 4- 5. The EKG showed sinus tachycardia. Beside that he was running temperature and there is questionable sepsis, infectious disease was consulted to see the patient. More importantly, the patient creatinine is elevated. Also the d- dimer came in to be abnormal and currently he is on heparin IV. Beside that the patient underwent an echocardiogram after this incident and that showed severe cardiomyopathy with EF around 20% with global hypokinesia. The echocardiogram before surgery showed an ejection fraction of 50%. On follow-up with the patient today, July 142018, the patient is looking better clinically. He is not in acute respiratory distress. He continues to be on Lasix IV at 40 twice a day. The Lasix has been managed by the nephrology team. He did undergo a chest x-ray today and will follow-up on that. I do feel from the cardiac vascular standpoint of view, the patient might be able to be discharged home. Objective - Vital Signs Vital signs: Vital Signs Temp 98.1 F 07/14/18 04:00 Pulse 74 07/14/18 05:53 Resp 23 07/14/18 04:00 BP 111/53 07/14/18 04:00 Pulse Ox 98 07/14/18 04:00 Intake & Output 07/13/18 07/14/18 07/14/18 18:59 06:59 18:59 Intake Total 120 820 Output Total 1240 965 Balance -1120 -145 Weight 113.9 kg Intake: IV 120 120 0.9 NACL 120 120 Oral 700 Output: Urine 1240 965 Other: Voiding Method Indwelling Catheter Indwelling Catheter ABP, PAP, CO, CI - Last Documented Arterial Blood Pressure 118/47 - Constitutional General appearance: Present: no acute distress - Respiratory Respiratory: bilateral: diminished - Cardiovascular Rhythm: regular Heart sounds: normal: S1, S2 - Labs CBC & Chem 7: 07/14/18 04:35 07/14/18 04:35 Labs: Abnormal Lab Results - Last 24 Hours (Table) 07/13/18 07/13/18 07/13/18 Range/Units 12:03 17:04 21:05 RBC (4.30-5.90) m/uL Hgb (13.0-17.5) gm/dL Hct (39.0-53.0) % Lymphocytes # (1.0-4.8) k/uL Sodium (137-145) mmol/L Potassium (3.5-5.1) mmol/L BUN (9-20) mg/dL Creatinine (0.66-1.25) mg/dL Glucose (74-99) mg/dL POC Glucose (mg/dL) 117 H 199 H 258 H (75-99) mg/dL Total Protein (6.3-8.2) g/dL Albumin (3.5-5.0) g/dL 07/14/18 07/14/18 07/14/18 Range/Units 03:29 04:35 04:35 RBC 2.58 L (4.30-5.90) m/uL Hgb 7.8 L (13.0-17.5) gm/dL Hct 25.2 L (39.0-53.0) % Lymphocytes # 0.9 L (1.0-4.8) k/uL Sodium 135 L (137-145) mmol/L Potassium 3.4 L (3.5-5.1) mmol/L BUN 67 H (9-20) mg/dL Creatinine 2.25 H (0.66-1.25) mg/dL Glucose 127 H (74-99) mg/dL POC Glucose (mg/dL) 172 H (75-99) mg/dL Total Protein 5.2 L (6.3-8.2) g/dL Albumin 2.7 L (3.5-5.0) g/dL 07/14/18 Range/Units 06:12 RBC (4.30-5.90) m/uL Hgb (13.0-17.5) gm/dL Hct (39.0-53.0) % Lymphocytes # (1.0-4.8) k/uL Sodium (137-145) mmol/L Potassium (3.5-5.1) mmol/L BUN (9-20) mg/dL Creatinine (0.66-1.25) mg/dL Glucose (74-99) mg/dL POC Glucose (mg/dL) 122 H (75-99) mg/dL Total Protein (6.3-8.2) g/dL Albumin (3.5-5.0) g/dL Microbiology - Last 24 Hours (Table) 07/07/18 05:40 Blood Culture - Final Blood No Growth after 144 hours 07/07/18 05:56 Blood Culture - Final Blood No Growth after 144 hours Assessment and Plan Assessment: Assessment #1 acute respiratory distress #2 possible pulmonary embolization #3 possible sepsis of unknown source #4 acute non-ST patient myocardial infarction, type I versus type II #4 severe cardiomyopathy with significant drop in the left ventricle systolic function #5 acute on chronic renal failure Plan #1 I did recommend a conservative medical approach for the non-ST elevation ME. In the absence of any chest pain or chest discomfort and in the presence of renal failure #2 dual antiplatelet therapy with aspirin and Plavix #3 the patient might be able to be discharged home
[2018-07-14] MEDS: FUROSEMIDE 10 MG/ML 4 ML VIAL IV SCH ×2 (08:33→20:48)
[2018-07-14] MEDS: ASPIRIN 81 MG PO SCH (08:34)
[2018-07-14] MEDS: INSULIN DETEMIR 100 UNIT/ML 10 ML VIAL SQ SCH (08:34)
[2018-07-14] MEDS: POTASSIUM CHLORIDE ER 20 MEQ TAB.ER PO SCH ×2 (08:34→11:49)
[2018-07-14] MEDS: PARoxetine 20 MG TAB PO SCH ×2 (08:34→20:49)
[2018-07-14] MEDS: NICOTINE 14MG/24HR PATCH TRANSDERM SCH (08:34)
[2018-07-14] MEDS: APIXABAN 2.5 MG TABLET PO SCH ×2 (08:34→20:49)
[2018-07-14] MEDS: CLOPIDOGREL 75 MG TAB PO SCH (08:34)
--- NOTE | 2018-07-14 09:19 | XR ---
EXAMINATION TYPE: XR chest 1V portable DATE OF EXAM: 07/14/2018 COMPARISON: 07/12/2018 HISTORY: Shortness of breath TECHNIQUE: Single frontal view of the chest is obtained. FINDINGS: Postsurgical change cervical spine and left shoulder. [employer] shunt catheters suggested. Pleura l-based calcifications are noted and there is cardiomegaly, pleural effusion, diffuse interstitial pa ttern and bilateral no pneumothorax. Atherosclerotic change aorta. IMPRESSION: 1. Stable bilateral infiltrate and pleural effusion correlate for CHF versus pneumonia. 2. Pleural-based calcifications can be associated with asbestos related disease.
--- NOTE | 2018-07-14 09:56 | P.PN ---
Subjective Progress Note Date: 07/14/18 Principal diagnosis: hypoxemic respiratory failure, sepsis, congestive heart failure, with systolic dysfunction This is a 78-year-old white male with history of multiple medical problems including coronary artery disease, type 2 diabetes, chronic kidney disease, chronic right foot drop, previous CVA and previous [employer] shunt. Underlying COPD, obstructive sleep apnea syndrome, patient was admitted to the hospital on 2018, and he was admitted after a fall sustaining a right hip fracture, patient was admitted, seen by orthopedic surgery on consultation, and he underwent right hip arthroplasty for right upper Patellofemoral neck fracture by Dr. Abernathy on 07/03/2018. Patient is also known to have history of chronic decubitus sacral ulcer. Overnight last night, patient developed changes in mental status. He was also noted to have more difficulty breathing. He was noted to be hypoxic, tachypneic, and he had a low-grade temp of 100.5. The rapid response team from the intensive care unit responded to the patient, he was noted to be metabolically acidotic, his lactic acid was elevated, d-dimer was also elevated, his renal functioning was noted to be worse, and his ABG showed a pO2 of 201, pCO2 was 29 and pH was 7.21. Hence patient was placed on BiPAP, placed on a sodium bicarb drip, antibiotics where broadened spectrum, patient was placed on insulin drip for hyperglycemia, and he was transferred to the ICU. Patient has a DO NOT RESUSCITATE CODE STATUS based on his previously expressed wishes, hence he was managed with BiPAP, and will be managed with mostly antibiotics, fluids, however the patient is known to have history of LV dysfunction and his ejection fraction is about 20%. I saw the patient this morning in the ICU, and I discussed the different issues with his family at bedside. Reviewed all the medications he is presently on, and recommended infectious disease consultation on the patient. His chest x-ray did show evidence of interstitial edema or infiltrate in the left lung. X-rays of the lumbosacral spine showed compression fractures and deformities in the lumbar spine and lower thoracic vertebral. Echocardiogram showed severe global hypokinesis of the left ventricle. His lactic acid was noted to be elevated, 9.6 initially, and it is 7.4 now. Patient received fluid boluses of 1.5 L, hence maintenance IV fluid was placed at 100 mL/h, and sodium bicarb drip was addressed. PTT was over 200 and heparin was adjusted as per protocol. D-dimer was 2.28. Patient is normally on Plavix but presently on heparin Reevaluated today on 07/08/2018, patient remains in the ICU, on BiPAP, remains on antibiotics, bronchodilators, diuretics, patient remains on norepinephrine, presently at 15 g, and this is running through a peripheral IV line, hence I will establish a central IV access today. Patient's x-ray continues to show abnormalities on the left side, mostly interstitial edema-like picture, however the possibility of left lower lobe pneumonia and pleural effusion is not entirely ruled out. Pulmonary status is definitely marginal. His ABG reflected significant improvement in his acidosis, hence I recommended that was stopped sodium bicarb drip today. However what is interesting is the fact that his troponin is significantly high, and his BNP level is quite high at 44 600, troponin is 9.610. Dr. Tadeo seems to be quite concerned about the possibility of non-ST elevation myocardial infarction, and he is treating him as such. Patient is not the most ideal candidate for cardiac catheterization at this point considering his renal functioning. And considering the possibility of ongoing sepsis patient is still hemodynamically requiring significant dose of norepinephrine. I did review the chest x-ray, I recommended diuretics, and I'm still keeping the patient on broad-spectrum antibiotics for presumptive underlying sepsis. Patient was seen by infectious disease on consultation. WBC count is 7.2 hemoglobin is 7.7. PT is 68, however I held the heparin to safely place a central IV access. ABG showed a pO2 of 108 pCO2 of 31 pH of 7.55 and this is on O2 with IPAP of 12 and EPAP of 6. Patient was reevaluated today on 07/09/2018, remains in the ICU, off BiPAP, he is on a high flow nasal cannula at 10 L/m. Chest x-ray is showing improvement in his interstitial edema and possible left lower lobe pneumonia with atelectasis in the left lower lobe, patient remains on norepinephrine at 13 mcg/ m, blood pressure remains marginal. Clinically however the patient is feeling better, breathing easier, and his chest x-ray is clearly showing some improvement. All labs were reviewed, hemoglobin is 7.4 today. WBC count is 8.9. Electrolytes are noted, continues to have anion gap of 15, BUN is 61 creatinine is 2.44, slightly worse compared to the last couple of days, hence considering the patient is diuresing on his own, we'll hold the Lasix for the time being. I believe that renal functioning is mostly cardiorenal in nature patient does have severe LV dysfunction. And has been receiving a significant amount of diuretics since admission to the ICU. Liver enzymes were noted to be slightly elevated/transaminases. CPK was also noted to be elevated at 1092. Renal ultrasound was noted to be unremarkable, however the left kidney could not be visualized with certainly. Patient is feeling better, he is hard of hearing, but he is feeling better today compared to how he felt over the last few days, and seems to be very appropriate. But again has difficulty hearing. Patient was reevaluated today on 07/10/2018. Remains in the intensive care unit , presently on 4 L nasal cannula. He is in normal sinus rhythm, off norepinephrine, continues to have some fluid and consolidation in the left lower lobe area. Clinically however the patient is feeling much better. Venous Doppler of the leg was negative. And I see no value of ordering a VQ scan on this patient, because my index of suspicion for pulmonary embolism is extremely low. Patient does not have thromboembolic disease. However his heparin was initially started with the assumption that the patient had atrial fibrillation he also had LV dysfunction, and significantly elevated troponins. We felt that the reason we started heparin was mostly because of cardiac issues and not because of pulmonary issues. Pulmonary-amin, the patient is feeling better, his breathing a lot easier, and again he is only on 4 L nasal cannula. Urine output remains good, he received a dose of Lasix today given to him by the building estimator. Chest x-ray was reviewed, all labs were reviewed, BUN is 61 creatinine is 2.47. Liver enzymes are borderline elevated. Hemoglobin is 7.1, may consider giving the patient a unit of packed RBCs. Patient was reevaluated today on 07/11/2018, remains in the ICU, but he is doing excellent, significantly improved over the last few days. Patient is on few liters nasal cannula, he is off pressors, heparin was discontinued, and my index of suspicion for pulmonary embolism is extremely low. His presentation was clearly not a pulmonary embolism presentation. It was mostly a presentation of sepsis, non-ST elevation myocardial infarction, congestive heart failure, and left lower lobe pneumonia was strongly suspected. Nowhere in my notes I even considered pulmonary embolism in this patient. I have no idea why is the VQ scan being considered on this patient. Not to mention the VQ scan will come back abnormal considering the abnormal findings on the chest x -ray. Considering no index of suspicion for pulmonary embolism on my behalf, and considering there are many other issues that can explain his presentation, no need for VQ scan, and no need for heparin for pulmonary issues unless it is felt necessary for cardiac issues including episodes of atrial fibrillation and non-ST elevation myocardial infarction and severe LV dysfunction. I reviewed the chest x-ray today with the , and explained to her that I may consider ultrasound of the chest, and may consider left-sided thoracentesis if there is enough fluid to be drained. All labs were reviewed, patient continues to have acute kidney injury, and that being addressed by nephrology on the case. Patient was reevaluated today on 07/12/2018, patient remains in the ICU, however he is an overflow from selective. Remains on 3 L nasal cannula, off pressors, off heparin, remains on antibiotics for presumptive left lower lobe pneumonia, remains on diuretics, and he received an extra dose of Lasix today by cardiology since his chest x-ray is showing some evidence of interstitial edema , and the patient is known to have history of cardiomyopathy and LV dysfunction. The patient himself is relatively asymptomatic. Reviewed the ultrasound from yesterday, there isn't much fluid to be drained from the left pleural space. Hemoglobin remains low at 7.4, WBC count is 5.8. Electrode was are normal however his BUN is 69 creatinine is 2.6, and I believe this is mostly related to his cardiorenal picture. And severe LV dysfunction. Patient was reevaluated today on 07/13/2018, he is still in the ICU as an overflow from [facility]. Remains on 3 L nasal cannula which is his baseline O2 requirement. Patient remains off heparin, remains on antibiotics, his ultrasound was reviewed and again he was updated that there is not much fluid to perform thoracentesis on. Patient is still being followed by many consultants including cardiology and nephrology. His urine output is excellent today. Labs were reviewed, his BUN is 70 creatinine is 2.37. His baseline creatinine on admission was 1.65. And it improved as low as 1.20 on 07/03. Creatinine yesterday was 2.62 and today it is 2.37. I believe the patient clearly has cardiorenal dysfunction, and that is causing his creatinine to be elevated. Patient remains on furosemide 40 mg IV push every 12 hours, and he is closely monitored by nephrology. Remains on Zosyn for presumptive left lower lobe pneumonia. All cultures have been negative. on 07/14/2018 patient seen in follow-up in the intensive care unit. awake and alert, in no acute distress, responding appropriately, no fever or chills, currently on 3 L per nasal cannula his pulse ox is 98%, 1 sounds are clear to auscultation, no rhonchi, no rales. He is in sinus mechanism at a rate of 72 BPM, 0.9 normal saline at a rate of 10 ML per hour. Patientdenies any worsening dyspnea, denies any chest pain.this chest x-ray has been reviewed with Dr. Beckham, and shows stable bilateral infiltrates and pleural effusions. 0 mL fluid balance over the last 24 hours.negative, wound culture is negative. slightly improved renal profile on today's labs, with B1 of 67, and creatinine of 2.25.white count is 7.3, hemoglobin is 7.8. Objective - Vital Signs Vital signs: Vital Signs Temp 98.1 F 07/14/18 04:00 Pulse 74 07/14/18 05:53 Resp 23 07/14/18 04:00 BP 111/53 07/14/18 04:00 Pulse Ox 98 07/14/18 04:00 Intake & Output 07/13/18 07/14/18 07/14/18 18:59 06:59 18:59 Intake Total 120 820 Output Total 1240 965 Balance -1120 -145 Weight 113.9 kg Intake: IV 120 120 0.9 NACL 120 120 Oral 700 Output: Urine 1240 965 Other: Voiding Method Indwelling Catheter Indwelling Catheter ABP, PAP, CO, CI - Last Documented Arterial Blood Pressure 118/47 - Exam GENERAL EXAM: Alert, pleasant, [id number] white male, 3 L per nasal cannula with pulse ox of 98% comfortable in no apparent distress. HEAD: Normocephalic/atraumatic. EYES: Normal reaction of pupils, equal size. Conjunctiva pink, sclera white. NOSE: Clear with pink turbinates. THROAT: No erythema or exudates. NECK: No masses, no JVD, no thyroid enlargement, no adenopathy. CHEST: No chest wall deformity. Symmetrical expansion. LUNGS: Equal air entry with no crackles, wheeze, rhonchi or dullness. CVS: Regular rate and rhythm, normal S1 and S2, no gallops, no murmurs, no rubs ABDOMEN: Soft, nontender. No hepatosplenomegaly, normal bowel sounds, no guarding or rigidity. EXTREMITIES: No clubbing, generalized edema, 2+ edema and upper arms, and lower legs no cyanosis, 2+ pulses and upper and lower extremities. MUSCULOSKELETAL: Muscle strength and tone normal. SPINE: No scoliosis or deformity SKIN: No rashes CENTRAL NERVOUS SYSTEM: Alert and oriented -3. No focal deficits, tone is normal in all 4 extremities. PSYCHIATRIC: Alert and oriented -3. Appropriate affect. Intact judgment and insight. - Labs CBC & Chem 7: 07/14/18 04:35 07/14/18 04:35 Labs: Abnormal Lab Results - Last 24 Hours (Table) 07/13/18 07/13/18 07/13/18 Range/Units 12:03 17:04 21:05 RBC (4.30-5.90) m/uL Hgb (13.0-17.5) gm/dL Hct (39.0-53.0) % Lymphocytes # (1.0-4.8) k/uL Sodium (137-145) mmol/L Potassium (3.5-5.1) mmol/L BUN (9-20) mg/dL Creatinine (0.66-1.25) mg/dL Glucose (74-99) mg/dL POC Glucose (mg/dL) 117 H 199 H 258 H (75-99) mg/dL Total Protein (6.3-8.2) g/dL Albumin (3.5-5.0) g/dL 07/14/18 07/14/18 07/14/18 Range/Units 03:29 04:35 04:35 RBC 2.58 L (4.30-5.90) m/uL Hgb 7.8 L (13.0-17.5) gm/dL Hct 25.2 L (39.0-53.0) % Lymphocytes # 0.9 L (1.0-4.8) k/uL Sodium 135 L (137-145) mmol/L Potassium 3.4 L (3.5-5.1) mmol/L BUN 67 H (9-20) mg/dL Creatinine 2.25 H (0.66-1.25) mg/dL Glucose 127 H (74-99) mg/dL POC Glucose (mg/dL) 172 H (75-99) mg/dL Total Protein 5.2 L (6.3-8.2) g/dL Albumin 2.7 L (3.5-5.0) g/dL 07/14/18 Range/Units 06:12 RBC (4.30-5.90) m/uL Hgb (13.0-17.5) gm/dL Hct (39.0-53.0) % Lymphocytes # (1.0-4.8) k/uL Sodium (137-145) mmol/L Potassium (3.5-5.1) mmol/L BUN (9-20) mg/dL Creatinine (0.66-1.25) mg/dL Glucose (74-99) mg/dL POC Glucose (mg/dL) 122 H (75-99) mg/dL Total Protein (6.3-8.2) g/dL Albumin (3.5-5.0) g/dL Microbiology - Last 24 Hours (Table) 07/07/18 05:40 Blood Culture - Final Blood No Growth after 144 hours 07/07/18 05:56 Blood Culture - Final Blood No Growth after 144 hours Assessment and Plan Plan: 1 acute hypoxic respiratory failure secondary to sepsis, most likely source is his sacral ulcer. Although other possibilities including urine and pneumonia not entirely ruled out. But felt to be less likely. On 3 L nasal 2 acute lactic acidosis secondary to sepsis improving. His lactic acidosis could also be secondary to his cardiogenic dysfunction. Ejection fraction is 20 % 3 severe LV dysfunction, ejection fraction of 20%, patient is high risk for developing congestive heart failure and pulmonary edema with treatment of sepsis and fluids. . 4 electrolytes imbalance including hyponatremia and hyperkalemia, resolved 5 coronary artery disease, 6 chronic anemia 7 acute on chronic kidney disease, possibly acute kidney injury, being followed by nephrology, likely cardiorenal in nature 8 chronic obstructive pulmonary disease, supposedly moderately severe. Patient is normally on updrafts at home. 9 history of CVA and history of hydrocephalus requiring W[employer] shunt, history of chronic right foot drop. 10 status post right hemiarthroplasty for right hip fracture, patient is postoperative day #10 11 suspect left pleural effusion, however ultrasound revealed minimal amount of fluid, not safe to do thoracentesis at this point. 12 extremely low index of suspicion for pulmonary embolism, hence if heparin is not to be used by cardiology, and no cardiac indication for heparin, there is definitely no pulmonary indication for heparin at this point. Again no need for a VQ scan. Discussed this issue specifically with Dr. Tadeo on the case. Plan: Patient is doing well, denies any worsening dyspnea, or chest pain, he has severe generalized weakness, consult physical therapy. Cultures remain negative , patient is maintaining negative fluid balance, renal profile has slightly improved, nephrology is following, and managing the IV diuretics, patient is maintaining good O2 saturations, encouraged to deep breathe and cough, lung sounds are clear on today's exam. patient is awaiting a bed on [facility] care unit, we'll continue to follow, I performed a history & physical examination of the patient and discussed their management with my nurse practitioner, Gladis Gilbert. I reviewed the nurse practitioner's note and agree with the documented findings and plan of care. Lung sounds are clear. The findings and the impression was discussed with the patient. I attest to the documentation by the nurse practitioner. Time with Patient: Less than 30
--- NOTE | 2018-07-14 10:25 | P.PN ---
Subjective Patient is seen in follow-up for acute kidney injury. Patient had a fall and was noted to have right femoral neck fracture and underwent right hip hemiarthroplasty on July 03. Patient was transferred to the intensive care unit for hypotension. He is currently off Levophed. He is nonoliguric. Renal function is improving. He is nonoliguric. Currently maintained on Lasix 40 mg IV twice daily. Vital signs are stable. General: The patient appeared well nourished and normally developed. HEENT: Head exam is unremarkable. Neck is without jugular venous distension. LUNGS: Lungs are clear to auscultation and percussion. Breath sounds decreased. HEART: Rate and Rhythm are regular. First and second heart sounds normal. No murmurs, rubs or gallops. ABDOMEN: Abdominal exam reveals normal bowel sounds. Non-tender and non- distended. No evidence of peritonitis. EXTREMITITES: 1+ edema. Objective - Vital Signs Vital signs: Vital Signs Temp 98.8 F 07/14/18 10:00 Pulse 66 07/14/18 10:00 Resp 20 07/14/18 10:00 BP 95/46 07/14/18 10:00 Pulse Ox 95 07/14/18 10:00 Intake & Output 07/13/18 07/14/18 07/14/18 18:59 06:59 18:59 Intake Total 120 820 120 Output Total 1240 965 200 Balance -1120 -145 -80 Weight 113.9 kg Intake: IV 120 120 0.9 NACL 120 120 Oral 700 120 Output: Urine 1240 965 200 Other: Voiding Method Indwelling Catheter Indwelling Catheter Indwelling Catheter ABP, PAP, CO, CI - Last Documented Arterial Blood Pressure 118/47 - Labs CBC & Chem 7: 07/14/18 04:35 07/14/18 04:35 Labs: Abnormal Lab Results - Last 24 Hours (Table) 07/13/18 07/13/18 07/13/18 Range/Units 12:03 17:04 21:05 RBC (4.30-5.90) m/uL Hgb (13.0-17.5) gm/dL Hct (39.0-53.0) % Lymphocytes # (1.0-4.8) k/uL Sodium (137-145) mmol/L Potassium (3.5-5.1) mmol/L BUN (9-20) mg/dL Creatinine (0.66-1.25) mg/dL Glucose (74-99) mg/dL POC Glucose (mg/dL) 117 H 199 H 258 H (75-99) mg/dL Total Protein (6.3-8.2) g/dL Albumin (3.5-5.0) g/dL 07/14/18 07/14/18 07/14/18 Range/Units 03:29 04:35 04:35 RBC 2.58 L (4.30-5.90) m/uL Hgb 7.8 L (13.0-17.5) gm/dL Hct 25.2 L (39.0-53.0) % Lymphocytes # 0.9 L (1.0-4.8) k/uL Sodium 135 L (137-145) mmol/L Potassium 3.4 L (3.5-5.1) mmol/L BUN 67 H (9-20) mg/dL Creatinine 2.25 H (0.66-1.25) mg/dL Glucose 127 H (74-99) mg/dL POC Glucose (mg/dL) 172 H (75-99) mg/dL Total Protein 5.2 L (6.3-8.2) g/dL Albumin 2.7 L (3.5-5.0) g/dL 07/14/18 Range/Units 06:12 RBC (4.30-5.90) m/uL Hgb (13.0-17.5) gm/dL Hct (39.0-53.0) % Lymphocytes # (1.0-4.8) k/uL Sodium (137-145) mmol/L Potassium (3.5-5.1) mmol/L BUN (9-20) mg/dL Creatinine (0.66-1.25) mg/dL Glucose (74-99) mg/dL POC Glucose (mg/dL) 122 H (75-99) mg/dL Total Protein (6.3-8.2) g/dL Albumin (3.5-5.0) g/dL Microbiology - Last 24 Hours (Table) 07/07/18 05:40 Blood Culture - Final Blood No Growth after 144 hours 07/07/18 05:56 Blood Culture - Final Blood No Growth after 144 hours Assessment and Plan Plan: Assessment: 1. Acute kidney injury secondary to ATN secondary to hypotension. Creatinine was 1.2 on July 03 and peaked at 2.6 to this admission. It is down to 2.25 today. No records available from prior to this admission. UA is quite benign. No hydronephrosis noted on kidney ultrasound. Left kidney not fully visualized. 2. NSTEMI maintained on IV heparin. Repeat echocardiogram revealed ejection fraction of less than 20%. 3. Pneumonia status post IV antibiotics. 4. Hypotension secondary to shock - cardiogenic versus septic? Currently off vasopressors. 5. Right hip fracture status post hemiarthroplasty this admission. 6. Metabolic acidosis secondary to acute kidney injury. Better. 7. Diabetes mellitus. 8. Anemia. Iron deficiency noted. Possible component of chronic kidney disease. 9. Hypokalemia secondary to diuresis. 10. Volume overload. Plan: Continue Lasix 40 mg IV twice daily. Replace potassium. 40 mEq today. Avoid nephrotoxins. Continue to monitor renal function and urine output. Maintain Aranesp.
[2018-07-14 10:53] VITALS: BMI 35.0
[2018-07-14 12:02] LABS: Glucose,Whole Blood 139 mg/dL (75-99)
--- NOTE | 2018-07-14 13:33 | P.PN ---
Subjective Progress Note Date: 07/14/18 Principal diagnosis: CHF exacerbation, NSTEMI Patient was seen and examined. No acute events overnight. Patient has no complaints this morning. He denies any chest pain, shortness of breath or palpitations. Patient reports that his breathing is back to baseline. He is on 3 L nasal cannula saturating 98%. Objective - Vital Signs Vital signs: Vital Signs Temp 98.8 F 07/14/18 10:00 Pulse 66 07/14/18 10:00 Resp 20 07/14/18 11:39 BP 95/46 07/14/18 10:00 Pulse Ox 95 07/14/18 10:00 Intake & Output 07/13/18 07/14/18 07/14/18 18:59 06:59 18:59 Intake Total 120 820 160 Output Total 1240 965 500 Balance -1120 -145 -340 Weight 113.9 kg 113.9 kg Intake: IV 120 120 40 0.9 NACL 120 120 40 Oral 700 120 Output: Urine 1240 965 500 Other: Voiding Method Indwelling Catheter Indwelling Catheter Indwelling Catheter ABP, PAP, CO, CI - Last Documented Arterial Blood Pressure 118/47 - Exam General: [non toxic], [slight resp distress on BiPAP], [appears at stated age] Derm: [warm], [dry] Head: [atraumatic], [normocephalic], [symmetric] Eyes: [EOMI], [no lid lag], [anicteric sclera] Mouth: [no lip lesion], [mucus membranes moist] Cardiovascular: [S1S2 reg], [no murmur], [positive DP pulse bilateral] Lungs: [Decreased breath sounds bilateral], [no rhonchi, no rales] , [no accessory muscle use] Abdominal: [soft], [ nontender to palpation], [no guarding], [no appreciable organomegaly] Ext: [no gross muscle atrophy], [2+ edema], [no contractures] Neuro: [No focal neurological deficit] Psych: [Alert], [oriented], [appropriate affect] - Labs CBC & Chem 7: 07/14/18 04:35 07/14/18 04:35 Labs: Abnormal Lab Results - Last 24 Hours (Table) 07/13/18 07/13/18 07/14/18 Range/Units 17:04 21:05 03:29 RBC (4.30-5.90) m/uL Hgb (13.0-17.5) gm/dL Hct (39.0-53.0) % Lymphocytes # (1.0-4.8) k/uL Sodium (137-145) mmol/L Potassium (3.5-5.1) mmol/L BUN (9-20) mg/dL Creatinine (0.66-1.25) mg/dL Glucose (74-99) mg/dL POC Glucose (mg/dL) 199 H 258 H 172 H (75-99) mg/dL Total Protein (6.3-8.2) g/dL Albumin (3.5-5.0) g/dL 07/14/18 07/14/18 07/14/18 Range/Units 04:35 04:35 06:12 RBC 2.58 L (4.30-5.90) m/uL Hgb 7.8 L (13.0-17.5) gm/dL Hct 25.2 L (39.0-53.0) % Lymphocytes # 0.9 L (1.0-4.8) k/uL Sodium 135 L (137-145) mmol/L Potassium 3.4 L (3.5-5.1) mmol/L BUN 67 H (9-20) mg/dL Creatinine 2.25 H (0.66-1.25) mg/dL Glucose 127 H (74-99) mg/dL POC Glucose (mg/dL) 122 H (75-99) mg/dL Total Protein 5.2 L (6.3-8.2) g/dL Albumin 2.7 L (3.5-5.0) g/dL 07/14/18 Range/Units 11:50 RBC (4.30-5.90) m/uL Hgb (13.0-17.5) gm/dL Hct (39.0-53.0) % Lymphocytes # (1.0-4.8) k/uL Sodium (137-145) mmol/L Potassium (3.5-5.1) mmol/L BUN (9-20) mg/dL Creatinine (0.66-1.25) mg/dL Glucose (74-99) mg/dL POC Glucose (mg/dL) 139 H (75-99) mg/dL Total Protein (6.3-8.2) g/dL Albumin (3.5-5.0) g/dL Microbiology - Last 24 Hours (Table) 07/07/18 05:40 Blood Culture - Final Blood No Growth after 144 hours 07/07/18 05:56 Blood Culture - Final Blood No Growth after 144 hours Assessment and Plan Assessment: Assessment and Plan 1. Acute HFrEF exacerbation: Echo on 07/08 showing EF < 20% with global hypokinesis. Continue diuresing with Lasix 40 IV BID. Start Coreg 1.563 mg PO BID. Start ACEi prior to DC if Cr improved. Strict Ins and Outs. Daily weight. FU Cardiology and Nephrology 2. Pneumonia: Met criteria for sepsis [Tmax 100.5F with leukocytosis of 11.3 on 07/07, resolved since 07/08. Lactic acid 9.6 to 7.4 on 07/07]. Procalcitonin 4.28. Initially started on Daptomycin 500 mg IV QD, Zosyn 3.375g IV TID (completed 7 day course). Blood and wound cultures are negative after 144H. Tylenol 650 mg PO Q6H PRN for fever. FU ID consult 3. NSTEMI: Troponin 3.720 to 9.610. Possibly demand ischemia from sepsis but real concern for ACS given new LBBB. Echocardiogram prior to surgery was EF 55- 60%, obtained 07/08 shows EF < 20% with global hypokinesis. Cardiology consulted , recommended medical management with angiogram at later time if patient can tolerate. Continue ASA 81 mg PO QD, Plavix 75 mg PO QD. Continue Coreg 1.563 mg PO BID. Consider adding ACEi prior to discharge. FU Cardiology 4. A-Fibrillation: Amiodarone 100 mg PO QD discontinued by Cardiology on admission. Continue Coreg 1.563 mg PO BID. Keep K > 4 and Mg > 2. Telemetry monitoring. FU Cardiology 5. Acute subcapital fracture of the R femur: POD 11. Hip XR shows no obvious fracture. Pain management with [place] 10 1 tab PO Q4H PRN for pain 1-5, Dilaudid 0.5 mg IV Q3H PRN for Pain 6-10. Weight bearing as per Ortho recommendations. Will follow Orthopedic, PT and OT recommendations. 6. Anemia due to acute blood loss from surgery: Hg 10.2 to 8.3, maintaining at 7.8. Likely blood loss from surgery. Telemetry monitoring. Transfuse if Hg < 7.0. Daily CBC. 7. Acute kidney injury: BUN 67 Cr 2.25 GFR 27. Likely due to dehydration, IV Abx and Lasix given during admission. Avoid nephrotoxins. Daily BMP. FU Nephrology 9. COPD: Albuterol 2.5 mg neb BID PRN for SOB/wheezing. O2 per NC to maintain O2 sat > 92%. BiPAP if necessary. 10. Diabetes Mellitus: POC glucose 139. Continue Levemir 12 units SQ QD, ISS. Hypoglycemic precautions. Regular accuchecks. 11. Hypertension: Hypotensive in MICU. BP 95/46. Continue low-dose beta ramin. Consider adding ACEi prior to DC. Monitor vitals, adjust medications as necessary. 12. Depression: Stable. Continue Paroxetine 20 mg PO BID. 13. DVT/GI Prophylaxis: Heparin drip. Resolved; Acute respiratory failure Patient being treated for pneumonia, completed 7 days course of antibiotics. Diagnosed with non-ST elevation [place], recommended medical management by cardiology. Currently being treated for CHF exacerbation, IV diuresis, nephrology and cardiology on board. Patient to be transferred out of ICU to [facility]. Plans for [facility]. Hopeful DC in 1-2 days.
[2018-07-14 17:50] LABS: Glucose,Whole Blood 225 mg/dL (75-99)
[2018-07-14 20:20] LABS: Glucose,Whole Blood 265 mg/dL (75-99)
[2018-07-14] MEDS: SENNOSIDES-DOCUSATE SODIUM 1 EACH TAB PO SCH (20:49)
[2018-07-14] MEDS ORDERED: ATORVASTATIN 40 MG TAB PO SCH (21:00)
[2018-07-14 21:11] LABS: Glucose,Whole Blood 237 mg/dL (75-99)
[2018-07-15] MEDS: FUROSEMIDE 20 MG TAB PO SCH (01:16)
[2018-07-15] MEDS: INSULIN ASPART 100 UNIT/ML 1 ML 10 ML VIAL SQ SCH ×3 (03:05→12:16)
[2018-07-15] MEDS: HYDROcodone/APAP 5-325MG 1 EACH TAB PO PRN (03:12)
[2018-07-15 06:24] LABS: Glucose,Whole Blood 165 mg/dL (75-99)
[2018-07-15] MEDS: ACETAMINOPHEN TAB 500 MG TAB PO SCH ×2 (06:29→12:16)
[2018-07-15 06:30] LABS: Basophils % (A) 0 %; Eosinophils # (A) 0.1 k/uL (0-0.7); Eosinophils % (A) 2 %; HCT 25.8 % (39.0-53.0); Hypochromasia Marked; Lymphocytes # (A) 0.9 k/uL (1.0-4.8); Lymphocytes % (A) 14 %; MCH 30.1 pg (25.0-35.0); MCHC 31.2 g/dL (31.0-37.0); MCV 96.7 fL (80.0-100.0); Mean Platelet Volume 8.7; Monocytes # (A) 0.3 k/uL (0-1.0); Monocytes % (A) 5 %; Neutrophils % (A) 76 %; Platelet Count 336 k/uL (150-450); Poikilocytosis Slight; RBC 2.67 m/uL (4.30-5.90); RDW 15.5 % (11.5-15.5); WBC 6.6 k/uL (3.8-10.6)
[2018-07-15] MEDS: CARVEDILOL 1.563 MG TAB PO SCH (06:30)
[2018-07-15 06:46] LABS: Albumin 2.8 g/dL (3.5-5.0); Magnesium 1.9 mg/dL (1.6-2.3); Phosphorus 3.8 mg/dL (2.5-4.5); Potassium 4.4 mmol/L (3.5-5.1); Total Bilirubin 0.7 mg/dL (0.2-1.3); Total Protein 5.4 g/dL (6.3-8.2)
[2018-07-15] MEDS: INSULIN DETEMIR 100 UNIT/ML 10 ML VIAL SQ SCH (08:28)
[2018-07-15] MEDS: PARoxetine 20 MG TAB PO SCH (08:28)
[2018-07-15] MEDS: NICOTINE 14MG/24HR PATCH TRANSDERM SCH (08:28)
[2018-07-15] MEDS: APIXABAN 2.5 MG TABLET PO SCH (08:28)
[2018-07-15] MEDS: CLOPIDOGREL 75 MG TAB PO SCH (08:28)
[2018-07-15] MEDS: ASPIRIN 81 MG PO SCH (08:29)
[2018-07-15] MEDS: FUROSEMIDE 10 MG/ML 4 ML VIAL IV SCH (08:29)
[2018-07-15] MEDS: ALBUTEROL NEBULIZED 2.5 MG/3 ML INHALATION SCH (08:32)
[2018-07-15 09:19] VITALS: RESP 18
--- NOTE | 2018-07-15 09:35 | P.PN ---
Subjective Progress Note Date: 07/15/18 Principal diagnosis: Acute non-ST elevation IA This is a pleasant 78-year-old gentleman who we did see and signed off during this admission, asked to see the patient again because of acute coronary syndrome. 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 He was on the surgical floor last night when he developed sudden onset of shortness of breath associated with change in mental status and he was in acute respiratory distress.The patient ruled in for acute non-ST elevation myocardial infarction with increasing in his troponin from 4- 5. The EKG showed sinus tachycardia. Beside that he was running temperature and there is questionable sepsis, infectious disease was consulted to see the patient. More importantly, the patient creatinine is elevated. Also the d- dimer came in to be abnormal and currently he is on heparin IV. Beside that the patient underwent an echocardiogram after this incident and that showed severe cardiomyopathy with EF around 20% with global hypokinesia. The echocardiogram before surgery showed an ejection fraction of 50%. On follow-up with the patient today, July 152018, the patient is looking better clinically. He is not in acute respiratory distress. From the cardiovascular standpoint overview, the patient can be discharged to extended care facility. I will DC the Lasix IV and start the patient on Lasix by mouth. Objective - Vital Signs Vital signs: Vital Signs Temp 96.2 F L 07/15/18 08:00 Pulse 78 07/15/18 08:39 Resp 18 07/15/18 08:00 BP 133/106 07/15/18 08:00 Pulse Ox 93 L 07/15/18 08:00 Intake & Output 07/14/18 07/15/18 07/15/18 18:59 06:59 18:59 Intake Total 440 50 240 Output Total 725 910 Balance -285 -860 240 Weight 113.9 kg 108.5 kg Intake: IV 80 50 0.9 NACL 80 50 Oral 360 240 Output: Urine 725 910 Other: Voiding Method Indwelling Catheter Indwelling Catheter Indwelling Catheter ABP, PAP, CO, CI - Last Documented Arterial Blood Pressure 118/47 - Constitutional General appearance: Present: no acute distress - Respiratory Respiratory: bilateral: diminished - Cardiovascular Rhythm: regular Heart sounds: normal: S1, S2 Abnormal Heart Sounds: Present: systolic murmur - Labs CBC & Chem 7: 07/15/18 05:39 07/15/18 05:39 Labs: Abnormal Lab Results - Last 24 Hours (Table) 07/14/18 07/14/18 07/14/18 Range/Units 11:50 17:28 20:08 RBC (4.30-5.90) m/uL Hgb (13.0-17.5) gm/dL Hct (39.0-53.0) % Lymphocytes # (1.0-4.8) k/uL Sodium (137-145) mmol/L BUN (9-20) mg/dL Creatinine (0.66-1.25) mg/dL Glucose (74-99) mg/dL POC Glucose (mg/dL) 139 H 225 H 265 H (75-99) mg/dL Total Protein (6.3-8.2) g/dL Albumin (3.5-5.0) g/dL 07/14/18 07/15/18 07/15/18 Range/Units 21:00 05:39 05:39 RBC 2.67 L (4.30-5.90) m/uL Hgb 8.0 L (13.0-17.5) gm/dL Hct 25.8 L (39.0-53.0) % Lymphocytes # 0.9 L (1.0-4.8) k/uL Sodium 135 L (137-145) mmol/L BUN 66 H (9-20) mg/dL Creatinine 2.22 H (0.66-1.25) mg/dL Glucose 154 H (74-99) mg/dL POC Glucose (mg/dL) 237 H (75-99) mg/dL Total Protein 5.4 L (6.3-8.2) g/dL Albumin 2.8 L (3.5-5.0) g/dL 07/15/18 Range/Units 06:23 RBC (4.30-5.90) m/uL Hgb (13.0-17.5) gm/dL Hct (39.0-53.0) % Lymphocytes # (1.0-4.8) k/uL Sodium (137-145) mmol/L BUN (9-20) mg/dL Creatinine (0.66-1.25) mg/dL Glucose (74-99) mg/dL POC Glucose (mg/dL) 165 H (75-99) mg/dL Total Protein (6.3-8.2) g/dL Albumin (3.5-5.0) g/dL Assessment and Plan Assessment: Assessment #1 acute respiratory distress #2 possible pulmonary embolization #3 possible sepsis of unknown source #4 acute non-ST patient myocardial infarction, type I versus type II #4 severe cardiomyopathy with significant drop in the left ventricle systolic function #5 acute on chronic renal failure Plan #1 I did recommend a conservative medical approach for the non-ST elevation IA. In the absence of any chest pain or chest discomfort and in the presence of renal failure #2 dual antiplatelet therapy with aspirin and Plavix #3 continue oral anticoagulation with Eliquis. #4 DC the Lasix IV and start the patient on Lasix by mouth #5 from a cardiovascular standpoint of view, the patient can be discharged to extended care vessel
[2018-07-15 11:36] LABS: Glucose,Whole Blood 297 mg/dL (75-99)
--- NOTE | 2018-07-15 11:36 | P.PN ---
Subjective Patient is seen in follow-up for acute kidney injury. Patient had a fall and was noted to have right femoral neck fracture and underwent right hip hemiarthroplasty on July 03. Patient was in the ICU for hypotension and was transferred out on July 14. He is off all vasopressors. He is nonoliguric. Renal function is stable. He is nonoliguric. Currently maintained on Lasix 40 mg IV twice daily. Vital signs are stable. General: The patient appeared well nourished and normally developed. HEENT: Head exam is unremarkable. Neck is without jugular venous distension. LUNGS: Lungs are clear to auscultation and percussion. Breath sounds decreased. HEART: Rate and Rhythm are regular. First and second heart sounds normal. No murmurs, rubs or gallops. ABDOMEN: Abdominal exam reveals normal bowel sounds. Non-tender and non- distended. No evidence of peritonitis. EXTREMITITES: 1+ edema. Objective - Vital Signs Vital signs: Vital Signs Temp 96.2 F L 07/15/18 08:00 Pulse 78 07/15/18 08:39 Resp 18 07/15/18 08:00 BP 133/106 07/15/18 08:00 Pulse Ox 93 L 07/15/18 08:00 Intake & Output 07/14/18 07/15/18 07/15/18 18:59 06:59 18:59 Intake Total 440 50 240 Output Total 725 910 Balance -285 -860 240 Weight 113.9 kg 108.5 kg Intake: IV 80 50 0.9 NACL 80 50 Oral 360 240 Output: Urine 725 910 Other: Voiding Method Indwelling Catheter Indwelling Catheter Indwelling Catheter ABP, PAP, CO, CI - Last Documented Arterial Blood Pressure 118/47 - Labs CBC & Chem 7: 07/15/18 05:39 07/15/18 05:39 Labs: Abnormal Lab Results - Last 24 Hours (Table) 07/14/18 07/14/18 07/14/18 Range/Units 11:50 17:28 20:08 RBC (4.30-5.90) m/uL Hgb (13.0-17.5) gm/dL Hct (39.0-53.0) % Lymphocytes # (1.0-4.8) k/uL Sodium (137-145) mmol/L BUN (9-20) mg/dL Creatinine (0.66-1.25) mg/dL Glucose (74-99) mg/dL POC Glucose (mg/dL) 139 H 225 H 265 H (75-99) mg/dL Total Protein (6.3-8.2) g/dL Albumin (3.5-5.0) g/dL 07/14/18 07/15/18 07/15/18 Range/Units 21:00 05:39 05:39 RBC 2.67 L (4.30-5.90) m/uL Hgb 8.0 L (13.0-17.5) gm/dL Hct 25.8 L (39.0-53.0) % Lymphocytes # 0.9 L (1.0-4.8) k/uL Sodium 135 L (137-145) mmol/L BUN 66 H (9-20) mg/dL Creatinine 2.22 H (0.66-1.25) mg/dL Glucose 154 H (74-99) mg/dL POC Glucose (mg/dL) 237 H (75-99) mg/dL Total Protein 5.4 L (6.3-8.2) g/dL Albumin 2.8 L (3.5-5.0) g/dL 07/15/18 Range/Units 06:23 RBC (4.30-5.90) m/uL Hgb (13.0-17.5) gm/dL Hct (39.0-53.0) % Lymphocytes # (1.0-4.8) k/uL Sodium (137-145) mmol/L BUN (9-20) mg/dL Creatinine (0.66-1.25) mg/dL Glucose (74-99) mg/dL POC Glucose (mg/dL) 165 H (75-99) mg/dL Total Protein (6.3-8.2) g/dL Albumin (3.5-5.0) g/dL Assessment and Plan Plan: Assessment: 1. Acute kidney injury secondary to ATN secondary to hypotension. Creatinine was 1.2 on July 03 and peaked at 2.6 to this admission. It is stable at 2.22 today. No records available from prior to this admission. UA is quite benign. No hydronephrosis noted on kidney ultrasound. Left kidney not fully visualized. 2. NSTEMI maintained on IV heparin. Repeat echocardiogram revealed ejection fraction of less than 20%. 3. Pneumonia status post IV antibiotics. 4. Hypotension secondary to shock - cardiogenic versus septic? Currently off vasopressors. 5. Right hip fracture status post hemiarthroplasty this admission. 6. Metabolic acidosis secondary to acute kidney injury. Better. 7. Diabetes mellitus. 8. Anemia. Iron deficiency noted. Possible component of chronic kidney disease. Maintained on Aranesp. 9. Hypokalemia secondary to diuresis. Improved post placement. 10. Volume overload. Improving. Plan: Continue Lasix 40 mg twice daily. Avoid nephrotoxins. Continue to monitor renal function and urine output. Repeat electrolytes in the morning.
--- NOTE | 2018-07-15 11:52 | P.DS ---
Providers Date of admission: 07/01/18 03:57 Expected date of discharge: 07/15/18 Attending physician: Tesha Herring MD Consults: 07/01/18 03:54 Consult Physician Stat Consulting Provider: Naresh Perdomo Consult Reason/Comments: medical mgmt of trauma patient Do you want consulting provider notified?: Already Contacted 07/01/18 07:30 Consult Physician Stat Consulting Provider: Mayank Gabriel Consult Reason/Comments: Cardiac clearance Do you want consulting provider notified?: Yes 07/07/18 06:02 Consult Physician Stat Consulting Provider: Calin Cesar Consult Reason/Comments: ICU management Do you want consulting provider notified?: Already Contacted 07/07/18 08:37 Consult Physician Stat Consulting Provider: [facility] Consult Reason/Comments: elevated d dimer, elevated troponins Do you want consulting provider notified?: Already Contacted 07/07/18 10:06 Consult Physician Stat Consulting Provider: Mayank Gabriel Consult Reason/Comments: Troponin elevation Do you want consulting provider notified?: Yes 07/07/18 10:34 Consult Physician Routine Consulting Provider: Clay Woods Consult Reason/Comments: right buttock wound/sepsis Do you want consulting provider notified?: Yes 07/09/18 08:27 Consult Physician Routine Consulting Provider: Mike Patino Consult Reason/Comments: JOSE Do you want consulting provider notified?: Yes Primary care physician: Stated None - Discharge Diagnosis(es) (1) Acute HFrEF (heart failure with reduced ejection fraction) Current Visit: Yes Status: Acute (2) Anemia Current Visit: Yes Status: Acute (3) Acute kidney injury superimposed on CKD Current Visit: Yes Status: Acute (4) COPD (chronic obstructive pulmonary disease) Current Visit: Yes Status: Acute (5) Hypertension Current Visit: Yes Status: Acute (6) Depression Current Visit: Yes Status: Acute (7) Acute myocardial infarction Current Visit: Yes Status: Acute (8) Acute respiratory failure Current Visit: Yes Status: Acute (9) Atrial fibrillation with RVR Current Visit: Yes Status: Acute (10) Fracture of hip Current Visit: Yes Status: Acute (11) Sepsis Current Visit: Yes Status: Acute (12) Diabetes Current Visit: No Status: Acute Hospital Course: 78-year-old male with PMH of COPD, heart failure, diabetes mellitus, depression , hyperlipidemia and atrial fibrillation presents the ED after mechanical fall. He is transferred after a possible subcapital fracture of the right femur, seen on CT at outside hospital. On initial presentation, there is concerns for altered mental status. There is a computed tomography scan of the cervical spine from the outside hospital which showed DJD and moderate cervical stenosis with corpectomy at C5 with bone graft. CT of the brain from outside hospital showed no hemorrhages and an old left frontal infarct. MRI of the brain was ordered due to the findings on CT brain. 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 Family reported that the patient was back to his baseline with no altered mentation, thus MRI brain was canceled. On presentation, patient had respiratory and metabolic acidosis. PH was 7.05, pCO2 of 70 and bicarb of 18 with O2 saturation of 67%. He was noted to have a history of COPD and the use of Lasix. Repeat ABG showed a normal pH with compensation. On presentation, patient had a high potassium of 5.8. He was given 10 units of insulin and potassium normalized. Patient was also noted to have an acute kidney injury. His BUN is 57, creatinine 1.65 and GFR 40. He was hydrated with normal saline at 50 mL per hour. Otherwise, his home medications were resumed for COPD, history of CAD, atrial fibrillation, diabetes mellitus, hypertension, depression and hyperlipidemia. Cardiology was consulted for medical clearance for hip surgery. Cardiology recommended echocardiogram which showed EF of 55-60% with mild LVH. Cardiology recommended discontinuing amiodarone induced decreasing metoprolol from 25 mg by mouth twice a day to 12.5 mg and patient was cleared for surgery. Patient underwent right hip arthroplasty on 07/03/2018. Patient had no postoperative complications. 18 was called on 07/07/2018 for altered mental status and difficulty breathing. Patient was noted to be acutely hypoxemic, hypotensive with a heart rate of 110 and tachypneic. T-max was 100.5 Fahrenheit with a mild leukocytosis of 11.3. Patient was started on nonrebreather and BiPAP. His lactic acid was 9.6 which trended down to 7.4. D-dimer was noted to be elevated, there was some concern for pulmonary embolus. Initial troponin was elevated at 3.7 with EKG showing a defibrillation and new left bundle branch block. He was started on IV Zosyn and daptomycin for concerns of sepsis (skin tear over the buttocks and possible left lower lobe pneumonia on chest x-ray) and cardiology was reconsulted for NSTEMI. There was also noted the patient had a deep sacral decubitus ulcer. He was given normal saline bolus and started on D5 with bicarbonate. All blood pressure medications were discontinued by cardiology and he was started on a diltiazem drip for atrial fibrillation. Epinephrine drip was used on July 10 to maintain blood pressure. Repeat echocardiogram showed less than 20% ejection fraction with global hypokinesis. Cardiology recommended that the patient be treated medically for NSTEMI. Cardiology recommended future cardiac angiogram after recovery his kidney status. His troponin down trended from a peak of 9.68 on July 07 2.92 on 07/11/2018. There is another concern for altered mental status and upward gaze deviation on the evening of July 11, head CT was negative. Patient was initially diuresed with Lasix IV which was discontinued for Lasix by mouth on 07/15/2017. Patient seen and examined prior to discharge. No acute events overnight. Patient reports improvement in his breathing. No complaints of chest pain, shortness of breath or palpitations. Cleared by cardiology for discharge. General: [non toxic], [slight resp distress on BiPAP], [appears at stated age] Derm: [warm], [dry] Head: [atraumatic], [normocephalic], [symmetric] Eyes: [EOMI], [no lid lag], [anicteric sclera] Mouth: [no lip lesion], [mucus membranes moist] Cardiovascular: [S1S2 reg], [no murmur], [positive DP pulse bilateral] Lungs: [Decreased breath sounds bilateral], [no rhonchi, no rales] , [no accessory muscle use] Abdominal: [soft], [ nontender to palpation], [no guarding], [no appreciable organomegaly] Ext: [no gross muscle atrophy], [2+ edema], [no contractures] Neuro: [No focal neurological deficit] Psych: [Alert], [oriented], [appropriate affect] Assessment and Plan 1. Acute HFrEF exacerbation: Echo on 07/08 showing EF < 20% with global hypokinesis. DC Lasix 40 IV BID and start 40 PO BID. Start Coreg 1.563 mg PO BID. Start Lisinopil 2.5 mg PO QD. Strict Ins and Outs. Daily weight. FU Cardiology and Nephrology 2. Pneumonia: Met criteria for sepsis [Tmax 100.5F with leukocytosis of 11.3 on 07/07, resolved since 07/08. Lactic acid 9.6 to 7.4 on 07/07]. Procalcitonin 4.28. Initially started on Daptomycin 500 mg IV QD, Zosyn 3.375g IV TID (completed 7 day course). Blood and wound cultures are negative after 144H. Tylenol 650 mg PO Q6H PRN for fever. FU ID consult 3. NSTEMI: Troponin 3.720 to 9.610. Possibly demand ischemia from sepsis but real concern for ACS given new LBBB. Echocardiogram prior to surgery was EF 55- 60%, obtained 07/08 shows EF < 20% with global hypokinesis. Cardiology consulted , recommended medical management with angiogram at later time if patient can tolerate. Continue ASA 81 mg PO QD, Plavix 75 mg PO QD. Continue Coreg 1.563 mg PO BID. Start Lisinopril. FU Cardiology 4. A-Fibrillation: Amiodarone 100 mg PO QD discontinued by Cardiology on admission. Continue Coreg 1.563 mg PO BID. Keep K > 4 and Mg > 2. Telemetry monitoring. FU Cardiology 5. Acute subcapital fracture of the R femur: POD 11. Hip XR shows no obvious fracture. Pain management with [place] 10 1 tab PO Q4H PRN for pain 1-5, Dilaudid 0.5 mg IV Q3H PRN for Pain 6-10. Weight bearing as per Ortho recommendations. Will follow Orthopedic, PT and OT recommendations. 6. Anemia due to acute blood loss from surgery: Hg 10.2 to 8.3, maintaining at 7.8. Likely blood loss from surgery. Telemetry monitoring. Transfuse if Hg < 7.0. Daily CBC. 7. Acute kidney injury: Cr 2.25 to 2.22. Likely due to dehydration, IV Abx and Lasix given during admission. Avoid nephrotoxins. Daily BMP. FU Nephrology 9. COPD: Albuterol 2.5 mg neb BID PRN for SOB/wheezing. O2 per NC to maintain O2 sat > 92%. BiPAP if necessary. 10. Diabetes Mellitus: POC glucose 139. Continue Levemir 12 units SQ QD, ISS. Hypoglycemic precautions. Regular accuchecks. 11. Hypertension: Hypotensive in MICU. BP 133/106. Continue low-dose beta ramin. Add Lisinopril. Monitor vitals, adjust medications as necessary. 12. Depression: Stable. Continue Paroxetine 20 mg PO BID. 13. DVT/GI Prophylaxis: Apixaban Resolved; Acute respiratory failure Patient being treated for pneumonia, completed 7 days course of antibiotics. Diagnosed with non-ST elevation NH, recommended medical management by cardiology. Currently being treated for CHF exacerbation, IV to PO diuresing. Patient to be transferred out of ICU to [facility]. Plans for [facility]. Hopeful DC today Pertinent Studies: Chest x-ray Brain CT Venous Doppler Hip x-ray Echocardiogram Procedures: Right hip arthroplasty Patient Condition at Discharge: Stable Plan - Discharge Summary Discharge Rx Participant: No New Discharge Prescriptions: New Apixaban [Eliquis] 2.5 mg PO BID #60 tablet Aspirin 81 mg PO DAILY #30 chew Atorvastatin [Lipitor] 40 mg PO HS #30 tab Carvedilol [Coreg] 1.563 mg PO BID-W/MEALS #60 dose Clopidogrel [Plavix] 75 mg PO DAILY #30 tab Furosemide [Lasix] 40 mg PO BID@0900,1600 #60 tab Lisinopril [Zestril] 2.5 mg PO DAILY #30 tab Continue Albuterol Nebulized [Ventolin Nebulized] 2.5 mg INHALATION RT-BID Pyridoxine HCl (Vitamin B6) [Vitamin B-6] 200 mg PO DAILY Folic Acid 1 mg PO DAILY Cyanocobalamin (Vitamin B-12) [Vitamin B-12] 1,000 mcg PO DAILY Clopidogrel [Plavix] 75 mg PO DAILY Cholecalciferol [Vitamin D3] 3,000 unit PO DAILY metFORMIN HCL 1,000 mg PO BID Pioglitazone [Actos] 45 mg PO DAILY Glimepiride [Amaryl] 4 mg PO BID Gemfibrozil [Lopid] 600 mg PO AC-BID #60 tab PARoxetine [Paxil] 20 mg PO BID #60 tab Discontinued Potassium Gluconate 99 mg PO DAILY [place]-3 Fatty Acids [[place]-3] 1,000 mg PO DAILY Furosemide [Lasix] 20 mg PO DAILY Aspirin EC [Ecotrin] 325 mg PO DAILY amLODIPine [Norvasc] 5 mg PO DAILY Metoprolol Tartrate [Lopressor] 25 mg PO BID Enalapril [Vasotec] 10 mg PO BID Amiodarone [Cordarone] 100 mg PO DAILY Discharge Medication List Albuterol Nebulized [Ventolin Nebulized] 2.5 mg INHALATION RT-BID 07/01/18 [ History] Cholecalciferol [Vitamin D3] 3,000 unit PO DAILY 07/01/18 [History] Clopidogrel [Plavix] 75 mg PO DAILY 07/01/18 [History] Cyanocobalamin (Vitamin B-12) [Vitamin B-12] 1,000 mcg PO DAILY 07/01/18 [ History] Folic Acid 1 mg PO DAILY 07/01/18 [History] Glimepiride [Amaryl] 4 mg PO BID 07/01/18 [History] Pioglitazone [Actos] 45 mg PO DAILY 07/01/18 [History] Pyridoxine HCl (Vitamin B6) [Vitamin B-6] 200 mg PO DAILY 07/01/18 [History] metFORMIN HCL 1,000 mg PO BID 07/01/18 [History] Apixaban [Eliquis] 2.5 mg PO BID #60 tablet 07/15/18 [Rx] Aspirin 81 mg PO DAILY #30 chew 07/15/18 [Rx] Atorvastatin [Lipitor] 40 mg PO HS #30 tab 07/15/18 [Rx] Carvedilol [Coreg] 1.563 mg PO BID-W/MEALS #60 dose 07/15/18 [Rx] Clopidogrel [Plavix] 75 mg PO DAILY #30 tab 07/15/18 [Rx] Furosemide [Lasix] 40 mg PO BID@0900,1600 #60 tab 07/15/18 [Rx] Gemfibrozil [Lopid] 600 mg PO AC-BID #60 tab 07/15/18 [Rx] Lisinopril [Zestril] 2.5 mg PO DAILY #30 tab 07/15/18 [Rx] PARoxetine [Paxil] 20 mg PO BID #60 tab 07/15/18 [Rx] Follow up Appointment(s)/Referral(s): Mayank Gabriel MD [STAFF PHYSICIAN] - 2 Weeks Juan Lozano PAC [PHYSICIAN [employer]] - 4 Weeks None,Stated [Primary Care Provider] - 1-2 days Mike Patino DO [STAFF PHYSICIAN] - 2 Weeks Activity/Diet/Wound Care/Special Instructions: Repeat chest x-ray in 1 week DX: PNA BMP in 1 week DX: JOSE Orthopedic discharge instructions: 1. Weight-bear as tolerated with walker 2. Posterior hip precautions, no flexing at the waist past 90, no crossing legs, do not sleep on that side 3. Daily dressing changes, do not remove tape over incision until 07/17/2018 4. [facility] at [facility] 3-4 weeks Discharge Disposition: TRANSFER TO SNF/ECF
[2018-07-15 13:00] VITALS: BP 108/53; PULSE 80; TEMP 98.2
--- NOTE | 2018-07-15 14:31 | P.PN ---
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 Underlying COPD, obstructive sleep apnea syndrome, patient was admitted to the hospital on 2018, and he was admitted after a fall sustaining a right hip fracture, patient was admitted, seen by orthopedic surgery on consultation, and he underwent right hip arthroplasty for right upper Patellofemoral neck fracture by Dr. Abernathy on 07/03/2018. Patient is also known to have history of chronic decubitus sacral ulcer. Overnight last night, patient developed changes in mental status. He was also noted to have more difficulty breathing. He was noted to be hypoxic, tachypneic, and he had a low-grade temp of 100.5. The rapid response team from the intensive care unit responded to the patient, he was noted to be metabolically acidotic, his lactic acid was elevated, d-dimer was also elevated, his renal functioning was noted to be worse, and his ABG showed a pO2 of 201, pCO2 was 29 and pH was 7.21. Hence patient was placed on BiPAP, placed on a sodium bicarb drip, antibiotics where broadened spectrum, patient was placed on insulin drip for hyperglycemia, and he was transferred to the ICU. Patient has a DO NOT RESUSCITATE CODE STATUS based on his previously expressed wishes, hence he was managed with BiPAP, and will be managed with mostly antibiotics, fluids, however the patient is known to have history of LV dysfunction and his ejection fraction is about 20%. I saw the patient this morning in the ICU, and I discussed the different issues with his family at bedside. Reviewed all the medications he is presently on, and recommended infectious disease consultation on the patient. His chest x-ray did show evidence of interstitial edema or infiltrate in the left lung. X-rays of the lumbosacral spine showed compression fractures and deformities in the lumbar spine and lower thoracic vertebral. Echocardiogram showed severe global hypokinesis of the left ventricle. His lactic acid was noted to be elevated, 9.6 initially, and it is 7.4 now. Patient received fluid boluses of 1.5 L, hence maintenance IV fluid was placed at 100 mL/h, and sodium bicarb drip was addressed. PTT was over 200 and heparin was adjusted as per protocol. D-dimer was 2.28. Patient is normally on Plavix but presently on heparin Reevaluated today on 07/08/2018, patient remains in the ICU, on BiPAP, remains on antibiotics, bronchodilators, diuretics, patient remains on norepinephrine, presently at 15 g, and this is running through a peripheral IV line, hence I will establish a central IV access today. Patient's x-ray continues to show abnormalities on the left side, mostly interstitial edema-like picture, however the possibility of left lower lobe pneumonia and pleural effusion is not entirely ruled out. Pulmonary status is definitely marginal. His ABG reflected significant improvement in his acidosis, hence I recommended that was stopped sodium bicarb drip today. However what is interesting is the fact that his troponin is significantly high, and his BNP level is quite high at 44 600, troponin is 9.610. Dr. Tadeo seems to be quite concerned about the possibility of non-ST elevation myocardial infarction, and he is treating him as such. Patient is not the most ideal candidate for cardiac catheterization at this point considering his renal functioning. And considering the possibility of ongoing sepsis patient is still hemodynamically requiring significant dose of norepinephrine. I did review the chest x-ray, I recommended diuretics, and I'm still keeping the patient on broad-spectrum antibiotics for presumptive underlying sepsis. Patient was seen by infectious disease on consultation. WBC count is 7.2 hemoglobin is 7.7. PT is 68, however I held the heparin to safely place a central IV access. ABG showed a pO2 of 108 pCO2 of 31 pH of 7.55 and this is on O2 with IPAP of 12 and EPAP of 6. Patient was reevaluated today on 07/09/2018, remains in the ICU, off BiPAP, he is on a high flow nasal cannula at 10 L/m. Chest x-ray is showing improvement in his interstitial edema and possible left lower lobe pneumonia with atelectasis in the left lower lobe, patient remains on norepinephrine at 13 mcg/ m, blood pressure remains marginal. Clinically however the patient is feeling better, breathing easier, and his chest x-ray is clearly showing some improvement. All labs were reviewed, hemoglobin is 7.4 today. WBC count is 8.9. Electrolytes are noted, continues to have anion gap of 15, BUN is 61 creatinine is 2.44, slightly worse compared to the last couple of days, hence considering the patient is diuresing on his own, we'll hold the Lasix for the time being. I believe that renal functioning is mostly cardiorenal in nature patient does have severe LV dysfunction. And has been receiving a significant amount of diuretics since admission to the ICU. Liver enzymes were noted to be slightly elevated/transaminases. CPK was also noted to be elevated at 1092. Renal ultrasound was noted to be unremarkable, however the left kidney could not be visualized with certainly. Patient is feeling better, he is hard of hearing, but he is feeling better today compared to how he felt over the last few days, and seems to be very appropriate. But again has difficulty hearing. Patient was reevaluated today on 07/10/2018. Remains in the intensive care unit , presently on 4 L nasal cannula. He is in normal sinus rhythm, off norepinephrine, continues to have some fluid and consolidation in the left lower lobe area. Clinically however the patient is feeling much better. Venous Doppler of the leg was negative. And I see no value of ordering a VQ scan on this patient, because my index of suspicion for pulmonary embolism is extremely low. Patient does not have thromboembolic disease. However his heparin was initially started with the assumption that the patient had atrial fibrillation he also had LV dysfunction, and significantly elevated troponins. We felt that the reason we started heparin was mostly because of cardiac issues and not because of pulmonary issues. Pulmonary-amin, the patient is feeling better, his breathing a lot easier, and again he is only on 4 L nasal cannula. Urine output remains good, he received a dose of Lasix today given to him by the content assistant. Chest x-ray was reviewed, all labs were reviewed, BUN is 61 creatinine is 2.47. Liver enzymes are borderline elevated. Hemoglobin is 7.1, may consider giving the patient a unit of packed RBCs. Patient was reevaluated today on 07/11/2018, remains in the ICU, but he is doing excellent, significantly improved over the last few days. Patient is on few liters nasal cannula, he is off pressors, heparin was discontinued, and my index of suspicion for pulmonary embolism is extremely low. His presentation was clearly not a pulmonary embolism presentation. It was mostly a presentation of sepsis, non-ST elevation myocardial infarction, congestive heart failure, and left lower lobe pneumonia was strongly suspected. Nowhere in my notes I even considered pulmonary embolism in this patient. I have no idea why is the VQ scan being considered on this patient. Not to mention the VQ scan will come back abnormal considering the abnormal findings on the chest x -ray. Considering no index of suspicion for pulmonary embolism on my behalf, and considering there are many other issues that can explain his presentation, no need for VQ scan, and no need for heparin for pulmonary issues unless it is felt necessary for cardiac issues including episodes of atrial fibrillation and non-ST elevation myocardial infarction and severe LV dysfunction. I reviewed the chest x-ray today with the , and explained to her that I may consider ultrasound of the chest, and may consider left-sided thoracentesis if there is enough fluid to be drained. All labs were reviewed, patient continues to have acute kidney injury, and that being addressed by nephrology on the case. Patient was reevaluated today on 07/12/2018, patient remains in the ICU, however he is an overflow from selective. Remains on 3 L nasal cannula, off pressors, off heparin, remains on antibiotics for presumptive left lower lobe pneumonia, remains on diuretics, and he received an extra dose of Lasix today by cardiology since his chest x-ray is showing some evidence of interstitial edema , and the patient is known to have history of cardiomyopathy and LV dysfunction. The patient himself is relatively asymptomatic. Reviewed the ultrasound from yesterday, there isn't much fluid to be drained from the left pleural space. Hemoglobin remains low at 7.4, WBC count is 5.8. Electrode was are normal however his BUN is 69 creatinine is 2.6, and I believe this is mostly related to his cardiorenal picture. And severe LV dysfunction. Patient was reevaluated today on 07/13/2018, he is still in the ICU as an overflow from [facility]. Remains on 3 L nasal cannula which is his baseline O2 requirement. Patient remains off heparin, remains on antibiotics, his ultrasound was reviewed and again he was updated that there is not much fluid to perform thoracentesis on. Patient is still being followed by many consultants including cardiology and nephrology. His urine output is excellent today. Labs were reviewed, his BUN is 70 creatinine is 2.37. His baseline creatinine on admission was 1.65. And it improved as low as 1.20 on 07/03. Creatinine yesterday was 2.62 and today it is 2.37. I believe the patient clearly has cardiorenal dysfunction, and that is causing his creatinine to be elevated. Patient remains on furosemide 40 mg IV push every 12 hours, and he is closely monitored by nephrology. Remains on Zosyn for presumptive left lower lobe pneumonia. All cultures have been negative. on 07/14/2018 patient seen in follow-up in the intensive care unit. awake and alert, in no acute distress, responding appropriately, no fever or chills, currently on 3 L per nasal cannula his pulse ox is 98%, 1 sounds are clear to auscultation, no rhonchi, no rales. He is in sinus mechanism at a rate of 72 BPM, 0.9 normal saline at a rate of 10 ML per hour. Patientdenies any worsening dyspnea, denies any chest pain.this chest x-ray has been reviewed with Dr. Beckham, and shows stable bilateral infiltrates and pleural effusions. 0 mL fluid balance over the last 24 hours.negative, wound culture is negative. slightly improved renal profile on today's labs, with B1 of 67, and creatinine of 2.25.white count is 7.3, hemoglobin is 7.8. The patient is seen today 07/15/2018 in follow-up on the [facility] care unit. He is currently awake and alert in no acute distress. He is maintaining O2 saturations in the 90s on 2 L/m per nasal cannula. He's been afebrile. Hemodynamically stable. He had not been requiring any BiPAP assistance and it was removed from his room yesterday. Blood cultures reveal no growth. White count 6.6. Hemoglobin 8.0. Creatinine 2.22. Objective - Vital Signs Vital signs: Vital Signs Temp 98.2 F 07/15/18 12:00 Pulse 80 07/15/18 12:00 Resp 18 07/15/18 12:00 BP 108/53 07/15/18 12:00 Pulse Ox 91 L 07/15/18 12:00 Intake & Output 07/14/18 07/15/18 07/15/18 18:59 06:59 18:59 Intake Total 440 50 480 Output Total 725 910 Balance -285 -860 480 Weight 113.9 kg 108.5 kg Intake: IV 80 50 0.9 NACL 80 50 Oral 360 480 Output: Urine 725 910 Other: Voiding Method Indwelling Catheter Indwelling Catheter Indwelling Catheter ABP, PAP, CO, CI - Last Documented Arterial Blood Pressure 118/47 - Exam GENERAL EXAM: Alert, pleasant, 78-year-old white male, 2 L per nasal cannula with pulse ox of 98% comfortable in no apparent distress. HEAD: Normocephalic/atraumatic. EYES: Normal reaction of pupils, equal size. Conjunctiva pink, sclera white. NOSE: Clear with pink turbinates. THROAT: No erythema or exudates. NECK: No masses, no JVD, no thyroid enlargement, no adenopathy. CHEST: No chest wall deformity. Symmetrical expansion. LUNGS: Equal air entry with no crackles, wheeze, rhonchi or dullness. CVS: Regular rate and rhythm, normal S1 and S2, no gallops, no murmurs, no rubs ABDOMEN: Soft, nontender. No hepatosplenomegaly, normal bowel sounds, no guarding or rigidity. EXTREMITIES: No clubbing, generalized edema, 2+ edema and upper arms, and lower legs no cyanosis, 2+ pulses and upper and lower extremities. MUSCULOSKELETAL: Muscle strength and tone normal. SPINE: No scoliosis or deformity SKIN: No rashes CENTRAL NERVOUS SYSTEM: Alert and oriented -3. No focal deficits, tone is normal in all 4 extremities. PSYCHIATRIC: Alert and oriented -3. Appropriate affect. Intact judgment and insight. - Labs CBC & Chem 7: 07/15/18 05:39 07/15/18 05:39 Labs: Abnormal Lab Results - Last 24 Hours (Table) 07/14/18 07/14/18 07/14/18 Range/Units 17:28 20:08 21:00 RBC (4.30-5.90) m/uL Hgb (13.0-17.5) gm/dL Hct (39.0-53.0) % Lymphocytes # (1.0-4.8) k/uL Sodium (137-145) mmol/L BUN (9-20) mg/dL Creatinine (0.66-1.25) mg/dL Glucose (74-99) mg/dL POC Glucose (mg/dL) 225 H 265 H 237 H (75-99) mg/dL Total Protein (6.3-8.2) g/dL Albumin (3.5-5.0) g/dL 07/15/18 07/15/18 07/15/18 Range/Units 05:39 05:39 06:23 RBC 2.67 L (4.30-5.90) m/uL Hgb 8.0 L (13.0-17.5) gm/dL Hct 25.8 L (39.0-53.0) % Lymphocytes # 0.9 L (1.0-4.8) k/uL Sodium 135 L (137-145) mmol/L BUN 66 H (9-20) mg/dL Creatinine 2.22 H (0.66-1.25) mg/dL Glucose 154 H (74-99) mg/dL POC Glucose (mg/dL) 165 H (75-99) mg/dL Total Protein 5.4 L (6.3-8.2) g/dL Albumin 2.8 L (3.5-5.0) g/dL 07/15/18 Range/Units 11:30 RBC (4.30-5.90) m/uL Hgb (13.0-17.5) gm/dL Hct (39.0-53.0) % Lymphocytes # (1.0-4.8) k/uL Sodium (137-145) mmol/L BUN (9-20) mg/dL Creatinine (0.66-1.25) mg/dL Glucose (74-99) mg/dL POC Glucose (mg/dL) 297 H (75-99) mg/dL Total Protein (6.3-8.2) g/dL Albumin (3.5-5.0) g/dL Assessment and Plan Assessment: Impression: 1 acute hypoxic respiratory failure secondary to sepsis, most likely source is his sacral ulcer. Although other possibilities including urine and pneumonia not entirely ruled out. But felt to be less likely. On 3 L nasal 2 acute lactic acidosis secondary to sepsis improving. His lactic acidosis could also be secondary to his cardiogenic dysfunction. Ejection fraction is 20 % 3 severe LV dysfunction, ejection fraction of 20%, patient is high risk for developing congestive heart failure and pulmonary edema with treatment of sepsis and fluids. . 4 electrolytes imbalance including hyponatremia and hyperkalemia, resolved 5 coronary artery disease, 6 chronic anemia 7 acute on chronic kidney disease, possibly acute kidney injury, being followed by nephrology, likely cardiorenal in nature 8 chronic obstructive pulmonary disease, supposedly moderately severe. Patient is normally on updrafts at home. 9 history of CVA and history of hydrocephalus requiring MATRIX BATH ATTENDANT shunt, history of chronic right foot drop. 10 status post right hemiarthroplasty for right hip fracture, patient is postoperative day #11 11 suspect left pleural effusion, however ultrasound revealed minimal amount of fluid, not safe to do thoracentesis at this point. 12 extremely low index of suspicion for pulmonary embolism, hence if heparin is not to be used by cardiology, and no cardiac indication for heparin, there is definitely no pulmonary indication for heparin at this point. Again no need for a VQ scan. Discussed this issue specifically with Dr. Tadeo on the case. Plan: The patient was seen and evaluated by Dr. Beckham. He is currently stable for discharge from the pulmonary standpoint. He is planning on being transferred to [place] for further rehabilitation. Continue with oxygen per nasal cannula to maintain O2 saturations in the 90s. No need for BiPAP the last few evenings. The plan is for continued rehabilitation at [place]. I, the cosigning physician, performed a history & physical examination of the patient. Lungs sounds with bilateral basilar crackles. Maintaining good O2 saturations in the 90s on 2 L/m per nasal cannula. I discussed the assessment and plan of care with my nurse practitioner, Radha Levy. I attest to the above note as dictated by her.
[2018-07-15] MEDS ORDERED: FUROSEMIDE 40 MG TAB PO SCH (16:00)
--- NOTE | 2018-07-16 14:21 | CDI ---
Documentation Clarification Form Date: 07/16/18 From: Stacy Couch Phone: If you have a question regarding this query, please contact Halle Thakkar at [phone] between 8am and 5pm. Admit Date: 07/01/2018 3:57:00 AM Patient Name: Jeremy Sifuentes Visit Number: [id number] Discharge Date: 07/15/2018 3:08:00 PM ATTENTION: The Clinical Documentation Specialists (CDI) and [facility] Coding Staff appreciate your assistance in clarifying documentation. Please respond to the clarification below the line at the bottom and electronically sign. The CDI & [facility] Coding staff will review the response and follow-up if needed. Please note: Queries are made part of the Legal Health Record. If you have any questions, please contact the author of this message via ITS. Dr. Tesha Herring "Code stroke was initiated" is documented in Dr. Brown's 07/11 progress note. History/risk factors: The patient has a history of previous stroke. The patient was admitted for subcapital fracture of the right femur. The patient developed sepsis, pneumonia, NSTEMI, acute respiratory failure, acute kidney injury and encephalopathy. Clinical Indicators: On 07/11, the patient developed confusion, left upward gaze , lethargy and difficulty speaking. 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 No acute intracranial abnormality. MRI/MRA: Not done. Treatment: Code stroke initiated. No other documentation of stroke. In your professional opinion, please clarify: Stroke ruled in (please specify cause): Cause of Stroke/CVA: Stenosis/Occlusion Embolic Thrombolytic Hypertension Other (please specify) Stroke ruled out TIA Unable to Determine Stroke ruled out __ MTDD
--- NOTE | 2018-07-16 14:36 | CDI ---
Documentation Clarification Form Date: 07/16/18 From: Stacy Couch Phone: If you have a question regarding this query, please contact Halle Thakkar at [phone] between 8am and 5pm. Admit Date: 07/01/2018 3:57:00 AM Patient Name: Jeremy Sifuentes Visit Number: [id number] Discharge Date: 07/15/2018 3:08:00 PM ATTENTION: The Clinical Documentation Specialists (CDI) and [facility] Coding Staff appreciate your assistance in clarifying documentation. Please respond to the clarification below the line at the bottom and electronically sign. The CDI & [facility] Coding staff will review the response and follow-up if needed. Please note: Queries are made part of the Legal Health Record. If you have any questions, please contact the author of this message via ITS. Dr. Tesha Herring A chronic deep decubitus ulcer was documented throughout the record. History/Risk Factors: History of falling. Patient has a history of PVD, diabetes, anemia, CAD, CHF, morbid obesity and was admitted for subcapital fracture of the right femur. Clinical Indicators: Periwound tenderness. Location: Sacrum Wound description: Per nursing documentation, eschar, excoriation, maceration and erythema. Treatment: Dry dressing. Daptomycin and Zosyn. Consults: Large deep sacral decubitus ulcer In your professional opinion, can you please clarify the diagnosis: Stage 1 Pressure/Decubitus Ulcer (intact skin, non-blanching redness of local area) Stage 2 Pressure/Decubitus Ulcer (Partial thickness, loss of dermis, pink wound bed) Stage 3 Pressure/Decubitus Ulcer (Full thickness tissue loss) Stage 4 Pressure/Decubitus Ulcer (Full thickness tissue loss with exposed bone, tendon, or muscle. May havve slough or eschar present) Unstageable Other condition, please specify Unable to determine Unable to determine MTDD
== END 2018-07-15 15:08 | DRG 469 ==
LOC: EC 03:11 → 4SSUR 03:57 → 4MS4W 07-06 21:58 → 4SSUR 07-06 21:58 → 2SICU 07-07 04:56 → 3SCARD 07-15 00:51
PROVIDERS: ADMIT Orthopaedic Surgery; ATTEND Family Medicine
PROC: 0SRR01A Replacement of Right Hip Joint, Femoral Surface with Metal Synthetic Substitute, Uncemented, Open Approach (ICD-10-PCS; principal; 2018-07-03 14:00)
PROC: 5A09457 Assistance with Respiratory Ventilation, 24-96 Consecutive Hours, Continuous Positive Airway Pressure (ICD-10-PCS; 2018-07-07)
PROC: 06HM33Z Insertion of Infusion Device into Right Femoral Vein, Percutaneous Approach (ICD-10-PCS; 2018-07-08)
PROC: 03HY32Z Insertion of Monitoring Device into Upper Artery, Percutaneous Approach (ICD-10-PCS; 2018-07-08 08:45)
DX: S72.011A Unspecified intracapsular fracture of right femur, initial encounter for closed fracture (principal); J96.22 Acute and chronic respiratory failure with hypercapnia; J96.21 Acute and chronic respiratory failure with hypoxia; A41.9 Sepsis, unspecified organism; G93.41 Metabolic encephalopathy; I21.4 Non-ST elevation (NSTEMI) myocardial infarction; I50.43 Acute on chronic combined systolic (congestive) and diastolic (congestive) heart failure; J18.9 Pneumonia, unspecified organism; R65.21 Severe sepsis with septic shock; K72.00 Acute and subacute hepatic failure without coma; N17.0 Acute kidney failure with tubular necrosis; D62 Acute posthemorrhagic anemia; E87.1 Hypo-osmolality and hyponatremia; E87.4 Mixed disorder of acid-base balance; I13.0 Hypertensive heart and chronic kidney disease with heart failure and stage 1 through stage 4 chronic kidney disease, or unspecified chronic kidney disease; I42.9 Cardiomyopathy, unspecified; I45.2 Bifascicular block; J44.0 Chronic obstructive pulmonary disease with (acute) lower respiratory infection; L89.159 Pressure ulcer of sacral region, unspecified stage; E11.22 Type 2 diabetes mellitus with diabetic chronic kidney disease; E11.51 Type 2 diabetes mellitus with diabetic peripheral angiopathy without gangrene; E11.65 Type 2 diabetes mellitus with hyperglycemia; E86.0 Dehydration; E87.5 Hyperkalemia; I48.91 Unspecified atrial fibrillation; E66.01 Morbid (severe) obesity due to excess calories; M48.02 Spinal stenosis, cervical region; I34.0 Nonrheumatic mitral (valve) insufficiency; N18.3 Chronic kidney disease, stage 3 (moderate); D63.8 Anemia in other chronic diseases classified elsewhere; H51.0 Palsy (spasm) of conjugate gaze; Z66 Do not resuscitate; E78.5 Hyperlipidemia, unspecified; E87.6 Hypokalemia; F17.200 Nicotine dependence, unspecified, uncomplicated; F32.9 Major depressive disorder, single episode, unspecified; G47.33 Obstructive sleep apnea (adult) (pediatric); H54.62 Unqualified visual loss, left eye, normal vision right eye; H91.90 Unspecified hearing loss, unspecified ear; I25.10 Atherosclerotic heart disease of native coronary artery without angina pectoris; I44.0 Atrioventricular block, first degree; R32 Unspecified urinary incontinence; K59.00 Constipation, unspecified; M19.90 Unspecified osteoarthritis, unspecified site; M21.371 Foot drop, right foot; T50.2X5A Adverse effect of carbonic-anhydrase inhibitors, benzothiadiazides and other diuretics, initial encounter; R29.6 Repeated falls; D50.9 Iron deficiency anemia, unspecified; Z91.81 History of falling; Z79.02 Long term (current) use of antithrombotics/antiplatelets; Z79.82 Long term (current) use of aspirin; Z79.899 Other long term (current) drug therapy; Z79.84 Long term (current) use of oral hypoglycemic drugs; Z98.2 Presence of cerebrospinal fluid drainage device; Z96.653 Presence of artificial knee joint, bilateral; Z95.1 Presence of aortocoronary bypass graft; Z88.1 Allergy status to other antibiotic agents; Z68.33 Body mass index [BMI] 33.0-33.9, adult; Z86.73 Personal history of transient ischemic attack (TIA), and cerebral infarction without residual deficits; Z87.820 Personal history of traumatic brain injury; Z80.0 Family history of malignant neoplasm of digestive organs; W01.0XXA Fall on same level from slipping, tripping and stumbling without subsequent striking against object, initial encounter; Y92.009 Unspecified place in unspecified non-institutional (private) residence as the place of occurrence of the external cause
CPT/HCPCS: 36410; 36415; 36600; 70450; 71045; 72100; 73501; 73502; 76604; 76770; 76937; 80048; 80053; 80076; 81001; 81003; 82272; 82550; 82553; 82728; 82803; 82805; 83036; 83540; 83550; 83605; 83735; 83880; 84100; 84145; 84484; 85025; 85027; 85379; 85610; 85730; 86850; 86900; 86901; 87040; 87070; 87205; 87324; 88305; 88311; 93005; 93306; 93970; 94640; 94660; 94760; 99285